=== PATIENT | female | born 1935 | race Caucasian/White ===

== ENCOUNTER → 2017-11-21 13:30 | Outpatient (CLI) | payer MEDICARE, SELFPAY ==
[2017-11-11 03:07] VITALS: BMI 25.7
== END ==
PROVIDERS: PCP Internal Medicine; Visit Provider Internal Medicine
DX: S81.801A Unspecified open wound, right lower leg, initial encounter (principal); L03.115 Cellulitis of right lower limb
CPT/HCPCS: 11042; 11045

== ENCOUNTER → 2017-11-28 13:50 | Outpatient (CLI) | payer MEDICARE, SELFPAY ==
[2017-11-11 03:07] VITALS: BMI 25.7
== END ==
PROVIDERS: PCP Internal Medicine; Visit Provider Internal Medicine
DX: S81.801A Unspecified open wound, right lower leg, initial encounter (principal)
CPT/HCPCS: 11042; 11045; 97607

== ENCOUNTER 2017-12-01 22:24 | Inpatient (IN) | payer MEDICARE, SELFPAY ==
[2017-11-11 03:07] VITALS: BMI 25.7
[2017-12-01 22:38] VITALS: BP 170/88; PULSE 73; RESP 18; TEMP 36.3; O2SAT 96
--- NOTE | 2017-12-01 22:41 | DI.RAD.S_ITS ---
PROCEDURE: XR HIP W PEL IF DONE RT 2V INDICATIONS: hip dislocation TECHNIQUE: AP pelvis with lateral view(s) of the right hip(s). COMPARISON: [facility], , XR HIP W PEL IF DONE RT 2V, 11/10/2017, 15:21. FINDINGS: Bones: No fractures. Dislocation of the right hip arthroplasty. Pelvic ring appears intact. No suspicious bony lesions. Lower lumbar discogenic changes. Intact left hip arthroplasty in expected alignment. Soft tissues: The visualized bowel gas pattern is normal. No suspicious soft tissue calcifications. IMPRESSION: Dislocated right hip arthroplasty. Dictated by: Jn Urbina M.D. on 12/02/2017 at 7:16 Approved by: Jn Urbina M.D. on 12/02/2017 at 7:18
[2017-12-01] MEDS: HYDROMORPHONE 0.5 MG INJ IV ×2 (22:52→23:50)
[2017-12-01 23:23] LABS: Add Manual Diff / Slide Review NO; Basophils Percent Auto 1.5 % (0-2); Eosinophils Percent Auto 1.3 % (2-4); Hematocrit 29.6 % (36-46); Lymphocytes Percent Auto 19.2 % (25-40); Mean Corpuscular HGB Conc 33.8 % (30-36); Mean Corpuscular Hemoglobin 33.3 PG (26-34); Mean Corpuscular Volume 98.3 fL (80-100); Monocytes Percent Auto 16.4 % (3-14); Neutrophils Absolute Auto 2400 /uL (3000-5900); Neutrophils Percent Auto 61.6 % (50-75); Platelet Count 248 X10^3/uL (150-400); Red Blood Cell Count 3.01 X10^6/uL (4.0-5.2); Red Cell Distribution Width 17.3 % (11.6-14.8); White Blood Cell Count 3.9 X10^3/uL (4.5-11.0)
[2017-12-01 23:30] VITALS: BP 143/69; PULSE 64; RESP 18
[2017-12-01 23:53] LABS: Blood Urea Nitrogen 12 mg/dL (7-17); Carbon Dioxide 25 mmol/L (22-32); Chloride 100 mmol/L (98-107); Estimated Glomerular Filt Rate > 60.0 mL/min (>60); Glucose 96 mg/dL (80-110); HEMOLYSIS < 15 (0-50); Potassium 4.1 mmol/L (3.4-5.1); Sodium 136 mmol/L (137-145)
[2017-12-02] VITALS (18 sets, daily range): BP systolic 124–161; BP diastolic 59–89; PULSE 58–84; RESP 10–18; TEMP 35.9–36.8; O2SAT 94–100; BMI 25.8
--- NOTE | 2017-12-02 | DI.RAD.S_ITS ---
PROCEDURE: XR HIP RT 1V INDICATIONS: 82 year-old female with right hip dislocation. TECHNIQUE: Single frontal intraprocedural view of the hip acquired. COMPARISON: [facility], [facility], XR HIP W PEL IF DONE RT 2V, 11/10/2017, 15:21. [facility], [facility], XR HIP W PEL IF DONE RT 2V, 11/10/2017, 13:10. [facility], [facility], HIP 1V RIGHT, 11/01/2017, 19:43. [facility], , [id number] W PEL IF PERFORMED, 11/01/2017, 16:09. [facility], [facility], XR HIP W PEL IF DONE RT 2V, 12/01/2017, 22:27. FINDINGS: Bones: Right hip is now in anatomic alignment after closed reduction. Visualized portions of right hip arthroplasty hardware appear intact and in expected positions. Soft tissues: No suspicious soft tissue calcifications or masses. IMPRESSION: Fluoroscopic guidance for closed reduction of recurrent right hip joint dislocation. Dictated by: Leonel Corley M.D. on 12/02/2017 at 14:02 Approved by: Leonel Corley M.D. on 12/02/2017 at 14:03
[2017-12-02] MEDS: HYDROMORPHONE 0.5 MG INJ 1 MG IV ×5 (01:43→12:43)
[2017-12-02] MEDS: SODIUM CHLORIDE 0.9% 1,000 ML 100 ML IV ×2 (01:43→11:01)
[2017-12-02] MEDS: ONDANSETRON 4 MG/2 ML INJ IV (03:21)
--- NOTE | 2017-12-02 06:48 | ED_ITS ---
HPI - Extremity Injury (Lower) General Chief Complaint: Extremity Injury, Lower Stated Complaint: Rt Hip Dislocation Time Seen by Provider: 12/01/17 22:50 Source: patient and EMS Mode of arrival: EMS Limitations: no limitations History of Present Illness HPI Narrative: Patient presents via EMS for evaluation of suspected right hip dislocation. This will be her 3rd occurrence in the past week. She was standing up, leaning forward from a toilet and felt the familiar pop. She is unable to ambulate has excessive pain. EMS arrived and brought her to the department. She has a complicated medical history includes open heart surgery for thoracic aneurysm repair. Patient presented to the emergency department a few days ago and anesthesia provided sedation well the ED provider performed the reduction. They were unsuccessful with the use of propofol alone in end up needing succinylcholine. A superficial right lower extremity skin tear resulted and patient has a wound VAC in place which has been managed by wound care. MD complaint: hip injury Onset (ago): minute(s) Place: home Severity: moderate Relieving factors: nothing Exacerbating factors: nothing Context: other (Standing up) Associated symptoms: snap/pop sensation and unable to bear weight Related Data Home Medications Medication Instructions Recorded Confirmed warfarin [Coumadin] 2.5 mg PO QWEEK #0 11/29/11 12/02/17 gabapentin 100 mg PO TID #0 03/04/17 12/02/17 warfarin [Coumadin] 5 mg PO DAILY #0 03/04/17 12/02/17 gabapentin 100 - 300 mg PO QHS 11/10/17 12/02/17 metoprolol tartrate 50 mg PO BID 11/10/17 12/02/17 oxycodone 5 - 10 mg PO Q4-6H PRN 11/10/17 12/02/17 primidone [Mysoline] 1.5 tab PO HS 11/10/17 12/02/17 spironolactone 25 mg PO QDAY 11/10/17 12/02/17 Previous Rx's Medication Instructions Recorded carbidopa-levodopa 1 tab PO TID #275 tab 07/29/17 Allergies Allergy/AdvReac Type Severity Reaction Status Date / Time No Known Drug Allergies Allergy Verified 11/10/17 13:03 Review of Systems Review of Systems All systems reviewed & are unremarkable except as noted in HPI and below Constitutional Denies chills, Denies fever(s), Denies lethargy and Denies weakness Eyes Denies change in vision, Denies eye discharge, Denies irritation and Denies loss of vision ENT Ears, Nose, Mouth, and Throat: Denies change in voice, Denies neck pain and Denies sore throat Cardiovascular Denies chest pain, Denies irregular heart rhythm, Denies lightheadedness, Denies palpitations, Denies dyspnea, Denies dyspnea on exertion and Denies orthopnea Respiratory Denies cough, Denies dyspnea, Denies dyspnea on exertion and Denies wheezing Gastrointestinal Gastrointestinal: Denies abdominal pain, Denies change in bowel habits, Denies diarrhea, Denies nausea and Denies vomiting Genitourinary Denies hematuria, Denies flank pain, Denies urinary incontinence and Denies urinary urgency Musculoskeletal Reports abnormal gait, Reports limited range of motion and Denies neck pain Integumentary/Breasts Denies pruritus, Denies erythema, Denies rash and Denies wounds Neurologic Reports abnormal gait, Denies confusion, Denies loss of vision and Denies weakness Psychiatric Denies anxiety, Denies confusion, Denies depression, Denies homicidal ideation and Denies suicidal ideation Endocrine Denies palpitations Hematologic/Lymphatic Denies easy bruising Allergic/Immunologic Denies wheezing PFSH Family History Mother Dementia Coronary artery disease Father Diabetes mellitus Social History number of children: 2 household members: none occupational status: previously employed Smoking Status: Never smoker alcohol intake: current Exam Narrative Exam Narrative: Pleasant 82-year-old female obviously in pain Initial Vital Signs Initial Vital Signs: Vital Signs Temperature 97.4 F L 12/01/17 22:38 Pulse Rate 73 12/01/17 22:38 Respiratory Rate 18 12/01/17 22:38 Blood Pressure 170/88 H 12/01/17 22:38 Pulse Oximetry 96 12/01/17 22:38 Const General: cooperative and well developed Nutritional Appearance: well nourished Orientation: alert, awake, oriented x3 and not confused HENNV Head: normocephalic and atraumatic Ears: external ears normal and TM's normal bilaterally Nose: external nose normal and No nasal discharge Face and sinus: sinuses nontender, face symmetric, no sinus tenderness and No dry mucous membranes Mouth: oral mucosae normal and moist mucous membranes Teeth and gingiva: dentition normal Throat: tonsils normal and uvula midline Resp Effort & Inspection: normal respiratory effort, able to speak in complete sentences, no respiratory distress and no use of accessory muscles Auscultation: clear to auscultation bilaterally, no rales, no rhonchi and no wheezes GI Inspection: non-distended Palpation: soft, no hepatosplenomegaly, No guarding, No pulsatile mass and No tender Auscultation: normal bowel sounds Back/Spine/Pelvis Back: No CVA tenderness Cervical Spine: cervical ROM normal and No pain with cervical ROM Thoracic/Lumbar Spine: thoracic and lumbar spine normal to inspection Skin General: no rashes or lesions noted, No jaundice and No petechiae Neuro General: alert, awake and oriented x3 Cognition: normal cognition Speech: speech normal Motor: muscle tone normal throughout Sensory Exam: no sensory deficits noted Extrem Right lower extremity: hip/thigh (closed, isolated, NV in tact. Normal cap refill. Dorsalis Pedis 2+) Details: abnormal to inspection, tenderness, abnormal ROM and deformity Location: at the hip Course Orders Ordered: ED Orders 12/01/17 22:41 XR hip w pel if done RT 2V Stat 12/01/17 23:14 Basic Metabolic Panel Stat Complete Blood Count AUTO DIFF Stat 12/02/17 01:08 Consult to Orthopedic Surgery Routine Hydromorphone HCl (Dilaudid) 1 mg IV Q4H PRN PRN Reason: Pain, Severe Last Admin: 12/02/17 06:16 Dose: 1 mg Admin: 12/02/17 01:43 Dose: 1 mg Sodium Chloride (Normal Saline 0.9%) 1,000 mls @ 100 mls/hr IV CONT PITER Last Admin: 12/02/17 01:43 Dose: 100 mls/hr Ondansetron HCl (Zofran) 4 mg IV Q6HR PRN PRN Reason: Nausea And Vomiting Last Admin: 12/02/17 03:21 Dose: 4 mg Discontinued Medications Hydromorphone HCl (Dilaudid) 0.5 mg IV NOW ONE Stop: 12/01/17 22:52 Last Admin: 12/01/17 22:52 Dose: 0.5 mg Hydromorphone HCl (Dilaudid) 0.5 mg IV NOW ONE Stop: 12/01/17 23:45 Last Admin: 12/01/17 23:50 Dose: 0.5 mg Ondansetron HCl 4 mg/ Sodium (Chloride) 102 mls @ 204 mls/hr IV Q6HR PRN PRN Reason: Nausea And Vomiting Consultations Consultation #1: Case discussed with on-call orthopedics, Dr. Santillan, he recommends admission to hospitalist and will follow tomorrow Consultation #2: Dr. Aguiar happy to accept patient on his service Vital Signs - 8 hr 12/01/17 23:30 12/02/17 00:01 12/02/17 01:41 Temperature 97.0 F L Pulse Rate 64 58 L 77 Respiratory Rate 18 18 16 Blood Pressure 151/80 H Blood Pressure [Left Arm] 143/69 H 135/60 H Pulse Oximetry 96 94 12/02/17 04:39 Temperature 97.0 F L Pulse Rate 78 Respiratory Rate 16 Blood Pressure 141/80 H Blood Pressure [Left Arm] Pulse Oximetry 97 MDM - Extremity Injury (Lower) Lab Data Result diagrams: 12/01/17 23:14 12/01/17 23:14 Lab Results 12/01/17 12/01/17 Range/Units 23:14 23:14 WBC 3.9 L (4.5-11.0) X10^3/uL RBC 3.01 L (4.0-5.2) X10^6/uL Hgb 10.0 L (12.0-16.0) g/dL Hct 29.6 L (36-46) % MCV 98.3 (80-100) fL MCH 33.3 (26-34) PG MCHC 33.8 (30-36) % RDW 17.3 H (11.6-14.8) % Plt Count 248 (150-400) X10^3/uL Neut % (Auto) 61.6 (50-75) % Lymph % (Auto) 19.2 L (25-40) % [place] % (Auto) 16.4 H (3-14) % Eos % (Auto) 1.3 L (2-4) % Baso % (Auto) 1.5 (0-2) % Neut # (Auto) 2400 L (5832-5650) /uL Sodium 136 L (137-145) mmol/L Potassium 4.1 (3.4-5.1) mmol/L Chloride 100 (98-107) mmol/L Carbon Dioxide 25 (22-32) mmol/L BUN 12 (7-17) mg/dL Creatinine 0.50 L (0.52-1.04) mg/dL Estimated GFR > 60.0 (>60) mL/min BUN/Creatinine Ratio 24.0 H (6-22) Glucose 96 (80-110) mg/dL Calcium 9.0 (8.4-10.2) mg/dL Discharge Plan Departure Patient Disposition: Admitted As Inpatient Discharge Date/Time: 12/02/17 00:50 Interventions: ED Discharge Assessment Last Done: 12/02/17 00:51 Admit Date/Time: 12/02/17 00:17 Admit Provider: Ronal Aguiar
--- NOTE | 2017-12-02 07:25 | PM.PN.1 ---
Subjective Date Patient Seen: 12/02/17 Time Patient Seen: 07:25 Exam Vital Signs (past 8 hours): Vital Signs - 8 hr 12/01/17 23:30 12/02/17 00:01 12/02/17 01:41 Temperature 97.0 F L Pulse Rate 64 58 L 77 Respiratory Rate 18 18 16 Blood Pressure 151/80 H Blood Pressure [Left Arm] 143/69 H 135/60 H Pulse Oximetry 96 94 12/02/17 04:39 Temperature 97.0 F L Pulse Rate 78 Respiratory Rate 16 Blood Pressure 141/80 H Blood Pressure [Left Arm] Pulse Oximetry 97 Pulse Oximetry 97 Oxygen Delivery Method Room Air Narrative Exam Narrative: Patient is well developed well nourished in no acute distress. Patient alert oriented x3. Patient is comfortably resting in bed. Patient has been seeing Wound Clinic for a large vascular wound on her right clemons. Came into with a hip dislocation. She is NVI in the lower extremities. Wound vacuum is CDI. Patient cannot comfortably roll over or move at this time. She has tenderness over the right hip and appears shortened. Objective Labs Result Diagrams: 12/01/17 23:14 12/01/17 23:14 Labs: Laboratory Results - last 24 hr 12/01/17 12/01/17 23:14 23:14 WBC 3.9 L RBC 3.01 L Hgb 10.0 L Hct 29.6 L MCV 98.3 MCH 33.3 MCHC 33.8 RDW 17.3 H Plt Count 248 Neut % (Auto) 61.6 Lymph % (Auto) 19.2 L [place] % (Auto) 16.4 H Eos % (Auto) 1.3 L Baso % (Auto) 1.5 Neut # (Auto) 2400 L Sodium 136 L Potassium 4.1 Chloride 100 Carbon Dioxide 25 BUN 12 Creatinine 0.50 L Estimated GFR > 60.0 BUN/Creatinine Ratio 24.0 H Glucose 96 Calcium 9.0 Assessment & Plan Plan: Plan: Patient has a right hip replacement that has dislocated multiple times in the past few weeks. She needs to be reduced possibly revised but this will be up to the surgeon that sees her. Continue with pain control DVT prophylaxis. Awaiting surgical consult. Time Spent With Patient Time with patient: less than 15 minutes Quality VTE Deep Vein Thrombosis/Pulmonary Embolism Present on Admission: No
--- NOTE | 2017-12-02 07:28 | P.PN_ITS ---
Subjective Date Patient Seen: 12/02/17 Time Patient Seen: 07:25 Exam Vital Signs (past 8 hours): Vital Signs - 8 hr 3 12/01/17 23:30 12/02/17 00:01 12/02/17 01:41 Temperature 97.0 F L Pulse Rate 64 58 L 77 Respiratory Rate 18 18 16 Blood Pressure 151/80 H Blood Pressure [Left Arm] 143/69 H 135/60 H Pulse Oximetry 96 94 3 12/02/17 04:39 Temperature 97.0 F L Pulse Rate 78 Respiratory Rate 16 Blood Pressure 141/80 H Blood Pressure [Left Arm] Pulse Oximetry 97 Pulse Oximetry 97 Oxygen Delivery Method Room Air Narrative Exam Narrative: Patient is well developed well nourished in no acute distress. Patient alert oriented x3. Patient is comfortably resting in bed. Patient has been seeing Wound Clinic for a large vascular wound on her right clemons. Came into with a hip dislocation. She is NVI in the lower extremities. Wound vacuum is CDI. Patient cannot comfortably roll over or move at this time. She has tenderness over the right hip and appears shortened. Objective Labs Result Diagrams: 12/01/17 23:14 12/01/17 23:14 Labs: Laboratory Results - last 24 hr 12/01/17 12/01/17 23:14 23:14 WBC 3.9 L RBC 3.01 L Hgb 10.0 L Hct 29.6 L MCV 98.3 MCH 33.3 MCHC 33.8 RDW 17.3 H Plt Count 248 Neut % (Auto) 61.6 Lymph % (Auto) 19.2 L [place] % (Auto) 16.4 H Eos % (Auto) 1.3 L Baso % (Auto) 1.5 Neut # (Auto) 2400 L Sodium 136 L Potassium 4.1 Chloride 100 Carbon Dioxide 25 BUN 12 Creatinine 0.50 L Estimated GFR > 60.0 BUN/Creatinine Ratio 24.0 H Glucose 96 Calcium 9.0 Assessment & Plan Plan: Plan: Patient has a right hip replacement that has dislocated multiple times in the past few weeks. She needs to be reduced possibly revised but this will be up to the surgeon that sees her. Continue with pain control DVT prophylaxis. Awaiting surgical consult. Time Spent With Patient Time with patient: less than 15 minutes Quality VTE Deep Vein Thrombosis/Pulmonary Embolism Present on Admission: No
--- NOTE | 2017-12-02 07:52 | PC.NURSE ---
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 Non radiating, no increase in pain with deep breaths, O2 sat 94% on CPAP, HR regular upon auscultation at 65bpm. Chest pain is intermittent & pt states has at home & doesn't take any meds for relief. Pt had another episode around 0215 of chest pain, similar as described above. Pt stated having an abd hernia also, Tums prn given at 0220 & protonix prn given at 0220. Upon reassessment pt slept for approx 3hrs. Pt remained on continuous O2 monitoring from throughout. Pt had 3rd reported episode of 5/10 chest pain non radiating. Dr. Aguiar called, new orders rec'd for EKG, Troponin level, & one time dose of Morphine 2mg IVP. Upon reassessment, 20mins later, pt denied chest pain. Guiac stool negative X1 per TOWER DIRECTOR report. BLE edema 3+ pitting from feet to above knees. Left dorsal ppulse palpable, right dorsal pulse found with doppler, pulses marked with pen. OOB with 1PA using walker to BR. Remained on Telemetry monitoring, Called ICU at 0500, spoke with RN who reported no issue overnight re pt's tele monitor. Pt reported that she doesn't know what are good food choices at home, her does the shopping & cooking also. Would like further education on proper diet. Passed to day RN for nutritional consult.
--- NOTE | 2017-12-02 08:06 | PC.NURSE ---
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 Settled into bed with slider board, High fall risk precautions in place. Pt A&OX3, able to make needs known. reports 8-9/10 pain to right hip area. Prn pain meds discussed, Dilaudid IVP prn given at 0130 per order, pt stated pain decreased to 6-7/10. Zofran IVP prn given at 0320 for mild nausea. NPO throughout shift, IVF NS @ 100mls/hr started through right FA PIV. Right hip old purple, yellow bruise noted. RLE edema 2+ non pitting, PPP. Pt has right clemons ROLO dressing intact with old dry serous drainage present. ROLO machine has green intermittent light flashing. Pt states dressing was last changed last tuesday 11/28. And was [told by Dr. Edmond when the drainage is touching the edges of the gauze to call the wound clinic to have the dressing changed]. Pt's original plan was to call the clinic today.
[2017-12-02 09:18] LABS: Prothrombin Time 32.3 SECONDS (10.1-12.7)
[2017-12-02 09:29] LABS: Add Manual Diff / Slide Review NO; Basophils Percent Auto 0.8 % (0-2); Eosinophils Percent Auto 0.4 % (2-4); Hematocrit 30.7 % (36-46); Hemoglobin 10.3 g/dL (12.0-16.0); Lymphocytes Percent Auto 14.2 % (25-40); Mean Corpuscular HGB Conc 33.5 % (30-36); Mean Corpuscular Hemoglobin 33.2 PG (26-34); Mean Corpuscular Volume 99.1 fL (80-100); Monocytes Percent Auto 15.8 % (3-14); Neutrophils Absolute Auto 4000 /uL (3000-5900); Neutrophils Percent Auto 68.8 % (50-75); Platelet Count 251 X10^3/uL (150-400); Red Cell Distribution Width 17.5 % (11.6-14.8); White Blood Cell Count 5.8 X10^3/uL (4.5-11.0)
--- NOTE | 2017-12-02 09:35 | P.HP_ITS ---
History of Present Illness Chief complaint: Rt Hip Dislocation Narrative: Renae Iverson is a 82 year old female under care of Dr. 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 This is her 3rd or 4th dislocation in the past month. This time she was getting up from the toilet using hand bars on either side and felt a pop in the right hip and fell to the ground. She was able to activate her lifeline and get immediate help. X-rays in the ER showed right hip dislocation of her arthroplasty. she is on warfarin anticoagulation for atrial fibrillation. She also has history of tremor undetermined whether essential or Parkinson's. She denies any recent fever, chills, cough, chest pain, shortness of breath, abdominal pain or urinary symptoms. She has been going to outpatient wound care for a right lower clemons wound and currently has a wound VAC. Patient History Medical History Ascending aortic aneurysm (Acute) B12 deficiency (Acute) Breast implant status (Acute) Cerebrovascular disease (Acute) Hepatic steatosis (Acute) Hyperlipidemia (Acute) Hypertension (Acute) Osteoarthritis (Acute) Paralysis of left vocal fold (Acute) Paroxysmal atrial fibrillation (Acute) Partial epilepsy (Acute) Seizure as late effect of cerebrovascular accident (CVA) (Acute) Transient ischemic attack (Acute) Tremor (Acute) Surgical History H/O hysterectomy with oophorectomy (Acute) History of total left hip arthroplasty (Acute) History of total right hip arthroplasty (Acute) History of total right knee replacement (Acute) S/P Mohs surgery for basal cell carcinoma (Acute) S/P ascending aortic aneurysm repair (Acute) Family & Social History Family History: Reviewed 12/02/17 by Ronal Aguiar MD Social History: household members none Prior Living Arrangements Apartment/Condo Safety & Behavioral: Feels Safe in Current Yes Environment Been Physically Hurt or No Threatened By a Person Suicidal Ideation Description None Suicide Plan Description No Plan Tobacco & Substance use: Smoking Status Never smoker alcohol intake current alcohol intake frequency a few times a week Substance Use Type does not use Meds Home Medications Medication Instructions Recorded Confirmed Type warfarin [Coumadin] 2.5 mg PO QWEEK #0 11/29/11 12/02/17 History gabapentin 100 mg PO TID #0 03/04/17 12/02/17 History warfarin [Coumadin] 5 mg PO DAILY #0 03/04/17 12/02/17 History carbidopa-levodopa 1 tab PO TID #275 tab 07/29/17 12/02/17 Rx gabapentin 100 - 300 mg PO QHS 11/10/17 12/02/17 History metoprolol tartrate 50 mg PO BID 11/10/17 12/02/17 History oxycodone 5 - 10 mg PO Q4-6H PRN 11/10/17 12/02/17 History primidone [Mysoline] 1.5 tab PO HS 11/10/17 12/02/17 History spironolactone 25 mg PO QDAY 11/10/17 12/02/17 History Allergies Allergy/AdvReac Type Severity Reaction Status Date / Time No Known Drug Allergies Allergy Verified 11/10/17 13:03 Review of Systems Review of Systems All systems reviewed & are unremarkable except as noted in HPI and below Exam Vital Signs (past 8 hours): Vital Signs - 8 hr 3 12/02/17 01:41 12/02/17 04:39 12/02/17 07:32 Temperature 97.0 F L 97.0 F L 96.7 F L Pulse Rate 77 78 70 Respiratory Rate 16 16 18 Blood Pressure 151/80 H 141/80 H 128/66 H Pulse Oximetry 94 97 98 Pulse Oximetry 98 Oxygen Delivery Method Room Air Narrative Exam Narrative: GENERAL: Alert very pleasant elderly female currently appearing comfortable HEAD: Atraumatic. Normocephalic. EYES: Pupils equal, round and reactive. Extraocular motions intact. No scleral icterus. No injection or drainage. OROPHARYNX: moist mucosa NECK: Trachea midline. No JVD or lymphadenopathy. CARDIOVASCULAR: Irregularly irregular rhythm without murmur RESPIRATORY: Clear to auscultation bilaterally. GASTROINTESTINAL: Abdomen nondistended, soft, non-tender. No hepato- splenomegaly, or palpable masses. EXTREMITIES: No pretibial edema. Right hip dislocated. Intact distal sensation. Dorsalis pedis pulse palpable distally in right leg. There is a saturated wound VAC dressing on the right lower clemons. NEUROLOGICAL: Alert, well oriented, speech is intact, nonfocal Objective Labs Result Diagrams: 12/02/17 09:00 12/01/17 23:14 Labs: Laboratory Results - last 24 hr 12/01/17 12/01/17 12/02/17 23:14 23:14 09:00 WBC 3.9 L 5.8 RBC 3.01 L 3.10 L Hgb 10.0 L 10.3 L Hct 29.6 L 30.7 L MCV 98.3 99.1 MCH 33.3 33.2 MCHC 33.8 33.5 RDW 17.3 H 17.5 H Plt Count 248 251 Neut % (Auto) 61.6 68.8 Lymph % (Auto) 19.2 L 14.2 L [place] % (Auto) 16.4 H 15.8 H Eos % (Auto) 1.3 L 0.4 L Baso % (Auto) 1.5 0.8 Neut # (Auto) 2400 L 4000 PT INR Sodium 136 L Potassium 4.1 Chloride 100 Carbon Dioxide 25 BUN 12 Creatinine 0.50 L Estimated GFR > 60.0 BUN/Creatinine Ratio 24.0 H Glucose 96 Calcium 9.0 12/02/17 09:00 WBC RBC Hgb Hct MCV MCH MCHC RDW Plt Count Neut % (Auto) Lymph % (Auto) [place] % (Auto) Eos % (Auto) Baso % (Auto) Neut # (Auto) PT 32.3 H INR 3.0 H Sodium Potassium Chloride Carbon Dioxide BUN Creatinine Estimated GFR BUN/Creatinine Ratio Glucose Calcium Assessment & Plan Plan: Plan: 1. Recurrent dislocation of right hip prosthesis: Patient is NPO awaiting definitive treatment in OR by Orthopedic surgery. Use IV Dilaudid as needed for pain control. 2. Paroxysmal atrial fibrillation, on chronic anticoagulation: She is in atrial fibrillation on exam, asymptomatic. INR 3.0. Will allow INR to drift down on its own unless Orthopedics surgery wishes to give her FFP prior to surgery. She does have history of stroke and should not be without anticoagulation for any prolonged period. Continue metoprolol tartrate 50 mg twice daily preop and postop. 3. 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 She is also on gabapentin. 4. Disposition: Inpatient admit. Quality VTE Deep Vein Thrombosis/Pulmonary Embolism Present on Admission: No
[2017-12-02] MEDS: METOPROLOL 50 MG TABLET PO ×2 (09:56→21:56)
--- NOTE | 2017-12-02 10:02 | PC.NURSE ---
Day shift: A&Ox3. VS WNL. Tele Afib. Pt has Hx Afib. Gave 50mg PO Metoprolol per MAR and Dr ureña said she needs it. Waiting on info fromsurgery. Pt is NPO. It is her right hip that poped out. 1mg IV Dilaudid Q1 hr is controlling pain. NS at 100 rt FA. Jennifer patent. [place] BLE's 1+. Bruise left hip from fall on the 8th of this month. Dr Aguiar aware of ROLO dressing and will be getting a wound consult. Call light in reach. Uses it proper and agrees to not get OOB w/o help from staff.
--- NOTE | 2017-12-02 12:41 | CM.DPNOTE ---
Addendum entered by Patti Carrillo 12/02/17 14:53: Patient ended up having surgery. CM to follow up after PT eval to determine discharge needs or plan. Original Note: Patient is pending surg consult. CM to follow up following surg consult.
--- NOTE | 2017-12-02 13:02 | PC.NURSE ---
Day shift: Pt left unit with surgical oncologist and aide at approx 1240. Off tele and ADDICTION THERAPIST knows. SL from IV fluids. Gave Pt 1mg IV Dilaudid just prior to her going downstairs.
--- NOTE | 2017-12-02 13:05 | SUR.HOLD ---
PT TRANSFERED FROM ACUTE CARE FLOOR TO PRE OP AREA. PT ALERT AND TALKING TO RN. IV SITE CLEAR AND INFUSING WITHOUT DIFFICULTLY. CATHETER SECURE AND DRAINING CLEAR YELLOW URINE. PT PLACED ON HEART MONITOR IN PRE OP AREA. PT RHYTHM SHOWING AFIB WHICH IS BASELINE FOR PT. BED IN LOWEST POSITION AND CALL LIGHT GIVEN TO PT. PT APPEARS COMFORTABLE AT THIS TIME AND DENIES ANY PAIN/DISCOMFORT.
[2017-12-02] MEDS: LACTATED RINGERS 1,000 ML 42 ML IV (13:09)
--- NOTE | 2017-12-02 13:21 | PM.PREOP ---
Pre-operative Note Interval Note Pre-op Check: History & Physical Reviewed by Physician and Changes
--- NOTE | 2017-12-02 13:48 | PM.OP.1 ---
Operative Date/Time/Diagnoses - Date of procedure: 12/02/17 Time of procedure: 13:48 Pre-op diagnosis: Dislocated right prosthetic hip Post-op diagnosis: same Procedure & Clinicians Procedure: Closed reduction of right total hip replacement dislocation with anesthesia Same procedure as scheduled: Yes Indications: The patient is an 82-year-old woman who 3 weeks ago had a dislocation of her prosthetic hip. She had a repeat dislocation last night and was taken to the hospital for treatment. She has been admitted to the medical service for multiple medical issues chiefly her cardiac status. Dr. Kendrick Santillan was consulted for Orthopedics and he has requested that I perform a closed reduction due to available operating room time. Patient has agreed to this after discussion the risks benefits and alternatives. She is aware that open reduction would not be performed today due to her anticoagulated status. Surgeon: Moises Abernathy Click Yes if Unassisted: Yes Anesthesia Type: General Operative Notes Findings: Difficult reduction with significant traction required. Closure Type: not applicable Specimen(s): none sent Implants & Drains: None Estimated Blood Loss (mL): 0 Blood products transfused: none Tourniquet time (min): 0 Procedure in detail: The patient was seen in the preoperative area where she identified the right hip as the operative site and this was marked with my initials. Informed consent was obtained. No antibiotics were administered due to the closed nature of the procedure. The patient was taken to the operating room on her hospital bed where she underwent a general anesthetic. She was then transferred to the operating room table. The hip was reduced with flexion, internal rotation, adduction and traction. This was a difficult reduction requiring significant traction. The patient has had a wound being treated on her lower right leg and this was carefully protected throughout the procedure. Concentric reduction was verified on fluoroscopy and the patient was placed in an abduction splint. Complications: none Condition: stable Disposition: PACU Plan for aftercare: The patient will be maintained in her current foam abduction splint until an abduction brace is available. Once she is fitted with the abduction brace she can be mobilized with physical therapy.
--- NOTE | 2017-12-02 14:17 | SUR.PHASEI ---
report called to jarret, stable pacu stay to room via bed and on room air.
[2017-12-02] MEDS: OXYCODONE IR 5 MG TABLET PO ×2 (15:52→21:55)
[2017-12-02] MEDS: SPIRONOLACTONE 25 MG TABLET PO (15:54)
[2017-12-02] MEDS: CARBIDOPA-LEVODOPA ER 50/200 TABLET 1 EACH PO ×2 (15:54→21:56)
--- NOTE | 2017-12-02 17:04 | PT.IPTN ---
Current Diagnoses Dislocation of internal right hip prosthesis, initial encounter (12/02/17) Surgery Performed Operation Date: 12/02/17 10:45 Actual Procedures p Closed Reduction Dislocated Hip Relocation Hip(Right) - Moises Abernathy MD Physical Therapy Treatment Note M3 PT-IP Subjective Start: 12/02/17 16:56 Freq: NEEDED Status: Active Protocol: Document 12/02/17 16:56 AB (Rec: 12/02/17 17:04 AB [id number]) Subjective Physical Therapy Visit Type Type Administrative Note Notes received doctor's order but per dr Abernathy' operative notes: Plan for aftercare: The patient will be maintained in her current foam abduction splint until an abduction brace is available. Once she is fitted with the abduction brace she can be mobilized with physical therapy. At this time, no doctor's order received for abduction brace or given parameters for the brace. informed nurse. contacted Tomasa from [facility] and informed regarding possible need for abduction brace. talked to pt for fitting and agreed. will f/u on orders and informed tomasa when order received.
[2017-12-02] MEDS: GABAPENTIN 100 MG CAPSULE PO (17:38)
[2017-12-02] MEDS: GENTAMICIN 0.1% CREAM 30 GM 1 APPLIC TOP (17:38)
[2017-12-02] MEDS: PRIMIDONE 50 MG TABLET 75 MG PO (21:56)
[2017-12-02] MEDS: GABAPENTIN 100 MG CAPSULE 300 MG PO (21:56)
[2017-12-03] VITALS (11 sets, daily range): BP systolic 105–144; BP diastolic 58–71; PULSE 58–90; RESP 16–21; TEMP 36.6–37; O2SAT 91–98
[2017-12-03 05:50] LABS: Add Manual Diff / Slide Review NO; Basophils Percent Auto 0.6 % (0-2); Hematocrit 31.1 % (36-46); Hemoglobin 10.4 g/dL (12.0-16.0); Lymphocytes Percent Auto 14.1 % (25-40); Mean Corpuscular HGB Conc 33.6 % (30-36); Mean Corpuscular Hemoglobin 33.3 PG (26-34); Mean Corpuscular Volume 99.2 fL (80-100); Monocytes Percent Auto 18.3 % (3-14); Neutrophils Absolute Auto 3600 /uL (3000-5900); Platelet Count 231 X10^3/uL (150-400); Red Blood Cell Count 3.13 X10^6/uL (4.0-5.2); Red Cell Distribution Width 16.9 % (11.6-14.8); White Blood Cell Count 5.4 X10^3/uL (4.5-11.0)
[2017-12-03 05:51] LABS: INR 2.6 (0.9-1.3)
[2017-12-03 06:08] LABS: Blood Urea Nitrogen 12 mg/dL (7-17); Calcium 8.7 mg/dL (8.4-10.2); Carbon Dioxide 26 mmol/L (22-32); Chloride 98 mmol/L (98-107); Estimated Glomerular Filt Rate > 60.0 mL/min (>60); Glucose 85 mg/dL (80-110); HEMOLYSIS < 15 (0-50); Potassium 4.3 mmol/L (3.4-5.1); Sodium 134 mmol/L (137-145)
[2017-12-03] MEDS: GABAPENTIN 100 MG CAPSULE PO ×3 (08:45→16:59)
[2017-12-03] MEDS: METOPROLOL 50 MG TABLET PO ×2 (08:46→21:21)
[2017-12-03] MEDS: SPIRONOLACTONE 25 MG TABLET PO (08:46)
[2017-12-03] MEDS: CARBIDOPA-LEVODOPA ER 50/200 TABLET 1 EACH PO ×3 (08:46→21:21)
[2017-12-03] MEDS: OXYCODONE IR 5 MG TABLET PO ×3 (08:51→21:22)
--- NOTE | 2017-12-03 08:55 | P.CONS_ITS ---
History of Present Illness Date Patient Seen: 12/02/17 Time Patient Seen: 14:30 Chief complaint: Rt Hip Dislocation Reason for consult: right lower leg non-pressure ulcer Requesting provider: Ronal Aguiar Narrative: The patient's well known to the wound care clinic where we've been managing a right lower leg non-pressure ulcer that resulted from trauma to the area during her surgery to reduce a recurrent right hip dislocation. She's was on warfarin for afib and developed a hematoma of the anterior right lower leg that eventually deteriorated, was infected, and has been improving recently with antibiotics and routine wound care measures. We'd placed a ROLO wound vac last week also. She apparently was attempting to stand from sitting when the hip again dislocated and she's now admitted and awaiting surgery for this issue. She does not report pain or other acute issues regarding the right lower leg ulcer and has tolerated the wound vac without reporting any problems. 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) Transient ischemic attack (Acute) Tremor (Acute) Surgical History H/O hysterectomy with oophorectomy (Acute) History of total left hip arthroplasty (Acute) History of total right hip arthroplasty (Acute) History of total right knee replacement (Acute) S/P Mohs surgery for basal cell carcinoma (Acute) S/P ascending aortic aneurysm repair (Acute) Family History: Reviewed 12/02/17 by Ronal Aguiar MD Social History number of children: 2 household members: none occupational status: previously employed Smoking Status: Never smoker alcohol intake: current Meds Home Medications Medication Instructions Recorded Confirmed Type warfarin [Coumadin] 2.5 mg PO QWEEK #0 11/29/11 12/02/17 History gabapentin 100 mg PO TID #0 03/04/17 12/02/17 History warfarin [Coumadin] 5 mg PO DAILY #0 03/04/17 12/02/17 History carbidopa-levodopa 1 tab PO TID #275 tab 07/29/17 12/02/17 Rx gabapentin 100 - 300 mg PO QHS 11/10/17 12/02/17 History metoprolol tartrate 50 mg PO BID 11/10/17 12/02/17 History oxycodone 5 - 10 mg PO Q4-6H PRN 11/10/17 12/02/17 History primidone [Mysoline] 75 mg PO HS 11/10/17 12/02/17 History spironolactone 25 mg PO QDAY 11/10/17 12/02/17 History Allergies Allergy/AdvReac Type Severity Reaction Status Date / Time No Known Drug Allergies Allergy Verified 11/10/17 13:03 Review of Systems Cardiovascular Comments: right lower leg swelling Musculoskeletal Comments: right hip pain Exam Vital Signs (past 8 hours): Vital Signs - 8 hr 3 12/03/17 04:45 12/03/17 05:03 Temperature 97.9 F Pulse Rate 60 Respiratory Rate 21 Blood Pressure 117/71 Pulse Oximetry 97 96 Pulse Oximetry 96 Oxygen Delivery Method Room Air Oxygen Flow Rate 2 Const Other: alert and conversant; no distress Extrem Other: right lower leg ulcer dressed with wound vac foam which is partially saturated with drainage; no surrounding erythema; leg swelling is less than on last review in clinic Objective Labs Result Diagrams: 12/03/17 05:06 12/03/17 05:06 Labs: Laboratory Results - last 24 hr 12/02/17 12/02/17 12/03/17 09:00 09:00 05:06 WBC 5.8 5.4 RBC 3.10 L 3.13 L Hgb 10.3 L 10.4 L Hct 30.7 L 31.1 L MCV 99.1 99.2 MCH 33.2 33.3 MCHC 33.5 33.6 RDW 17.5 H 16.9 H Plt Count 251 231 Neut % (Auto) 68.8 66.0 Lymph % (Auto) 14.2 L 14.1 L [place] % (Auto) 15.8 H 18.3 H Eos % (Auto) 0.4 L 1.0 L Baso % (Auto) 0.8 0.6 Neut # (Auto) 4000 3600 PT 32.3 H INR 3.0 H Sodium Potassium Chloride Carbon Dioxide BUN Creatinine Estimated GFR BUN/Creatinine Ratio Glucose Calcium 12/03/17 12/03/17 05:06 05:06 WBC RBC Hgb Hct MCV MCH MCHC RDW Plt Count Neut % (Auto) Lymph % (Auto) [place] % (Auto) Eos % (Auto) Baso % (Auto) Neut # (Auto) PT 28.0 H INR 2.6 H Sodium 134 L Potassium 4.3 Chloride 98 Carbon Dioxide 26 BUN 12 Creatinine 0.60 Estimated GFR > 60.0 BUN/Creatinine Ratio 20.0 Glucose 85 Calcium 8.7 Assessment & Plan Plan: Plan: 1) right lower leg non-pressure ulcer I've written an order to remove the wound vac and simply cover the ulcer with foam dressings changing daily. Otherwise I'd like to see the patient in the wound care clinic within 2-3 days of hospital discharge at which time we'll re- evaluate the need for continued NPWT.
--- NOTE | 2017-12-03 09:29 | PM.PNPO.1 ---
Subjective Date Patient Seen: 12/03/17 Time Patient Seen: 09:29 Interval history: POD #1 status post closed reduction of right total hip arthroplasty dislocation with Dr. Abernathy. Patient's pain is well controlled. Patient takes warfarin. Patient is still in foam abduction splint, and awaiting abduction brace. She should not be mobilizing until she has her brace. She still has Rodriguez catheter in place. Exam Vital Signs (past 8 hours): Vital Signs - 8 hr 12/03/17 04:45 12/03/17 05:03 12/03/17 07:30 Temperature 97.9 F 98.3 F Pulse Rate 60 90 Respiratory Rate 21 16 Blood Pressure 117/71 144/63 H Pulse Oximetry 97 96 94 Pulse Oximetry 94 Oxygen Delivery Method Room Air Oxygen Flow Rate 2 Narrative Exam Narrative: Patient lying in bed in no acute distress. She is alert and oriented x3. Right lower extremity pressure wound is covered. SCDs in place. Calves are soft, compressible, nontender bilaterally. Pulses are symmetrical. Sensation intact to light touch throughout bilateral lower extremities. Objective Labs Result Diagrams: 12/03/17 05:06 12/03/17 05:06 Labs: Laboratory Results - last 24 hr 12/02/17 12/03/17 12/03/17 09:00 05:06 05:06 WBC 5.8 5.4 RBC 3.10 L 3.13 L Hgb 10.3 L 10.4 L Hct 30.7 L 31.1 L MCV 99.1 99.2 MCH 33.2 33.3 MCHC 33.5 33.6 RDW 17.5 H 16.9 H Plt Count 251 231 Neut % (Auto) 68.8 66.0 Lymph % (Auto) 14.2 L 14.1 L [place] % (Auto) 15.8 H 18.3 H Eos % (Auto) 0.4 L 1.0 L Baso % (Auto) 0.8 0.6 Neut # (Auto) 4000 3600 PT 28.0 H INR 2.6 H Sodium Potassium Chloride Carbon Dioxide BUN Creatinine Estimated GFR BUN/Creatinine Ratio Glucose Calcium 12/03/17 05:06 WBC RBC Hgb Hct MCV MCH MCHC RDW Plt Count Neut % (Auto) Lymph % (Auto) [place] % (Auto) Eos % (Auto) Baso % (Auto) Neut # (Auto) PT INR Sodium 134 L Potassium 4.3 Chloride 98 Carbon Dioxide 26 BUN 12 Creatinine 0.60 Estimated GFR > 60.0 BUN/Creatinine Ratio 20.0 Glucose 85 Calcium 8.7 Assessment & Plan Post-op (1) S/P closed reduction of dislocated total hip prosthesis: Current Visit: Yes Status: Acute (2) Hip dislocation, right: Problem details: Consult PT and OT. Mobilize and monitor. Current Visit: No Status: Acute Postoperative Procedures Operation Date: 12/02/17 10:45 Actual Procedures Side Surgeon p Closed Reduction Dislocated Hip Relocation Hip Right Moises Abernathy MD POD #1 status post closed reduction of right total hip arthroplasty dislocation with Dr. Abernathy. Patient waiting to be fitted for abduction brace, paper prescription in chart, flexion up to 70??, wear brace for 24/7- off for hygiene. Mobilize with PT once she has brace. Continue pain control and warfarin. DC once medically stable by Medicine. Time Spent With Patient less than 15 minutes Quality VTE Deep Vein Thrombosis/Pulmonary Embolism Present on Admission: No
--- NOTE | 2017-12-03 12:25 | PC.NURSE ---
1230 Pt up with assist of 2, not able to dc to home, plan is a SNF on Fri.
--- NOTE | 2017-12-03 12:43 | PT.IIE ---
Current Diagnoses Non-pressure chronic ulcer of other part of left lower leg with fat layer exposed (12/02/17) Unspecified dislocation of right hip, initial encounter (12/02/17) Dislocation of internal right hip prosthesis, initial encounter (12/02/17) Other specified postprocedural states (12/02/17) Surgery Performed Operation Date: 12/02/17 10:45 Actual Procedures p Closed Reduction Dislocated Hip Relocation Hip(Right) - Moises Abernathy MD Surgical History (Last Reviewed 12/03/17 @ 08:51 by Boy Edmond MD) H/O hysterectomy with oophorectomy (Acute) History of total left hip arthroplasty (Acute) History of total right hip arthroplasty (Acute) History of total right knee replacement (Acute) S/P Mohs surgery for basal cell carcinoma (Acute) S/P ascending aortic aneurysm repair (Acute) Medical History (Last Reviewed 12/03/17 @ 08:51 by Boy Edmond MD) Ascending aortic aneurysm (Acute) B12 deficiency (Acute) Breast implant status (Acute) Cerebrovascular disease (Acute) Hepatic steatosis (Acute) Hyperlipidemia (Acute) Hypertension (Acute) Osteoarthritis (Acute) Paralysis of left vocal fold (Acute) Paroxysmal atrial fibrillation (Acute) Partial epilepsy (Acute) 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 Has caregivers that comes in to assist her but not 24/7assist. Social History Household Members none Living Arrangements Apartment/Condo Number of Floors (Floors) One Floor Number of Stairs To Enter/Railing? no step to enter Home Environment Walk in Shower Home Equipment Raised Toilet Seat Without Armrests Shower Seat with Backrest Grab Bars In Shower Employment Status Retired M2 PT-IP Current Condition Start: 12/02/17 16:56 Freq: NEEDED Status: Active Protocol: Document 12/03/17 12:25 AB (Rec: 12/03/17 12:43 AB [id number]) Physical Therapy Current Condition Current Condition Evaluation Date 12/03/17 Treatment Diagnosis R hip dislocation s/p closed reduction Onset Date 12/02/17 Precautions Brace hip abduction brace on at all times per PA except for hygiene care/showers Other Precautions brace set at 70 deg hip flexion and 0 deg adduction Weight Bearing Status Weight Bearing Status Weight Bear as Tolerated M3 PT-IP Subjective Start: 12/02/17 16:56 Freq: NEEDED Status: Active Protocol: Document 12/03/17 12:25 AB (Rec: 12/03/17 12:43 AB [id number]) Subjective Physical Therapy Visit Type Type Initial Evaluation Visit Start Time 10:42 Visit Stop Time 12:05 Total Visit Minutes 83 Number of BACK DIGGER OPERATOR Visits 0 Physical Therapy Visit Comments Patient Comments pt agreeable to do therapy; stated that she is weaker than before Therapy Pain Assessment Pain When Pain Assessed At Rest Pain Present Pain Present Pain Reported Location Right Hip Intensity 2 Scale Used Numeric (1 - 10) Pain Management Techniques Timing of Activity with Medications M4 PT-IP Mobility and Gait Start: 12/02/17 16:56 Freq: NEEDED Status: Active Protocol: Document 12/03/17 12:25 AB (Rec: 12/03/17 12:43 AB [id number]) PT-Bed Mobility Assessment Rolling Type of Rolling Bilateral Level of Assist Maximal Assistance Supine to Sit Supine to Sit Maximum Assistance Scooting Scooting to Edge of Bed Maximum Assistance PT-Transfer Assessment Sit to and From Stand Sit to and from Stand Maximum Assistance 2 Person Assistance Equipment Transfer Assistive Device Gait Belt Front Wheeled Walker Gait Assessment Gait Gait Assistance Required: Maximum Assistance Distance (Feet) (feet) 15 Able to Maintain Weight Bearing Status Yes During Gait Assistive Devices Assistive Device Gait Belt Front Wheeled Walker Orthotic/Prosthetic Devices or Brace: Yes Gait Deviations General Gait Pattern Antalgic Decreased Stride Length Decreased Feet Clearance Factors Limiting Gait Function Factors Limiting Gait Function Decreased Activity Tolerance Decreased Strength Difficulty Following Directions Limited Range of Motion Pain Poor Balance Poor Safety Awareness Comments Gait Comments Pt presents with unsteady gait and increase R knee genu valgus. PT-Balance Assessment Sitting Balance and Reactions Static Sitting Balance Ability Good Dynamic Sitting Balance Ability Fair Standing Balance and Reactions Static Standing Balance Ability Poor Dynamic Standing Balance Ability Poor M5 PT-IP Objective Assessments Start: 05/29/18 16:56 Freq: NEEDED Status: Active Protocol: Document 12/03/17 12:25 AB (Rec: 12/03/17 12:43 AB [id number]) Orientation Orientation/Cognition Level of Alertness Alert Orientation Name Place Situation Safety Awareness Decreased Safety Awareness Memory Description Short Term Impaired Longterm Impaired Comments pt unable to recall R hip precautions despite education provided Strength Lower Extremity Strength Assessment Bilaterally Impaired Comments Strength Comments RLE weaker than LLE RLE: 3-/5 M6 PT-IP Treatment Start: 12/02/17 16:56 Freq: NEEDED Status: Active Protocol: Document 12/03/17 12:25 AB (Rec: 12/03/17 12:43 AB [id number]) Physical Therapy Treatment Education Education Provided Precautions Weight Bearing Status Post-Op Packet Safety Brace Education [place] Patient Equipment Issued Equipment Type and Company pt fitted and provided with R hip abduction brace from [employer]. Other Treatments Other Treatment Performed pt assisted with brief/pants management. chair positioning and safety education. M7 PT-IP Assessment and Plan Start: 12/02/17 16:56 Freq: NEEDED Status: Active Protocol: Document 12/03/17 12:25 AB (Rec: 12/03/17 12:43 AB [id number]) PT Summary Assessment and Plan Potential Rehabilitation Potential Fair Status of Condition at Evaluation Evolving Summary Impairments Pain ROM Strength Balance Coordination Cognition Bed Mobility Transfers Gait Activity Tolerance Assessment Summary pt requires 2 person assist with bed mobility and transfers and max A with ambulation using FWW. pt lives alone with intermittent caregiver that comes in to assist her. Pt at this time require 24/7 assist. pt has decrease cognitive level affecting safety with recurrent R hip dislocations. Hip abductor brace provided and educated with donning and doffing but will need assistance. pt will need SNF rehab to improve mobility, increase safety awareness prior to d/c home. Goals Bed Mobility Goal Minimal Assistance Transfer Goal Minimal Assistance Gait Goal Minimal Assistance Gait Distance 100 Days to Meet Goals 3 Frequency of Treatment Frequency Of Treatment Twice a Day Treatment Plan Physical Therapy Treatment Plan Bed Mobility Training Transfer Training Gait Training Therapeutic Exercise Balance Retraining Post Op Education Discharge Planning Hot or Cold Pack Neuromuscular Re-ed Coordination Retraining Manual Therapy Other Recommendations and Next Treatment ambulation Focus Recommendations To Nursing Amount of Assist Needed 2 Person Assist Discharge Recommendations PT Discharge Recommendations SNF Rehab Provider Visit Care Team Role Provider Type Sharri Howell MD Primary Care Provider Physician Specialty: Internal Medicine Kt Simental PA-C Other Providers Advanced Practioner Clinician Specialty: Wound Care ENOCH Ledesma Other Providers Physician Specialty: Wound Care Kendrick Santillan MD Other Providers Physician Specialty: Orthopedic Surgery Boy Edmond MD Other Providers Physician Specialty: Wound Care Philip Cardenas DO Emergency Provider Physician Specialty: Emergency Medicine Ronal Aguiar MD Admit Provider Physician Attending Provider Specialty: Internal Medicine
--- NOTE | 2017-12-03 13:41 | PM.PN.1 ---
Subjective Date Patient Seen: 12/03/17 Interval history: Patient has no complaints. She is postop day 1 status post closed reduction of dislocated total hip prosthesis. She was noted to be quite unsteady even with the abductor brace and PT is recommending [facility]. Exam Vital Signs (past 8 hours): Vital Signs - 8 hr 12/03/17 07:00 12/03/17 07:30 Temperature 98.3 F Pulse Rate 90 Respiratory Rate 16 Blood Pressure 144/63 H Pulse Oximetry 98 94 Pulse Oximetry 94 Oxygen Delivery Method Room Air Oxygen Flow Rate 2 Narrative Exam Narrative: General: Alert, pleasant, sitting in chair and in no acute distress Lungs: Breathing nonlabored Heart: Regular rhythm Extremities: The right hip is in abductors brace. There is dry dressing on distal right clemons non pressure ulcer. Objective Labs Result Diagrams: 12/03/17 05:06 12/03/17 05:06 Labs: Laboratory Results - last 24 hr 12/03/17 12/03/17 12/03/17 05:06 05:06 05:06 WBC 5.4 RBC 3.13 L Hgb 10.4 L Hct 31.1 L MCV 99.2 MCH 33.3 MCHC 33.6 RDW 16.9 H Plt Count 231 Neut % (Auto) 66.0 Lymph % (Auto) 14.1 L [place] % (Auto) 18.3 H Eos % (Auto) 1.0 L Baso % (Auto) 0.6 Neut # (Auto) 3600 PT 28.0 H INR 2.6 H Sodium 134 L Potassium 4.3 Chloride 98 Carbon Dioxide 26 BUN 12 Creatinine 0.60 Estimated GFR > 60.0 BUN/Creatinine Ratio 20.0 Glucose 85 Calcium 8.7 Assessment & Plan Plan: Plan: 1. Recurrent dislocation of right hip prosthesis: Patient is stable status post closed reduction of right hip prosthesis on 12/02/[address] Abernathy. She was fitted with abduction brace. She is unsteady and PT recommends [facility]. Remove Rodriguez catheter. 2. Paroxysmal atrial fibrillation, on chronic anticoagulation: She is in intermittent AFib on telemetry. She had wide complex runs preop which is likely abberant conduction. Continue metoprolol tartrate 50 mg twice daily preop and postop. INR therapeutic range on warfarin 5 mg x6 days per week and 2.5 mg each Friday. 3. 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 She is also on gabapentin. 4. Disposition: Inpatient admit. Likely discharge on Friday to [facility]. Quality VTE Deep Vein Thrombosis/Pulmonary Embolism Present on Admission: No
--- NOTE | 2017-12-03 13:50 | P.PN_ITS ---
Subjective Date Patient Seen: 12/03/17 Interval history: Patient has no complaints. She is postop day 1 status post closed reduction of dislocated total hip prosthesis. She was noted to be quite unsteady even with the abductor brace and PT is recommending care home rehab. Exam Vital Signs (past 8 hours): Vital Signs - 8 hr 3 12/03/17 07:00 12/03/17 07:30 Temperature 98.3 F Pulse Rate 90 Respiratory Rate 16 Blood Pressure 144/63 H Pulse Oximetry 98 94 Pulse Oximetry 94 Oxygen Delivery Method Room Air Oxygen Flow Rate 2 Narrative Exam Narrative: General: Alert, pleasant, sitting in chair and in no acute distress Lungs: Breathing nonlabored Heart: Regular rhythm Extremities: The right hip is in abductors brace. There is dry dressing on distal right clemons non pressure ulcer. Objective Labs Result Diagrams: 12/03/17 05:06 12/03/17 05:06 Labs: Laboratory Results - last 24 hr 12/03/17 12/03/17 12/03/17 05:06 05:06 05:06 WBC 5.4 RBC 3.13 L Hgb 10.4 L Hct 31.1 L MCV 99.2 MCH 33.3 MCHC 33.6 RDW 16.9 H Plt Count 231 Neut % (Auto) 66.0 Lymph % (Auto) 14.1 L [place] % (Auto) 18.3 H Eos % (Auto) 1.0 L Baso % (Auto) 0.6 Neut # (Auto) 3600 PT 28.0 H INR 2.6 H Sodium 134 L Potassium 4.3 Chloride 98 Carbon Dioxide 26 BUN 12 Creatinine 0.60 Estimated GFR > 60.0 BUN/Creatinine Ratio 20.0 Glucose 85 Calcium 8.7 Assessment & Plan Plan: Plan: 1. Recurrent dislocation of right hip prosthesis: Patient is stable status post closed reduction of right hip prosthesis on 12/02/[address] Abernathy. She was fitted with abduction brace. She is unsteady and PT recommends care home rehab. Remove Rodriguez catheter. 2. Paroxysmal atrial fibrillation, on chronic anticoagulation: She is in intermittent AFib on telemetry. She had wide complex runs preop which is likely abberant conduction. Continue metoprolol tartrate 50 mg twice daily preop and postop. INR therapeutic range on warfarin 5 mg x6 days per week and 2.5 mg each Friday. 3. 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 She is also on gabapentin. 4. Disposition: Inpatient admit. Likely discharge on Friday to [facility]. Quality VTE Deep Vein Thrombosis/Pulmonary Embolism Present on Admission: No
--- NOTE | 2017-12-03 16:18 | OT.IP.EVAL ---
Current Diagnoses Non-pressure chronic ulcer of other part of left lower leg with fat layer exposed (12/02/17) Unspecified dislocation of right hip, initial encounter (12/02/17) Dislocation of internal right hip prosthesis, initial encounter (12/02/17) Other specified postprocedural states (12/02/17) Surgery Performed Operation Date: 12/02/17 10:45 Actual Procedures p Closed Reduction Dislocated Hip Relocation Hip(Right) - Moises Abernathy MD Past Medical History (Last Reviewed 12/03/17 @ 08:51 by Boy Edmond MD) Ascending aortic aneurysm (Acute) B12 deficiency (Acute) Breast implant status (Acute) Cerebrovascular disease (Acute) Hepatic steatosis (Acute) Hyperlipidemia (Acute) Hypertension (Acute) Osteoarthritis (Acute) Paralysis of left vocal fold (Acute) Paroxysmal atrial fibrillation (Acute) Partial epilepsy (Acute) Seizure as late effect of cerebrovascular accident (CVA) (Acute) Transient ischemic attack (Acute) Tremor (Acute) Surgical History (Last Reviewed 12/03/17 @ 08:51 by Boy Edmond MD) H/O hysterectomy with oophorectomy (Acute) History of total left hip arthroplasty (Acute) History of total right hip arthroplasty (Acute) History of total right knee replacement (Acute) S/P Mohs surgery for basal cell carcinoma (Acute) S/P ascending aortic aneurysm repair (Acute) Occupational Therapy Inpatient Evaluation/Re-Eval M1 PT/OT-IP Prior Functional Status Start: 12/02/17 16:56 Freq: NEEDED Status: Active Protocol: Document 12/03/17 12:25 AB (Rec: 12/03/17 12:43 AB [id number]) Medical Review Prior Functional Status Medical History Reviewed Yes Mobility and Gait Pt stated that she is modified independent with mobility using a 4WW and has homehealth PT and nurse comes in. Has caregivers that comes in to assist her but not 24/7assist. Social History Household Members none Living Arrangements Apartment/Condo Number of Floors (Floors) One Floor Number of Stairs To Enter/Railing? no step to enter Home Environment Walk in Shower Home Equipment Raised Toilet Seat Without Armrests Shower Seat with Backrest Grab Bars In Shower Employment Status Retired M1 PT/OT-IP Prior Functional Status Start: 12/03/17 15:54 Freq: NEEDED Status: Active Protocol: Document 12/03/17 11:25 [facility] (Rec: 12/03/17 16:18 [facility] [id number]) Medical Review Prior Functional Status Medical History Reviewed Yes Mobility and Gait Pt stated that she is modified independent with mobility using a 4WW and has homehealth PT and nurse comes in. Has caregivers that comes in to assist her but not 24/7assist. Social History Household Members none Living Arrangements Apartment/Condo Number of Floors (Floors) One Floor Number of Stairs To Enter/Railing? no step to enter Home Environment Walk in Shower Home Equipment Raised Toilet Seat Without Armrests Shower Seat with Backrest Grab Bars In Shower Employment Status Retired M2 OT-IP Current Condition Start: 12/03/17 15:54 Freq: Status: Active Protocol: Document 12/03/17 11:25 [facility] (Rec: 12/03/17 16:18 [facility] [id number]) Occupational Therapy Current Condition Current Condition Evaluation Date 12/03/17 Treatment Diagnosis Unspecified dislocation Right Hip Post Operative Precautions Other Precautions brace set at 70 deg hip flexion and 0 deg adduction Weight Bearing Status Weight Bearing Status Weight Bear as Tolerated M3 OT- IP Subjective and Pain Start: 12/03/17 15:54 Freq: Status: Active Protocol: Document 12/03/17 11:25 [facility] (Rec: 12/03/17 16:18 [facility] [id number]) OT- Subjective Occupational Therapy Visit Type Type Initial Evaluation Visit Start Time 11:25 Visit Stop Time 11:55 Total Visit Minutes 30 M4 OT- IP ADL's Start: 12/03/17 15:54 Freq: Status: Active Protocol: Document 12/03/17 11:25 [facility] (Rec: 12/03/17 16:18 [facility] [id number]) OT ADL-Dressing General Eval Lower Body Dressing Ability Maximum Assistance Comments OT Dressing Comments Dependent for abducter brace. M6 OT- IP Functional Cognition Start: 12/03/17 15:54 Freq: Status: Active Protocol: Document 12/03/17 11:25 [facility] (Rec: 12/03/17 16:18 [facility] [id number]) Cognitive Factors Limiting Selfcare Function Cognitive Ability Level of Alertness Alert Confusional State Patient Orientation Name Situation Attention Span Ability Capable of Focused Attention Unable to Sustain Attention Ability to Follow Commands Able to Follow One Step Commands M7 OT- IP Mobility and Balance Start: 12/03/17 15:54 Freq: Status: Active Protocol: Document 12/03/17 11:25 [facility] (Rec: 12/03/17 16:18 [facility] [id number]) OT- Bed Mobility Assessment Rolling Type of Rolling Roll to Left Level of Assistance Maximum Assistance Supine to Sit Supine to Sit Assist Maximum Assistance OT-Transfer Assessment Sit to and From Stand Sit to and from Stand Maximum Assistance 2 Person Assistance Transfers Transfer Ability Maximum Assistance Technique Transfer Destination Chair Transfer Technique Stand Step Pivot OT- Balance Assessment Sitting Balance and Reactions Static Sitting Balance Ability Normal Dynamic Sitting Balance Ability Good Standing Balance and Reactions Static Standing Balance Ability Poor Dynamic Standing Balance Ability Poor M9 OT- IP Assessment and Plan Start: 12/03/17 15:54 Freq: Status: Active Protocol: Document 12/03/17 11:25 [facility] (Rec: 12/03/17 16:18 [facility] [email or web address]) OT Summary Assessment and Plan Potential Rehabilitation Potential Good Analytic Complexity at Evaluation Moderate Summary OT Impairments Pain Range of Motion Strength Balance Coordination Functional Cognition Functional Mobility Dressing Toileting Bathing Toilet Transfers Shower Transfers Progress Towards Goals Slow Progress due to Medical Issues Slow Progress due to Activity Tolerance Slow Progress due to Cognition Goals Dressing Goal Minimal Assistance Toileting Goal Minimal Assistance Toilet Transfer Goal Minimal Assistance Shower Transfer Goal Minimal Assistance OT-Other Goals Pt to be independent to megan/ doff hip brace. Days to Meet Goals 3 Frequency of Treatment Frequency Of Treatment Once a Day Treatment Plan OT Treatment Plan ADL Training Functional Mobility Discharge Planning Discharge Recommendations OT Discharge Recommendations SNF Rehab
--- NOTE | 2017-12-03 16:26 | PT.IPTN ---
Current Diagnoses Non-pressure chronic ulcer of other part of left lower leg with fat layer exposed (12/02/17) Unspecified dislocation of right hip, initial encounter (12/02/17) Dislocation of internal right hip prosthesis, initial encounter (12/02/17) Other specified postprocedural states (12/02/17) Surgery Performed Operation Date: 12/02/17 10:45 Actual Procedures p Closed Reduction Dislocated Hip Relocation Hip(Right) - Moises Abernathy MD Physical Therapy Treatment Note M2 PT-IP Current Condition Start: 12/02/17 16:56 Freq: NEEDED Status: Active Protocol: Document 12/03/17 12:25 AB (Rec: 12/03/17 12:43 AB [id number]) Physical Therapy Current Condition Current Condition Evaluation Date 12/03/17 Treatment Diagnosis R hip dislocation s/p closed reduction Onset Date 12/02/17 Precautions Brace hip abduction brace on at all times per PA except for hygiene care/showers Other Precautions brace set at 70 deg hip flexion and 0 deg adduction Weight Bearing Status Weight Bearing Status Weight Bear as Tolerated M3 PT-IP Subjective Start: 12/02/17 16:56 Freq: NEEDED Status: Active Protocol: Document 12/03/17 16:13 AB (Rec: 12/03/17 16:26 AB [id number]) Subjective Physical Therapy Visit Type Type Treatment Note Visit Start Time 15:06 Visit Stop Time 15:35 Total Visit Minutes 29 Number of NAPPER FIXER Visits 0 Physical Therapy Visit Comments Patient Comments pt agreeable to do therapy Therapy Pain Assessment Pain When Pain Assessed At Rest Pain Present Pain Present Pain Reported Location Right Hip Scale Used pain scale not stated M4 PT-IP Mobility and Gait Start: 12/02/17 16:56 Freq: NEEDED Status: Active Protocol: Document 12/03/17 16:13 AB (Rec: 12/03/17 16:26 AB [id number]) PT-Bed Mobility Assessment Sit to Supine Sit to Supine Maximum Assistance PT-Transfer Assessment Sit to and From Stand Sit to and from Stand Maximum Assistance Use of Upper Extremities Equipment Transfer Assistive Device Gait Belt Front Wheeled Walker Orthotic/Prosthetic Devices or Brace: Yes Transfers Transfer Destination Bed Gait Assessment Gait Gait Assistance Required: Moderate Assistance Distance (Feet) (feet) 50 Able to Maintain Weight Bearing Status Yes During Gait Assistive Devices Assistive Device Gait Belt Front Wheeled Walker Orthotic/Prosthetic Devices or Brace: Yes Gait Deviations General Gait Pattern Antalgic Decreased Stride Length Decreased Feet Clearance Factors Limiting Gait Function Factors Limiting Gait Function Decreased Activity Tolerance Decreased Strength Difficulty Following Directions Limited Range of Motion Pain Poor Balance Poor Safety Awareness M5 PT-IP Objective Assessments Start: 12/02/17 16:56 Freq: NEEDED Status: Active Protocol: Document 12/03/17 12:25 AB (Rec: 12/03/17 12:43 AB [id number]) Orientation Orientation/Cognition Level of Alertness Alert Orientation Name Place Situation Safety Awareness Decreased Safety Awareness Memory Description Short Term Impaired [employer] Impaired Comments pt unable to recall R hip precautions despite education provided Strength Lower Extremity Strength Assessment Bilaterally Impaired Comments Strength Comments RLE weaker than LLE RLE: 3-/5 M6 PT-IP Treatment Start: 12/02/17 16:56 Freq: NEEDED Status: Active Protocol: Document 12/03/17 12:25 AB (Rec: 12/03/17 12:43 AB [id number]) Physical Therapy Treatment Education Education Provided Precautions Weight Bearing Status Post-Op Packet Safety Brace Education Donning [place] Patient Equipment Issued Equipment Type and Company pt fitted and provided with R hip abduction brace from [email or web address]. Other Treatments Other Treatment Performed pt assisted with brief/pants management. chair positioning and safety education. M7 PT-IP Assessment and Plan Start: 12/02/17 16:56 Freq: NEEDED Status: Active Protocol: Document 12/03/17 16:13 AB (Rec: 12/03/17 16:26 AB [id number]) PT Summary Assessment and Plan Potential Rehabilitation Potential Fair Summary Impairments Pain ROM Strength Balance Sensation Cognition Bed Mobility Transfers Gait Activity Tolerance Progress Towards Goals Slow Progress due to Pain Slow Progress due to Activity Tolerance Slow Progress - Other Assessment Summary pt continues to require max A with transfers and bed mobility but showed improvement with ambulation. pt continues to require max cues with tasks and for adhering to hip precautions. pt will need SNF rehab to improve function. Goals Bed Mobility Goal Minimal Assistance Transfer Goal Minimal Assistance Gait Goal Minimal Assistance Gait Distance 100 Days to Meet Goals 3 Frequency of Treatment Frequency Of Treatment Twice a Day Treatment Plan Physical Therapy Treatment Plan Bed Mobility Training Transfer Training Gait Training Therapeutic Exercise Balance Retraining Post Op Education Discharge Planning Hot or Cold Pack Neuromuscular Re-ed Coordination Retraining Manual Therapy Other Recommendations and Next Treatment ambulation Focus Recommendations To Nursing Amount of Assist Needed 2 Person Assist Discharge Recommendations PT Discharge Recommendations SNF Rehab
[2017-12-03] MEDS: WARFARIN 5 MG TABLET PO (16:58)
[2017-12-03] MEDS: GABAPENTIN 100 MG CAPSULE 300 MG PO (21:21)
[2017-12-03] MEDS: PRIMIDONE 50 MG TABLET 75 MG PO (21:21)
[2017-12-04 03:52] VITALS: BP 124/66; PULSE 90; RESP 18; TEMP 37.2; O2SAT 97
[2017-12-04 07:20] VITALS: BP 133/68; PULSE 79; RESP 16; TEMP 36.9; O2SAT 96
[2017-12-04] MEDS: OXYCODONE IR 5 MG TABLET PO ×3 (08:06→21:22)
[2017-12-04] MEDS: SPIRONOLACTONE 25 MG TABLET PO (08:07)
[2017-12-04] MEDS: CARBIDOPA-LEVODOPA ER 50/200 TABLET 1 EACH PO ×2 (08:07→21:21)
[2017-12-04] MEDS: GABAPENTIN 100 MG CAPSULE PO ×2 (08:08→17:00)
[2017-12-04] MEDS: METOPROLOL 50 MG TABLET PO ×2 (08:08→21:23)
[2017-12-04] MEDS: GENTAMICIN 0.1% CREAM 30 GM 1 APPLIC TOP (08:09)
--- NOTE | 2017-12-04 08:09 | CM.DPNOTE ---
DCP: continued: Spoke now with Alexandrea/LOPEZ. Clarified the wound care plan. [facility] accepts pt and will anticipate her tomorrow or >, when stable for same. Will complete PASRR today in prep for the d/c. Will update pt re bed availability.
--- NOTE | 2017-12-04 08:24 | PM.PN.1 ---
Subjective Date Patient Seen: 12/04/17 Time Patient Seen: 08:25 Interval history: Post op day #2 for closed reduction of dislocated right hip prosthesis. This 82 year old female has mild hip discomfort this morning controlled well with Oxycodone. Exam Vital Signs (past 8 hours): Vital Signs - 8 hr 12/04/17 03:52 12/04/17 07:20 Temperature 99.0 F 98.5 F Pulse Rate 90 79 Respiratory Rate 18 16 Blood Pressure 124/66 H 133/68 H Pulse Oximetry 97 96 Pulse Oximetry 96 Oxygen Delivery Method Room Air Oxygen Flow Rate 2 Narrative Exam Narrative: Alert, pleasant, sitting in bed with no acute distress. Const General: cooperative, healthy appearing, comfortable, well developed and well groomed Nutritional Appearance: overweight Orientation: alert, awake and oriented x3 HENMT Head: normal to inspection Ears: hearing grossly normal bilaterally Face and sinus: normal facial exam Mouth: oral mucosae normal Eyes General: appearance normal, both eyes and all related structures Pupils: PERRL and pupil size (2 mm) bilaterally EOM: EOM intact bilaterally Neck Neck: normal visual inspection Chest Chest: normal inspection of the chest Resp Effort & Inspection: normal respiratory effort and able to speak in complete sentences Auscultation: clear to auscultation bilaterally Cardio Rhythm: abnormal rhythm (Patient remains in atrial fib with controlled ventricular response.) Heart Sounds: S1 normal and S2 normal GI Inspection: normal to inspection Palpation: soft Auscultation: normal bowel sounds Other: Voiding without difficulty Back/Spine/Pelvis Back: normal to inspection Skin Other: Venous stasis brwon discoloration of lower legs bilaterally. There is a dry dressing on the distal right lower extremity from her previous skin tear injury. Neuro General: alert, awake and oriented x3 Cranial Nerves: CN's II-XI intact bilaterally Cognition: normal cognition Speech: speech normal Motor: muscle tone normal throughout and tremor (Noted in both hands.) Extrem General: normal to inspection (With exception as noted.) Right lower extremity: edema Details: 1+ Other: Both lower legs are tender to palpation but do not reflect any other signs of DVT. Psych Appearance: grossly normal Mental Status: mental status grossly normal Speech and Movement: speech and movement normal Mood: congruent mood Affect: normal affect Attitude: cooperative Thought Process: normal Thought Content: normal Judgment: judgment good Objective Labs Result Diagrams: 12/03/17 05:06 12/03/17 05:06 Assessment & Plan Plan: Plan: 1. Recurrent dislocation of right hip prosthesis: Patient is stable status post closed reduction of right hip prosthesis on 12/02/[address] Abernathy. She was fitted with abduction brace. She is unsteady and PT recommends correction rehab. 2. Paroxysmal atrial fibrillation, on chronic anticoagulation: She is in intermittent AFib on telemetry. She had wide complex runs preop which is likely abberant conduction. No further aberrant conduction events reported. Continue metoprolol tartrate 50 mg twice daily preop and postop. INR this morning was 2.6 and remains in therapeutic range on warfarin 5 mg x6 days per week and 2.5 mg each Friday. 3. 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 She is also on gabapentin. 4. Disposition: Inpatient admit. Likely discharge on Friday to [facility]. Time Spent With Patient Time with patient: 25 - 35 minutes Quality VTE Deep Vein Thrombosis/Pulmonary Embolism Present on Admission: No
--- NOTE | 2017-12-04 08:54 | PM.PNPO.1 ---
Subjective Date Patient Seen: 12/04/17 Time Patient Seen: 08:55 Interval history: Pt is s/p Closed reduction of dislocated right total hip prosthesis. Postop day 2. Patient states the pain is tolerable. She states that this is the fourth dislocation of her rt hip prosthesis. Rt hip was replaced 8 or 9 years ago. She has her abduction brace. She will be discharged to [facility] tomorrow for further therapy and rehab. Wound care is managing her rt LL wound. Exam Vital Signs (past 8 hours): Vital Signs - 8 hr 12/04/17 03:52 12/04/17 07:20 Temperature 99.0 F 98.5 F Pulse Rate 90 79 Respiratory Rate 18 16 Blood Pressure 124/66 H 133/68 H Pulse Oximetry 97 96 Pulse Oximetry 96 Oxygen Delivery Method Room Air Oxygen Flow Rate 2 Narrative Exam Narrative: Patient in bed. Alert and orient x3. Bilateral calves soft and nontender. Neurovascular status intact in the right leg. Good right ankle strength. Bandage around clemons mid calf area is CDI. Objective Labs Result Diagrams: 12/03/17 05:06 12/03/17 05:06 Assessment & Plan Post-op (1) S/P closed reduction of dislocated total hip prosthesis: Problem details: Patient is status post closed reduction of dislocated right hip prosthesis. Postop day 2. Pt to wear abduction brace - flexion up to 70?, wear brace for 24/7- off for hygiene. Mobilize with PT. Plan to DC [facility] tomorrow. Current Visit: Yes Status: Acute Postoperative Procedures Operation Date: 12/02/17 10:45 Actual Procedures Side Surgeon p Closed Reduction Dislocated Hip Relocation Hip Right Moises Abernathy MD Time Spent With Patient less than 15 minutes Quality VTE Deep Vein Thrombosis/Pulmonary Embolism Present on Admission: No
--- NOTE | 2017-12-04 09:03 | P.PN_ITS ---
Subjective Date Patient Seen: 12/04/17 Time Patient Seen: 08:55 Interval history: Pt is s/p Closed reduction of dislocated right total hip prosthesis. Postop day 2. Patient states the pain is tolerable. She states that this is the fourth dislocation of her rt hip prosthesis. Rt hip was replaced 8 or 9 years ago. She has her abduction brace. She will be discharged to [facility] tomorrow for further therapy and rehab. Wound care is managing her rt LL wound. Exam Vital Signs (past 8 hours): Vital Signs - 8 hr 3 12/04/17 03:52 12/04/17 07:20 Temperature 99.0 F 98.5 F Pulse Rate 90 79 Respiratory Rate 18 16 Blood Pressure 124/66 H 133/68 H Pulse Oximetry 97 96 Pulse Oximetry 96 Oxygen Delivery Method Room Air Oxygen Flow Rate 2 Narrative Exam Narrative: Patient in bed. Alert and orient x3. Bilateral calves soft and nontender. Neurovascular status intact in the right leg. Good right ankle strength. Bandage around clemons mid calf area is CDI. Objective Labs Result Diagrams: 12/03/17 05:06 12/03/17 05:06 Assessment & Plan Post-op (1) S/P closed reduction of dislocated total hip prosthesis: Problem details: Patient is status post closed reduction of dislocated right hip prosthesis. Postop day 2. Pt to wear abduction brace - flexion up to 70??, wear brace for 24 /7- off for hygiene. Mobilize with PT. Plan to DC [facility] tomorrow. Current Visit: Yes Status: Acute Postoperative Procedures Operation Date: 12/02/17 10:45 Actual Procedures Side Surgeon p Closed Reduction Dislocated Hip Relocation Hip Right Moises Abernathy MD Time Spent With Patient less than 15 minutes Quality VTE Deep Vein Thrombosis/Pulmonary Embolism Present on Admission: No
--- NOTE | 2017-12-04 11:40 | PT.IPTN ---
Current Diagnoses Non-pressure chronic ulcer of other part of left lower leg with fat layer exposed (12/02/17) Unspecified dislocation of right hip, initial encounter (12/02/17) Dislocation of internal right hip prosthesis, initial encounter (12/02/17) Other specified postprocedural states (12/02/17) Surgery Performed Operation Date: 12/02/17 10:45 Actual Procedures p Closed Reduction Dislocated Hip Relocation Hip(Right) - Moises Abernathy MD Physical Therapy Treatment Note M2 PT-IP Current Condition Start: 12/02/17 16:56 Freq: NEEDED Status: Active Protocol: Document 12/03/17 12:25 AB (Rec: 12/03/17 12:43 AB [id number]) Physical Therapy Current Condition Current Condition Evaluation Date 12/03/17 Treatment Diagnosis R hip dislocation s/p closed reduction Onset Date 12/02/17 Precautions Brace hip abduction brace on at all times per PA except for hygiene care/showers Other Precautions brace set at 70 deg hip flexion and 0 deg adduction Weight Bearing Status Weight Bearing Status Weight Bear as Tolerated M3 PT-IP Subjective Start: 12/02/17 16:56 Freq: NEEDED Status: Active Protocol: Document 12/04/17 11:30 GGD (Rec: 12/04/17 11:40 GGD [id number]) Subjective Physical Therapy Visit Type Type Treatment Note Visit Start Time 10:55 Visit Stop Time 11:30 Total Visit Minutes 35 Number of STUD MASTER/MISTRESS Visits 1 Physical Therapy Visit Comments Patient Comments Pt states she wants to get up. Therapy Pain Assessment Pain When Pain Assessed At Rest Pain Present Pain Present Pain Reported Location Right Hip Intensity 2 M4 PT-IP Mobility and Gait Start: 12/02/17 16:56 Freq: NEEDED Status: Active Protocol: Document 12/04/17 11:30 GGD (Rec: 12/04/17 11:40 GGD [id number]) PT-Bed Mobility Assessment Rolling Level of Assist Moderate Assistance 1 Person Assistance Supine to Sit Supine to Sit Moderate Assistance 2 Person Assistance PT-Transfer Assessment Sit to and From Stand Sit to and from Stand Minimal Assistance Moderate Assistance 2 Person Assistance Use of Upper Extremities Equipment Transfer Assistive Device Gait Belt Front Wheeled Walker Orthotic/Prosthetic Devices or Brace: Yes Transfers Transfer Destination Chair Gait Assessment Gait Gait Assistance Required: Contact Guard Assist Distance (Feet) (feet) 80 Assistive Devices Assistive Device Gait Belt Front Wheeled Walker Orthotic/Prosthetic Devices or Brace: Yes Gait Deviations General Gait Pattern Antalgic Decreased Stride Length Decreased Feet Clearance Factors Limiting Gait Function Factors Limiting Gait Function Decreased Activity Tolerance Decreased Strength Limited Range of Motion Pain Poor Balance Comments Gait Comments Pt able to decrease R knee genu valgus with gait with cueing. Need to block knee during sit <> stand M5 PT-IP Objective Assessments Start: 12/02/17 16:56 Freq: NEEDED Status: Active Protocol: Document 12/03/17 12:25 AB (Rec: 12/03/17 12:43 AB [id number]) Orientation Orientation/Cognition Level of Alertness Alert Orientation Name Place Situation Safety Awareness Decreased Safety Awareness Memory Description Short Term Impaired Senior Care Impaired Comments pt unable to recall R hip precautions despite education provided Strength Lower Extremity Strength Assessment Bilaterally Impaired Comments Strength Comments RLE weaker than LLE RLE: 3-/5 M6 PT-IP Treatment Start: 12/02/17 16:56 Freq: NEEDED Status: Active Protocol: Document 12/04/17 11:30 GGD (Rec: 12/04/17 11:40 GGD [id number]) Physical Therapy Treatment Education Education Provided Precautions Brace Education Donning [place] Patient Other Treatments Other Treatment Performed Donned brace in sitting. M7 PT-IP Assessment and Plan Start: 12/02/17 16:56 Freq: NEEDED Status: Active Protocol: Document 12/04/17 11:30 GGD (Rec: 12/04/17 11:40 GGD [id number]) PT Summary Assessment and Plan Summary Assessment Summary pt need 2 assist with bed mobility. She improved with ambulation and good balance with standing at sink for self care. Treatment Plan Other Recommendations and Next Treatment Gait, transfers, bed mobility. Focus Recommendations To Nursing Amount of Assist Needed 2 Person Assist Discharge Recommendations PT Discharge Recommendations SNF Rehab
[2017-12-04 12:01] VITALS: BP 126/57; PULSE 65; RESP 16; TEMP 36.6; O2SAT 95
[2017-12-04 15:25] VITALS: BP 134/87; PULSE 72; RESP 16; TEMP 37.1; O2SAT 98
--- NOTE | 2017-12-04 16:28 | PT.IPTN ---
Current Diagnoses Non-pressure chronic ulcer of other part of left lower leg with fat layer exposed (12/02/17) Unspecified dislocation of right hip, initial encounter (12/02/17) Dislocation of internal right hip prosthesis, initial encounter (12/02/17) Other specified postprocedural states (12/02/17) Surgery Performed Operation Date: 12/02/17 10:45 Actual Procedures p Closed Reduction Dislocated Hip Relocation Hip(Right) - Moises Abernathy MD Physical Therapy Treatment Note M2 PT-IP Current Condition Start: 12/02/17 16:56 Freq: NEEDED Status: Active Protocol: Document 12/03/17 12:25 AB (Rec: 12/03/17 12:43 AB [id number]) Physical Therapy Current Condition Current Condition Evaluation Date 12/03/17 Treatment Diagnosis R hip dislocation s/p closed reduction Onset Date 12/02/17 Precautions Brace hip abduction brace on at all times per PA except for hygiene care/showers Other Precautions brace set at 70 deg hip flexion and 0 deg adduction Weight Bearing Status Weight Bearing Status Weight Bear as Tolerated M3 PT-IP Subjective Start: 12/02/17 16:56 Freq: NEEDED Status: Active Protocol: Document 12/04/17 16:27 GGD (Rec: 12/04/17 16:28 GGD [email or web address]) Subjective Physical Therapy Visit Type Type Patient Refusal Notes Pt states that she having more pain and just got pain meds. She would like to wait until AM, because is done to much today.
[2017-12-04] MEDS: WARFARIN 5 MG TABLET PO (17:19)
--- NOTE | 2017-12-04 18:57 | PC.NURSE ---
PATIENT REQUESTS ABDUCTOR TO BE REMOVED IN BED,ATTEMPTING TO USE BEDPAN,REQUESTS TO KEEP ONLY FOAM WEDGE IN PLACE FOR THE NIGHT.
[2017-12-04 21:01] VITALS: BP 131/59; PULSE 87; RESP 19; TEMP 36.6; O2SAT 97
[2017-12-04] MEDS: PRIMIDONE 50 MG TABLET 75 MG PO (21:20)
[2017-12-04] MEDS: GABAPENTIN 300 MG CAPSULE PO (21:21)
[2017-12-04 23:45] VITALS: BP 138/72; PULSE 79; RESP 16; TEMP 36.6; O2SAT 97
[2017-12-05 04:00] VITALS: BP 130/66; PULSE 69; RESP 16; TEMP 36.6; O2SAT 97
[2017-12-05 06:09] LABS: INR 1.6 (0.9-1.3); Prothrombin Time 17.1 SECONDS (10.1-12.7)
[2017-12-05 06:10] LABS: Hematocrit 30.6 % (36-46); Hemoglobin 10.4 g/dL (12.0-16.0); Mean Corpuscular HGB Conc 33.9 % (30-36); Mean Corpuscular Hemoglobin 33.6 PG (26-34); Platelet Count 208 X10^3/uL (150-400); Red Blood Cell Count 3.09 X10^6/uL (4.0-5.2); Red Cell Distribution Width 16.6 % (11.6-14.8); White Blood Cell Count 6.4 X10^3/uL (4.5-11.0)
[2017-12-05 06:17] LABS: BUN Creatinine Ratio 23.3 (6-22); Blood Urea Nitrogen 14 mg/dL (7-17); Calcium 8.7 mg/dL (8.4-10.2); Carbon Dioxide 27 mmol/L (22-32); Chloride 98 mmol/L (98-107); Estimated Glomerular Filt Rate > 60.0 mL/min (>60); Glucose 91 mg/dL (80-110); HEMOLYSIS < 15 (0-50); Potassium 3.7 mmol/L (3.4-5.1); Sodium 137 mmol/L (137-145)
[2017-12-05 06:23] LABS: Add Manual Diff / Slide Review YES
[2017-12-05 06:40] LABS: Neutrophils Absolute Manual 4672 /uL (3000-5900); Total Cells Counted 100
[2017-12-05 06:42] LABS: Anisocytosis 2+
[2017-12-05 08:25] VITALS: BP 146/74; PULSE 80; RESP 16; TEMP 36.8; O2SAT 98
[2017-12-05] MEDS: METOPROLOL 50 MG TABLET PO (09:07)
[2017-12-05] MEDS: SPIRONOLACTONE 25 MG TABLET PO (09:07)
[2017-12-05] MEDS: GABAPENTIN 100 MG CAPSULE PO (09:08)
[2017-12-05] MEDS: CARBIDOPA-LEVODOPA ER 50/200 TABLET 1 EACH PO (09:09)
[2017-12-05] MEDS: OXYCODONE IR 5 MG TABLET PO (09:13)
--- NOTE | 2017-12-05 09:44 | PM.DS.1 ---
History of Present Illness Date Patient Seen: 12/05/17 Time Patient Seen: 07:45 Chief complaint: Rt Hip Dislocation Narrative: Renae Iverson is a 82 year old female under care of Dr. 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 This is her 4th dislocation in the past month. This time she was getting up from the toilet using hand bars on either side and felt a pop in the right hip and fell to the ground. She was able to activate her lifeline and get immediate help. X-rays in the ER showed right hip dislocation of her arthroplasty. she is on warfarin anticoagulation for atrial fibrillation. She also has history of tremor undetermined whether essential or Parkinson's. She denies any recent fever, chills, cough, chest pain, shortness of breath, abdominal pain or urinary symptoms. She has been going to outpatient wound care for a right lower [place] wound. Discharge Providers Date of admission: 12/02/17 00:17 Primary care physician: Sharri Howell MD Consults: 12/02/17 01:08 Consult to Orthopedic Surgery Routine Comment: Consulting Provider: Kendrick Santillan Reason for consultation: Hip dislocation Has provider been notified: Yes 12/02/17 11:06 Consult to Wound Care Routine Comment: Consulting Provider: [facility] 12/02/17 14:28 Consult to Physical Therapy Evaluate & Treat Comment: Needs abduction hip brace (from [facility] PRN Physician Instructions: Evaluate and Treat 12/03/17 09:11 Consult to Occupational Therapy Evaluate & Treat Comment: Physician Instructions: Evaluate and treat Discharge provider: ENOCH Freeman Summary Discharge Diagnosis: 1. Right hip prosthesis dislocation, status post reduction under anesthesia 2. Chronic atrial fibrillation 3. History of tremor, essential versus Parkinson's 4. Skin tear right distal extremity, present on admission Hospital Course: An eventful hospital course following postop closed reduction of right dislocated hip prosthesis. Following surgery patient was placed in an abduction brace while ambulating. She will continue to have this brace for at least 6 weeks. Patient's INR has been trending down during this hospitalization. Coumadin management adjusted. She is feeling significantly better. Physical therapy worked with the patient, and the plan formulated for the patient to have care and assistance at the [facility]. No other issues arose. Status at Discharge Cognitive/behavioral status at discharge: Alert oriented to all realms pleasant and cooperative. Functional status at discharge: uses cane/walker Overall status at discharge: patient is progressing back to baseline Time Spent with Patient Greater than 30 minutes Exam Vital Signs (past 8 hours): Vital Signs - 8 hr 12/05/17 04:00 12/05/17 08:25 Temperature 97.9 F 98.2 F Pulse Rate 69 80 Respiratory Rate 16 16 Blood Pressure 130/66 H 146/74 H Pulse Oximetry 97 98 Pulse Oximetry 98 Oxygen Delivery Method Room Air Oxygen Flow Rate 2 Narrative Exam Narrative: Exam Narrative: Alert, pleasant, sitting in bed with no acute distress. Const General: cooperative, healthy appearing, comfortable, well developed and well groomed Nutritional Appearance: overweight Orientation: alert, awake and oriented x3 HENMT Head: normal to inspection Ears: hearing grossly normal bilaterally Face and sinus: normal facial exam Mouth: oral mucosae normal Eyes General: appearance normal, both eyes and all related structures Pupils: PERRL and pupil size (2 mm) bilaterally EOM: EOM intact bilaterally Neck Neck: normal visual inspection Chest Chest: normal inspection of the chest Resp Effort & Inspection: normal respiratory effort and able to speak in complete sentences Auscultation: clear to auscultation bilaterally Cardio Rhythm: abnormal rhythm (Patient remains in atrial fib with controlled ventricular response.) Heart Sounds: S1 normal and S2 normal GI Inspection: normal to inspection Palpation: soft Auscultation: normal bowel sounds Other: Voiding without difficulty Back/Spine/Pelvis Back: normal to inspection Skin Other: Venous stasis brown discoloration of lower legs bilaterally. There is a dry dressing on the distal right lower extremity from her previous skin tear injury. Neuro General: alert, awake and oriented x3 Cranial Nerves: CN's II-XI intact bilaterally Cognition: normal cognition Speech: speech normal Motor: muscle tone normal throughout and tremor (Noted in both hands.) Extrem General: normal to inspection (With exception as noted.) Right lower extremity: edema Details: 1+ Other: Both lower legs are tender to palpation but do not reflect any other signs of DVT. Psych Appearance: grossly normal Mental Status: mental status grossly normal Speech and Movement: speech and movement normal Mood: congruent mood Affect: normal affect Attitude: cooperative Thought Process: normal Thought Content: normal Judgment: judgment good Objective Labs Result Diagrams: 12/05/17 05:45 12/05/17 05:45 Labs: Laboratory Results - last 24 hr 12/05/17 12/05/17 12/05/17 05:45 05:45 05:45 WBC 6.4 RBC 3.09 L Hgb 10.4 L Hct 30.6 L MCV 99.0 MCH 33.6 MCHC 33.9 RDW 16.6 H Plt Count 208 Neut % (Auto) Not Reportable Lymph % (Auto) Not Reportable [place] % (Auto) Not Reportable Eos % (Auto) Not Reportable Baso % (Auto) Not Reportable Total Counted 100 Seg Neutrophils % 73.0 H Lymphocytes % (Manual) 9.0 L Monocytes % (Manual) 18.0 H Neutrophils # (Manual) 4672 RBC Morphology Not Reportable Anisocytosis 2+ H PT 17.1 H D INR 1.6 H Sodium 137 Potassium 3.7 Chloride 98 Carbon Dioxide 27 BUN 14 Creatinine 0.60 Estimated GFR > 60.0 BUN/Creatinine Ratio 23.3 H Glucose 91 Calcium 8.7 Discharge Plan Discharge Plan Patient Disposition: SNF Transfer to: [facility] Transportation: Wheelchair Labs: INR to be drawn 11 December 2017 I certify the postop hospital [facility] care is medically necessary on a continuing basis for any conditions for which he/ she received care during this hospitalization.: Yes The receiving facility has agreed to accept transfer and provide medical treatment.: Yes Discharge Data Primary Care Provider: Sharri Howell Attending Provider: Ronal Aguiar Admit Date/Time: 12/02/17 00:17 Quality VTE Deep Vein Thrombosis/Pulmonary Embolism Present on Admission: No
[2017-12-05] MEDS: MAGNESIUM HYDROXIDE 30 ML UDC PO (10:33)
[2017-12-05 11:05] VITALS: O2SAT 93
--- NOTE | 2017-12-05 11:17 | CM.DPC ---
DCP: continued: Pt now with orders for d/c to [facility]. Spoke with PT Justina who notes the complexity of pt's brace and precautions. She has spoken to [facility] therapist re this and the specifics of the w/c that will be needed to transport her to [facility]. [facility] is updated. Can accept pt at 1300. Pt is aware of details and remains agreeable to plan [facility] is updated. Snf paperwork will be gathered and faxed. P: as above. will follow prn until pt leaves
--- NOTE | 2017-12-05 11:26 | PC.NURSE ---
Pt oriented only to self. Wet cough at times, needs close monitoring when eating for aspiration precautitons. Instructed on use of IS - short term memory loss makes this difficult. Spouse assisting him in this respect. Plan to transfer to [facility] at 1400. Ileostomy bag changed - liquid stool present. Pt eating and drinking well. IV and telemetry removed.
--- NOTE | 2017-12-05 12:25 | PT.IPTN ---
Current Diagnoses Non-pressure chronic ulcer of other part of left lower leg with fat layer exposed (12/02/17) Unspecified dislocation of right hip, initial encounter (12/02/17) Dislocation of internal right hip prosthesis, initial encounter (12/02/17) Other specified postprocedural states (12/02/17) Surgery Performed Operation Date: 12/02/17 10:45 Actual Procedures p Closed Reduction Dislocated Hip Relocation Hip(Right) - Moises Abernathy MD Physical Therapy Treatment Note M2 PT-IP Current Condition Start: 12/02/17 16:56 Freq: NEEDED Status: Active Protocol: Document 12/03/17 12:25 AB (Rec: 12/03/17 12:43 AB [id number]) Physical Therapy Current Condition Current Condition Evaluation Date 12/03/17 Treatment Diagnosis R hip dislocation s/p closed reduction Onset Date 12/02/17 Precautions Brace hip abduction brace on at all times per PA except for hygiene care/showers Other Precautions brace set at 70 deg hip flexion and 0 deg adduction Weight Bearing Status Weight Bearing Status Weight Bear as Tolerated M3 PT-IP Subjective Start: 12/02/17 16:56 Freq: NEEDED Status: Active Protocol: Document 12/05/17 12:10 AB (Rec: 12/05/17 12:22 AB [email or web address]) Subjective Physical Therapy Visit Type Type Treatment Note Visit Start Time 11:10 Visit Stop Time 11:50 Total Visit Minutes 40 Number of SERGEANT AT ARMS Visits 0 Physical Therapy Visit Comments Patient Comments pt agreeable to do therapy Therapy Pain Assessment Pain When Pain Assessed At Rest Pain Present Pain Present Pain Reported Location Right Leg Intensity 2 Scale Used Numeric (1 - 10) M4 PT-IP Mobility and Gait Start: 12/02/17 16:56 Freq: NEEDED Status: Active Protocol: Document 12/05/17 12:10 AB (Rec: 12/05/17 12:22 AB [email or web address]) PT-Bed Mobility Assessment Supine to Sit Supine to Sit Minimal Assistance PT-Transfer Assessment Sit to and From Stand Sit to and from Stand Moderate Assistance Equipment Transfer Assistive Device Gait Belt Front Wheeled Walker Orthotic/Prosthetic Devices or Brace: Yes Transfers Transfer Destination Chair Transfer Technique pt ambulated towards the chair Comments Mobility Comments Assisted pt with dressing and donning of R hip abductor. pt completed sit to stand mod A and max cues. pt with increase R LE internal rotation and adduction with sit to stand and required assist to stabilize. pt completed 2 sit <>stand mod A and cues and was able to maintain standing using FWW for support min to mod A and cues while assisted with brief/pants management and adjustment of hip abductor brace. nurse informed PT that pt did not have hip abductor brace on at night and informed nurse that the doctor wants the brace on at all time except during hygiene care. pt stated that she was having pain on the waist area from the plastic part of the brace and asked the nurse to take brace off and just put pillows in between the LE. educated pt regarding importance of LE brace and that the doctor ordered her to have the abductor pillow if pt is off brace when in bed initially prior to doctor ordering hip abductor brace. advised pt to have abductor pillow on instead of regular pillows if she is not able to tolerate hip abductor brace at night. pt agreed. also informed pt that it will be more tolerate if she has light clothing on first and the brace will be on top so that brace is not directly on her skin. donned brace on today with clothing on and pt stated that the brace feels comfortable and may be able to tolerate it at night. Gait Assessment Gait Gait Assistance Required: Minimum Assistance Moderate Assistance Distance (Feet) (feet) 15 Able to Maintain Weight Bearing Status Yes During Gait Assistive Devices Assistive Device Gait Belt Front Wheeled Walker Orthotic/Prosthetic Devices or Brace: Yes Gait Deviations General Gait Pattern Antalgic Decreased Stride Length Decreased Feet Clearance Factors Limiting Gait Function Factors Limiting Gait Function Decreased Activity Tolerance Decreased Strength Difficulty Following Directions Limited Range of Motion Pain Poor Balance Poor Safety Awareness Comments Gait Comments cued pt to decrease R foot pronation/internal rotation M5 PT-IP Objective Assessments Start: 12/02/17 16:56 Freq: NEEDED Status: Active Protocol: Document 12/03/17 12:25 AB (Rec: 12/03/17 12:43 AB [id number]) Orientation Orientation/Cognition Level of Alertness Alert Orientation Name Place Situation Safety Awareness Decreased Safety Awareness Memory Description Short Term Impaired Assisted Impaired Comments pt unable to recall R hip precautions despite education provided Strength Lower Extremity Strength Assessment Bilaterally Impaired Comments Strength Comments RLE weaker than LLE RLE: 3-/5 M6 PT-IP Treatment Start: 12/02/17 16:56 Freq: NEEDED Status: Active Protocol: Document 12/04/17 11:30 GGD (Rec: 12/04/17 11:40 GGD [id number]) Physical Therapy Treatment Education Education Provided Precautions Brace Education Donning [place] Patient Other Treatments Other Treatment Performed Donned brace in sitting. M7 PT-IP Assessment and Plan Start: 12/02/17 16:56 Freq: NEEDED Status: Active Protocol: Document 12/05/17 12:10 AB (Rec: 12/05/17 12:22 AB [email or web address]) PT Summary Assessment and Plan Potential Rehabilitation Potential Fair Summary Impairments Pain ROM Strength Balance Coordination Sensation Tone Cognition Bed Mobility Transfers Gait Activity Tolerance Progress Towards Goals Slow Progress - Other Assessment Summary pt requires one person assist with mobility and will require SNF rehab to improve mobility and safety awareness. contacted [facility] where pt plans to d/c today. talked to Kelley and informed regarding pt's condition and R hip abductor brace. Frequency of Treatment Frequency Of Treatment Twice a Day Treatment Plan Physical Therapy Treatment Plan Bed Mobility Training Transfer Training Gait Training Therapeutic Exercise Balance Retraining Post Op Education Discharge Planning Hot or Cold Pack Neuromuscular Re-ed Coordination Retraining Manual Therapy Other Recommendations and Next Treatment ambulation Focus Recommendations To Nursing Amount of Assist Needed 1 Person Assist Discharge Recommendations PT Discharge Recommendations SNF Rehab
== END 2017-12-05 13:00 | DRG 561 ==
LOC: ED 22:36 → AC 12-02 00:18
PROVIDERS: Nurse Practitioner Acute Care; Orthopaedic Surgery; Admitting Provider Internal Medicine; Emergency Provider Emergency Medicine; PCP Internal Medicine; Visit Provider Internal Medicine
PROC: 0SS9XZZ Reposition Right Hip Joint, External Approach (ICD-10-PCS; principal; 2017-12-02 10:45)
DX: T84.020A Dislocation of internal right hip prosthesis, initial encounter (principal); I48.0 Paroxysmal atrial fibrillation; Z79.01 Long term (current) use of anticoagulants; R25.1 Tremor, unspecified; S81.811D Laceration without foreign body, right lower leg, subsequent encounter
CPT/HCPCS: 36415; 73501; 73502; 76000; 80048; 85025; 85610; 94760; 96374; 96375; 96376; 97116; 97162; 97166; 97530; 97535; 99282; 99284; J0330; J1170; J2405; J2704

== ENCOUNTER → 2017-12-10 07:57 | Outpatient (REF) | payer SELFPAY ==
[2017-12-02 01:33] VITALS: BMI 25.8
[2017-12-10 08:54] LABS: INR 2.6 (0.9-1.3); Prothrombin Time 28.1 SECONDS (10.1-12.7)
== END ==
LOC: LAB 07:57
PROVIDERS: PCP Internal Medicine; Visit Provider Internal Medicine
DX: I48.91 Unspecified atrial fibrillation (principal)
CPT/HCPCS: 36415; 85610

== ENCOUNTER → 2018-01-01 14:00 | Outpatient (CLI) | payer MEDICARE, SELFPAY ==
[2017-12-02 01:33] VITALS: BMI 25.8
--- NOTE | 2018-01-01 | OV.WND_ITS ---
Progress Note Details Patient Name: Renae Iverson Patient Number: [id number] PatientPatientDate: 01/01/2018 Clinician: Cris Saez Physician / Tube Roller: Boy Edmond SUBJECTIVE Chief Complaint This information was obtained from the patient Trauma wound on right leg. General Notes: Patient returns after several week. She dislocated her hip again and was placed in a SNF. She has [facility] with a nurse visiting every three days. She also has private hired a caregiver to help her with house hold chores and transportation. Allergies NKDA HPI This information was obtained from the patient 01/01/18. Seen by Dr. Edmond. The patient returns after a stay in [facility] for a recurrent right hip dislocation. Regarding her chronic right lower leg trauma wound, she does not report pain or significant drainage from the site and has been receiving routine wound care while in [facility]. The original wound occurred intraoperatively while manipulating the leg which caused a large hematoma due to her being on warfarin which she continues to take. 11/28/17. Seen by Dr. Edmond. The patient does not report significant pain or drainage associated with the right lower leg trauma wound over the past week. 11/21/17. Seen by Dr. Edmond. The patient does not report significant pain or drainage associated with the right lower leg trauma wound over the past week. She also continues on Keflex for cellulitis associated with the wound and does not report fevers or feeling unwell in general. 11/14/2017. Seen by Dr. Edmond. The patient continues reports some pain and drainage associated with the right lower leg trauma wound over the past week. She was prescribed Keflex cellulitis associated with the wound last week but only picked up and started taking yesterday. She does not report fevers or feeling unwell otherwise. 11/10/2017. Seen by Dr. Edmond. The patient reports increased pain, swelling, and drainage associated the right lower leg trauma wound since her last visit. She has not report fevers but does note she developed some blood in her urine and burning as well the past 2 days. She is also on warfarin which has complicated significantly the trauma wound. 11/07/2017. Seen by Dr. Edmodn. The patient's new to our clinic and presents with a right lower leg trauma wound that occured about a week ago during her recent hip replacement surgery. She is on warfarin and apparently during the surgery her leg was being manipulated and a large skin tear occurred. She reports some drainage and significant pain associated with the leg wound but no swelling and no fevers or feeling well otherwise. She states her INR most recently was somewhere just above 3. Family History This information was obtained from the patient Cancer - Child, Diabetes - Father, Heart Disease - Mother, Maternal Grandparents , Hypertension - Mother, Kidney Disease - Child, Mental Illness - Mother, Maternal Grandparents Social History This information was obtained from the patient Alcohol Use - nightly, Caffeine Use - One cup in am, Children - two daughters, Lives in - own home, Retired Past Medical History This information was obtained from the patient Patient has a medical history of: Atrial fibrillation - 07/07/1955 TIA's Stroke - 07/07/2012 Parkinson's disease - 09/04/2013 Surgical History This information was obtained from the patient Patient has a surgical history of: Open Heart Surgery - 09/04/2013 Left Knee replacement - 06/06/2007 Hip Replacement Right Hip - 07/07/2007 Complaints and Symptoms This information was obtained from the patient Patient complains of: General Notes: I have reviewed and concur with the Review of Systems and Past Family Social History documents completed by the clinician, I have reviewed and concur with the Wound Assessment document completed by the clinician Cardiovascular (Central): Irregular heart beat Cardiovascular (Central/Peripheral): Lower extremity (leg) swelling Hematologic/Lymphatic: Bleeding Tendency Integumentary (Hair/Skin/Nails): Hemosiderin Staining, Open Sore Musculoskeletal: Assistive Devices Prior Wound History: Bleeding, Drainage, Erythema, Pain Patient denies complaints or symptoms related to: Cardiovascular (Central/Peripheral): Intermittent Claudication, Lower extremity (leg) resting pain Constitutional Symptoms (General Health): Chills, Fever Ear/Nose/Mouth/Throat: Hearing Loss / Aid Gastrointestinal (GI): Stomach/abdominal pain Hematologic/Lymphatic: Bleeding / Clotting Disorders Neurological: Loss of Protective Sensation Respiratory: Oxygen Use, Shortness of Breath OBJECTIVE Constitutional Vital signs reviewed and noted. Well developed. Alert. Clean appearing.. Height/ Length: 71 in (180.34 cm), Weight: 180 lbs (81.82 kgs), BMI: 25.1, Temperature: 98.7 ?F ( 37.06 ?C), Pulse: 80 bpm, Respiratory Rate: 18 breaths/min, Pulse Oximetry: 98 %. Ears, Nose, Mouth, and Throat: No clinically significant hearing loss on informal examination. Respiratory: No respiratory distress. Even respirations and without use of accessory muscles.. Cardiovascular: 1+ right lower extremity edema. Integumentary (Hair, Skin) Mild echymosis in the periwound area along the demarcation of the dressing. Refer to appropriate clinician wound documentation for this visit; right lower leg wound extends to subcut with base partially covered with red, friable granulation, remainder fibrin and slough. Wound #1 Right Pre-tibial is an acute Partial Thickness Trauma Wound and has received a status of Not Healed. Subsequent wound encounter measurements are 5cm length x 3cm width x 0.1cm depth, with an area of 15 sq cm and a volume of 1.5 cubic cm. No tunneling has been noted. There is a large amount of sero-sanguineous drainage noted which has no odor. The patient reports a wound pain of level 0/10. The wound margin is attached. Wound bed has Yes epithelialization, No eschar, Yes slough, Yes bright red, firm granulation. The periwound skin moisture is normal. The periwound skin exhibited: Edema, Hemosiderosis, Pallor. The periwound skin did not exhibit: Atrophie [place], Cyanosis, Ecchymosis, Erythema, Rubor. The temperature of the periwound skin is WNL. Periwound skin does not exhibit signs or symptoms of infection. Local Pulse is Normal. Neurological: Cranial nerves grossly intact with symmetric function normal by informal observation.. ASSESSMENT Active Problems ICD-10 (Encounter Diagnosis) S81.801D - Unspecified open wound, right lower leg, subsequent encounter (Encounter Diagnosis) L92.9 - Granulomatous disorder of the skin and subcutaneous tissue, unspecified PROCEDURES Wound #1 Wound #1 (Trauma Wound) is located on the right pre-tibial. A Chemical Cauterization procedure was performed by Boy Edmond MD. General Notes: Hyper Granulation tissue. PLAN Wound Orders: Wound #1 Right Pre-tibial Cleanser Cleanse Wound: - Normal saline or distilled water Dressings Primary dressing: - Silicone border foam or equivalent. Change Dressing: - Every other day. Follow-Up Appointments Return Appointment: - - One week Scribing Attestation I attest, as the nurse, that I scribed these orders for the physician. In addition the presence of hypergranulation tissue in the wound was not an expected finding and was cauterized with silver nitrate. The patient's dressing regimen will be modified appropriately to attempt to reduce the formation of further hypergranulation tissue. Electronic Signature(s) Signed By: Date: Boy Edmond MD 01/02/2018 08:43:48 Entered By: Boy Edmond on 01/02/2018 08:38:49
== END ==
PROVIDERS: PCP Internal Medicine; Visit Provider Internal Medicine
DX: S81.801A Unspecified open wound, right lower leg, initial encounter (principal); L92.9 Granulomatous disorder of the skin and subcutaneous tissue, unspecified
CPT/HCPCS: 17250

== ENCOUNTER → 2018-01-08 13:59 | Outpatient (CLI) | payer MEDICARE, SELFPAY ==
[2017-12-02 01:33] VITALS: BMI 25.8
--- NOTE | 2018-01-08 | OV.WND_ITS ---
Progress Note Details Patient Name: Renae Iverson Patient Number: [id number] PatientPatientDate: 01/08/2018 Clinician: Cris Saez Physician / Line Assigner: Boy Edmond SUBJECTIVE Chief Complaint This information was obtained from the patient Trauma wound on right leg. Allergies NKDA HPI This information was obtained from the patient 01/08/18. Seen by Dr. Edmond. The patient reports some increased bruising the area surrounding the right lower leg non-pressure ulcer and notes her recent INR was 3.6. She does not report pain or increased drainage associated with the ulcer however the nurse feels the base is friable and soft. There's also no report of fevers or the patient feeling unwell. 01/01/18. Seen by Dr. Edmond. 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 Regarding her chronic right lower leg trauma wound, she does not report pain or significant drainage from the site and has been receiving routine wound care while in correction. The original wound occurred intraoperatively while manipulating the leg which caused a large hematoma due to her being on warfarin which she continues to take. 11/28/17. Seen by Dr. Edmond. The patient does not report significant pain or drainage associated with the right lower leg trauma wound over the past week. 11/21/17. Seen by Dr. Edmond. The patient does not report significant pain or drainage associated with the right lower leg trauma wound over the past week. She also continues on Keflex for cellulitis associated with the wound and does not report fevers or feeling unwell in general. 11/14/2017. Seen by Dr. Edmond. The patient continues reports some pain and drainage associated with the right lower leg trauma wound over the past week. She was prescribed Keflex cellulitis associated with the wound last week but only picked up and started taking yesterday. She does not report fevers or feeling unwell otherwise. 11/10/2017. Seen by Dr. Edmond. The patient reports increased pain, swelling, and drainage associated the right lower leg trauma wound since her last visit. She has not report fevers but does note she developed some blood in her urine and burning as well the past 2 days. She is also on warfarin which has complicated significantly the trauma wound. 11/07/2017. Seen by Dr. Edmond. The patient's new to our clinic and presents with a right lower leg trauma wound that occured about a week ago during her recent hip replacement surgery. She is on warfarin and apparently during the surgery her leg was being manipulated and a large skin tear occurred. She reports some drainage and significant pain associated with the leg wound but no swelling and no fevers or feeling well otherwise. She states her INR most recently was somewhere just above 3. Past Medical History This information was obtained from the patient Patient has a medical history of: Atrial fibrillation - 07/07/1955 TIA's Stroke - 07/07/2012 Parkinson's disease - 09/04/2013 Complaints and Symptoms This information was obtained from the patient Patient complains of: General Notes: I have reviewed and concur with the Review of Systems and Past Family Social History documents completed by the clinician, I have reviewed and concur with the Wound Assessment document completed by the clinician Cardiovascular (Central): Irregular heart beat Cardiovascular (Central/Peripheral): Lower extremity (leg) swelling Hematologic/Lymphatic: Bleeding Tendency Integumentary (Hair/Skin/Nails): Hemosiderin Staining, Open Sore Musculoskeletal: Assistive Devices Prior Wound History: Bleeding, Drainage, Erythema, Pain Patient denies complaints or symptoms related to: Cardiovascular (Central/Peripheral): Intermittent Claudication, Lower extremity (leg) resting pain Constitutional Symptoms (General Health): Chills, Fever Ear/Nose/Mouth/Throat: Hearing Loss / Aid Gastrointestinal (GI): Stomach/abdominal pain Hematologic/Lymphatic: Bleeding / Clotting Disorders Neurological: Loss of Protective Sensation Respiratory: Oxygen Use, Shortness of Breath OBJECTIVE Constitutional BP low; Afebrile; Alert and in no distress. Well developed. Alert. Clean appearing.. Height/Length: 71 in (180.34 cm), Weight: 170.4 lbs (77.45 kgs), BMI: 23.8, Temperature: 98.7 ?F (37.06 ?C), Pulse: 68 bpm, Respiratory Rate: 18 breaths/min, Blood Pressure: 105/57 mmHg, Pulse Oximetry: 99 %. Ears, Nose, Mouth, and Throat: No clinically significant hearing loss on informal examination. Respiratory: No respiratory distress. Even respirations and without use of accessory muscles.. Cardiovascular: 1+ right lower extremity edema. Gastrointestinal (GI): Non-obese. Nondistended.. Integumentary (Hair, Skin) Mild periwound erythema with warmth; moderate amount of echymosis along medial margin. Refer to appropriate clinician wound documentation for this visit; right lower leg ulcer extends to subcut with base partially covered with red, friable hypergranulation, remainder fibrin and slough. Wound #1 Right Pre-tibial is an acute Partial Thickness Trauma Wound and has received a status of Not Healed. Subsequent wound encounter measurements are 4.5cm length x 2cm width x 0.1cm depth, with an area of 9 sq cm and a volume of 0.9 cubic cm. No tunneling has been noted. No sinus tract has been noted. No undermining has been noted. There is a large amount of sero-sanguineous drainage noted which has no odor. The patient reports a wound pain of level 0/10. The wound margin is attached. Wound bed has Yes epithelialization, No eschar, Yes slough, Yes bright red, spongy granulation. The periwound skin moisture is normal. The periwound skin exhibited: Edema, Hemosiderosis, Pallor. The periwound skin did not exhibit: Atrophie [place], Cyanosis, Ecchymosis, Erythema, Rubor. The temperature of the periwound skin is WNL. Periwound skin does not exhibit signs or symptoms of infection. Local Pulse is Normal. Neurological: Cranial nerves grossly intact with symmetric function normal by informal observation.. ASSESSMENT Active Problems ICD-10 (Encounter Diagnosis) S81.801D - Unspecified open wound, right lower leg, subsequent encounter (Encounter Diagnosis) L92.9 - Granulomatous disorder of the skin and subcutaneous tissue, unspecified (Encounter Diagnosis) T45.515A - Adverse effect of anticoagulants, initial encounter (Encounter Diagnosis) L08.9 - Local infection of the skin and subcutaneous tissue, unspecified PROCEDURES Wound #1 Wound #1 (Trauma Wound) is located on the right pre-tibial. A Chemical Cauterization procedure was performed by Boy Edmond MD. General Notes: Hyper Granulation. PLAN Wound Orders: Wound #1 Right Pre-tibial Cleanser Cleanse Wound: - Normal saline. Topical Treatments Antibiotic/Antimicrobial Ointment/Cream. - Gentamicin Dressings Pack wound: - Boarder Foam. Change Dressing: - Every other day. Follow-Up Appointments Return Appointment: - - One week. Scribing Attestation I attest, as the nurse, that I scribed these orders for the physician. Laboratory: Bacteria identified in Wound by Culture - Right Leg In addition the presence of hypergranulation tissue in the wound was not an expected finding and was cauterized with silver nitrate. The patient's dressing regimen will be modified appropriately to attempt to reduce the formation of further hypergranulation tissue. Also, I've cultured the right lower leg ulcer and started treating what appears to be a superficial wound infection with topical gentamicin ointment. The increased drainage has also contributed to hypergranulation of the ulcer base. Electronic Signature(s) Signed By: Date: Boy Edmond MD 01/08/2018 15:34:08 Entered By: Boy Edmond on 01/08/2018 15:29:29
== END ==
PROVIDERS: PCP Internal Medicine; Visit Provider Internal Medicine
DX: S81.802D Unspecified open wound, left lower leg, subsequent encounter (principal); L92.9 Granulomatous disorder of the skin and subcutaneous tissue, unspecified; L08.9 Local infection of the skin and subcutaneous tissue, unspecified
CPT/HCPCS: 17250; 87070; 87075; 87077; 87147; 87186; 87205

== ENCOUNTER → 2018-01-16 10:18 | Outpatient (CLI) | payer MEDICARE, SELFPAY ==
[2017-12-02 01:33] VITALS: BMI 25.8
--- NOTE | 2018-01-16 | OV.WND_ITS ---
Progress Note Details Patient Name: Renae Iverson Patient Number: [id number] PatientPatientDate: 01/16/2018 Clinician: Lynn Barcenas Clinician Cosigner: Lois Matthew Physician / [employer] Supervisor: Boy Edmond SUBJECTIVE Chief Complaint This information was obtained from the patient Trauma wound on right leg. Allergies NKDA HPI This information was obtained from the patient 01/16/18. Seen by Dr. Edmond. The patient does not report significant pain or drainage associated with the right lower leg trauma wound over the past week and her wound culture grew MSSA. She's applying topical OTC antibiotic to the wound but is not currently on oral antibiotics. 01/08/18. Seen by Dr. Edmond. The patient reports some increased bruising the area surrounding the right lower leg non-pressure ulcer and notes her recent INR was 3.6. She does not report pain or increased drainage associated with the ulcer however the nurse feels the base is friable and soft. There's also no report of fevers or the patient feeling unwell. 01/01/18. Seen by Dr. Edmond. The patient returns after a stay in half-way for a recurrent right hip dislocation. Regarding her chronic right lower leg trauma wound, she does not report pain or significant drainage from the site and has been receiving routine wound care while in half-way. The original wound occurred intraoperatively while manipulating the leg which caused a large hematoma due to her being on warfarin which she continues to take. 11/28/17. Seen by Dr. Edmond. The patient does not report significant pain or drainage associated with the right lower leg trauma wound over the past week. 11/21/17. Seen by Dr. Edmond. The patient does not report significant pain or drainage associated with the right lower leg trauma wound over the past week. She also continues on Keflex for cellulitis associated with the wound and does not report fevers or feeling unwell in general. 11/14/2017. Seen by Dr. Edmond. The patient continues reports some pain and drainage associated with the right lower leg trauma wound over the past week. She was prescribed Keflex cellulitis associated with the wound last week but only picked up and started taking yesterday. She does not report fevers or feeling unwell otherwise. 11/10/2017. Seen by Dr. Edmond. The patient reports increased pain, swelling, and drainage associated the right lower leg trauma wound since her last visit. She has not report fevers but does note she developed some blood in her urine and burning as well the past 2 days. She is also on warfarin which has complicated significantly the trauma wound. 11/07/2017. Seen by Dr. Edmond. The patient's new to our clinic and presents with a right lower leg trauma wound that occured about a week ago during her recent hip replacement surgery. She is on warfarin and apparently during the surgery her leg was being manipulated and a large skin tear occurred. She reports some drainage and significant pain associated with the leg wound but no swelling and no fevers or feeling well otherwise. She states her INR most recently was somewhere just above 3. Past Medical History This information was obtained from the patient Patient has a medical history of: Atrial fibrillation - 07[birth year]07/1955 TIA's Stroke - 07/07/2012 Parkinson's disease - 09/04/2013 Complaints and Symptoms This information was obtained from the patient Patient complains of: General Notes: I have reviewed and concur with the Review of Systems and Past Family Social History documents completed by the clinician, I have reviewed and concur with the Wound Assessment document completed by the clinician Cardiovascular (Central): Irregular heart beat Cardiovascular (Central/Peripheral): Lower extremity (leg) swelling Hematologic/Lymphatic: Bleeding Tendency Integumentary (Hair/Skin/Nails): Hemosiderin Staining, Open Sore Musculoskeletal: Assistive Devices Prior Wound History: Bleeding, Drainage, Erythema, Pain Patient denies complaints or symptoms related to: Cardiovascular (Central/Peripheral): Intermittent Claudication, Lower extremity (leg) resting pain Constitutional Symptoms (General Health): Chills, Fever Ear/Nose/Mouth/Throat: Hearing Loss / Aid Gastrointestinal (GI): Stomach/abdominal pain Hematologic/Lymphatic: Bleeding / Clotting Disorders Neurological: Loss of Protective Sensation Respiratory: Oxygen Use, Shortness of Breath OBJECTIVE Constitutional Vital signs reviewed and noted. Well developed. Alert. Clean appearing.. Height/ Length: 71 in (180.34 cm), Weight: 172.3 lbs (78.32 kgs), BMI: 24, Temperature: 97.5 ?F ( 36.39 ?C), Pulse: 62 bpm, Respiratory Rate: 18 breaths/min, Blood Pressure: 105/59 mmHg, Pulse Oximetry: 96 %. Cardiovascular: 1+ right lower extremity edema. Integumentary (Hair, Skin) No periwound erythema, warmth, or significant drainage. No periwound rashes appreciated or noted otherwise.. Refer to appropriate clinician wound documentation for this visit; right lower leg wound extends to subcut with base partially covered with friable red hypergranulation, remainder fibrin and slough. Wound #1 Right Pre-tibial is an acute Partial Thickness Trauma Wound and has received a status of Not Healed. Subsequent wound encounter measurements are 2.5cm length x 2.5cm width x 0.1cm depth, with an area of 6.25 sq cm and a volume of 0.625 cubic cm. Hypergranulation was noted. No tunneling has been noted. No sinus tract has been noted. No undermining has been noted. There is a moderate amount of seropurulent drainage noted which has no odor. The patient reports a wound pain of level 0/10. The wound margin is attached. Wound bed has Yes epithelialization, No eschar, Yes slough, Yes bright red, pink, spongy granulation. The periwound skin moisture is normal. The periwound skin exhibited: Edema, Hemosiderosis, Pallor. The periwound skin did not exhibit: Atrophie [place], Cyanosis, Ecchymosis, Erythema, Rubor. The temperature of the periwound skin is WNL. Periwound skin does not exhibit signs or symptoms of infection. Local Pulse is Normal. Neurological: Cranial nerves grossly intact with symmetric function normal by informal observation.. ASSESSMENT Active Problems ICD-10 (Encounter Diagnosis) S81.801D - Unspecified open wound, right lower leg, subsequent encounter (Encounter Diagnosis) L92.9 - Granulomatous disorder of the skin and subcutaneous tissue, unspecified (Encounter Diagnosis) B95.61 - Methicillin susceptible Staphylococcus aureus infection as the cause of diseases classified elsewhere PROCEDURES Wound #1 Wound #1 (Trauma Wound) is located on the right pre-tibial. A Chemical Cauterization procedure was performed by Boy Edmond MD. General Notes: Hyper Granulation. PLAN Wound Orders: Wound #1 Right Pre-tibial Anesthetic Topical Xylocaine to wound bed. - In clinic only. Cleanser Cleanse Wound: - Normal saline. May Shower. - You may use cast protector. Dressings Primary dressing: - Border foam Change Dressing: - Every other day. Follow-Up Appointments Return Appointment: - - One week. Other information: If you develop fever, chills, increased pain, drainage, redness or swelling please call our office. If after hours, respond to the ER. Should you experience any significant changes in your wound(s) or have any questions regarding your home care instructions please contact the wound center @ [phone]. If after hours, contact your primary care physician or go to the hospital emergency room. Scribing Attestation I attest, as the nurse, that I scribed these orders for the physician. General Notes: Home health nurse please use a bigger dressing per patient request. I've reviewed the clinician's documentation and agree with the evaluation and plan as written. In addition the presence of hypergranulation tissue in the wound was not an expected finding and was cauterized with silver nitrate. The patient's dressing regimen will be modified appropriately to attempt to reduce the formation of further hypergranulation tissue. Electronic Signature(s) Signed By: Date: Boy Edmond MD 01/16/2018 13:30:07 Entered By: Boy Edmond on 01/16/2018 13:25:28
== END ==
PROVIDERS: PCP Internal Medicine; Visit Provider Internal Medicine
DX: S81.801A Unspecified open wound, right lower leg, initial encounter (principal); L92.9 Granulomatous disorder of the skin and subcutaneous tissue, unspecified; A49.01 Methicillin susceptible Staphylococcus aureus infection, unspecified site
CPT/HCPCS: 17250

== ENCOUNTER → 2018-01-21 13:00 | Outpatient (REF) | payer MEDICARE, SELFPAY ==
[2017-12-02 01:33] VITALS: BMI 25.8
[2018-01-21 13:38] LABS: Appearance Urine UA CLOUDY; Bilirubin Urine UA NEGATIVE (NEGATIVE); Color Urine UA YELLOW; Glucose Urine UA NEGATIVE (Normal); Ketones Urine UA TRACE (NEGATIVE); Leukocyte Esterase Urine UA 2+ (NEGATIVE); Nitrite Urine UA POSITIVE (Negative); Occult Blood Urine UA TRACE-LYSED (Negative); Protein Urine UA NEGATIVE (Negative); Urobilinogen Urine UA 0.2 E.U./dL (0.2)
[2018-01-21 14:07] LABS: RBC Urine 0-1/HPF (0-5/HPF); WBC Urine 30-100/HPF (0-5/HPF)
[2018-01-21 14:08] LABS: Amorphous Sediment Urine 1+; Bacteria Urine Many (>30); Mucus Urine 1+ (Negative); Renal Epithelial Cells Urine 1-5/HPF; Squamous Epithelial Cell Urine 1-5 /HPF
== END ==
LOC: LAB 13:00
PROVIDERS: PCP Internal Medicine; Visit Provider Internal Medicine
DX: R30.0 Dysuria (principal)
CPT/HCPCS: 81001; 87077; 87086; 87186

== ENCOUNTER → 2018-01-23 10:06 | Outpatient (CLI) | payer MEDICARE, SELFPAY ==
[2017-12-02 01:33] VITALS: BMI 25.8
--- NOTE | 2018-01-23 | OV.WND_ITS ---
Progress Note Details Patient Name: Renae Iverson Patient Number: [id number] PatientPatientDate: 01/23/2018 Clinician: Gaviota Baxter Physician / Linen Controller: Boy Edmond SUBJECTIVE Chief Complaint This information was obtained from the patient Trauma wound on right leg. Allergies NKDA HPI This information was obtained from the patient 01/23/18. Seen by Dr. Edmond. The patient does not report significant pain or drainage associated with the right lower leg trauma wound over the past week. 01/16/18. Seen by Dr. Edmond. The patient does not report significant pain or drainage associated with the right lower leg trauma wound over the past week and her wound culture grew MSSA. She's applying topical OTC antibiotic to the wound but is not currently on oral antibiotics. 01/08/18. Seen by Dr. Edmond. The patient reports some increased bruising the area surrounding the right lower leg non-pressure ulcer and notes her recent INR was 3.6. She does not report pain or increased drainage associated with the ulcer however the nurse feels the base is friable and soft. There's also no report of fevers or the patient feeling unwell. 01/01/18. Seen by Dr. Edmond. The patient returns after a stay in [facility] for a recurrent right hip dislocation. 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 The original wound occurred intraoperatively while manipulating the leg which caused a large hematoma due to her being on warfarin which she continues to take. 11/28/17. Seen by Dr. Edmond. The patient does not report significant pain or drainage associated with the right lower leg trauma wound over the past week. 11/21/17. Seen by Dr. Edmond. The patient does not report significant pain or drainage associated with the right lower leg trauma wound over the past week. She also continues on Keflex for cellulitis associated with the wound and does not report fevers or feeling unwell in general. 11/14/2017. Seen by Dr. Edmond. The patient continues reports some pain and drainage associated with the right lower leg trauma wound over the past week. She was prescribed Keflex cellulitis associated with the wound last week but only picked up and started taking yesterday. She does not report fevers or feeling unwell otherwise. 11/10/2017. Seen by Dr. Edmond. The patient reports increased pain, swelling, and drainage associated the right lower leg trauma wound since her last visit. She has not report fevers but does note she developed some blood in her urine and burning as well the past 2 days. She is also on warfarin which has complicated significantly the trauma wound. 11/07/2017. Seen by Dr. Edmond. The patient's new to our clinic and presents with a right lower leg trauma wound that occured about a week ago during her recent hip replacement surgery. She is on warfarin and apparently during the surgery her leg was being manipulated and a large skin tear occurred. She reports some drainage and significant pain associated with the leg wound but no swelling and no fevers or feeling well otherwise. She states her INR most recently was somewhere just above 3. Past Medical History This information was obtained from the patient Patient has a medical history of: Atrial fibrillation - 07/07/1955 TIA's Stroke - 07/07/2012 Parkinson's disease - 09/04/2013 Complaints and Symptoms This information was obtained from the patient Patient complains of: General Notes: I have reviewed and concur with the Review of Systems and Past Family Social History documents completed by the clinician, I have reviewed and concur with the Wound Assessment document completed by the clinician Cardiovascular (Central): Irregular heart beat Cardiovascular (Central/Peripheral): Lower extremity (leg) swelling Hematologic/Lymphatic: Bleeding Tendency Integumentary (Hair/Skin/Nails): Hemosiderin Staining, Open Sore Musculoskeletal: Assistive Devices Prior Wound History: Bleeding, Drainage, Erythema, Pain Patient denies complaints or symptoms related to: Cardiovascular (Central/Peripheral): Intermittent Claudication, Lower extremity (leg) resting pain Constitutional Symptoms (General Health): Chills, Fever Ear/Nose/Mouth/Throat: Hearing Loss / Aid Gastrointestinal (GI): Stomach/abdominal pain Hematologic/Lymphatic: Bleeding / Clotting Disorders Neurological: Loss of Protective Sensation Respiratory: Oxygen Use, Shortness of Breath OBJECTIVE Constitutional Vital signs reviewed and noted. Well developed. Alert. Clean appearing.. Height/ Length: 71 in (180.34 cm), Weight: 170.8 lbs (77.64 kgs), BMI: 23.8, Temperature: 97.8 ?F ( 36.56 ?C), Pulse: 62 bpm, Respiratory Rate: 18 breaths/min, Blood Pressure: 101/60 mmHg, Pulse Oximetry: 96 %. Ears, Nose, Mouth, and Throat: No clinically significant hearing loss on informal examination. Respiratory: No respiratory distress. Even respirations and without use of accessory muscles.. Cardiovascular: 1+ right lower extremity edema. Integumentary (Hair, Skin) No periwound erythema, warmth, or significant drainage. No periwound rashes appreciated or noted otherwise.. Refer to appropriate clinician wound documentation for this visit; right lower leg wound extends to subcut with base partially covered with red, hypergranulation, remainder fibrin and slough. Wound #1 Right Pre-tibial is an acute Partial Thickness Trauma Wound and has received a status of Not Healed. Subsequent wound encounter measurements are 1cm length x 1.5cm width x 0.1cm depth, with an area of 1.5 sq cm and a volume of 0.15 cubic cm. Hypergranulation was noted. No tunneling has been noted. No sinus tract has been noted. No undermining has been noted. There is a moderate amount of seropurulent drainage noted which has no odor. The patient reports a wound pain of level 0/10. The wound margin is attached. Wound bed has Yes epithelialization, No eschar, Yes slough, Yes bright red, pink, firm granulation. The periwound skin moisture is normal. The periwound skin exhibited: Edema, Hemosiderosis, Pallor. The periwound skin did not exhibit: Atrophie [place], Cyanosis, Ecchymosis, Erythema, Rubor. The temperature of the periwound skin is WNL. Periwound skin does not exhibit signs or symptoms of infection. Local Pulse is Normal. Neurological: Cranial nerves grossly intact with symmetric function normal by informal observation.. ASSESSMENT Active Problems ICD-10 (Encounter Diagnosis) S81.801D - Unspecified open wound, right lower leg, subsequent encounter (Encounter Diagnosis) L92.9 - Granulomatous disorder of the skin and subcutaneous tissue, unspecified PROCEDURES Wound #1 Wound #1 (Trauma Wound) is located on the right pre-tibial. A Chemical Cauterization procedure was performed by Boy Edmond MD. General Notes: Hypergranulation treated with silver nitrate stick PLAN Wound Orders: Wound #1 Right Pre-tibial Anesthetic Topical Xylocaine to wound bed. - In clinic only. Cleanser Cleanse Wound: - Normal saline. May Shower. - You may use cast protector. Dressings Primary dressing: - Border foam Change Dressing: - Every other day. Follow-Up Appointments Return Appointment: - - One week. Other information: If you develop fever, chills, increased pain, drainage, redness or swelling please call our office. If after hours, respond to the ER. Should you experience any significant changes in your wound(s) or have any questions regarding your home care instructions please contact the wound center @ [phone]. If after hours, contact your primary care physician or go to the hospital emergency room. Scribing Attestation I attest, as the nurse, that I scribed these orders for the physician. Additional Orders: Compression/Edema Control Elevation of leg(s) above the level of the heart when sitting. Single Layer Compression Wrap: - Tetra F. Wear during the day, off at bedtime. Remove stocking if leg becomes painful, toes are discolored, or you have numbness or tingling. In addition the presence of hypergranulation tissue in the wound was not an expected finding and was cauterized with silver nitrate. The patient's dressing regimen will be modified appropriately to attempt to reduce the formation of further hypergranulation tissue. Electronic Signature(s) Signed By: Date: Boy Edmond MD 01/23/2018 13:04:12 Entered By: Boy Edmond on 01/23/2018 13:00:14
== END ==
PROVIDERS: PCP Internal Medicine; Visit Provider Internal Medicine
DX: S81.801D Unspecified open wound, right lower leg, subsequent encounter (principal); L92.9 Granulomatous disorder of the skin and subcutaneous tissue, unspecified
CPT/HCPCS: 17250

== ENCOUNTER → 2018-01-30 09:40 | Outpatient (CLI) | payer MEDICARE, SELFPAY ==
[2017-12-02 01:33] VITALS: BMI 25.8
== END ==
PROVIDERS: PCP Internal Medicine; Visit Provider Internal Medicine
DX: S81.801D Unspecified open wound, right lower leg, subsequent encounter (principal)
CPT/HCPCS: 99212

== ENCOUNTER → 2018-02-11 13:13 | Outpatient (CLI) | payer MEDICARE, SELFPAY ==
[2017-12-02 01:33] VITALS: BMI 25.8
--- NOTE | 2018-02-11 | OV.WND_ITS ---
Progress Note Details Patient Name: Renae Iverson Patient Number: [id number] PatientPatientDate: 02/11/2018 Clinician: Cris Saez Clinician Cosigner: Lois Matthew Physician / Rhit: Boy Edmond SUBJECTIVE Chief Complaint This information was obtained from the patient Trauma wound on right leg. Allergies NKDA HPI This information was obtained from the patient 02/11/18. Seen by Dr. Edmond. The patient does not report significant pain or drainage associated with the right lower leg trauma wound over the past week. 01/30/18. Seen by Dr. Edmond. The patient does not report significant pain or drainage associated with the right lower leg trauma wound over the past week. 01/23/18. Seen by Dr. Edmond. The patient does not report significant pain or drainage associated with the right lower leg trauma wound over the past week. 01/16/18. Seen by Dr. Edmond. The patient does not report significant pain or drainage associated with the right lower leg trauma wound over the past week and her wound culture grew MSSA. She's applying topical OTC antibiotic to the wound but is not currently on oral antibiotics. 01/08/18. Seen by Dr. Edmond. The patient reports some increased bruising the area surrounding the right lower leg non-pressure ulcer and notes her recent INR was 3.6. She does not report pain or increased drainage associated with the ulcer however the nurse feels the base is friable and soft. There's also no report of fevers or the patient feeling unwell. 01/01/18. Seen by Dr. Edmond. [facility]. Regarding her chronic right lower leg trauma wound, she does not report pain or significant drainage from the site and has been receiving routine wound care [facility]. The original wound occurred intraoperatively while manipulating the leg which caused a large hematoma due to her being on warfarin which she continues to take. 11/28/17. Seen by Dr. Edmond. The patient does not report significant pain or drainage associated with the right lower leg trauma wound over the past week. 11/21/17. Seen by Dr. Edmond. The patient does not report significant pain or drainage associated with the right lower leg trauma wound over the past week. She also continues on Keflex for cellulitis associated with the wound and does not report fevers or feeling unwell in general. 11/14/2017. Seen by Dr. Edmond. The patient continues reports some pain and drainage associated with the right lower leg trauma wound over the past week. She was prescribed Keflex cellulitis associated with the wound last week but only picked up and started taking yesterday. She does not report fevers or feeling unwell otherwise. 11/10/2017. Seen by Dr. Edmond. The patient reports increased pain, swelling, and drainage associated the right lower leg trauma wound since her last visit. She has not report fevers but does note she developed some blood in her urine and burning as well the past 2 days. She is also on warfarin which has complicated significantly the trauma wound. 11/07/2017. Seen by Dr. Edmond. The patient's new to our clinic and presents with a right lower leg trauma wound that occured about a week ago during her recent hip replacement surgery. She is on warfarin and apparently during the surgery her leg was being manipulated and a large skin tear occurred. She reports some drainage and significant pain associated with the leg wound but no swelling and no fevers or feeling well otherwise. She states her INR most recently was somewhere just above 3. Past Medical History This information was obtained from the patient Patient has a medical history of: Atrial fibrillation - 07[birth year]07/1955 TIA's Stroke - 07/07/2012 Parkinson's disease - 09/04/2013 Complaints and Symptoms This information was obtained from the patient Patient complains of: General Notes: I have reviewed and concur with the Review of Systems and Past Family Social History documents completed by the clinician, I have reviewed and concur with the Wound Assessment document completed by the clinician Cardiovascular (Central): Irregular heart beat Cardiovascular (Central/Peripheral): Lower extremity (leg) swelling Hematologic/Lymphatic: Bleeding Tendency Integumentary (Hair/Skin/Nails): Hemosiderin Staining, Open Sore Musculoskeletal: Assistive Devices Prior Wound History: Bleeding, Drainage, Erythema, Pain Patient denies complaints or symptoms related to: Cardiovascular (Central/Peripheral): Intermittent Claudication, Lower extremity (leg) resting pain Constitutional Symptoms (General Health): Chills, Fever Ear/Nose/Mouth/Throat: Hearing Loss / Aid Gastrointestinal (GI): Stomach/abdominal pain Hematologic/Lymphatic: Bleeding / Clotting Disorders Neurological: Loss of Protective Sensation Respiratory: Oxygen Use, Shortness of Breath OBJECTIVE Constitutional Vital signs reviewed and noted. Well developed. Alert. Clean appearing.. Height/ Length: 71 in (180.34 cm), Weight: 173.5 lbs (78.86 kgs), BMI: 24.2, Temperature: 98.7 ?F ( 37.06 ?C), Pulse: 53 bpm, Respiratory Rate: 18 breaths/min, Blood Pressure: 135/71 mmHg, Pulse Oximetry: 97 %. Cardiovascular: 1+ right lower extremity edema. Integumentary (Hair, Skin) Refer to appropriate clinician wound documentation for this visit.. Wound #1 Right Pre-tibial is an acute Partial Thickness Trauma Wound and has received a status of Not Healed. Subsequent wound encounter measurements are 0.4cm length x 0.2cm width x 0.1cm depth, with an area of 0.08 sq cm and a volume of 0.008 cubic cm. Hypergranulation was noted. No tunneling has been noted. No sinus tract has been noted. No undermining has been noted. There is a moderate amount of sero-sanguineous drainage noted which has no odor. The patient reports a wound pain of level 0/10. The wound margin is attached. Wound bed has Yes epithelialization, No eschar, Yes slough, Yes pink, firm granulation. The periwound skin moisture is normal. The periwound skin exhibited: Edema, Hemosiderosis, Pallor. The periwound skin did not exhibit: Atrophie [place], Cyanosis, Ecchymosis, Erythema, Rubor. The temperature of the periwound skin is WNL. Periwound skin presents with s/s of infection. Confirmation Description and Treatment Plan is: Signs and Symptoms Present. Local Pulse is Normal. Neurological: Cranial nerves grossly intact with symmetric function normal by informal observation.. ASSESSMENT Active Problems ICD-10 (Encounter Diagnosis) S81.801D - Unspecified open wound, right lower leg, subsequent encounter PLAN Wound Orders: Wound #1 Right Pre-tibial Cleanser Cleanse Wound: - Distilled water. May Shower. - With Shower Boot. Dressings Primary dressing: - NEXCARE bandage. Scribing Attestation I attest, as the nurse, that I scribed these orders for the physician. General Notes: You can purchase NEXCARE at the drug store. D/[facility] I've reviewed the clinician's documentation and agree with the evaluation and plan as written. In addition the patient's last remiaining complex wound is now healed. The patient is invited to return to our clinic for treatment of any future complex wounds. Post wound care and strategies to avoid recurrences were discussed. Electronic Signature(s) Signed By: Date: Boy Edmond MD 02/12/2018 09:16:50 Entered By: Boy Edmond on 02/12/2018 09:01:37
== END ==
PROVIDERS: PCP Internal Medicine; Visit Provider Internal Medicine
DX: S81.801D Unspecified open wound, right lower leg, subsequent encounter (principal)
CPT/HCPCS: 99211

== ENCOUNTER → 2018-02-27 10:47 | Outpatient (CLI) | payer MEDICARE, SELFPAY ==
[2017-12-02 01:33] VITALS: BMI 25.8
== END ==
PROVIDERS: PCP Internal Medicine; Visit Provider Internal Medicine
DX: L97.812 Non-pressure chronic ulcer of other part of right lower leg with fat layer exposed (principal); R60.0 Localized edema
CPT/HCPCS: 11042; 87070; 87075; 87077; 87147; 87186; 87205

== ENCOUNTER → 2018-03-05 14:20 | Outpatient (CLI) | payer MEDICARE, SELFPAY ==
[2017-12-02 01:33] VITALS: BMI 25.8
--- NOTE | 2018-03-05 | OV.WND_ITS ---
Progress Note Details Patient Name: Renae Iverson Patient Number: [id number] PatientPatientDate: 03/05/2018 Clinician: Consuelo Costa Clinician Cosigner: Lois Matthew Physician / Customer Retention Representative: Boy Edmond SUBJECTIVE Chief Complaint This information was obtained from the patient Trauma wound on right leg. Allergies NKDA HPI This information was obtained from the patient 03/05/18. Seen by Dr. Edmond. The patient is now on doxycycline for the MRSA positive wound culture taken from the right lower leg non-pressure ulcer at her last visit. She does not report pain or significant drainage from the site but notes her significant bilateral lower leg swelling persists. She's unable to wear compression stockings of have a compression wrap placed to address the right lower leg edema due to a significant reduction in her right hip flexibility associated with recurrent hip dislocations. She's been keeping her leg elevated as much as possible and is on low dose spironolactone as a diuretic but states she can't be seen by cardiology to discuss adjusting her diuretic therapy until an ultrasound study of the leg is performed. 02/27/18. Seen by Dr. Edmond. The patient returns to clinic due to a recurrence of a right lower leg non-pressure ulcer that she feels is related to a significant increase in bilateral lower leg swelling. She was seen by her senior data mining analyst for this issue and is awaiting ' ultrasound' studies next week. She states she's not on a diuretic however and is unable to place compression stockings due to a recurrent right hip dislocation issue related to a recent hip replacement. 02/11/18. Seen by Dr. Edmond. The patient does not report significant pain or drainage associated with the right lower leg trauma wound over the past week. 01/30/18. Seen by Dr. Edmond. The patient does not report significant pain or drainage associated with the right lower leg trauma wound over the past week. 01/23/18. Seen by Dr. Edmond. The patient does not report significant pain or drainage associated with the right lower leg trauma wound over the past week. 01/16/18. Seen by Dr. Edmond. The patient does not report significant pain or drainage associated with the right lower leg trauma wound over the past week and her wound culture grew MSSA. She's applying topical OTC antibiotic to the wound but is not currently on oral antibiotics. 01/08/18. Seen by Dr. Edmond. The patient reports some increased bruising the area surrounding the right lower leg non-pressure ulcer and notes her recent INR was 3.6. She does not report pain or increased drainage associated with the ulcer however the nurse feels the base is friable and soft. There's also no report of fevers or the patient feeling unwell. 01/01/18. Seen by Dr. Edmond. The patient returns after a stay in senior care for a recurrent right hip dislocation. Regarding her chronic right lower leg trauma wound, she does not report pain or significant drainage from the site and has been receiving routine wound care while in senior care. The original wound occurred intraoperatively while manipulating the leg which caused a large hematoma due to her being on warfarin which she continues to take. 11/28/17. Seen by Dr. Edmond. The patient does not report significant pain or drainage associated with the right lower leg trauma wound over the past week. 11/21/17. Seen by Dr. Edmond. The patient does not report significant pain or drainage associated with the right lower leg trauma wound over the past week. She also continues on Keflex for cellulitis associated with the wound and does not report fevers or feeling unwell in general. 11/14/2017. Seen by Dr. Edmond. The patient continues reports some pain and drainage associated with the right lower leg trauma wound over the past week. She was prescribed Keflex cellulitis associated with the wound last week but only picked up and started taking yesterday. She does not report fevers or feeling unwell otherwise. 11/10/2017. Seen by Dr. Edmond. The patient reports increased pain, swelling, and drainage associated the right lower leg trauma wound since her last visit. She has not report fevers but does note she developed some blood in her urine and burning as well the past 2 days. She is also on warfarin which has complicated significantly the trauma wound. 11/07/2017. Seen by Dr. Edmond. The patient's new to our clinic and presents with a right lower leg trauma wound that occured about a week ago during her recent hip replacement surgery. She is on warfarin and apparently during the surgery her leg was being manipulated and a large skin tear occurred. She reports some drainage and significant pain associated with the leg wound but no swelling and no fevers or feeling well otherwise. She states her INR most recently was somewhere just above 3. Past Medical History This information was obtained from the patient Patient has a medical history of: Atrial fibrillation - 07/07/1955 TIA's Stroke - 07/07/2012 Parkinson's disease - 09/04/2013 Complaints and Symptoms This information was obtained from the patient Patient complains of: General Notes: I have reviewed and concur with the Review of Systems and Past Family Social History documents completed by the clinician, I have reviewed and concur with the Wound Assessment document completed by the clinician Cardiovascular (Central): Irregular heart beat Cardiovascular (Central/Peripheral): Lower extremity (leg) swelling Hematologic/Lymphatic: Bleeding Tendency Integumentary (Hair/Skin/Nails): Hemosiderin Staining, Open Sore Musculoskeletal: Assistive Devices Prior Wound History: Bleeding, Drainage, Erythema, Pain Patient denies complaints or symptoms related to: Cardiovascular (Central/Peripheral): Intermittent Claudication, Lower extremity (leg) resting pain Constitutional Symptoms (General Health): Chills, Fever Ear/Nose/Mouth/Throat: Hearing Loss / Aid Gastrointestinal (GI): Stomach/abdominal pain Hematologic/Lymphatic: Bleeding / Clotting Disorders Neurological: Loss of Protective Sensation Respiratory: Oxygen Use, Shortness of Breath OBJECTIVE Constitutional BP elevated; Afebrile; Alert and in no distress. Well developed. Alert. Clean appearing.. Height/Length: 71 in (180.34 cm), Weight: 179.1 lbs (81.41 kgs), BMI: 25, Temperature: 98.1 ?F (36.72 ?C), Pulse: 74 bpm, Respiratory Rate: 18 breaths/min, Blood Pressure: 159/87 mmHg, Pulse Oximetry: 98 %. Ears, Nose, Mouth, and Throat: No clinically significant hearing loss on informal examination. Respiratory: No respiratory distress. Even respirations and without use of accessory muscles.. Cardiovascular: 2+ bilateral lower leg edema. Gastrointestinal (GI): Non-obese. Nondistended.. Integumentary (Hair, Skin) No periwound erythema, warmth, or significant drainage. No periwound rashes appreciated or noted otherwise.. Refer to appropriate clinician wound documentation for this visit; right lower leg ulcer extends to subcut with base partially covered with red, friable granulation, remainder fibrin and slough. Wound #1 Right Pre-tibial is an acute Partial Thickness Trauma Wound and has received a status of Not Healed. Subsequent wound encounter measurements are 4.5cm length x 0.4cm width x 0.1cm depth, with an area of 1.8 sq cm and a volume of 0.18 cubic cm. Hypergranulation was noted. No tunneling has been noted. No sinus tract has been noted. No undermining has been noted. There is a moderate amount of serous drainage noted which has no odor. The patient reports a wound pain of level 2/10. The wound margin is attached. Wound bed has Yes epithelialization, No eschar, Yes slough, Yes pink, firm granulation. The periwound skin moisture is normal. The periwound skin exhibited: Edema, Hemosiderosis, Pallor. The periwound skin did not exhibit: Brawny Induration, Excoriation, Induration, Callus, Crepitus, Fluctuance, Friable, Rash, Atrophie [place], Cyanosis, Ecchymosis, Erythema, Rubor. The temperature of the periwound skin is WNL. Periwound skin does not exhibit signs or symptoms of infection. Local Pulse is Normal. General Notes: Measured wound length 1-7 and width at 9-3. Neurological: Cranial nerves grossly intact with symmetric function normal by informal observation.. ASSESSMENT Active Problems ICD-10 (Encounter Diagnosis) S81.801D - Unspecified open wound, right lower leg, subsequent encounter (Encounter Diagnosis) R60.0 - Localized edema (Encounter Diagnosis) B95.62 - Methicillin resistant Staphylococcus aureus infection as the cause of diseases classified elsewhere PROCEDURES Wound #1 Wound #1 (Trauma Wound) is located on the right pre-tibial. A skin/subcutaneous tissue level surgical debridement with a total area debrided of 2.25 sq cm was performed by Boy Edmond MD. Subcutaneous was removed along with devitalized tissue: exudate and slough. The following instrument(s) were used: curette. Pain control was achieved using 4% Lido. A time out was conducted prior to the start of the procedure. A minimal amount of bleeding was controlled with pressure. The procedure was tolerated well with a pain level of 0 throughout and a pain level of 0 following the procedure. Post Debridement Measurements: 4.5cm length x 0.5cm width x 0.2cm depth; with an area of 2.25 sq cm and a volume of 0.45 cubic cm; General Notes: No post photo. Additional Information Muscle fascia or bone removed and sent to pathology?: No PLAN Wound Orders: Wound #1 Right Pre-tibial Anesthetic Topical Xylocaine to wound bed. - In clinic only. Cleanser Cleanse Wound: - Normal saline or distilled water at home. May Shower. - With Shower Boot. Dressings Primary dressing: - Border foam Change Dressing: - Every other day. Additional Orders: Compression/Edema Control Elevation of leg(s) above the level of the heart when sitting. - Elevate above hip level daily. Avoid prolonged standing in one place. Follow-Up Appointments Return Appointment: - - One week. Other information: If you develop fever, chills, increased pain, drainage, redness or swelling please call our office. If after hours, respond to the ER. Should you experience any significant changes in your wound(s) or have any questions regarding your home care instructions please contact the wound center @ [phone]. If after hours, contact your primary care physician or go to the hospital emergency room. Scribing Attestation I attest, as the nurse, that I scribed these orders for the physician. I've reviewed the clinician's documentation and agree with the evaluation and plan as written. In addition, the patient's ulcer demonstrates evidence of non-viable devitalized tissue which will continue to benefit from sharp debridement to help promote granulation and expedite healing. Also, I'll copy Dr. Mcbride, the patient's senior data mining analyst, on my note today regarding possibly adjusting the patient's diuretic regimen to help reduce her significant lower leg edema which is complicating and delaying her wound healing. Typically this would be optimized using compression however the patient's not able to manage stockings or wraps due to her right hip dysfunction and risk for recurrent dislocation. Electronic Signature(s) Signed By: Date: Boy Edmond MD 03/06/2018 08:53:09 Entered By: Boy Edmond on 03/06/2018 07:07:01
== END ==
PROVIDERS: PCP Internal Medicine; Visit Provider Internal Medicine
DX: L97.812 Non-pressure chronic ulcer of other part of right lower leg with fat layer exposed (principal); R60.0 Localized edema; B95.62 Methicillin resistant Staphylococcus aureus infection as the cause of diseases classified elsewhere
CPT/HCPCS: 11042

== ENCOUNTER → 2018-03-11 09:34 | Outpatient (CLI) | payer MEDICARE, SELFPAY ==
[2017-12-02 01:33] VITALS: BMI 25.8
--- NOTE | 2018-03-11 | DI.US.S_ITS ---
PROCEDURE: US PERIPH VENOUS LOW EXTREM BI INDICATIONS: PERSISTENT ATRIAL FIBRILLATION LOCALIZED EDEMA TECHNIQUE: Real-time imaging, as well as color and pulse Doppler interrogation, were performed of the deep veins of both legs from the inguinal ligament to the popliteal fossa. COMPARISON: None. FINDINGS: The deep veins are normally compressible, and free of intraluminal thrombus. Color and pulse Doppler demonstrate normal phasic intravascular flow. There is normal augmentation response to distal compression maneuver. IMPRESSION: No DVT found. Dictated by: Sesar Guzman M.D. on 03/11/2018 at 10:25 Approved by: Sesar Guzman M.D. on 03/11/2018 at 10:30
== END ==
PROVIDERS: PCP Internal Medicine; Visit Provider Internal Medicine Cardiovascular Disease
DX: I48.1 Persistent atrial fibrillation (principal); R60.0 Localized edema
CPT/HCPCS: 93970

== ENCOUNTER → 2018-03-12 12:58 | Outpatient (CLI) | payer MEDICARE, SELFPAY ==
[2017-12-02 01:33] VITALS: BMI 25.8
--- NOTE | 2018-03-12 | OV.WND_ITS ---
Progress Note Details Patient Name: Renae Iverson Patient Number: [id number] PatientPatientDate: 03/12/2018 Clinician: Gaviota Baxter Clinician Cosigner: Lois Matthew Physician / Plaster Mechanic: Boy Edmond SUBJECTIVE Chief Complaint This information was obtained from the patient Trauma wound on right leg. Allergies NKDA HPI This information was obtained from the patient 03/12/18. Seen by Dr. Edmond. The patient does not report significant pain or drainage associated with the right lower leg trauma wound over the past week and she's completed her course of doxycycline that was treating the recent MRSA positive wound culture. She feels her leg edema is much improved also but states she's not had a change in her diuretic recently and she's not wearing compression stockings due to difficulty putting them on and taking them off. 03/05/18. Seen by Dr. Edmond. The patient is now on doxycycline for the MRSA positive wound culture taken from the right lower leg non-pressure ulcer at her last visit. She does not report pain or significant drainage from the site but notes her significant bilateral lower leg swelling persists. She's unable to wear compression stockings of have a compression wrap placed to address the right lower leg edema due to a significant reduction in her right hip flexibility associated with recurrent hip dislocations. She's been keeping her leg elevated as much as possible and is on low dose spironolactone as a diuretic but states she can't be seen by cardiology to discuss adjusting her diuretic therapy until an ultrasound study of the leg is performed. 02/27/18. Seen by Dr. Edmond. The patient returns to clinic due to a recurrence of a right lower leg non-pressure ulcer that she feels is related to a significant increase in bilateral lower leg swelling. She was seen by her fish net maker for this issue and is awaiting ' ultrasound' studies next week. She states she's not on a diuretic however and is unable to place compression stockings due to a recurrent right hip dislocation issue related to a recent hip replacement. 02/11/18. Seen by Dr. Edmond. The patient does not report significant pain or drainage associated with the right lower leg trauma wound over the past week. 01/30/18. Seen by Dr. Edmond. The patient does not report significant pain or drainage associated with the right lower leg trauma wound over the past week. 01/23/18. Seen by Dr. Edmond. The patient does not report significant pain or drainage associated with the right lower leg trauma wound over the past week. 01/16/18. Seen by Dr. Edmond. The patient does not report significant pain or drainage associated with the right lower leg trauma wound over the past week and her wound culture grew MSSA. She's applying topical OTC antibiotic to the wound but is not currently on oral antibiotics. 01/08/18. Seen by Dr. Edmond. The patient reports some increased bruising the area surrounding the right lower leg non-pressure ulcer and notes her recent INR was 3.6. She does not report pain or increased drainage associated with the ulcer however the nurse feels the base is friable and soft. There's also no report of fevers or the patient feeling unwell. 01/01/18. Seen by Dr. Edmond. The patient returns after a stay in custodial for a recurrent right hip dislocation. Regarding her chronic right lower leg trauma wound, she does not report pain or significant drainage from the site and has been receiving routine wound care while in custodial. The original wound occurred intraoperatively while manipulating the leg which caused a large hematoma due to her being on warfarin which she continues to take. 11/28/17. Seen by Dr. Edmond. The patient does not report significant pain or drainage associated with the right lower leg trauma wound over the past week. 11/21/17. Seen by Dr. Edmond. The patient does not report significant pain or drainage associated with the right lower leg trauma wound over the past week. She also continues on Keflex for cellulitis associated with the wound and does not report fevers or feeling unwell in general. 11/14/2017. Seen by Dr. Edmond. The patient continues reports some pain and drainage associated with the right lower leg trauma wound over the past week. She was prescribed Keflex cellulitis associated with the wound last week but only picked up and started taking yesterday. She does not report fevers or feeling unwell otherwise. 11/10/2017. Seen by Dr. Edmond. The patient reports increased pain, swelling, and drainage associated the right lower leg trauma wound since her last visit. She has not report fevers but does note she developed some blood in her urine and burning as well the past 2 days. She is also on warfarin which has complicated significantly the trauma wound. 11/07/2017. Seen by Dr. Edmond. The patient's new to our clinic and presents with a right lower leg trauma wound that occured about a week ago during her recent hip replacement surgery. She is on warfarin and apparently during the surgery her leg was being manipulated and a large skin tear occurred. She reports some drainage and significant pain associated with the leg wound but no swelling and no fevers or feeling well otherwise. She states her INR most recently was somewhere just above 3. Past Medical History This information was obtained from the patient Patient has a medical history of: Atrial fibrillation - [birth year]07/1955 TIA's Stroke - 07/07/2012 Parkinson's disease - 09/04/2013 Complaints and Symptoms This information was obtained from the patient Patient complains of: General Notes: I have reviewed and concur with the Review of Systems and Past Family Social History documents completed by the clinician, I have reviewed and concur with the Wound Assessment document completed by the clinician Cardiovascular (Central): Irregular heart beat Cardiovascular (Central/Peripheral): Lower extremity (leg) swelling Hematologic/Lymphatic: Bleeding Tendency Integumentary (Hair/Skin/Nails): Hemosiderin Staining, Open Sore Musculoskeletal: Assistive Devices Prior Wound History: Bleeding, Drainage, Erythema, Pain Patient denies complaints or symptoms related to: Cardiovascular (Central/Peripheral): Intermittent Claudication, Lower extremity (leg) resting pain Constitutional Symptoms (General Health): Chills, Fever Ear/Nose/Mouth/Throat: Hearing Loss / Aid Gastrointestinal (GI): Stomach/abdominal pain Hematologic/Lymphatic: Bleeding / Clotting Disorders Neurological: Loss of Protective Sensation Respiratory: Oxygen Use, Shortness of Breath OBJECTIVE Constitutional BP elevated; Afebrile; Alert and in no distress. Well developed. Alert. Clean appearing.. Height/Length: 71 in (180.34 cm), Weight: 175 lbs (79.55 kgs), BMI: 24.4, Temperature: 97.9 ?F (36.61 ?C), Pulse: 80 bpm, Respiratory Rate: 18 breaths/min, Blood Pressure: 150/84 mmHg, Pulse Oximetry: 95 %. Respiratory: No respiratory distress. Even respirations and without use of accessory muscles.. Cardiovascular: 1+ right lower extremity edema. Integumentary (Hair, Skin) Hemosiderin staining noted over right lower leg. Refer to appropriate clinician wound documentation for this visit; right lower leg ulcer extends to subcut with base partially covered with pink granulation, remainder fibrin and slough; minimal overlying green drainage. Wound #1 Right Pre-tibial is an acute Partial Thickness Trauma Wound and has received a status of Not Healed. Subsequent wound encounter measurements are 1.4cm length x 1.8cm width x 0.1cm depth, with an area of 2.52 sq cm and a volume of 0.252 cubic cm. Hypergranulation was noted. No tunneling has been noted. No sinus tract has been noted. No undermining has been noted. There is a moderate amount of serous drainage noted which has no odor. The patient reports a wound pain of level 2/10. The wound margin is attached. Wound bed has Yes epithelialization, No eschar, Yes slough, Yes pink, firm granulation. The periwound skin moisture is normal. The periwound skin exhibited: Edema, Hemosiderosis, Pallor. The periwound skin did not exhibit: Brawny Induration, Excoriation, Induration, Callus, Crepitus, Fluctuance, Friable, Rash, Atrophie [place], Cyanosis, Ecchymosis, Erythema, Rubor. The temperature of the periwound skin is WNL. Periwound skin does not exhibit signs or symptoms of infection. Local Pulse is Normal. Neurological: Cranial nerves grossly intact with symmetric function normal by informal observation.. ASSESSMENT Active Problems ICD-10 (Encounter Diagnosis) S81.801D - Unspecified open wound, right lower leg, subsequent encounter (Encounter Diagnosis) R60.0 - Localized edema (Encounter Diagnosis) B95.62 - Methicillin resistant Staphylococcus aureus infection as the cause of diseases classified elsewhere PROCEDURES Wound #1 Wound #1 (Trauma Wound) is located on the right pre-tibial. A skin/subcutaneous tissue level surgical debridement with a total area debrided of 2.52 sq cm was performed by Boy Edmond MD. Subcutaneous was removed along with devitalized tissue: exudate and slough. The following instrument(s) were used: curette. Pain control was achieved using 4% Lido. A time out was conducted prior to the start of the procedure. A minimal amount of bleeding was controlled with n/a. The procedure was tolerated well with a pain level of 0 throughout and a pain level of 0 following the procedure. Post Debridement Measurements: 1.4cm length x 1.8cm width x 0.2cm depth; with an area of 2.52 sq cm and a volume of 0.504 cubic cm; Additional Information Muscle fascia or bone removed and sent to pathology?: No PLAN Wound Orders: Wound #1 Right Pre-tibial Anesthetic Topical Xylocaine to wound bed. - In clinic only. Cleanser Cleanse Wound: - Normal saline or distilled water at home. May Shower. - With Shower Boot. Dressings Primary dressing: - Border foam Change Dressing: - Every other day. Additional Orders: Compression/Edema Control Elevation of leg(s) above the level of the heart when sitting. - Elevate above hip level daily. Avoid prolonged standing in one place. Follow-Up Appointments Return Appointment: - - One week. Other information: If you develop fever, chills, increased pain, drainage, redness or swelling please call our office. If after hours, respond to the ER. Should you experience any significant changes in your wound(s) or have any questions regarding your home care instructions please contact the wound center @ [phone]. If after hours, contact your primary care physician or go to the hospital emergency room. Scribing Attestation I attest, as the nurse, that I scribed these orders for the physician. Laboratory: Culture Wound I've reviewed the clinician's documentation and agree with the evaluation and plan as written. In addition, the patient's ulcer demonstrates evidence of non-viable devitalized tissue which will continue to benefit from sharp debridement to help promote granulation and expedite healing. Also, we'll defer additional antibiotics and I've requested records from Dr. Mcbride's office regarding her vascular workup and diuretic therapy. Electronic Signature(s) Signed By: Date: Boy Edmond MD 03/13/2018 09:41:06 Entered By: Boy Edmond on 03/13/2018 09:04:56
== END ==
PROVIDERS: PCP Internal Medicine; Visit Provider Internal Medicine
DX: S81.801A Unspecified open wound, right lower leg, initial encounter (principal); R60.0 Localized edema; B95.62 Methicillin resistant Staphylococcus aureus infection as the cause of diseases classified elsewhere
CPT/HCPCS: 11042; 87070; 87075; 87077; 87147; 87186; 87205

== ENCOUNTER → 2018-03-16 10:56 | Outpatient (CLI) | payer MEDICARE, SELFPAY ==
[2017-12-02 01:33] VITALS: BMI 25.8
--- NOTE | 2018-03-16 | DI.US.S_ITS ---
PROCEDURE: US ARTERIAL DUPLEX LE BI INDICATIONS: PERSISTENT ATRIAL FIBRILLATION LOCALIZED EDEMA TECHNIQUE: Color and pulse Doppler interrogation was performed of both lower extremity arterial systems, with image documentation. COMPARISON: [facility], , [facility], 03/11/2018, 9:52. FINDINGS: Right lower extremity: Common femoral artery: 75 cm/sec, with triphasic flow. Deep femoral artery: 84 cm/sec, with biphasic flow. Proximal superficial femoral artery: 87 cm/sec, with biphasic flow. Mid superficial femoral artery: 74 cm/sec, with biphasic flow. Distal superficial femoral artery: 60 cm/sec, with biphasic flow. Popliteal artery: 58 cm/sec, with biphasic flow. Posterior tibial artery: 67 cm/sec, with biphasic flow. Anterior tibial artery/dorsalis pedis: 75 cm/sec, with biphasic flow. [place]ia-scale imaging description: Atherosclerotic changes are seen. Left lower extremity: Common femoral artery: 101 cm/sec, with triphasic flow. Deep femoral artery: 63 cm/sec, with biphasic flow. Proximal superficial femoral artery: 67 cm/sec, with biphasic flow. Mid superficial femoral artery: 74 cm/sec, with biphasic flow. Distal superficial femoral artery: 76 cm/sec, with biphasic flow. Popliteal artery: 46 cm/sec, with biphasic flow. Posterior tibial artery: 62 cm/sec, with biphasic flow. Anterior tibial artery/dorsalis pedis: 96 cm/sec, with biphasic flow. [place]ia-scale imaging description: Atherosclerotic changes are noted. IMPRESSION: No hemodynamically significant stenosis can be seen. Dictated by: Nino Alcala M.D. on 03/16/2018 at 14:28 Approved by: Nnio Alcala M.D. on 03/16/2018 at 14:30
== END ==
PROVIDERS: PCP Internal Medicine; Visit Provider Internal Medicine Cardiovascular Disease
DX: I48.1 Persistent atrial fibrillation (principal); R60.0 Localized edema
CPT/HCPCS: 93925

== ENCOUNTER → 2018-03-23 10:42 | Outpatient (CLI) | payer MEDICARE, SELFPAY ==
[2017-12-02 01:33] VITALS: BMI 25.8
--- NOTE | 2018-03-23 | OV.WND_ITS ---
Progress Note Details Patient Name: Renae Iverson Patient Number: [id number] PatientPatientDate: 03/23/2018 Clinician: Cris Saez Clinician Cosigner: Lois Matthew Physician / Dough Cutting Machine Operator: Boy Edmond SUBJECTIVE Chief Complaint This information was obtained from the patient Trauma wound on right leg. Allergies NKDA HPI This information was obtained from the patient 03/23/18. Seen by Dr. Edmond. The patient does not report significant pain or drainage associated with the right lower leg trauma wound over the past week and she continues on doxycycline for the recurrent MRSA positive wound culture. 03/12/18. Seen by Dr. Edmond. The patient does not report significant pain or drainage associated with the right lower leg trauma wound over the past week and she's completed her course of doxycycline that was treating the recent MRSA positive wound culture. She feels her leg edema is much improved also but states she's not had a change in her diuretic recently and she's not wearing compression stockings due to difficulty putting them on and taking them off. 03/05/18. Seen by Dr. Edmond. The patient is now on doxycycline for the MRSA positive wound culture taken from the right lower leg non-pressure ulcer at her last visit. She does not report pain or significant drainage from the site but notes her significant bilateral lower leg swelling persists. She's unable to wear compression stockings of have a compression wrap placed to address the right lower leg edema due to a significant reduction in her right hip flexibility associated with recurrent hip dislocations. She's been keeping her leg elevated as much as possible and is on low dose spironolactone as a diuretic but states she can't be seen by cardiology to discuss adjusting her diuretic therapy until an ultrasound study of the leg is performed. 02/27/18. Seen by Dr. Edmond. The patient returns to clinic due to a recurrence of a right lower leg non-pressure ulcer that she feels is related to a significant increase in bilateral lower leg swelling. She was seen by her engine installer for this issue and is awaiting ' ultrasound' studies next week. She states she's not on a diuretic however and is unable to place compression stockings due to a recurrent right hip dislocation issue related to a recent hip replacement. 02/11/18. Seen by Dr. Edmond. The patient does not report significant pain or drainage associated with the right lower leg trauma wound over the past week. 01/30/18. Seen by Dr. Edmond. The patient does not report significant pain or drainage associated with the right lower leg trauma wound over the past week. 01/23/18. Seen by Dr. Edmond. The patient does not report significant pain or drainage associated with the right lower leg trauma wound over the past week. 01/16/18. Seen by Dr. Edmond. The patient does not report significant pain or drainage associated with the right lower leg trauma wound over the past week and her wound culture grew MSSA. She's applying topical OTC antibiotic to the wound but is not currently on oral antibiotics. 01/08/18. Seen by Dr. Edmond. The patient reports some increased bruising the area surrounding the right lower leg non-pressure ulcer and notes her recent INR was 3.6. She does not report pain or increased drainage associated with the ulcer however the nurse feels the base is friable and soft. There's also no report of fevers or the patient feeling unwell. 01/01/18. Seen by Dr. Edmond. The patient returns after a stay in [place] for a recurrent right hip dislocation. Regarding her chronic right lower leg trauma wound, she does not report pain or significant drainage from the site and has been receiving routine wound care while in detention. The original wound occurred intraoperatively while manipulating the leg which caused a large hematoma due to her being on warfarin which she continues to take. 11/28/17. Seen by Dr. Edmond. The patient does not report significant pain or drainage associated with the right lower leg trauma wound over the past week. 11/21/17. Seen by Dr. Edmond. The patient does not report significant pain or drainage associated with the right lower leg trauma wound over the past week. She also continues on Keflex for cellulitis associated with the wound and does not report fevers or feeling unwell in general. 11/14/2017. Seen by Dr. Edmond. The patient continues reports some pain and drainage associated with the right lower leg trauma wound over the past week. She was prescribed Keflex cellulitis associated with the wound last week but only picked up and started taking yesterday. She does not report fevers or feeling unwell otherwise. 11/10/2017. Seen by Dr. Edmond. The patient reports increased pain, swelling, and drainage associated the right lower leg trauma wound since her last visit. She has not report fevers but does note she developed some blood in her urine and burning as well the past 2 days. She is also on warfarin which has complicated significantly the trauma wound. 11/07/2017. Seen by Dr. Edmond. The patient's new to our clinic and presents with a right lower leg trauma wound that occured about a week ago during her recent hip replacement surgery. She is on warfarin and apparently during the surgery her leg was being manipulated and a large skin tear occurred. She reports some drainage and significant pain associated with the leg wound but no swelling and no fevers or feeling well otherwise. She states her INR most recently was somewhere just above 3. Past Medical History This information was obtained from the patient Patient has a medical history of: Atrial fibrillation - [birth year]/07/1955 TIA's Stroke - 07/07/2012 Parkinson's disease - 09/04/2013 Complaints and Symptoms This information was obtained from the patient Patient complains of: General Notes: I have reviewed and concur with the Review of Systems and Past Family Social History documents completed by the clinician, I have reviewed and concur with the Wound Assessment document completed by the clinician Cardiovascular (Central): Irregular heart beat Cardiovascular (Central/Peripheral): Lower extremity (leg) swelling Hematologic/Lymphatic: Bleeding Tendency Integumentary (Hair/Skin/Nails): Hemosiderin Staining, Open Sore Musculoskeletal: Assistive Devices Prior Wound History: Bleeding, Drainage, Erythema, Pain Patient denies complaints or symptoms related to: Cardiovascular (Central/Peripheral): Intermittent Claudication, Lower extremity (leg) resting pain Constitutional Symptoms (General Health): Chills, Fever Ear/Nose/Mouth/Throat: Hearing Loss / Aid Gastrointestinal (GI): Stomach/abdominal pain Hematologic/Lymphatic: Bleeding / Clotting Disorders Neurological: Loss of Protective Sensation Respiratory: Oxygen Use, Shortness of Breath OBJECTIVE Constitutional BP elevated; Afebrile; Alert and in no distress. Well developed. Alert. Clean appearing.. Height/Length: 71 in (180.34 cm), Weight: 171.5 lbs (77.95 kgs), BMI: 23.9, Temperature: 98.4 ?F (36.89 ?C), Pulse: 71 bpm, Respiratory Rate: 18 breaths/min, Blood Pressure: 141/85 mmHg, Pulse Oximetry: 95 %. Respiratory: No respiratory distress. Even respirations and without use of accessory muscles.. Cardiovascular: 1+ right lower extremity edema. Integumentary (Hair, Skin) Hemosiderin staining noted over right lower leg. Refer to appropriate clinician wound documentation for this visit; right lower leg ulcer extends to subcut with base partially covered with pink granulation, remainder fibrin and slough. Wound #1 Right Pre-tibial is an acute Partial Thickness Trauma Wound and has received a status of Not Healed. Subsequent wound encounter measurements are 1.1cm length x 0.2cm width x 0.1cm depth, with an area of 0.22 sq cm and a volume of 0.022 cubic cm. Hypergranulation was noted. No tunneling has been noted. No sinus tract has been noted. No undermining has been noted. There is a scant amount of serous drainage noted which has no odor. The patient reports a wound pain of level 2/10. The wound margin is attached. Wound bed has Yes epithelialization, Yes eschar, No slough, No granulation. The periwound skin moisture is normal. The periwound skin exhibited: Edema, Hemosiderosis, Pallor. The periwound skin did not exhibit: Brawny Induration, Excoriation, Induration, Callus, Crepitus, Fluctuance, Friable, Rash, Atrophie Qeuta, Cyanosis, Ecchymosis, Erythema, Rubor. The temperature of the periwound skin is WNL. Periwound skin does not exhibit signs or symptoms of infection. Local Pulse is Normal. Neurological: Cranial nerves grossly intact with symmetric function normal by informal observation.. ASSESSMENT Active Problems ICD-10 (Encounter Diagnosis) S81.801D - Unspecified open wound, right lower leg, subsequent encounter (Encounter Diagnosis) R60.0 - Localized edema (Encounter Diagnosis) B95.62 - Methicillin resistant Staphylococcus aureus infection as the cause of diseases classified elsewhere PROCEDURES Wound #1 Wound #1 (Trauma Wound) is located on the right pre-tibial. A selective debridement with a total area debrided of 0.1 sq cm was performed by Boy Edmond MD. exudate was removed along with devitalized tissue: exudate. The following instrument(s) were used: curette. Pain control was achieved using 4% Lido. A time out was conducted prior to the start of the procedure. No bleeding occurred. The procedure was tolerated well with a pain level of 0 throughout and a pain level of 0 following the procedure. Post Debridement Measurements: 0.5cm length x 0.2cm width x 0.1cm depth; with an area of 0.1 sq cm and a volume of 0.01 cubic cm; PLAN Wound Orders: Wound #1 Right Pre-tibial Cleanser Cleanse Wound: - Distilled water. May Shower. - But keep dressing dry. Dressings Primary dressing: - Border foam dressing Change Dressing: - Change in Three days. Follow-Up Appointments Return Appointment: - - one week Other information: If you develop fever, chills, increased pain, drainage, redness or swelling please call our office. If after hours, respond to the ER. Should you experience any significant changes in your wound(s) or have any questions regarding your home care instructions please contact the wound center @ [phone]. If after hours, contact your primary care physician or go to the hospital emergency room. Scribing Attestation I attest, as the nurse, that I scribed these orders for the physician. I've reviewed the clinician's documentation and agree with the evaluation and plan as written. In addition, the patient's ulcer demonstrates evidence of non-viable devitalized tissue which will continue to benefit from sharp debridement to help promote granulation and expedite healing. Also, the patient will complete her course of doxycycline as prescribed. Electronic Signature(s) Signed By: Date: Boy Edmond MD 03/23/2018 17:46:20 Entered By: Boy Edmond on 03/23/2018 17:41:13
== END ==
PROVIDERS: PCP Internal Medicine; Visit Provider Internal Medicine
DX: B95.62 Methicillin resistant Staphylococcus aureus infection as the cause of diseases classified elsewhere (principal); S81.801A Unspecified open wound, right lower leg, initial encounter
CPT/HCPCS: 97597

== ENCOUNTER → 2018-04-01 13:08 | Outpatient (CLI) | payer MEDICARE, SELFPAY ==
[2017-12-02 01:33] VITALS: BMI 25.8
--- NOTE | 2018-04-01 | OV.WND_ITS ---
Progress Note Details Patient Name: Renae Iverson Patient Number: [id number] PatientPatientDate: 04/01/2018 Clinician: Cris Saez Clinician Cosigner: Gaviota Baxter Physician / Wood Last Maker: Boy Edmond SUBJECTIVE Chief Complaint This information was obtained from the patient Trauma wound on right leg. Allergies NKDA HPI This information was obtained from the patient 04/01/18. Seen by Dr. dEmond. The patient does not report significant pain or drainage associated with the right lower leg trauma wound over the past week. 03/23/18. Seen by Dr. Edmond. The patient does not report significant pain or drainage associated with the right lower leg trauma wound over the past week and she continues on doxycycline for the recurrent MRSA positive wound culture. 03/12/18. Seen by Dr. Edmond. The patient does not report significant pain or drainage associated with the right lower leg trauma wound over the past week and she's completed her course of doxycycline that was treating the recent MRSA positive wound culture. She feels her leg edema is much improved also but states she's not had a change in her diuretic recently and she's not wearing compression stockings due to difficulty putting them on and taking them off. 03/05/18. Seen by Dr. Edmond. The patient is now on doxycycline for the MRSA positive wound culture taken from the right lower leg non-pressure ulcer at her last visit. She does not report pain or significant drainage from the site but notes her significant bilateral lower leg swelling persists. She's unable to wear compression stockings of have a compression wrap placed to address the right lower leg edema due to a significant reduction in her right hip flexibility associated with recurrent hip dislocations. She's been keeping her leg elevated as much as possible and is on low dose spironolactone as a diuretic but states she can't be seen by cardiology to discuss adjusting her diuretic therapy until an ultrasound study of the leg is performed. 02/27/18. Seen by Dr. Edmond. The patient returns to clinic due to a recurrence of a right lower leg non-pressure ulcer that she feels is related to a significant increase in bilateral lower leg swelling. She was seen by her nailhead setter for this issue and is awaiting ' ultrasound' studies next week. She states she's not on a diuretic however and is unable to place compression stockings due to a recurrent right hip dislocation issue related to a recent hip replacement. 02/11/18. Seen by Dr. Edmond. The patient does not report significant pain or drainage associated with the right lower leg trauma wound over the past week. 01/30/18. Seen by Dr. Edmond. The patient does not report significant pain or drainage associated with the right lower leg trauma wound over the past week. 01/23/18. Seen by Dr. Edmond. The patient does not report significant pain or drainage associated with the right lower leg trauma wound over the past week. 01/16/18. Seen by Dr. Edmond. The patient does not report significant pain or drainage associated with the right lower leg trauma wound over the past week and her wound culture grew MSSA. She's applying topical OTC antibiotic to the wound but is not currently on oral antibiotics. 01/08/18. Seen by Dr. Edmond. The patient reports some increased bruising the area surrounding the right lower leg non-pressure ulcer and notes her recent INR was 3.6. She does not report pain or increased drainage associated with the ulcer however the nurse feels the base is friable and soft. There's also no report of fevers or the patient feeling unwell. 01/01/18. Seen by Dr. Edmond. The patient returns after a stay in retirement for a recurrent right hip dislocation. Regarding her chronic right lower leg trauma wound, she does not report pain or significant drainage from the site and has been receiving routine wound care while in retirement. The original wound occurred intraoperatively while manipulating the leg which caused a large hematoma due to her being on warfarin which she continues to take. 11/28/17. Seen by Dr. Edmond. The patient does not report significant pain or drainage associated with the right lower leg trauma wound over the past week. 11/21/17. Seen by Dr. Edmond. The patient does not report significant pain or drainage associated with the right lower leg trauma wound over the past week. She also continues on Keflex for cellulitis associated with the wound and does not report fevers or feeling unwell in general. 11/14/2017. Seen by Dr. Edmond. The patient continues reports some pain and drainage associated with the right lower leg trauma wound over the past week. She was prescribed Keflex cellulitis associated with the wound last week but only picked up and started taking yesterday. She does not report fevers or feeling unwell otherwise. 11/10/2017. Seen by Dr. Edmond. The patient reports increased pain, swelling, and drainage associated the right lower leg trauma wound since her last visit. She has not report fevers but does note she developed some blood in her urine and burning as well the past 2 days. She is also on warfarin which has complicated significantly the trauma wound. 11/07/2017. Seen by Dr. Edmond. The patient's new to our clinic and presents with a right lower leg trauma wound that occured about a week ago during her recent hip replacement surgery. She is on warfarin and apparently during the surgery her leg was being manipulated and a large skin tear occurred. She reports some drainage and significant pain associated with the leg wound but no swelling and no fevers or feeling well otherwise. She states her INR most recently was somewhere just above 3. Past Medical History This information was obtained from the patient Patient has a medical history of: Atrial fibrillation - 07[birth year]07/1955 TIA's Stroke - 07/07/2012 Parkinson's disease - 09/04/2013 Complaints and Symptoms This information was obtained from the patient Patient complains of: General Notes: I have reviewed and concur with the Review of Systems and Past Family Social History documents completed by the clinician, I have reviewed and concur with the Wound Assessment document completed by the clinician Cardiovascular (Central): Irregular heart beat Cardiovascular (Central/Peripheral): Lower extremity (leg) swelling Hematologic/Lymphatic: Bleeding Tendency Integumentary (Hair/Skin/Nails): Hemosiderin Staining, Open Sore Musculoskeletal: Assistive Devices Prior Wound History: Bleeding, Drainage, Erythema, Pain Patient denies complaints or symptoms related to: Cardiovascular (Central/Peripheral): Intermittent Claudication, Lower extremity (leg) resting pain Constitutional Symptoms (General Health): Chills, Fever Ear/Nose/Mouth/Throat: Hearing Loss / Aid Gastrointestinal (GI): Stomach/abdominal pain Hematologic/Lymphatic: Bleeding / Clotting Disorders Neurological: Loss of Protective Sensation Respiratory: Oxygen Use, Shortness of Breath OBJECTIVE Constitutional BP elevated; Afebrile; Alert and in no distress. Well developed. Alert. Clean appearing.. Height/Length: 71 in (180.34 cm), Weight: 171.5 lbs (77.95 kgs), BMI: 23.9, Temperature: 97.8 ?F (36.56 ?C), Pulse: 70 bpm, Respiratory Rate: 18 breaths/min, Blood Pressure: 142/60 mmHg, Pulse Oximetry: 100 %. Respiratory: No respiratory distress. Even respirations and without use of accessory muscles.. Cardiovascular: 1+ right lower extremity edema. Integumentary (Hair, Skin) Refer to appropriate clinician wound documentation for this visit.. Wound #1 Right Pre-tibial is an acute Venous Ulcer and has received an outcome of Healed - new wound(s) - prevent. Subsequent wound encounter measurements are 0cm length x 0cm width with no measurable depth, with an area of 0 sq cm . Hypergranulation was noted. No tunneling has been noted. No sinus tract has been noted. No undermining has been noted. There was no drainage noted. The patient reports a wound pain of level 0/10. The wound margin is attached. Wound bed has Yes epithelialization, Yes eschar, No slough, No granulation. The periwound skin moisture is normal. The periwound skin exhibited: Edema, Hemosiderosis, Pallor. The periwound skin did not exhibit: Brawny Induration, Excoriation, Induration, Callus, Crepitus, Fluctuance, Friable, Rash, Atrophie Queta, Cyanosis, Ecchymosis, Erythema, Rubor. The temperature of the periwound skin is WNL. Periwound skin does not exhibit signs or symptoms of infection. Local Pulse is Normal. Neurological: Cranial nerves grossly intact with symmetric function normal by informal observation.. ASSESSMENT Active Problems ICD-10 (Encounter Diagnosis) S81.801D - Unspecified open wound, right lower leg, subsequent encounter PROCEDURES Wound #1 Wound #1 (Venous Ulcer) is located on the right pre-tibial. A selective debridement with a total area debrided of 0 sq cm was performed by Boy Edmond MD. scab was removed along with devitalized tissue: necrotic/eschar. The following instrument(s) were used: curette. Pain control was achieved using 4% Lido. A time out was conducted prior to the start of the procedure. No bleeding occurred. The procedure was tolerated well with a pain level of 0 throughout and a pain level of 0 following the procedure. Post Debridement Measurements: 0cm length x 0cm width x 0cm depth; with an area of 0 sq cm PLAN Wound Orders: Wound #1 Right Pre-tibial Cleanser May Shower. - Take dressing off when you shower. Dressings Primary dressing: - Border foam dressing Change Dressing: - Change in Three days and then leave dressing off as you will not need a dressing. Follow-Up Appointments Other information: If you develop fever, chills, increased pain, drainage, redness or swelling please call our office. If after hours, respond to the ER. Should you experience any significant changes in your wound(s) or have any questions regarding your home care instructions please contact the wound center @ [phone]. If after hours, contact your primary care physician or go to the hospital emergency room. Discharge from Outpatient Services. Scribing Attestation I attest, as the nurse, that I scribed these orders for the physician. I've reviewed the clinician's documentation and agree with the evaluation and plan as written. In addition the patient's last remiaining complex wound is now healed. The patient is invited to return to our clinic for treatment of any future complex wounds. Post wound care and strategies to avoid recurrences were discussed. Electronic Signature(s) Signed By: Date: Boy Edmond MD 04/02/2018 09:13:39 04/01/2018 2:12:21 PM Version Signed Date: By: Cris Saez 04/01/2018 3:56:42 PM Entered By: Boy Edmond on 04/02/2018 06:53:06
== END ==
PROVIDERS: PCP Internal Medicine; Visit Provider Internal Medicine
DX: Z48.817 Encounter for surgical aftercare following surgery on the skin and subcutaneous tissue (principal)
CPT/HCPCS: 99212

== ENCOUNTER → 2018-04-20 09:05 | Outpatient (CLI) | payer MEDICARE, SELFPAY ==
[2017-12-02 01:33] VITALS: BMI 25.8
[2018-04-20 11:14] LABS: Alanine Aminotransferase 14 IU/L (9-52); Albumin 4.9 g/dL (3.5-5.0); Albumin Globulin Ratio 1.6 (1.0-2.8); Alkaline Phosphatase 85 U/L (38-126); Aspartate Aminotransferase 16 IU/L (14-36); BUN Creatinine Ratio 36.7 (6-22); Bilirubin Total 0.9 mg/dL (0.2-1.3); Blood Urea Nitrogen 22 mg/dL (7-17); Calcium 9.7 mg/dL (8.4-10.2); Carbon Dioxide 24 mmol/L (22-32); Chloride 102 mmol/L (98-107); Estimated Glomerular Filt Rate > 60.0 mL/min (>60); Glucose 91 mg/dL (80-110); HEMOLYSIS < 15 (0-50); Potassium 4.5 mmol/L (3.4-5.1); Sodium 143 mmol/L (137-145); Total Protein 7.9 g/dL (6.3-8.2)
[2018-04-20 11:34] LABS: Free T4, Direct Thyroxine 0.91 ng/dL (0.78-2.19)
[2018-04-20 13:52] LABS: Thyroid Stimulating Hormone 1.97 uIU/mL (0.47-4.68)
== END ==
PROVIDERS: PCP Internal Medicine; Visit Provider Internal Medicine Cardiovascular Disease
DX: R60.0 Localized edema (principal)
CPT/HCPCS: 36415; 80053; 83036; 84439; 84443

== ENCOUNTER 2018-05-02 07:59 | Emergency (ER) | payer MEDICARE, SELFPAY ==
[2017-12-02 01:33] VITALS: BMI 25.8
[2018-05-02] VITALS (27 sets, daily range): BP systolic 122–160; BP diastolic 56–135; PULSE 53–84; RESP 9–20; TEMP 36.4–37.2; O2SAT 95–100; BMI 24.3
--- NOTE | 2018-05-02 08:13 | DI.RAD.S_ITS ---
PROCEDURE: XR HIP W PEL IF DONE RT 2V INDICATIONS: concern for hip dislocation, had prior, pain after bending TECHNIQUE: AP pelvis with lateral view(s) of the right hip(s). COMPARISON: [facility], CR, XR HIP W PEL IF DONE RT 2V, 12/01/2017, 22:27. [facility], CR, XR HIP W PEL IF DONE RT 2V, 11/10/2017, 15:21. FINDINGS: Bones: No fractures or dislocations. Pelvic ring appears intact. No suspicious bony lesions. Soft tissues: The visualized bowel gas pattern is normal. No suspicious soft tissue calcifications. IMPRESSION: Prior bilateral total hip arthroplasties, current superior dislocation of the right arthroplasty femoral head from the acetabular component. Dictated by: Sesar Guzman M.D. on 05/02/2018 at 9:20 Approved by: Sesar Guzman M.D. on 05/02/2018 at 9:21
--- NOTE | 2018-05-02 08:15 | ED.LOWEXIN ---
HPI - Extremity Injury (Lower) General Chief Complaint: Extremity Injury, Lower Stated Complaint: R Hip Dislocation Time Seen by Provider: 05/02/18 08:12 Source: patient and EMS Mode of arrival: EMS Limitations: no limitations History of Present Illness HPI Narrative: This is an 82-year-old female who comes to the emergency department with complaint of hip dislocation. Patient has had a right hip replacement. She states she has had 3 episodes of hip dislocation over several weeks Um and then she had this 4th episode which the last was about 3 months ago. Patient states she was bending over to put food down on the floor for CT when she felt her hip go out. She was able to continue standing and balance herself on countertop. She waited until EMS was present and then they transferred her to the emergency department. She has quite a bit of pain in the right hip although somewhat improved with pain medication. She received morphine EN route with EMS an additional dose of Dilaudid here. Patient is not having numbness or tingling in her extremity. She did have to go to the OR on full last 2 of 3 occasions and the other when she has required to be paralyzed with succinylcholine. Patient does take warfarin for blood thinner. She has a history of thoracic aneurysm repair, Parkinson's disease. Related Data Home Medications Medication Instructions Recorded Confirmed gabapentin 100 mg PO TID #0 03/04/17 12/02/17 metoprolol tartrate 50 mg PO BID 11/10/17 12/02/17 primidone [Mysoline] 75 mg PO HS 11/10/17 12/02/17 spironolactone 25 mg PO QDAY 11/10/17 12/02/17 Previous Rx's Medication Instructions Recorded gabapentin 100 mg PO QHS #0 cap 12/05/17 oxycodone 5 mg PO Q4H PRN #60 tab 12/05/17 warfarin 7.5 mg PO 2XW #20 tab 12/05/17 warfarin [Coumadin] 5 mg PO 5XW #30 tab 12/05/17 carbidopa ER 50 mg-levodopa 200 mg 1 tab PO TID #275 tab 12/30/17 tablet,extended release hydrocodone-acetaminophen [[place]] 1 tab PO Q6H PRN #10 tab 05/02/18 Allergies Allergy/AdvReac Type Severity Reaction Status Date / Time No Known Drug Allergies Allergy Verified 11/10/17 13:03 Review of Systems Cardiovascular Denies dyspnea and Denies dyspnea on exertion Respiratory Denies cough, Denies dyspnea, Denies dyspnea on exertion and Denies wheezing Gastrointestinal Gastrointestinal: Denies abdominal pain, Denies change in bowel habits, Denies diarrhea, Denies nausea and Denies vomiting Musculoskeletal Reports system reviewed and no additional complaints, except as docu, Reports limited range of motion and Reports other (Right hip pain, rotation.) Neurologic Denies sensory deficit and Denies paresthesias Allergic/Immunologic Denies wheezing [facility] Medical History Ascending aortic aneurysm (Acute) B12 deficiency (Acute) Breast implant status (Acute) Cerebrovascular disease (Acute) Hepatic steatosis (Acute) Hyperlipidemia (Acute) Hypertension (Acute) Osteoarthritis (Acute) Paralysis of left vocal fold (Acute) Paroxysmal atrial fibrillation (Acute) Partial epilepsy (Acute) Seizure as late effect of cerebrovascular accident (CVA) (Acute) Transient ischemic attack (Acute) Tremor (Acute) Surgical History S/P closed reduction of dislocated total hip prosthesis (Acute) H/O hysterectomy with oophorectomy (Acute) History of total left hip arthroplasty (Acute) History of total right hip arthroplasty (Acute) History of total right knee replacement (Acute) S/P Mohs surgery for basal cell carcinoma (Acute) S/P ascending aortic aneurysm repair (Acute) Family History Mother Dementia Coronary artery disease Father Diabetes mellitus Social History number of children: 2 household members: none occupational status: previously employed Smoking Status: Never smoker alcohol intake: current Exam Narrative Exam Narrative: GENERAL: Alert and oriented x three, thin, well-appearing female in mild distress. HEENT: Head normocephalic, atraumatic, EOMI, pupils reactive, face symmetric, moist mucous membranes NECK: Supple, full range of motion CARDIOVASCULAR: Regular rate and rhythm without murmurs, rubs or gallops. RESPIRATORY: Breath sounds equal bilaterally, no wheezes rales or rhonchi. ABDOMEN: Soft, nontender. Normoactive bowel sounds all 4 quadrants. No guarding or rebound, rigidity, no mass EXTREMITIES: Patient has deformity of the right hip she has internal rotation of the right lower extremity. She has less than 2 sec cap refill of the foot with sensation throughout the leg. No edema is appreciated. Patient is able to move her toes without issue. She does have some hyperpigmented changes consistent with venous stasis on both lower extremities. She has a 1+ dorsalis pedis. NEUROLOGICAL: Cranial nerves II through XII grossly intact. Moving all extremities SKIN: Warm, dry, no petechiae, no rashes or lesions. Initial Vital Signs Initial Vital Signs: Vital Signs Temperature 98.0 F 05/02/18 08:01 Pulse Rate 84 05/02/18 08:01 Respiratory Rate 20 05/02/18 08:01 Blood Pressure 130/87 05/02/18 08:01 Pulse Oximetry 95 05/02/18 08:01 Course Orders Ordered: ED Orders 05/02/18 10:50 Basic Metabolic Panel Stat Complete Blood Count AUTO DIFF Stat Prothrombin Time INR Stat Discontinued Medications Hydromorphone HCl (Dilaudid) 0.5 mg IV NOW ONE Stop: 05/02/18 08:16 Last Admin: 05/02/18 08:25 Dose: 0.5 mg Sodium Chloride (Normal Saline 0.9%) 1,000 mls @ 1,000 mls/hr IV BOLUS ONE Stop: 05/02/18 10:37 Last Admin: 05/02/18 09:38 Dose: 1,000 mls/hr Ketamine HCl (Ketalar) 80 mg IV NOW ONE Stop: 05/02/18 10:16 Last Admin: 05/02/18 09:48 Dose: 80 mg Lidocaine HCl (Xylocaine 1%) 4 ml INJ INTRA-OP ONE Stop: 05/02/18 10:23 Last Admin: 05/02/18 09:41 Dose: 4 ml Ondansetron HCl (Zofran) 4 mg IV NOW ONE Stop: 05/02/18 08:23 Last Admin: 05/02/18 08:25 Dose: 4 mg Propofol (Diprivan) 150 mg IV NOW ONE Stop: 05/02/18 10:20 Last Admin: 05/02/18 09:41 Dose: 150 mg Propofol (Diprivan) 50 mg IV NOW ONE Stop: 05/02/18 10:22 Last Admin: 05/02/18 09:48 Dose: 50 mg Succinylcholine Chloride (Quelicin) 80 mg IV PREOP PITER Last Admin: 05/02/18 09:41 Dose: 80 mg Vital Signs - 8 hr 05/02/18 11:39 05/02/18 11:59 05/02/18 13:29 Temperature 97.6 F 99.0 F Pulse Rate 71 66 70 Respiratory Rate 11 L 16 16 Blood Pressure [Right Arm] 137/69 129/70 137/72 Pulse Oximetry 97 97 97 MDM - Extremity Injury (Lower) Lab Data Attestation: I reviewed the patient's lab results. Result diagrams: 05/02/18 10:50 05/02/18 10:50 Lab Results 05/02/18 05/02/18 05/02/18 Range/Units 10:50 10:50 10:50 WBC 5.0 (4.5-11.0) X10^3/uL RBC 3.62 L (4.0-5.2) X10^6/uL Hgb 11.9 L (12.0-16.0) g/dL Hct 35.8 L (36-46) % MCV 99.0 (80-100) fL MCH 32.8 (26-34) PG MCHC 33.1 (30-36) % RDW 15.3 H (11.6-14.8) % Plt Count 173 (150-400) X10^3/uL Neut % (Auto) 70.3 (50-75) % Lymph % (Auto) 14.3 L (25-40) % [place] % (Auto) 14.2 H (3-14) % Eos % (Auto) 0.4 L (2-4) % Baso % (Auto) 0.8 (0-2) % Neut # (Auto) 3500 (4127-9458) /uL PT 27.8 H (10.1-12.7) SECONDS INR 2.5 H (0.9-1.3) Sodium 139 (137-145) mmol/L Potassium 5.0 (3.4-5.1) mmol/L Chloride 102 (98-107) mmol/L Carbon Dioxide 26 (22-32) mmol/L BUN 19 H (7-17) mg/dL Creatinine 0.60 (0.52-1.04) mg/dL Estimated GFR > 60.0 (>60) mL/min BUN/Creatinine Ratio 31.7 H (6-22) Glucose 97 (80-110) mg/dL Calcium 8.7 (8.4-10.2) mg/dL Point of Care Testing Test Results Not applicable Imaging Data right hip xray: Attestation: I personally reviewed and interpreted this imaging study as follows: My impression: Right hip dislocation. No fracture. Cup in bowel appear normal location otherwise. Radiologist's impression: [address] [address] XRay Report Signed Patient: Renae Iverson [facility]#: [id number] : 7Acct:[id number] Age/Sex: 82 / FDate of Service: 05/02/18 Loc: ED Accession Number: [id number] Procedure: XR hip w pel if done RT 2V Ordering Provider: Marylin Trevino D.O. PROCEDURE: XR HIP W PEL IF DONE RT 2V INDICATIONS: concern for hip dislocation, had prior, pain after bending TECHNIQUE: AP pelvis with lateral view(s) of the right hip(s). COMPARISON: [facility], CR, XR HIP W PEL IF DONE RT 2V, 12/01/2017, 22:27. [facility], CR, XR HIP W PEL IF DONE RT 2V, 11/10/2017, 15:21. FINDINGS: Bones: No fractures or dislocations. Pelvic ring appears intact. No suspicious bony lesions. Soft tissues: The visualized bowel gas pattern is normal. No suspicious soft tissue calcifications. IMPRESSION: Prior bilateral total hip arthroplasties, current superior dislocation of the right arthroplasty femoral head from the acetabular component. Dictated by: Sesar Guzman M.D. on 05/02/2018 at 9:20 Approved by: Sesar Guzman M.D. on 05/02/2018 at 9:2 right hip xray post redc: Attestation: I personally reviewed and interpreted this imaging study as follows: My impression: Hip appears in place. No fx noted. Also reviewed by Dr. Villegas. [facility] Narrative Medical decision making narrative: After review of patient's prior visits. She has had 3 attempted reductions. Um 2 of them required OR with paralytics and the 2nd was in the emergency department but was using propofol and succinylcholine. I spoke with Dr. Villegas as patient will likely require two providers to successfully reduce her hip. She will come down to the emergency department will see if we can get her in place here. I also did touch base with Anesthesia and they will stop by and she has required paralytics in the past and this would be beyond my scope of care if the patient requires paralytic. Dr. Olson with Anesthesia came to the department and after discussion plan to to use succinyl choline with patient as she has required it with all her other reductions. Dr. Villegas in department and plan for attempt in ED. Consent was obtained by Dr. Villegas and myself. Patient tolerated the procedure well, she was intubated for airway protection and tolerated extubation with mildly scratch throat. She had a knee immobilizer placed. Monitored in the department for several hours without issue. Plan is for her to follow up with Dr. Abernathy for either revision in a tertiary care center Um or Dr. Ambriz potentially. All questions answered. Discharge Plan Departure Patient Disposition: Home Clinical Impression: Hip dislocation, right Discharge Date/Time: 05/02/18 13:31 Interventions: ED Discharge Assessment Last Done: 05/02/18 13:31 Instructions: DI for Hip Dislocation -- Adult Activity Restrictions/Additional Instructions: Follow-up with Orthopedic surgery/Dr. Abernathy. Call Friday for an appointment. You wish discussed if you would prefer referral to a tertiary care center versus local physician for your recurrent hip dislocations. Take pain medication as prescribed, this medication can make you sleepy do not drive, perform hazards activities or make any major decisions while taking it. Continue to use a walker and avoid any bending at the hip or twisting at the hip until cleared by Orthopedic surgery. Prescriptions: New hydrocodone-acetaminophen [[place]] 5-325 mg tablet 1 tab PO Q6H PRN (Reason: pain) Qty: 10 RF: 0 No Action gabapentin 100 MG capsule 100 mg PO TID Qty: 0 RF: 0 carbidopa-levodopa 50-200 mg tablet extended release 1 tab PO TID Qty: 275 RF: 1 primidone [Mysoline] 50 MG tablet 75 mg PO HS RF: 0 metoprolol tartrate 50 mg tablet 50 mg PO BID RF: 0 spironolactone 25 mg tablet 25 mg PO QDAY RF: 0 oxycodone 5 mg Tablet 5 mg PO Q4H PRN (Reason: Pain, Severe) Qty: 60 RF: 0 gabapentin 100 mg Capsule 100 mg PO QHS Qty: 0 RF: 0 warfarin 7.5 mg tablet 7.5 mg PO 2XW Qty: 20 RF: 3 warfarin [Coumadin] 5 MG tablet 5 mg PO 5XW Qty: 30 RF: 3 Referrals: Moises Abernathy MD [Physician] - Sharri Howell MD [Primary Care Provider] -
[2018-05-02] MEDS: ONDANSETRON 4 MG/2 ML INJ IV (08:25)
[2018-05-02] MEDS: HYDROMORPHONE 1 MG INJ 0.5 MG IV (08:25)
[2018-05-02] MEDS: SODIUM CHLORIDE 0.9% 1,000 ML 1000 ML IV (09:38)
[2018-05-02] MEDS: PROPOFOL 200 MG/20 ML VIAL 150 MG IV (09:41)
[2018-05-02] MEDS: LIDOCAINE 1% 30 ML INJ 4 ML INJ (09:41)
[2018-05-02] MEDS: SUCCINYLCHOLINE 100 MG/5 ML INJ 80 MG IV (09:41)
[2018-05-02] MEDS: KETAMINE 500 MG/5 ML INJ 80 MG IV (09:48)
[2018-05-02] MEDS: PROPOFOL 200 MG/20 ML VIAL 50 MG IV (09:48)
--- NOTE | 2018-05-02 09:50 | DI.RAD.S_ITS ---
PROCEDURE: XR HIP RT 1V INDICATIONS: post reduction right hip TECHNIQUE: A single formal view of the hip were acquired. COMPARISON: [facility], CR, XR PELVIS WITH LATERAL HIP RIGHT, 01/27/2018, 15:32. [facility], CR, XR HIP W PEL IF DONE RT 2V, 05/02/2018, 8:01. [facility], CR, XR HIP RT 1V, 12/02/2017, 12:45. FINDINGS: Bones: No fractures or dislocations. No suspicious bony lesions. The visualized pelvic ring appears intact. Successful reduction of previously documented right total hip arthroplasty dislocation seen earlier today. There is a triangular band of heterotopic ossification above the acetabular component laterally previously present in January of this year also. This does not represent a fracture fragment. Soft tissues: No suspicious soft tissue calcifications or masses. IMPRESSION: Successful reduction without fracture visualized Dictated by: Sesar Guzman M.D. on 05/02/2018 at 10:31 Approved by: Sesar Guzman M.D. on 05/02/2018 at 10:33
--- NOTE | 2018-05-02 09:56 | PM.PROC.1 ---
Procedures Date/Time Date of procedure: 05/02/18 Time of procedure: 09:56 Orthopedic Joint Reduction Time out performed: Yes Side: right Joint reduction location: hip Analgesia: procedural sedation and other (General anesthesia with propofol and succinylcholine administered by the anesthesiologist) Post-reduction neuro exam: intact Post-reduction vascular exam: intact Post-reduction x-ray obtained: Yes Post-reduction x-ray results: reduced Splint applied: No (Knee immobilizer applied to the knee to maintain leg straight position) Patient tolerated procedure: well Additional comments: Diagnosis: Dislocation right total hip prosthesis Procedure: Closed reduction total hip prosthesis right side CPT code 53897 Surgeon: Rahel Villegas MD The patient was seen in the emergency room and found to have a right closed dislocation of her total hip prosthesis. Patient was neurovascularly intact. The patient was indicated for closed reduction with sedation. Due to the patient's multiple dislocations before and requirement of general anesthesia. Anesthesia personnel were available and provided general anesthesia in the emergency room. The risks/ benefits of the procedure were discussed with the patient in detail including but not limited to recurrent dislocation, fracture, skin tear, inability to reduce the dislocation, the 1st further procedures including revision. And complications with general anesthesia. Informed consent was signed. The patient elected to proceed. Findings: Right posterior hip dislocation of total joint prosthesis Details of the procedure: Patient was seen in the emergency room the site of procedure was marked and informed consent obtained. Patient was then administered general anesthesia by the anesthesia personnel and intubated. Time-out procedure was performed confirming the patient's site of surgery consent. No antibiotics were utilized as this was a closed procedure. Once the patient was appropriately under anesthesia the reduction procedure was performed. This included hip flexion. traction and counter traction and internal and external rotation. This was a relatively difficult reduction and required significant amount of traction and effort, but was reduced with a flexion traction and external rotation maneuver. After the therapeutic clunk of the reduction was felt and heard the knee was extended and held for the post reduction x-ray. The postreduction x-ray revealed a reduction of the hip prosthesis into the joint. Knee immobilizer was then placed on the patient to keep the knee straight and prevent at risk positions. Patient was then woken from anesthesia. Neurovascular exam was stable on waking and active dorsiflexion plantar flexion was noted. Skin was intact. Postprocedure plan: Patient will be discharged from the emergency department. She will keep the knee immobilizer in place. In accordance with previous recommendations by her operating surgeon Dr. Abernathy she was recommended upon further dislocations to be either seen by Dr. Kathrin Ambriz or tertiary care center in [place]. The patient will call our office for follow-up either with Dr. Michela Ambriz or referral for tertiary [facility] center in [place] for possible right total hip revision due to recurrent instability. The patient also has an abduction splint at home that she should bring to her next appointment for potential transition to the abduction splint out of the knee immobilizer. We discussed the knee immobilizer is fine for the next couple weeks but we would not want to use this long-term due to knee stiffness. The patient understands and agrees with the plan. Again we went over the void ends of flexion and adduction position which put her at risk for dislocation.
--- NOTE | 2018-05-02 09:59 | P.PCN_ITS ---
Procedures Date/Time Date of procedure: 05/02/18 Time of procedure: 09:56 Orthopedic Joint Reduction Time out performed: Yes Side: right Joint reduction location: hip Analgesia: procedural sedation and other (General anesthesia with propofol and succinylcholine administered by the anesthesiologist) Post-reduction neuro exam: intact Post-reduction vascular exam: intact Post-reduction x-ray obtained: Yes Post-reduction x-ray results: reduced Splint applied: No (Knee immobilizer applied to the knee to maintain leg straight position) Patient tolerated procedure: well Additional comments: Diagnosis: Dislocation right total hip prosthesis Procedure: Closed reduction total hip prosthesis right side CPT code 73178 Surgeon: Rahel Villegas MD The patient was seen in the emergency room and found to have a right closed dislocation of her total hip prosthesis. Patient was neurovascularly intact. The patient was indicated for closed reduction with sedation. Due to the patient's multiple dislocations before and requirement of general anesthesia. Anesthesia personnel were available and provided general anesthesia in the emergency room. The risks/ benefits of the procedure were discussed with the patient in detail including but not limited to recurrent dislocation, fracture, skin tear, inability to reduce the dislocation, the 1st further procedures including revision. And complications with general anesthesia. Informed consent was signed. The patient elected to proceed. Findings: Right posterior hip dislocation of total joint prosthesis Details of the procedure: Patient was seen in the emergency room the site of procedure was marked and informed consent obtained. Patient was then administered general anesthesia by the anesthesia personnel and intubated. Time-out procedure was performed confirming the patient's site of surgery consent. No antibiotics were utilized as this was a closed procedure. Once the patient was appropriately under anesthesia the reduction procedure was performed. This included hip flexion. traction and counter traction and internal and external rotation. This was a relatively difficult reduction and required significant amount of traction and effort, but was reduced with a flexion traction and external rotation maneuver. After the therapeutic clunk of the reduction was felt and heard the knee was extended and held for the post reduction x-ray. The postreduction x-ray revealed a reduction of the hip prosthesis into the joint. Knee immobilizer was then placed on the patient to keep the knee straight and prevent at risk positions. Patient was then woken from anesthesia. Neurovascular exam was stable on waking and active dorsiflexion plantar flexion was noted. Skin was intact. Postprocedure plan: Patient will be discharged from the emergency department. She will keep the knee immobilizer in place. In accordance with previous recommendations by her operating surgeon Dr. Abernathy she was recommended upon further dislocations to be either seen by Dr. Kathrin Ambriz or tertiary care center in [place]. The patient will call our office for follow-up either with Dr. Michela Ambriz or referral for tertiary [facility] center in [place] for possible right total hip revision due to recurrent instability. The patient also has an abduction splint at home that she should bring to her next appointment for potential transition to the abduction splint out of the knee immobilizer. We discussed the knee immobilizer is fine for the next couple weeks but we would not want to use this long-term due to knee stiffness. The patient understands and agrees with the plan. Again we went over the void ends of flexion and adduction position which put her at risk for dislocation.
--- NOTE | 2018-05-02 10:08 | PM.CN ---
History of Present Illness Date Patient Seen: 05/02/18 Time Patient Seen: 09:08 Chief complaint: R Hip Dislocation Reason for consult: Recurrent right total hip arthroplasty dislocation Requesting provider: Marylin Trevino Narrative: The patient is an 82-year-old female with a history of a right total hip arthroplasty by Dr. Abernathy in 2011. The patient has had recurrent instability and multiple posterior hip dislocations this is likely her 5th or 6th episode requiring closed reduction. Several of the previous reductions required closed reduction in the operating room and general anesthesia. One had a complication of a skin tear that required a lengthy treatment in the wound [facility], which is just recently healed. After her last dislocation in Dec 04 2017 she was placed in an abduction splint. The patient was cleared to discontinue the abduction splint approximately 2 months ago. This morning she states she bent over too far felt a pop and pain in her hip and had a notable deformity of abduction and internally rotate it rotated lower extremity. Presented to the ER for evaluation. She denies fevers chills nausea vomiting or other injury. She denies numbness and tingling. Upon previous follow-up for her last dislocation with Dr. Abernathy she was recommended that if she had recurrent instability any further she would be seen by Dr. Ambriz at our practice for potential revision or a tertiary center in [place]. FOR[facility]LY [facility], LATER [facility] Medical History Ascending aortic aneurysm (Acute) B12 deficiency (Acute) Breast implant status (Acute) Cerebrovascular disease (Acute) Hepatic steatosis (Acute) Hyperlipidemia (Acute) Hypertension (Acute) Osteoarthritis (Acute) Paralysis of left vocal fold (Acute) Paroxysmal atrial fibrillation (Acute) Partial epilepsy (Acute) Seizure as late effect of cerebrovascular accident (CVA) (Acute) Transient ischemic attack (Acute) Tremor (Acute) Surgical History S/P closed reduction of dislocated total hip prosthesis (Acute) H/O hysterectomy with oophorectomy (Acute) History of total left hip arthroplasty (Acute) History of total right hip arthroplasty (Acute) History of total right knee replacement (Acute) S/P Mohs surgery for basal cell carcinoma (Acute) S/P ascending aortic aneurysm repair (Acute) Family History Mother Dementia Coronary artery disease Father Diabetes mellitus Social History number of children: 2 household members: none occupational status: previously employed Smoking Status: Never smoker alcohol intake: current Meds Home Medications Medication Instructions Recorded Confirmed Type gabapentin 100 mg PO TID #0 03/04/17 12/02/17 History metoprolol tartrate 50 mg PO BID 11/10/17 12/02/17 History primidone [Mysoline] 75 mg PO HS 11/10/17 12/02/17 History spironolactone 25 mg PO QDAY 11/10/17 12/02/17 History gabapentin 100 mg PO QHS #0 cap 12/05/17 12/02/17 Rx oxycodone 5 mg PO Q4H PRN #60 tab 12/05/17 Rx warfarin 7.5 mg PO 2XW #20 tab 12/05/17 Rx warfarin [Coumadin] 5 mg PO 5XW #30 tab 12/05/17 12/02/17 Rx carbidopa ER 50 mg-levodopa 200 mg 1 tab PO TID #275 tab 12/30/17 Rx tablet,extended release Allergies Allergy/AdvReac Type Severity Reaction Status Date / Time No Known Drug Allergies Allergy Verified 11/10/17 13:03 Review of Systems Review of Systems All systems reviewed & are unremarkable except as noted in HPI and below Exam Vital Signs (past 8 hours): - 05/02/18 08:01 05/02/18 08:05 05/02/18 08:26 Temperature 98.0 F Pulse Rate 84 71 Pulse Rate [Right Dorsalis Pedis] 80 Respiratory Rate 20 20 Blood Pressure 130/87 Blood Pressure [Right Arm] 122/68 Pulse Oximetry 95 96 05/02/18 09:16 05/02/18 09:25 Temperature Pulse Rate 73 71 Pulse Rate [Right Dorsalis Pedis] Respiratory Rate 20 Blood Pressure Blood Pressure [Right Arm] 137/93 H 149/64 H Pulse Oximetry Oxygen Delivery Method Room Air Narrative Exam Narrative: The patient is alert and oriented female in no acute distress. Breathing is nonlabored on room air. Vital signs are stable. Lungs clear to auscultation bilaterally. Rate and rhythm. Abdomen is soft and nontender Musculoskeletal exam: There is an obvious deformity of the right lower extremity with its internally rotated abducted and shortened compared to the contralateral side. The patient sources sensation intact to light touch in the superficial peroneal deep peroneal sural and saphenous nerve distributions. There is a scar on the anterior clemons where her up previous skin tear wound was this is completely healed today. There is a palpable dorsalis pedis pulse. The patient demonstrates dorsiflexion plantar flexion of her ankle and wiggles her toes. Calf is soft Objective Imaging Hip x-ray: My impression: AP pelvis x-ray and lateral right hip: demonstrates posterior dislocation of the right total hip prosthesis with posterior and proximal migration of the femoral head no evidence of fracture Radiologist's impression: IMPRESSION: Prior bilateral total hip arthroplasties, current superior dislocation of the right arthroplasty femoral head from the acetabular component. Dictated by: Sesar Guzman M.D. on 05/02/2018 at 9:20 Approved by: Sesar Guzman M.D. on 05/02/2018 at 9:21 AP hip x-ray: My impression: Post reduction AP view right hip demonstrates a reduction of the femoral component into the acetabulum. No evidence of acute fracture. Assessment & Plan Plan: Assessment/Plan Narrative: The patient has a recurrent right posterior hip dislocation of her total hip prosthesis. She has had recurrent instability and multiple closed reductions over the last few years most recently being in late spring of this year after which she was maintained in abduction brace. She does not have the brace available with her today but does have at home. Plan today would be to be repeat closed reduction with general sedation. Do have this available in the ER today as the anesthesia provider is still here. If the hip is reducible she will be placed in a knee immobilizer she will keep her knee straight and avoid flexion and abduction positions. We discussed due to her recurrent instability she may be a candidate for revision procedure. She has previously discussed this with her operating surgeon Dr. Abernathy. He had recommended evaluation with Dr. Kathrin Ambriz or our [facility] in [place]. The risks benefits and alternatives to a closed reduction were discussed with the patient today. We discussed specific risks including fracture skin tear inability to reduce the hip and need for further procedures including revision. Patient understands and agrees with the plan and informed consent was signed the patient elected to proceed. We also discussed the complications from anesthesia. These were further discussed by the anesthesia provider. Plan today will be for closed reduction in the emergency room with general sedation and intubation. After successful reduction the patient will be placed in a knee immobilizer. She will be discharged from the emergency department. Call our office for follow up either with Dr. Abernathy or Dr. Ambriz or referral for a tertiary care center in [place]. She will be maintained in the knee immobilizer until follow-up with 1 of these providers at which time she should bring her abduction brace with her for potential transition to this. We discussed we would not want to keep her in the knee immobilizer longer than a few weeks but initially this will help her stay out of the at risk positions. The patient understands and agrees with the plan. Questions were answered to her satisfaction. Post reduction addendum: Successful closed reduction was obtained the patient was placed in knee immobilizer. Following induction gross deformity was improved with equal leg lengths and rotation. Patient was neurovascularly intact following reduction. Time Spent With Patient Time with patient: less than 15 minutes
--- NOTE | 2018-05-02 10:44 | PC.NURSE ---
0941 pt given meds, pre intubation with anesthesia. pt is intubated with a 7.0 glidescope . anesthesia is maintaining airway. rt did not place an inline etco2 per doc during the procedure.
--- NOTE | 2018-05-02 10:50 | PC.NURSE ---
pt being extubated by anesthesia. slowly waking up.
[2018-05-02 10:59] LABS: Add Manual Diff / Slide Review NO; Basophils Percent Auto 0.8 % (0-2); Eosinophils Percent Auto 0.4 % (2-4); Hematocrit 35.8 % (36-46); Hemoglobin 11.9 g/dL (12.0-16.0); Lymphocytes Percent Auto 14.3 % (25-40); Mean Corpuscular HGB Conc 33.1 % (30-36); Mean Corpuscular Hemoglobin 32.8 PG (26-34); Monocytes Percent Auto 14.2 % (3-14); Neutrophils Absolute Auto 3500 /uL (3000-5900); Neutrophils Percent Auto 70.3 % (50-75); Platelet Count 173 X10^3/uL (150-400); Red Blood Cell Count 3.62 X10^6/uL (4.0-5.2); Red Cell Distribution Width 15.3 % (11.6-14.8)
[2018-05-02 11:05] LABS: INR 2.5 (0.9-1.3); Prothrombin Time 27.8 SECONDS (10.1-12.7)
[2018-05-02 11:09] LABS: BUN Creatinine Ratio 31.7 (6-22); Blood Urea Nitrogen 19 mg/dL (7-17); Calcium 8.7 mg/dL (8.4-10.2); Carbon Dioxide 26 mmol/L (22-32); Chloride 102 mmol/L (98-107); Estimated Glomerular Filt Rate > 60.0 mL/min (>60); Glucose 97 mg/dL (80-110); HEMOLYSIS < 15 (0-50); Sodium 139 mmol/L (137-145)
== END 2018-05-02 13:31 | disposition home or self-care (01) ==
PROVIDERS: Emergency Provider Emergency Medicine; PCP Internal Medicine
DX: S73.004A Unspecified dislocation of right hip, initial encounter (principal)
CPT/HCPCS: 36415; 73501; 73502; 80048; 85025; 85610; 94770; 96374; 96375; 99284; 99285; 99291; 99292; J0330; J1170; J2405; J2704

== ENCOUNTER → 2018-06-10 13:47 | Outpatient (CLI) | payer MEDICARE, SELFPAY ==
[2017-12-02 01:33] VITALS: BMI 25.8
--- NOTE | 2018-06-10 | DI.CT.S_ITS ---
PROCEDURE: CT PEL WO CON INDICATIONS: HISTORY OF TOTAL HIP REPLACEMENT TECHNIQUE: Noncontrast 3 mm axial sections acquired through the bony pelvis, with coronal and sagittal reformatting. COMPARISON: [facility], CR, XR PELVIS WITH LATERAL HIP RIGHT, 01/27/2018, 15:32. [facility], CR, XR HIP W PEL IF DONE RT 2V, 05/02/2018, 8:01. [facility], CR, XR HIP RT 1V, 05/02/2018, 9:45. FINDINGS: Image quality: Excellent. Bones: Bilateral hip arthroplasties. Hardware appears intact. The right femoral head component appears well seated within the acetabular cup. There is expected postoperative alignment. No acute fracture. There is diffuse osteopenia. No definite evidence of hardware loosening. Colonic diverticulosis is seen without evidence of acute complication. Lower lumbar degenerative disc disease. Sacroiliac joints grossly unremarkable. Soft tissues: Intrapelvic contents grossly unremarkable. There is diffuse muscle atrophy. Scattered vascular calcifications are noted. IMPRESSION: Expected postoperative alignment of right hip arthroplasty. No evidence of hardware failure or loosening. Dictated by: Jn Urbina M.D. on 06/10/2018 at 16:18 Approved by: Jn Urbina M.D. on 06/10/2018 at 16:23
== END ==
PROVIDERS: PCP Internal Medicine
DX: M85.80 Other specified disorders of bone density and structure, unspecified site (principal); Z96.643 Presence of artificial hip joint, bilateral; K57.90 Diverticulosis of intestine, part unspecified, without perforation or abscess without bleeding; M51.36 Other intervertebral disc degeneration, lumbar region
CPT/HCPCS: 72192

== ENCOUNTER 2018-07-19 05:42 | Emergency (ER) | payer MEDICARE, SELFPAY ==
[2017-12-02 01:33] VITALS: BMI 25.8
[2018-07-19 05:45] VITALS: BP 104/45; PULSE 53; RESP 18; TEMP 36.8; O2SAT 96; BMI 24.0
--- NOTE | 2018-07-19 06:01 | ED_ITS ---
HPI - Wound/Laceration General Chief Complaint: Wound/Laceration Stated Complaint: Skin Tear Time Seen by Provider: 07/19/18 05:44 Source: patient and EMS Mode of arrival: EMS Limitations: no limitations History of Present Illness HPI narrative: 82-year-old female, nonsmoker presents by EMS for evaluation of a skin tear on her left lower extremity. She was moving a step stool and bumped into a with her legs suffering a 3 in laceration the. She denies other injury is not dizzy nor weak or lightheaded. Her tetanus is up-to-date. Onset (ago): minute(s) Extremity Location: Left: lower leg [address]: home Patient tetanus UTD: Yes Context: accidental Associated symptoms: none Related Data Home Medications Medication Instructions Recorded Confirmed gabapentin 100 mg PO TID #0 03/04/17 12/02/17 metoprolol tartrate 50 mg PO BID 11/10/17 12/02/17 primidone [Mysoline] 75 mg PO HS 11/10/17 12/02/17 spironolactone 25 mg PO QDAY 11/10/17 12/02/17 Previous Rx's Medication Instructions Recorded gabapentin 100 mg PO QHS #0 cap 12/05/17 oxycodone 5 mg PO Q4H PRN #60 tab 12/05/17 warfarin 7.5 mg PO 2XW #20 tab 12/05/17 warfarin [Coumadin] 5 mg PO 5XW #30 tab 12/05/17 carbidopa ER 50 mg-levodopa 200 mg 1 tab PO TID #275 tab 12/30/17 tablet,extended release hydrocodone-acetaminophen [[place]] 1 tab PO Q6H PRN #10 tab 05/02/18 Allergies Allergy/AdvReac Type Severity Reaction Status Date / Time No Known Drug Allergies Allergy Verified 11/10/17 13:03 Review of Systems Constitutional Denies chills, Denies fever(s), Denies lethargy and Denies weakness Eyes Denies change in vision, Denies eye discharge, Denies irritation and Denies loss of vision ENT Ears, Nose, Mouth, and Throat: Denies change in voice, Denies neck pain and Denies sore throat Cardiovascular Denies chest pain, Denies irregular heart rhythm, Denies lightheadedness, Denies palpitations, Denies dyspnea, Denies dyspnea on exertion and Denies orthopnea Respiratory Denies cough, Denies dyspnea, Denies dyspnea on exertion and Denies wheezing Gastrointestinal Gastrointestinal: Denies abdominal pain, Denies change in bowel habits, Denies diarrhea, Denies nausea and Denies vomiting Genitourinary Denies hematuria, Denies flank pain, Denies urinary incontinence and Denies urinary urgency Musculoskeletal Denies neck pain Integumentary/Breasts Denies pruritus, Denies erythema, Denies rash and Reports wounds Neurologic Denies confusion, Denies loss of vision and Denies weakness Psychiatric Denies anxiety, Denies confusion, Denies depression, Denies homicidal ideation and Denies suicidal ideation Endocrine Denies palpitations Hematologic/Lymphatic Denies easy bruising Allergic/Immunologic Denies wheezing [facility] Medical History Ascending aortic aneurysm (Acute) B12 deficiency (Acute) Breast implant status (Acute) Cerebrovascular disease (Acute) Hepatic steatosis (Acute) Hyperlipidemia (Acute) Hypertension (Acute) Osteoarthritis (Acute) Paralysis of left vocal fold (Acute) Paroxysmal atrial fibrillation (Acute) Partial epilepsy (Acute) Seizure as late effect of cerebrovascular accident (CVA) (Acute) Transient ischemic attack (Acute) Tremor (Acute) Surgical History S/P closed reduction of dislocated total hip prosthesis (Acute) H/O hysterectomy with oophorectomy (Acute) History of total left hip arthroplasty (Acute) History of total right hip arthroplasty (Acute) History of total right knee replacement (Acute) S/P Mohs surgery for basal cell carcinoma (Acute) S/P ascending aortic aneurysm repair (Acute) Family History Mother Dementia Coronary artery disease Father Diabetes mellitus Social History number of children: 2 household members: none occupational status: previously employed Smoking Status: Never smoker alcohol intake: current Exam Narrative Exam Narrative: GEN: AOx3 and in mild distress EYES: Pupils are equal, round, and reactive to light and accommodation. Extraoccular muscles are intact bilaterally. There is no subconjunctival hemorrhage or exudate. CHEST: Lungs are clear to auscultation bilaterally and free of wheezes, rales, or rhonchi. Heart rate is regular rhythm, there are no murmurs, clicks, rubs, or gallops. There is no chest wall tenderness. ABD: Abdomen is soft and nontender. There is no guarding or rebound. Bowel sounds are normal in all 4 quadrants. There is no mass or organomegaly. EXT: Full painless ROM of all extremities with no loss of sensation or strength. SKIN: 3 in crescent-shaped skin tear to the anterior clemons. No active bleeding. Skin much too thin to consider sutures. Steri-Strips to be placed by nursing with other appropriate wound care Discharge Plan Departure Patient Disposition: Home Clinical Impression: Skin tear of left lower leg without complication Instructions: Skin Wound Activity Restrictions/Additional Instructions: *You have been diagnosed with [ Left Leg skin tear ] *What to do: *Continue take medications as directed *Follow up with your primary care provider in 2-3 days, call for an appointment. Let them know you were seen in the Emergency Department and that we ask that you be seen in follow up *Return to ER if you should have any new, worsening or concerning symptoms Prescriptions: No Action gabapentin 100 MG capsule 100 mg PO TID Qty: 0 RF: 0 carbidopa-levodopa 50-200 mg tablet extended release 1 tab PO TID Qty: 275 RF: 1 hydrocodone-acetaminophen [[place]] 5-325 mg tablet 1 tab PO Q6H PRN (Reason: pain) Qty: 10 RF: 0 primidone [Mysoline] 50 MG tablet 75 mg PO HS RF: 0 metoprolol tartrate 50 mg tablet 50 mg PO BID RF: 0 spironolactone 25 mg tablet 25 mg PO QDAY RF: 0 oxycodone 5 mg Tablet 5 mg PO Q4H PRN (Reason: Pain, Severe) Qty: 60 RF: 0 gabapentin 100 mg Capsule 100 mg PO QHS Qty: 0 RF: 0 warfarin 7.5 mg tablet 7.5 mg PO 2XW Qty: 20 RF: 3 warfarin [Coumadin] 5 MG tablet 5 mg PO 5XW Qty: 30 RF: 3
--- NOTE | 2018-07-22 16:14 | PC.NURSE ---
Placed f/u call to patient. No answer at this time.
== END 2018-07-19 06:30 | disposition home or self-care (01) ==
PROVIDERS: Emergency Provider Emergency Medicine; PCP Internal Medicine
DX: S81.812A Laceration without foreign body, left lower leg, initial encounter (principal)
CPT/HCPCS: 99282; 99283

== ENCOUNTER 2018-08-02 15:43 | Emergency (ER) | payer MEDICARE, SELFPAY ==
[2017-12-02 01:33] VITALS: BMI 25.8
[2018-08-02 15:50] VITALS: BP 132/58; PULSE 95; RESP 20; TEMP 37; O2SAT 100; BMI 23.0
--- NOTE | 2018-08-02 16:35 | PC.NURSE ---
attempting to soak off steri strips that have attached themselves to her thin skin. cleaned wound prior to culturing it. her foot is erythematous distal to her wound on the anterior left clemons, it appears all surface from what I can see so far. I want to put a different dressing on it when I get the steri strips off.
[2018-08-02] MEDS: DOXYCYCLINE HYCLATE 100 MG TABLET PO (16:55)
[2018-08-02 17:19] VITALS: BP 131/91; PULSE 109; RESP 18; O2SAT 96
--- NOTE | 2018-08-02 17:21 | PC.NURSE ---
Placed xeroform on wound after i removed steri strips, then placed 4x4 guaze then burn net over that.
--- NOTE | 2018-08-02 17:23 | ED.SKABFB ---
HPI - Skin/Abscess/Foreign Bdy <MIAH Pineda - Last Filed: 08/02/18 18:37> General Chief complaint: Skin/Abscess/Foreign Body Stated complaint: left leg previous skin tear, thinks infected now Time Seen by Provider: 08/02/18 16:08 Source: patient Mode of arrival: ambulatory Limitations: no limitations History of Present Illness HPI narrative: Patient is an 82-year-old female nonsmoker who presents to the emergency department with her friend for evaluation of a skin tear on her left lower leg. She states she was in the emergency department about 2 weeks ago and received Steri-Strips. She has been receiving home health 3 times a week since. She states that her home health nurse was concerned about a possible infection in the area due to redness and weeping. She denies any fever, nausea vomiting or diarrhea. 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 Related Data Home Medications Medication Instructions Recorded Confirmed gabapentin 100 mg PO TID #0 03/04/17 12/02/17 metoprolol tartrate 50 mg PO BID 11/10/17 12/02/17 primidone [Mysoline] 75 mg PO HS 11/10/17 12/02/17 spironolactone 25 mg PO QDAY 11/10/17 12/02/17 Previous Rx's Medication Instructions Recorded gabapentin 100 mg PO QHS #0 cap 12/05/17 oxycodone 5 mg PO Q4H PRN #60 tab 12/05/17 warfarin 7.5 mg PO 2XW #20 tab 12/05/17 warfarin [Coumadin] 5 mg PO 5XW #30 tab 12/05/17 carbidopa ER 50 mg-levodopa 200 mg 1 tab PO TID #275 tab 12/30/17 tablet,extended release hydrocodone-acetaminophen [[place]] 1 tab PO Q6H PRN #10 tab 05/02/18 doxycycline hyclate 100 mg PO BID #20 cap 08/02/18 Allergies Allergy/AdvReac Type Severity Reaction Status Date / Time No Known Drug Allergies Allergy Verified 11/10/17 13:03 Review of Systems <MIAH Pineda - Last Filed: 08/02/18 18:37> Review of Systems GENERAL: Denies chills, fatigue, malaise, fever, sweats. HEENT: Denies sinus pain, ear pain, sore throat, difficulty swallowing, dizziness. RESPIRATORY: Denies dyspnea, cough, wheezing, hemoptysis, sputum. CARDIOVASCULAR: Denies chest pain, palpitations, orthopnea, edema, GASTROINTESTINAL: Denies nausea, vomiting, abdominal pain, diarrhea, constipation, melena. : Denies dysuria, frequency, incontinence, hematuria, urinary retention. MUSCULOSKELETAL: denies weakness, joint pain, or bony pain SKIN: See HPI NEUROLOGIC: Denies weakness, headache, numbness, change in speech, confusion, seizures, incoordination. PSYCHIATRIC: No concerning psychosocial issues. 12 point review of systems is negative except for those stated above Exam <PAOLA Pineda-BC - Last Filed: 08/02/18 18:37> Narrative Exam Narrative: GENERAL: This is a well-nourished, well-developed patient, No acute distress HEAD: Atraumatic. Normocephalic. No temporal or scalp tenderness. EYES: Pupils equal round and reactive. Extraocular motions intact. No scleral icterus. No injection or drainage. ENT: Nose without bleeding, purulent drainage or septal hematoma. Throat without erythema, tonsillar hypertrophy or exudate. Uvula midline. Airway patent. NECK: Trachea midline. No JVD or lymphadenopathy. Supple, nontender, no meningeal signs. CARDIOVASCULAR: Regular rate RESPIRATORY: No cough. No accessory muscle use. EXTREMITIES: Positive pedal pulses bilaterally BACK: Nontender without deformity or crepitance. No flank tenderness. NEURO: AOx3. Using all extremities. SKIN: 8 Steri-Strips noted anterior aspect of left lower leg. Erythema approximately 5 cm distal to Steri-Strips. Purulent drainage noted. Initial Vital Signs Initial Vital Signs: Vital Signs Temperature 98.6 F 08/02/18 15:50 Pulse Rate 95 H 08/02/18 15:50 Respiratory Rate 08/02/18 15:50 Blood Pressure 132/58 L 08/02/18 15:50 Pulse Oximetry 100 08/02/18 15:50 <Aguilar Garces DO - Last Filed: 08/08/18 07:05> Initial Vital Signs Initial Vital Signs: Vital Signs Temperature 98.6 F 08/02/18 15:50 Pulse Rate 95 H 08/02/18 15:50 Respiratory Rate 08/02/18 15:50 Blood Pressure 132/58 L 08/02/18 15:50 Pulse Oximetry 100 08/02/18 15:50 Course <MIAH Pineda - Last Filed: 08/02/18 18:37> Orders Ordered: Discontinued Medications Doxycycline Hyclate (Vibramycin) 100 mg PO NOW ONE Stop: 08/02/18 16:46 Last Admin: 08/02/18 16:55 Dose: 100 mg Vital Signs - 8 hr 08/02/18 15:50 08/02/18 17:19 Temperature 98.6 F Pulse Rate 95 H 109 H Respiratory Rate 20 18 Blood Pressure 132/58 L Blood Pressure [Right Arm] 131/91 H Pulse Oximetry 100 96 <Aguilar Garces DO - Last Filed: 08/08/18 07:05> Orders Ordered: Discontinued Medications Doxycycline Hyclate (Vibramycin) 100 mg PO NOW ONE Stop: 08/02/18 16:46 Last Admin: 08/02/18 16:55 Dose: 100 mg Vital Signs - 8 hr 08/02/18 15:50 08/02/18 17:19 Temperature 98.6 F Pulse Rate 95 H 109 H Respiratory Rate 20 18 Blood Pressure 132/58 L Blood Pressure [Right Arm] 131/91 H Pulse Oximetry 100 96 MDM - Skin/Abscess/Foreign Bdy <MIAH Pineda - Last Filed: 08/02/18 18:37> MDM Narrative Medical decision making narrative: The patient presents with chief complaint of possible wound infection. Given the erythema and drainage, I agree that she is having a wound infection. Wound culture was obtained. Wound care was done in the emergency department as she has had the same Steri-Strips on for 2 weeks. Given her history of MRSA, I will place her on doxycycline at this point time. She has tolerated this well in the past. I discussed re-evaluation by her primary care provider, especially given her history of nonhealing wounds. I discussed monitoring for fevers, nausea vomiting diarrhea for signs of infection. Patient has no questions or concerns upon discharge. Discharge Plan Departure Patient Disposition: Home Clinical Impression: Wound infection Discharge Date/Time: 08/02/18 17:40 Interventions: ED Discharge Assessment Last Done: 08/02/18 17:39 Instructions: DI for Wound Infection Activity Restrictions/Additional Instructions: Given the redness and discharge from the wound, I am starting you on an antibiotic. You have tolerated this antibiotic while in the past. Be aware it can increase your INR so this needs to be monitored. Please monitor for fever, vomiting or diarrhea and signs of systemic infection. Please come back to the emergency department if you have any acute concerns. Please follow-up with your primary care provider to evaluate your wound, especially given your history. Prescriptions: New doxycycline hyclate 100 mg capsule 100 mg PO BID Qty: 20 RF: 0 No Action gabapentin 100 MG capsule 100 mg PO TID Qty: 0 RF: 0 carbidopa-levodopa 50-200 mg tablet extended release 1 tab PO TID Qty: 275 RF: 1 hydrocodone-acetaminophen [[place]] 5-325 mg tablet 1 tab PO Q6H PRN (Reason: pain) Qty: 10 RF: 0 primidone [Mysoline] 50 MG tablet 75 mg PO HS RF: 0 metoprolol tartrate 50 mg tablet 50 mg PO BID RF: 0 spironolactone 25 mg tablet 25 mg PO QDAY RF: 0 oxycodone 5 mg Tablet 5 mg PO Q4H PRN (Reason: Pain, Severe) Qty: 60 RF: 0 gabapentin 100 mg Capsule 100 mg PO QHS Qty: 0 RF: 0 warfarin 7.5 mg tablet 7.5 mg PO 2XW Qty: 20 RF: 3 warfarin [Coumadin] 5 MG tablet 5 mg PO 5XW Qty: 30 RF: 3 Referrals: Sharri Howell MD [Primary Care Provider] - <Aguilar Garces DO - Last Filed: 08/08/18 07:05> Cosign ED Attending Tony Attestation: I was available for consultation during this patient's emergency department encounter
== END 2018-08-02 17:40 | disposition home or self-care (01) ==
PROVIDERS: Emergency Provider Nurse Practitioner Family; PCP Internal Medicine
DX: L08.9 Local infection of the skin and subcutaneous tissue, unspecified (principal)
CPT/HCPCS: 87070; 87075; 87077; 87147; 87205; 99283

== ENCOUNTER → 2018-08-11 12:25 | Outpatient (CLI) | payer MEDICARE, SELFPAY ==
[2018-08-24 15:31] VITALS: BMI 25.8
== END ==
PROVIDERS: PCP Internal Medicine; Visit Provider Family Medicine
DX: I87.2 Venous insufficiency (chronic) (peripheral) (principal); L97.822 Non-pressure chronic ulcer of other part of left lower leg with fat layer exposed; L08.9 Local infection of the skin and subcutaneous tissue, unspecified
CPT/HCPCS: 11042; 93922; 99213

== ENCOUNTER → 2018-08-13 11:19 | Outpatient (CLI) | payer MEDICARE, SELFPAY ==
[2017-12-02 01:33] VITALS: BMI 25.8
== END ==
PROVIDERS: PCP Internal Medicine; Visit Provider Family Medicine
DX: S81.802A Unspecified open wound, left lower leg, initial encounter (principal)
CPT/HCPCS: 29581

== ENCOUNTER → 2018-08-20 13:27 | Outpatient (CLI) | payer MEDICARE, SELFPAY ==
[2017-12-02 01:33] VITALS: BMI 25.8
== END ==
PROVIDERS: PCP Internal Medicine; Visit Provider Family Medicine
DX: I87.2 Venous insufficiency (chronic) (peripheral) (principal); L97.822 Non-pressure chronic ulcer of other part of left lower leg with fat layer exposed
CPT/HCPCS: 11042

== ENCOUNTER → 2018-08-27 13:25 | Outpatient (CLI) | payer MEDICARE, SELFPAY ==
[2018-08-24 15:31] VITALS: BMI 25.8
== END ==
PROVIDERS: PCP Internal Medicine; Visit Provider Family Medicine
DX: I87.312 Chronic venous hypertension (idiopathic) with ulcer of left lower extremity (principal); L97.822 Non-pressure chronic ulcer of other part of left lower leg with fat layer exposed
CPT/HCPCS: 29581; 99213

== ENCOUNTER → 2018-09-03 14:19 | Outpatient (CLI) | payer MEDICARE, SELFPAY ==
[2018-08-24 15:31] VITALS: BMI 25.8
== END ==
PROVIDERS: PCP Internal Medicine; Visit Provider Family Medicine
DX: Z48.817 Encounter for surgical aftercare following surgery on the skin and subcutaneous tissue (principal); I87.2 Venous insufficiency (chronic) (peripheral)
CPT/HCPCS: 99212; 99213

== ENCOUNTER → 2018-11-20 10:24 | Outpatient (CLI) | payer MEDICARE, SELFPAY ==
[2018-08-24 15:31] VITALS: BMI 25.8
[2018-11-20 11:11] LABS: Blood Urea Nitrogen 18 mg/dL (7-17); Estimated Glomerular Filt Rate > 60.0 mL/min (>60)
--- NOTE | 2018-11-20 11:43 | DI.CT.S_ITS ---
PROCEDURE: CT ABDOMEN PELVIS W CON INDICATIONS: inguinal hernia TECHNIQUE: After the administration of intravenous contrast, 5 mm thick sections acquired from the diaphragm to the symphysis. 5 mm coronal and sagittal reformats were acquired. For radiation dose reduction, the following was used: automated exposure control, adjustment of mA and/or kV according to patient size. COMPARISON: [facility], CT, IVP (ABD & PEL WWO CONTRAST), 11/09/2014, 11:04. FINDINGS: Image quality: Excellent. ABDOMEN: Lung bases: Lung bases are clear. Heart size is enlarged. There is calcification of the coronary vasculature. Solid organs: Liver is normal in size and enhancement. Gallbladder is partially contracted. Biliary system is non dilated. Pancreas enhances normally. Spleen is normal in size and enhancement. No adrenal nodules. Kidneys demonstrate normal size and enhancement, without hydronephrosis. Peritoneum and bowel: Bowel loops demonstrate normal wall thickness and caliber. No free fluid or air. Normal appendix. Nodes and vessels: No retroperitoneal or mesenteric adenopathy by size criteria. Aorta and inferior vena cava are normal in size. Moderate diffuse atherosclerotic calcification of the arterial tree. 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 Miscellaneous: No ventral hernias. PELVIS: Genitourinary: Bladder wall thickness is normal. Miscellaneous: No inguinal hernias or adenopathy. Bones: No suspicious bony lesions. Bilateral hip arthroplasty has been performed. No vertebral body compression fractures. IMPRESSION: 1. No evidence of inguinal hernia. 2. No acute process. 3. Normal appendix. 4. Cardiomegaly. Coronary artery disease. Dictated by: Terry Lau M.D. on 11/20/2018 at 12:02 Approved by: Terry Lau M.D. on 11/20/2018 at 12:06
== END ==
PROVIDERS: Family Provider Internal Medicine; PCP Internal Medicine; Visit Provider Surgery
DX: K40.90 Unilateral inguinal hernia, without obstruction or gangrene, not specified as recurrent (principal); I25.10 Atherosclerotic heart disease of native coronary artery without angina pectoris; I51.7 Cardiomegaly
CPT/HCPCS: 74177; 82565; 84520; Q9967

== ENCOUNTER → 2019-01-29 14:34 | Outpatient (CLI) | payer MEDICARE, SELFPAY ==
[2018-12-09 15:35] VITALS: BMI 25.8
--- NOTE | 2019-01-29 14:36 | DI.US.S_ITS ---
PROCEDURE: US PELVIC LIMITED INDICATIONS: SOFT TISSUE DEFECT ABD/PELVIC REGION TECHNIQUE: Real-time transabdominal scanning was performed of the pelvic organs, with image documentation. COMPARISON: [facility], CT, CT ABDOMEN PELVIS W CON, 11/20/2018, 11:49. FINDINGS: With the patient standing, bilateral inguinal hernias are visualized which contain a combination of fat and peristalsing bowel. IMPRESSION: 1. Bilateral fat and bowel containing inguinal hernias visualized with the patient in the standing position. Of note, these were not visualized on the comparison CT of the abdomen and pelvis dated 11/20/18 suggesting reducible hernias. Dictated by: Nieves Martin M.D. on 01/29/2019 at 14:28 Approved by: Nieves Martin M.D. on 01/29/2019 at 14:31
== END ==
PROVIDERS: Family Provider Internal Medicine; PCP Internal Medicine; Visit Provider Surgery
DX: K40.90 Unilateral inguinal hernia, without obstruction or gangrene, not specified as recurrent (principal); R19.09 Other intra-abdominal and pelvic swelling, mass and lump
CPT/HCPCS: 76857

== ENCOUNTER → 2020-03-27 15:02 | Outpatient (CLI) | payer MEDICARE, SELFPAY ==
[2020-03-27 15:02] VITALS: BMI 25.8
== END ==
PROVIDERS: Family Provider Internal Medicine; PCP Internal Medicine; Referring Provider Internal Medicine; Visit Provider Family Medicine
DX: I87.2 Venous insufficiency (chronic) (peripheral) (principal); L97.821 Non-pressure chronic ulcer of other part of left lower leg limited to breakdown of skin
CPT/HCPCS: 97597; 99213; 99214

== ENCOUNTER → 2020-03-29 11:49 | Outpatient (CLI) | payer MEDICARE, SELFPAY ==
[2020-03-27 15:02] VITALS: BMI 25.8
== END ==
PROVIDERS: Family Provider Internal Medicine; PCP Internal Medicine; Referring Provider Internal Medicine; Visit Provider Family Medicine
DX: I87.2 Venous insufficiency (chronic) (peripheral) (principal); L97.821 Non-pressure chronic ulcer of other part of left lower leg limited to breakdown of skin
CPT/HCPCS: 29581

== ENCOUNTER → 2020-04-04 13:25 | Outpatient (CLI) | payer MEDICARE, SELFPAY ==
[2020-03-27 15:02] VITALS: BMI 25.8
== END ==
PROVIDERS: Family Provider Internal Medicine; PCP Internal Medicine; Referring Provider Internal Medicine; Visit Provider Family Medicine
DX: I87.2 Venous insufficiency (chronic) (peripheral) (principal); L97.821 Non-pressure chronic ulcer of other part of left lower leg limited to breakdown of skin
CPT/HCPCS: 29581

== ENCOUNTER → 2020-04-11 14:00 | Outpatient (CLI) | payer MEDICARE, SELFPAY ==
[2020-03-27 15:02] VITALS: BMI 25.8
== END ==
PROVIDERS: Family Provider Internal Medicine; PCP Internal Medicine; Referring Provider Internal Medicine; Visit Provider Family Medicine
DX: I87.2 Venous insufficiency (chronic) (peripheral) (principal); L97.821 Non-pressure chronic ulcer of other part of left lower leg limited to breakdown of skin
CPT/HCPCS: 29581; 99213

== ENCOUNTER → 2020-04-18 11:17 | Outpatient (CLI) | payer MEDICARE, SELFPAY ==
[2020-03-27 15:02] VITALS: BMI 25.8
== END ==
PROVIDERS: Family Provider Internal Medicine; PCP Internal Medicine; Referring Provider Internal Medicine; Visit Provider Family Medicine
DX: I87.2 Venous insufficiency (chronic) (peripheral) (principal); L97.821 Non-pressure chronic ulcer of other part of left lower leg limited to breakdown of skin
CPT/HCPCS: 29581; 99213

== ENCOUNTER → 2020-04-25 11:36 | Outpatient (CLI) | payer MEDICARE, SELFPAY ==
[2020-03-27 15:02] VITALS: BMI 25.8
== END ==
PROVIDERS: Family Provider Internal Medicine; PCP Internal Medicine; Referring Provider Internal Medicine; Visit Provider Family Medicine
DX: I87.2 Venous insufficiency (chronic) (peripheral) (principal); L97.821 Non-pressure chronic ulcer of other part of left lower leg limited to breakdown of skin
CPT/HCPCS: 29581

== ENCOUNTER → 2020-05-02 12:00 | Outpatient (CLI) | payer MEDICARE, SELFPAY ==
[2020-03-27 15:02] VITALS: BMI 25.8
== END ==
PROVIDERS: Family Provider Internal Medicine; PCP Internal Medicine; Referring Provider Internal Medicine; Visit Provider Family Medicine
DX: I87.2 Venous insufficiency (chronic) (peripheral) (principal); R60.0 Localized edema
CPT/HCPCS: 99212; 99213

== ENCOUNTER → 2020-05-23 14:43 | Outpatient (ROUT) | payer MEDICARE, SELFPAY ==
[2020-03-27 15:02] VITALS: BMI 25.8
== END ==
PROVIDERS: Family Provider Internal Medicine; PCP Internal Medicine; Visit Provider Internal Medicine
DX: R30.0 Dysuria (principal); N39.0 Urinary tract infection, site not specified
CPT/HCPCS: 87077; 87086; 87186

== ENCOUNTER → 2020-09-14 12:35 | Outpatient (CLI) | payer MEDICARE, SELFPAY ==
[2020-03-27 15:02] VITALS: BMI 25.8
[2020-09-14] MEDS: COVID-19 VACC, Ad26(JANSSEN)/PF 0.5 ML IM (12:50)
== END ==
PROVIDERS: Family Provider Internal Medicine; PCP Internal Medicine; Visit Provider Internal Medicine
DX: Z23 Encounter for immunization (principal)
CPT/HCPCS: 0031A; 91303

== ENCOUNTER 2020-10-04 13:32 | Inpatient (IN) | payer MEDICARE, OTHER, SELFPAY ==
[2020-03-27 15:02] VITALS: BMI 25.8
[2020-10-04] VITALS (10 sets, daily range): BP systolic 134–159; BP diastolic 63–117; PULSE 55–94; RESP 15–20; TEMP 36.3–36.5; O2SAT 97–100; BMI 20.7
--- NOTE | 2020-10-04 13:35 | DI.RAD.S_ITS ---
PROCEDURE: XR HIP W PEL IF DONE LT 2V INDICATIONS: glf TECHNIQUE: AP pelvis and lateral view of the left hip acquired. COMPARISON: [facility], MICHELA, XR HIP W PEL IF DONE RT 2V, 05/02/2018, 8:01. FINDINGS: Bones: Patient is status post bilateral hip arthroplasty, with hardware components in expected positions. The hip joint appears congruent. The visualized bony structures appear intact. Soft tissues: Overlying postoperative changes are noted. No suspicious soft tissue densities. IMPRESSION: No acute fracture. No osseous lesion. If symptoms and/or clinical suspicion for pathology persist, further assessment with repeat, or advanced imaging (e.g., CT or bone scan) may be helpful for further assessment. Dictated by: Terry Lau M.D. on 10/04/2020 at 14:17 Approved by: Terry Lau M.D. on 10/04/2020 at 14:17
--- NOTE | 2020-10-04 13:35 | DI.RAD.S_ITS ---
PROCEDURE: XR KNEE LT 3V INDICATIONS: glf TECHNIQUE: 3 views of the knee were acquired. COMPARISON: [facility], , KNEE 1-2 VIEWS LEFT, 06/12/2017, 13:01. FINDINGS: Bones: No fractures or dislocations. No suspicious bony lesions. Knee arthroplasty hardware is present. Soft tissues: No joint effusion. No suspicious soft tissue calcifications. IMPRESSION: Knee arthroplasty. No acute fracture. No osseous lesion. If symptoms and/or clinical suspicion for pathology persist, further assessment with repeat, or advanced imaging (e.g., CT or bone scan) may be helpful for further assessment. Dictated by: Terry Lau M.D. on 10/04/2020 at 14:18 Approved by: Terry Lau M.D. on 10/04/2020 at 14:18
--- NOTE | 2020-10-04 13:36 | DI.RAD.S_ITS ---
PROCEDURE: XR ELBOW LT MIN 3V INDICATIONS: glf TECHNIQUE: 3 views of the elbow were acquired. COMPARISON: None. FINDINGS: Bones: No fractures or dislocations. No suspicious bony lesions. Soft tissues: No elbow joint effusion. No suspicious soft tissue calcifications. IMPRESSION: No acute fracture. No osseous lesion. If symptoms and/or clinical suspicion for pathology persist, further assessment with repeat, or advanced imaging (e.g., CT, MRI, or bone scan) may be helpful for further assessment. Dictated by: Terry Lau M.D. on 10/04/2020 at 14:18 Approved by: Terry Lau M.D. on 10/04/2020 at 14:19
--- NOTE | 2020-10-04 13:46 | DI.CT.S_ITS ---
PROCEDURE: CT HEAD/BRAIN WO CON INDICATIONS: fall on eliquis TECHNIQUE: Noncontrast 4.5 mm thick angled axial sections acquired from the foramen magnum to the vertex, with coronal and sagittal reformats. For radiation dose reduction, the following was used: automated exposure control, adjustment of mA and/or kV according to patient size. COMPARISON: [facility], CT, HEAD WITHOUT CONTRAST, 06/05/2015, 18:15. [facility], CT, HEAD WITHOUT CONTRAST, 08/18/2009, 17:25. [facility], CT, CT HEAD/BRAIN WO CON, 11/10/2017, 13:24. FINDINGS: Image quality: Excellent. CSF spaces: Basal cisterns are patent. No extra-axial fluid collections. The ventricles are symmetric in size and shape. Brain: No intracranial bleeds or masses. There is cerebral volume loss for age, with resultant ventricular and sulcal prominence. There are periventricular and deep white matter chronic small vessel ischemic changes. There is intracranial internal carotid artery atherosclerosis. Skull and face: Calvarium and visualized facial bones appear intact, without suspicious lesions. Sinuses: Visualized sinuses and mastoids are clear. IMPRESSION: Unremarkable intracranial study for age, without findings of acute intracranial hemorrhage. Dictated by: Nino Alcala M.D. on 10/04/2020 at 13:10 Approved by: Nino Alcala M.D. on 10/04/2020 at 13:12
--- NOTE | 2020-10-04 13:57 | PC.NURSE ---
extensive skin tears to left upper arm, left elbow, left hand, left knee w/ enlarging hematoma under skin of left lower leg. + skin tear to top of left foot.
[2020-10-04] MEDS: ACETAMINOPHEN 325 MG TABLET 975 MG PO (14:37)
[2020-10-04] MEDS: LIDOCAINE 1% W/EPI 4 ML INJ (14:37)
--- NOTE | 2020-10-04 14:49 | PC.NURSE ---
Wounds to left arm cleaned w/ water, pat dry. Left upper arm open to air. No active bleeding. No hematoma noted. Left elbow elevyn dressing applied. Left hand non stick vaseline gauze applied and wrapped w/ 4x4 and roll dressing. Left knee is in need of sutures. Left foot skin tear washed w/ water, pat dry. Elevyn dressing applied. Elastic bandage applied to left lower leg expanding hematoma. + pedal pulse, movement, feeling to left foot beyond area of hematoma. Not circumferential. Skin is very fragile but intact over area of hematoma.
--- NOTE | 2020-10-04 16:05 | ED_ITS ---
HPI - Fall General Chief Complaint: Fall Stated Complaint: GLF Time Seen by Provider: 10/04/20 13:46 Source: patient and EMS Mode of arrival: EMS Limitations: no limitations History of Present Illness HPI Narrative: Patient is a 85-year-old female who is on Eliquis history of Parkinson's presenting after ground level fall. She says that she was sweeping her porch when she tripped over the rug landing on her left side. She denies hitting her head or any loss of consciousness no neck pain. She has multiple skin tears on her left upper arm off leg including a laceration over the left knee. She has a large contusion on her left leg as well. She has no numbness or tingling. She is in quite a bit pain as well. Someone witnessed her fall and called for help. MD complaint: fall Onset (ago): minute(s) Fall from: standing Fall witnessed: yes, by bystander Place fall occurred: home Loss of consciousness: none Related Data Home Medications Medication Instructions Recorded Confirmed metoprolol tartrate 50 mg PO BID 11/10/17 10/04/20 primidone [Mysoline] 75 mg PO BEDTIME 11/10/17 10/04/20 spironolactone 25 mg PO QDAY 11/10/17 10/04/20 apixaban [Eliquis] 2.5 mg PO BID 10/04/20 10/04/20 gabapentin 100 mg PO BID 10/04/20 10/04/20 ropinirole 0.5 mg PO BEDTIME 10/04/20 10/04/20 Previous Rx's Medication Instructions Recorded oxycodone 5 mg PO Q4H PRN #60 tab 12/05/17 carbidopa ER 50 mg-levodopa 200 mg 1 tab PO TID #275 tab 12/30/17 tablet,extended release hydrocodone-acetaminophen [Callands] 1 tab PO Q6H PRN #10 tab 05/02/18 hydrocodone-acetaminophen 1 tab PO Q6H PRN #10 tab 10/04/20 Allergies Allergy/AdvReac Type Severity Reaction Status Date / Time No Known Drug Allergies Allergy Verified 03/03/19 11:25 Review of Systems Review of Systems Narrative: GENERAL: Denies chills, fatigue, malaise, fever, sweats, travel HEENT: Denies sinus pain, ear pain, sore throat, difficulty swallowing, neck pain RESPIRATORY: Denies dyspnea, cough, wheezing, hemoptysis, sputum. CARDIOVASCULAR: Denies chest pain, palpitations, orthopnea, edema GASTROINTESTINAL: Denies nausea, vomiting, abdominal pain, diarrhea, constipation, melena. : Denies dysuria, frequency, incontinence, hematuria, urinary retention, flank pain. MUSCULOSKELETAL: See HPI SKIN: No rash, no erythema, no pruritus NEUROLOGIC: Denies weakness, dizziness, headache, numbness, change in speech, confusion PSYCHIATRIC: No concerning psychosocial issues. 12 point review of systems is negative except for those stated above and HPI Patient History Medical History (Updated 10/04/20 @ 20:03 by Gini Carpio DO) Ascending aortic aneurysm B12 deficiency Breast implant status Cerebrovascular disease Hepatic steatosis Hyperlipidemia Hypertension Osteoarthritis Paralysis of left vocal fold Paroxysmal atrial fibrillation 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) Transient ischemic attack Tremor Surgical History H/O hysterectomy with oophorectomy History of total left hip arthroplasty History of total right hip arthroplasty History of total right knee replacement S/P ascending aortic aneurysm repair S/P closed reduction of dislocated total hip prosthesis S/P Mohs surgery for basal cell carcinoma Family History Mother Dementia Coronary artery disease Father Diabetes mellitus Social History number of children: 2 household members: none occupational status: previously employed 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 HEENT: Head atraumatic,EOMI, pupils reactive, face symmetric, moist mucous membranes NECK: No vertebral tenderness or step-offs full flexion extension and rotation CARDIOVASCULAR: Regular rate and rhythm without murmurs, rubs or gallops. RESPIRATORY: Breath sounds equal bilaterally, no wheezes rales or rhonchi. ABDOMEN: Soft, nontender. Normoactive bowel sounds all 4 quadrants. No guarding or rebound. EXTREMITIES: Normal range of motion, no clubbing or edema. Neurovascularly intact. Pelvis is stable. Able to flex and extend knee. Left calf is soft but contusion noted NEUROLOGICAL: Alert and oriented x4. Hoop Cutter strength equal bilaterally able to move toes SKIN: Multiple skin tears left arm laceration 9 cm over left knee contusion noted left calf she also has some abrasions along her left ribs and her left hand Procedures Laceration Repair Laceration 1: Site: lower extremity (knee) Side (If applicable): left Size (cm): 9 Description: linear Depth: simple, single layer Local Anesthetic: lidocaine 1% and with epi Amount of anesthesia used (mL): 8 Pre-repair: wound explored, irrigated extensively and deep structures intact Skin layer closed with: nylon Size (cm): 4-0 Number of sutures: 8 Technique: simple, interrupted Course Orders Ordered: ED Orders 10/04/20 13:35 XR hip w pel if done LT 2V Stat XR knee LT 3V Stat 10/04/20 13:36 XR elbow LT min 3V Stat 10/04/20 13:46 CT head/brain wo con Stat 10/04/20 17:08 CT pelvis wo con Stat 10/04/20 18:50 COVID19 - ADMIT ([employer] swab/PCR) Stat Discontinued Medications Acetaminophen (Acetaminophen 325 Mg Tablet) 975 mg PO NOW ONE Stop: 10/04/20 14:26 Last Admin: 10/04/20 14:37 Dose: 975 mg Documented by: BULMARO Hydrocodone Bitart/Acetaminophen (Hydrocodone/Acet 5/325 Tablet) 1 tab PO NOW ONE Stop: 10/04/20 18:40 Last Admin: 10/04/20 18:44 Dose: 1 tab Documented by: BULMARO Lidocaine/Epinephrine (Lidocaine 1% W/Epi) 4 ml INJ INTRA-OP ONE Stop: 10/04/20 14:26 Last Admin: 10/04/20 14:37 Dose: 4 ml Documented by: BULMARO Vital Signs Vital signs: Vital Signs - 8 hr 10/04/20 13:36 10/04/20 14:06 10/04/20 14:08 Temperature 97.4 F L Pulse Rate 94 H 55 L 66 Respiratory Rate 18 Blood Pressure 149/87 H 158/108 H Pulse Oximetry 97 97 100 10/04/20 14:30 10/04/20 15:00 10/04/20 15:30 Temperature Pulse Rate 62 74 58 L Respiratory Rate 15 Blood Pressure 159/117 H Pulse Oximetry 98 98 100 10/04/20 15:31 10/04/20 16:00 Temperature Pulse Rate 59 L 57 L Respiratory Rate 20 Blood Pressure 136/63 134/89 Pulse Oximetry 99 99 MDM - Fall Imaging Data CT scan - head: Radiologist's Impression: PROCEDURE: CT HEAD/BRAIN WO CON INDICATIONS: fall on eliquis TECHNIQUE: Noncontrast 4.5 mm thick angled axial sections acquired from the foramen magnum to the vertex, with coronal and sagittal reformats. For radiation dose reduction, the following was used: automated exposure control, adjustment of mA and/or kV according to patient size. COMPARISON: [facility], CT, HEAD WITHOUT CONTRAST, 06/05/2015, 18:15. [facility], CT, HEAD WITHOUT CONTRAST, 08/18/2009, 17:25. [facility], CT, CT HEAD/BRAIN WO CON, 11/10/2017, 13:24. FINDINGS: Image quality: Excellent. CSF spaces: Basal cisterns are patent. No extra-axial fluid collections. The ventricles are symmetric in size and shape. Brain: No intracranial bleeds or masses. There is cerebral volume loss for age, with resultant ventricular and sulcal prominence. There are periventricular and deep white matter chronic small vessel ischemic changes. There is intracranial internal carotid artery atherosclerosis. Skull and face: Calvarium and visualized facial bones appear intact, without suspicious lesions. Sinuses: Visualized sinuses and mastoids are clear. IMPRESSION: Unremarkable intracranial study for age, without findings of acute intracranial hemorrhage. Dictated by: Nino Alcala M.D. on 10/04/2020 at 13:10 Extremity x-ray #1: Radiologist's Impression: PROCEDURE: XR ELBOW LT MIN 3V INDICATIONS: glf TECHNIQUE: 3 views of the elbow were acquired. COMPARISON: None. FINDINGS: Bones: No fractures or dislocations. No suspicious bony lesions. Soft tissues: No elbow joint effusion. No suspicious soft tissue calcifications. IMPRESSION: No acute fracture. No osseous lesion. If symptoms and/or clinical suspicion for pathology persist, further assessment with repeat, or advanced imaging (e.g., CT, MRI, or bone scan) may be helpful for further assessment. Dictated by: Terry Lau M.D. on 10/04/2020 at 14:18 Extremity x-ray #2: Radiologist's Impression: PROCEDURE: XR KNEE LT 3V INDICATIONS: glf TECHNIQUE: 3 views of the knee were acquired. COMPARISON: [facility], CR, KNEE 1-2 VIEWS LEFT, 06/12/2017, 13:01. FINDINGS: Bones: No fractures or dislocations. No suspicious bony lesions. Knee arthroplasty hardware is present. Soft tissues: No joint effusion. No suspicious soft tissue calcifications. IMPRESSION: Knee arthroplasty. No acute fracture. No osseous lesion. If symptoms and/or clinical suspicion for pathology persist, further assessment with repeat, or advanced imaging (e.g., CT or bone scan) may be helpful for further assessment. Dictated by: Terry Lau M.D. on 10/04/2020 at 14:18 Extremity x-ray #3: Radiologist's Impression: PROCEDURE: XR HIP W PEL IF DONE LT 2V INDICATIONS: glf TECHNIQUE: AP pelvis and lateral view of the left hip acquired. COMPARISON: [facility], CR, XR HIP W PEL IF DONE RT 2V, 05/02/2018, 8:01. FINDINGS: Bones: Patient is status post bilateral hip arthroplasty, with hardware components in expected positions. The hip joint appears congruent. The visualized bony structures appear intact. Soft tissues: Overlying postoperative changes are noted. No suspicious soft tissue densities. IMPRESSION: No acute fracture. No osseous lesion. If symptoms and/or clinical suspicion for pathology persist, further assessment with repeat, or advanced imaging (e.g., CT or bone scan) may be helpful for further assessment. Dictated by: Terry Lau M.D. on 10/04/2020 at 14:17 CT scan - abdomen/pelvis: Radiologist's Impression: PROCEDURE: CT PEL WO CON INDICATIONS: pain left hip fall TECHNIQUE: Noncontrast 3 mm axial sections acquired through the bony pelvis, with coronal and sagittal reformatting. COMPARISON: [facility], CT, CT PEL WO CON, 06/10/2018, 13:48. FINDINGS: Image quality: Metal artifact from bilateral total hip arthroplasties. Bones: Probable nondisplaced left greater trochanteric fracture. Associated hemorrhage in the left greater trochanteric bursa. Total hip prostheses are intact with no evidence of hardware failure or loosening. Soft tissues: Hemorrhagic effusion in the left greater trochanteric bursa. Diffuse atherosclerotic calcifications of the distal aorta and bilateral iliac arteries. IMPRESSION: 1. Bilateral total hip arthroplasties with no evidence of hardware failure or loosening. 2. Nondisplaced left greater trochanteric fracture with associated hemorrhage into the left trochanteric bursa. Dictated by: Darrius Hoff M.D. on 10/04/2020 at 17:56 MDM Narrative Medical decision making narrative: Patient is a mechanical ground level fall with multiple skin tears and abrasions. X-rays are negative laceration is repaired. Ambulation trial with walker patient is able to walk but only to the end of the bed and she feels as though her left leg is going to give out on her and it is quite painful in her hip to weightbear. CT does confirm how greater trochanteric fracture. 6:00 p.m. doctor in orthopedics consulted at this time it does not need surgery but she does need strict precautions or including no abduction and side to side. He suspects that patient will need admission for pain control and possible SNIF [id number] Dr. Torres updated on the patient's symptoms test results orthopedic recommendations he in she agrees to admission Patient initially given Tylenol for pain but after ambulation trial pain got worse. She is given Callands. Discharge Plan Departure Patient Disposition: Admitted as Observation Clinical Impression: Closed fracture of greater trochanter of femur Qualifiers: Encounter type: initial encounter Laterality: left Contusion of left leg Qualifiers: Encounter type: initial encounter Qualified Code(s): S80.12XA - Contusion of left lower leg, initial encounter Contusion of knee, left Qualifiers: Encounter type: initial encounter Qualified Code(s): S80.02XA - Contusion of left knee, initial encounter Laceration of knee, left Qualifiers: Encounter type: initial encounter Qualified Code(s): S81.012A - Laceration without foreign body, left knee, initial encounter Admit Date/Time: 10/04/20 18:46 Admit Provider: Ana Torres
--- NOTE | 2020-10-04 17:08 | DI.CT.S_ITS ---
PROCEDURE: CT PEL WO CON INDICATIONS: pain left hip fall TECHNIQUE: Noncontrast 3 mm axial sections acquired through the bony pelvis, with coronal and sagittal reformatting. COMPARISON: [facility], CT, CT PEL WO CON, 06/10/2018, 13:48. FINDINGS: Image quality: Metal artifact from bilateral total hip arthroplasties. Bones: Probable nondisplaced left greater trochanteric fracture. Associated hemorrhage in the left greater trochanteric bursa. Total hip prostheses are intact with no evidence of hardware failure or loosening. Soft tissues: Hemorrhagic effusion in the left greater trochanteric bursa. Diffuse atherosclerotic calcifications of the distal aorta and bilateral iliac arteries. IMPRESSION: 1. Bilateral total hip arthroplasties with no evidence of hardware failure or loosening. 2. Nondisplaced left greater trochanteric fracture with associated hemorrhage into the left trochanteric bursa. Dictated by: Darrius Hoff M.D. on 10/04/2020 at 17:56 Approved by: Darrius Hoff M.D. on 10/04/2020 at 18:00
--- NOTE | 2020-10-04 17:18 | PC.NURSE ---
Post stitching, cleaned blood off of patient's wound area with gauze and saline. Applied telfa before bandaging. Right after, assisted patient with ambulation. She was able to walk 6 feet, turn around, and place herself back in bed with minimal assistance other than the walker.
[2020-10-04] MEDS: HYDROCODONE/ACET 5/325 TABLET 1 TAB PO ×2 (18:44→21:47)
[2020-10-04 19:45] LABS: COVID19 - ADMIT (NP swab/PCR) Negative (Negative)
[2020-10-04] MEDS: LACTATED RINGERS 1,000 ML 60 ML IV (21:00)
[2020-10-04 21:06] LABS: Add Manual Diff / Slide Review NO; Basophils Absolute Auto 0 /uL (0-100); Basophils Percent Auto 0.5 % (0-2); Eosinophils Absolute Auto 0 /uL (0-450); Eosinophils Percent Auto 0.2 % (2-4); Hematocrit 31.3 % (36-46); Hemoglobin 10.2 g/dL (12.0-16.0); Lymphocytes Absolute Auto 700 /uL (1100-4500); Lymphocytes Percent Auto 9.2 % (25-40); Mean Corpuscular HGB Conc 32.6 % (30-36); Mean Corpuscular Hemoglobin 32.9 PG (26-34); Mean Corpuscular Volume 100.7 fL (80-100); Monocytes Absolute Auto 900 /uL (0-900); Monocytes Percent Auto 12.6 % (3-14); Neutrophils Absolute Auto 5700 /uL (1500-7000); Neutrophils Percent Auto 77.5 % (50-75); Platelet Count 186 X10^3/uL (150-400); Red Cell Distribution Width 14.5 % (11.6-14.8); White Blood Cell Count 7.4 X10^3/uL (4.5-11.0)
[2020-10-04 21:13] LABS: INR 1.3 (0.9-1.3); Prothrombin Time 14.9 SECONDS (10.1-12.7)
[2020-10-04 21:18] LABS: BUN Creatinine Ratio 42.3 (6-22); Blood Urea Nitrogen 22 mg/dL (7-17); Carbon Dioxide 27 mmol/L (22-32); Chloride 104 mmol/L (98-107); Estimated Glomerular Filt Rate > 60.0 mL/min (>60); Glucose 140 mg/dL (80-110); HEMOLYSIS < 15 (0-50); Magnesium 1.9 mg/dL (1.6-2.3); Potassium 3.7 mmol/L (3.4-5.1); Sodium 138 mmol/L (137-145)
[2020-10-04] MEDS: APIXABAN 5 MG TABLET 2.5 MG PO (21:38)
[2020-10-04] MEDS: SENNOSIDES 8.6 MG TABLET 17.2 MG PO (21:47)
[2020-10-04] MEDS: CARBIDOPA-LEVODOPA ER 50/200 TABLET 1 EACH PO (21:47)
[2020-10-04] MEDS: ACETAMINOPHEN 325 MG TABLET 650 MG PO (21:47)
[2020-10-04] MEDS: METOPROLOL IR 50 MG TABLET PO (21:47)
[2020-10-04] MEDS: ROPINIROLE 0.25 MG TABLET 0.5 MG PO (21:48)
[2020-10-04] MEDS: DOCUSATE 100 MG CAPSULE PO (21:48)
[2020-10-04] MEDS: PRIMIDONE 50 MG TABLET 75 MG PO (22:25)
[2020-10-04] MEDS: GABAPENTIN 100 MG CAPSULE PO (22:26)
--- NOTE | 2020-10-04 22:43 | PC.NURSE ---
Pt arrived from ED. Alert/oriented. Pt tele showing a-fib. Pt had multiple bruising over torso, back arms and legs. IVF started as per orders. 2PA to [facility] Pt oriented to room and call system. Call light w/in reach, bed alarm on for pt safety. COntinue w/plan of care.
[2020-10-05] VITALS (9 sets, daily range): BP systolic 100–136; BP diastolic 44–79; PULSE 52–93; RESP 14–66; TEMP 35.9–37.1; O2SAT 94–97
[2020-10-05] MEDS: HYDROCODONE/ACET 5/325 TABLET 1 TAB PO ×3 (01:50→15:29)
--- NOTE | 2020-10-05 05:53 | PM.HP.1 ---
History of Present Illness History of Present Illness Date Patient Seen: 10/04/20 Time Patient Seen: 08:46 Chief complaint: GLF Narrative: Patient is a 85-year-old female who is on Eliquis history of Parkinson's presenting after ground level fall. She says that she was sweeping her porch when she tripped over the rug landing on her left side. She denies hitting her head or any loss of consciousness no neck pain. She has multiple skin tears on her left upper arm off leg including a laceration over the left knee. She has a large contusion on her left leg as well. She has no numbness or tingling. She is in quite a bit pain as well. Someone witnessed her fall and called for help. Upon admit patient stated stated that she was cleaning her entryway when she tripped on a rug and fell onto her hardwood floor impacting her left shoulder, left hip, and left knee, denies hitting her head or losing consciousness or hitting her face, she has a Life Alert button which she pushed, and her Lea's were also on the grounds and saw her fall and called EMS. Patient has bruising to bilateral eyelids but denies any facial trauma or injury. Patient states that her pain is 5/10 generalized to her entire left side. Patient denies chest pain, shortness of breath, headache, changes in vision, numbness or tingling, denies acute onset of weakness causing fall, denies fever body aches or chills. Patient is alert and orientated with excellent recall. Patient's vitals upon admit temp 97.7?, BP 147/93, HR 81, RR 19, O2 saturation 99% on room air, all patient's labs are within normal limits. Pelvic CT:Bilateral total hip arthroplasties with no evidence of hardware failure or loosening. 2. Nondisplaced left greater trochanteric fracture with associated hemorrhage into the left trochanteric bursa. Head CT: Unremarkable intracranial study for age, without findings of acute intracranial hemorrhage. Patient's left elbow, knee, x-rays reviewed and were all negative for fracture. Dr. Vo orthopedics did not believe patient was a candidate for surgery, but recommended patient to be admitted to hospital. Patient History Medical History (Updated 10/05/20 @ 06:04 by MIAH Arce) Ascending aortic aneurysm B12 deficiency Breast implant status Cerebrovascular disease Hepatic steatosis Hyperlipidemia Hypertension Osteoarthritis Paralysis of left vocal fold Parkinson disease Paroxysmal atrial fibrillation 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) Transient ischemic attack Tremor Surgical History H/O hysterectomy with oophorectomy History of total left hip arthroplasty History of total right hip arthroplasty History of total right knee replacement S/P ascending aortic aneurysm repair S/P closed reduction of dislocated total hip prosthesis S/P Mohs surgery for basal cell carcinoma Family & Social History Family History Mother Dementia Coronary artery disease Father Diabetes mellitus Social History: household members lives alone in ground level condo Prior Living Arrangements Apartment/Condo Safety & Behavioral: Feels Safe in Current Yes Environment Been Physically Hurt or No Threatened By a Person Suicidal Ideation Description None Suicide Plan Description No Plan Tobacco & Substance use: Smoking Status Never smoker alcohol intake current alcohol intake frequency a few times a week Substance Use Type does not use Meds Home Medications and Allergies Home Medications Medication Instructions Recorded Confirmed Type metoprolol tartrate 50 mg PO BID 11/10/17 10/04/20 History primidone [Mysoline] 75 mg PO BEDTIME 11/10/17 10/04/20 History spironolactone 25 mg PO QDAY 11/10/17 10/04/20 History oxycodone 5 mg PO Q4H PRN #60 tab 12/05/17 10/04/20 Rx carbidopa ER 50 mg-levodopa 200 mg 1 tab PO TID #275 tab 12/30/17 10/04/20 Rx tablet,extended release hydrocodone-acetaminophen [Amonate] 1 tab PO Q6H PRN #10 tab 05/02/18 10/04/20 Rx apixaban [Eliquis] 2.5 mg PO BID 10/04/20 10/04/20 History gabapentin 100 mg PO BID 10/04/20 10/04/20 History hydrocodone-acetaminophen 1 tab PO Q6H PRN #10 tab 10/04/20 10/04/20 Rx ropinirole 0.5 mg PO BEDTIME 10/04/20 10/04/20 History Allergies Allergy/AdvReac Type Severity Reaction Status Date / Time No Known Drug Allergies Allergy Verified 03/03/19 11:25 Review of Systems Review of Systems ROS: Yes All systems reviewed with the patient and are negative except as otherwise documented Musculoskeletal Musculoskeletal: Reports arthralgias, Reports joint swelling, Reports limited range of motion and Reports stiffness Comments: Left shoulder elbow arm hip leg and knee pain. Exam Vital Signs (past 8 hours): - 10/05/20 00:43 10/05/20 01:00 10/05/20 04:43 Temperature 97.8 F Pulse Rate 75 Respiratory Rate 18 Blood Pressure 108/69 Pulse Oximetry 95 95 94 10/05/20 05:00 Temperature 97.9 F Pulse Rate 56 L Respiratory Rate 18 Blood Pressure 113/55 L Pulse Oximetry 95 Oxygen Delivery Method Room Air Oxygen Flow Rate 0 Narrative Exam Narrative: General: Patient is a well-developed, well-nourished in no distress at this time. HEENT: Normocephalic, bruising present to bilateral eyelids extraocular muscles intact, oral pharynx is clear and mucous membranes are moist. Neck is supple and symmetric, trachea is midline, no adenopathy, no thyroid enlargement, nontender, no masses palpated. Negative for JVD Chest: Normal AP diameter and contour without kyphoscoliosis, no nasal flaring, retractions, or tachypneic labored Lungs: Auscultation of all lung moody are clear without adventitious sounds, wheezes, rhonchi, or rales. Cardio: S1 & S2 with regular rate and rhythm without murmur, rubs, or gallops, no carotid bruit, no cardiac pulsations present. Abdomen: Soft nontender, negative for organomegaly, or masses. Bowel sounds are present in all 4 quadrants without guarding or rebound, no CVA tenderness. Musculoskeletal: Muscle strength and tone were not assessed due to patient's injury and lack of range of motion, bilateral lower extremity inflammation greater on the left/right. radial and pedal pulses are normal. Skin: Patient has road rash type abrasions to left shoulder stretching around to her back, left elbow has a large abrasion bloody drainage, patient has a 9 cm laceration to the left knee, with 8 sutures placed in the ED bandage present, her skin shows no signs of erythema inflammation or warmth suggestive of infection. Neuro: Alert and orientated x3, strength is +5/5 in all extremities on the right, sensation to touch intact, no gross deficits noted of cranial nerves. Psych: Patient has a well-kept appearance, appropriate affect, mental status attitude thought context and judgment are appropriate for age. Objective Labs Result Diagrams: 10/04/20 21:00 10/04/20 21:00 Labs: Laboratory Results - last 24 hr 10/04/20 10/04/20 10/04/20 18:50 21:00 21:00 WBC 7.4 RBC 3.10 L Hgb 10.2 L Hct 31.3 L MCV 100.7 H MCH 32.9 MCHC 32.6 RDW 14.5 Plt Count 186 Neut % (Auto) 77.5 H Lymph % (Auto) 9.2 L [place] % (Auto) 12.6 Eos % (Auto) 0.2 L Baso % (Auto) 0.5 Neut # (Auto) 5700 Lymph # (Auto) 700 L [place] # (Auto) 900 Eos # (Auto) 0 Baso # (Auto) 0 PT 14.9 H INR 1.3 Sodium Potassium Chloride Carbon Dioxide BUN Creatinine Estimated GFR BUN/Creatinine Ratio Glucose Calcium Magnesium SARS-CoV-2 (PCR) Negative 10/04/20 21:00 WBC RBC Hgb Hct MCV MCH MCHC RDW Plt Count Neut % (Auto) Lymph % (Auto) [place] % (Auto) Eos % (Auto) Baso % (Auto) Neut # (Auto) Lymph # (Auto) [place] # (Auto) Eos # (Auto) Baso # (Auto) PT INR Sodium 138 Potassium 3.7 Chloride 104 Carbon Dioxide 27 BUN 22 H Creatinine 0.52 Estimated GFR > 60.0 BUN/Creatinine Ratio 42.3 H Glucose 140 H Calcium 9.0 Magnesium 1.9 SARS-CoV-2 (PCR) Assessment & Plan Assessment & Plan narrative: This patient requires acute care inpatient hospital management of Nondisplaced left greater trochanteric fracture with associated hemorrhage into the left trochanteric bursa due to ground level fall. The patient is at much higher risk for medical and surgical complications because of proximal atrial fibrillation Parkinson's disease, seizures from previous CVA, history of TIA, aortic aneurysm, hepatic stenosis, hypertension, and coronary vascular disease. These factors increase the difficulty and complexity of medical and surgical interventions and increases the chances of poor outcomes such as morbidity and mortality. Consult in ED with Dr. Vo sales and in home delivery specialist at orthopedics consulted at this time it does not need surgery but she does need strict precautions or including no abduction and side to side. Patient admitted for pain control and possible discharge to [facility] 1. Nondisplaced left greater trochanteric fracture with associated hemorrhage into the left trochanteric bursa secondary to ground level fall, with left knee laceration acute, present on admission Likely secondary to patient's Parkinson's and osteoarthritis with a confounding risk factor of proximal atrial fibrillation -ortho was consulted in ED-Dr. Vo - Pelvis CT:Nondisplaced left greater trochanteric fracture with associated hemorrhage into the left trochanteric bursa -diet heart healthy, strict 2 person assist for patient to pivot on to bedside commode, patient to avoid abduction and side to side movement, fall precautions in place -patient to be monitored on tele medic, vital signs q.4 hours, intake and output monitored Q shift, weight measure daily, pain manage -IV fluid LR at 60 cc/hour -patient on Eliquis -manage patient's pain hydration and comfort -labs ordered: None all patient's admitting labs were within normal limits. -wells score -0, GCS-15 -consults ordered physical therapy, occupational therapy.. -prevention vaccine: Recommend seasonal flu, shingles, pneumonia, COVID-19 when available 2. Proximal atrial fibrillation, chronic, not present on admission, rate controlled -continue patient's Eliquis 2.5 mg p.o. b.i.d. and metoprolol 3. Parkinson's, acute on chronic, present on admission -continue patient's carbidopa/levodopa and Ropinirole 4. Seizures as a secondary sequelae from previous CVA -continue patient's Mysoline 5. Cardiovascular disease, chronic, not present on admission, stability unknown -continue patient's spirolactone Code status: Comfort measures only/DNR Surrogate decision maker: Calista Oscar daughter, patient has an Advance directive COVID PCR negative DVT and VTE prophylaxis: Contraindicated patient on Eliquis and SCDs applied Scores GCS [place] coma scale eye opening: Spontaneous [place] coma scale verbal response: Orientated [place] coma scale motor response: Obey commands [place] coma scale total score: 15 Wells' Criteria for PE Clinical signs and symptoms of DVT: No PE is #1 Dx or equally likely: No Heart rate > 100: No Immobilization at least 3 days or surg in previous 4 weeks: No History of PE or DVT: No Hemoptysis: No Malignancy w/Treatment within 6 months or palliative: No Wells' PE Score total: 0
[2020-10-05] MEDS: DOCUSATE 100 MG CAPSULE PO ×2 (08:14→20:51)
[2020-10-05] MEDS: CARBIDOPA-LEVODOPA ER 50/200 TABLET 1 EACH PO ×3 (08:15→20:51)
[2020-10-05] MEDS: METOPROLOL IR 50 MG TABLET PO ×2 (08:15→20:51)
[2020-10-05] MEDS: APIXABAN 5 MG TABLET 2.5 MG PO ×2 (08:15→20:51)
[2020-10-05] MEDS: SPIRONOLACTONE 25 MG TABLET PO (08:15)
[2020-10-05] MEDS: GABAPENTIN 100 MG CAPSULE PO ×2 (08:15→20:51)
--- NOTE | 2020-10-05 09:05 | DI.RAD.S_ITS ---
PROCEDURE: XR KNEE LT 3V INDICATIONS: knee pain after trauma TECHNIQUE: 3 views of the knee were acquired. COMPARISON: [facility], , XR KNEE LT 3V, 10/04/2020, 13:42. FINDINGS: Bones: Expected appearance of total left knee arthroplasty. No evidence of hardware failure or loosening. No fractures or dislocations. No suspicious bony lesions. Soft tissues: No joint effusion. No suspicious soft tissue calcifications. IMPRESSION: No evidence acute bony abnormality of the left knee. Expected appearance of total left knee arthroplasty. Dictated by: Darrius Hoff M.D. on 10/05/2020 at 9:47 Approved by: Darrius Hoff M.D. on 10/05/2020 at 9:50
--- NOTE | 2020-10-05 09:06 | DI.RAD.S_ITS ---
PROCEDURE: XR ANKLE LT MIN 3V INDICATIONS: pain after fall TECHNIQUE: 3 views of the ankle were acquired. COMPARISON: None. FINDINGS: Bones: No fractures or dislocations. Ankle mortise is normally aligned. No suspicious bony lesions. Midfoot and hindfoot degenerative change incidentally noted. Soft tissues: No tibiotalar joint effusion. Achilles tendon appears normal. Small vessel calcifications typically indicate diabetes. IMPRESSION: 1. Advanced peripheral vascular disease. 2. Midfoot and hindfoot degenerative change. 3. No evidence acute bony abnormality of the left ankle. If clinical suspicion and/or symptoms persist, further assessment with repeat plain films, or advanced imaging (e.g., CT, MRI, or bone scan) may be helpful for further assessment. Dictated by: Darrius Hoff M.D. on 10/05/2020 at 9:46 Approved by: Darrius Hoff M.D. on 10/05/2020 at 9:47
--- NOTE | 2020-10-05 09:09 | PM.CN ---
History of Present Illness Consult details Date Patient Seen: 10/05/20 Time Patient Seen: 09:09 Chief complaint: GLF Reason for consult: left GT fracture Narrative: Patient is a 85-year-old female who is on Eliquis history of Parkinson's presenting after ground level fall. She says that she was sweeping her porch when she tripped over the rug landing on her left side. She denies hitting her head or any loss of consciousness no neck pain. She has multiple skin tears on her left upper arm off leg including a laceration over the left knee. She has a large contusion on her left leg as well. Imaging obtained in the ER demonstrated that she had a greater trochanter fracture. The greater trochanter fracture is minimally displaced. Of note patient is status post revision of left total hip arthroplasty for chronic dislocations. This hip was revised about [address] kevin vides and keanu. She has had no problems with the hip since that time. In addition she complains of left elbow and knee pain. I reviewed these imaging studies however the knee films are limited there is only one view she also complains of significant ankle pain and there are no imaging studies. Meds Home Medications and Allergies Home Medications Medication Instructions Recorded Confirmed Type metoprolol tartrate 50 mg PO BID 11/10/17 10/04/20 History primidone [Mysoline] 75 mg PO BEDTIME 11/10/17 10/04/20 History spironolactone 25 mg PO QDAY 11/10/17 10/04/20 History oxycodone 5 mg PO Q4H PRN #60 tab 12/05/17 10/04/20 Rx carbidopa ER 50 mg-levodopa 200 mg 1 tab PO TID #275 tab 12/30/17 10/04/20 Rx tablet,extended release hydrocodone-acetaminophen [[place]] 1 tab PO Q6H PRN #10 tab 05/02/18 10/04/20 Rx apixaban [Eliquis] 2.5 mg PO BID 10/04/20 10/04/20 History gabapentin 100 mg PO BID 10/04/20 10/04/20 History hydrocodone-acetaminophen 1 tab PO Q6H PRN #10 tab 10/04/20 10/04/20 Rx ropinirole 0.5 mg PO BEDTIME 10/04/20 10/04/20 History Allergies Allergy/AdvReac Type Severity Reaction Status Date / Time No Known Drug Allergies Allergy Verified 03/03/19 11:25 Exam Vital Signs (past 8 hours): - 10/05/20 04:43 10/05/20 05:00 Temperature 97.9 F Pulse Rate 56 L Respiratory Rate 18 Blood Pressure 113/55 L Pulse Oximetry 94 95 Oxygen Delivery Method Room Air Oxygen Flow Rate 0 Narrative Exam Narrative: Tenderness to palpation about the left hip. Patient is sitting comfortably in bed. She also has a laceration to her left elbow a laceration to the anterior aspect of her knee with [address] as well as a skin abrasion to the dorsum of her foot and significant ankle swelling and pain. Objective Labs Result Diagrams: 10/04/20 21:00 10/04/20 21:00 Labs: Laboratory Results - last 24 hr 10/04/20 10/04/20 10/04/20 18:50 21:00 21:00 WBC 7.4 RBC 3.10 L Hgb 10.2 L Hct 31.3 L MCV 100.7 H MCH 32.9 MCHC 32.6 RDW 14.5 Plt Count 186 Neut % (Auto) 77.5 H Lymph % (Auto) 9.2 L [place] % (Auto) 12.6 Eos % (Auto) 0.2 L Baso % (Auto) 0.5 Neut # (Auto) 5700 Lymph # (Auto) 700 L [place] # (Auto) 900 Eos # (Auto) 0 Baso # (Auto) 0 PT 14.9 H INR 1.3 Sodium Potassium Chloride Carbon Dioxide BUN Creatinine Estimated GFR BUN/Creatinine Ratio Glucose Calcium Magnesium SARS-CoV-2 (PCR) Negative 10/04/20 21:00 WBC RBC Hgb Hct MCV MCH MCHC RDW Plt Count Neut % (Auto) Lymph % (Auto) [place] % (Auto) Eos % (Auto) Baso % (Auto) Neut # (Auto) Lymph # (Auto) [place] # (Auto) Eos # (Auto) Baso # (Auto) PT INR Sodium 138 Potassium 3.7 Chloride 104 Carbon Dioxide 27 BUN 22 H Creatinine 0.52 Estimated GFR > 60.0 BUN/Creatinine Ratio 42.3 H Glucose 140 H Calcium 9.0 Magnesium 1.9 SARS-CoV-2 (PCR) Assessment & Plan Assessment & Plan narrative: Patient is an 85-year-old female with history of Parkinson disease on EliPresidio. She had a ground level fall yesterday mechanical in nature. She on landed on her left side. She sustained a minimally displaced greater trochanter fracture of the left hip. Of note she is status post revision total hip arthroplasty on the side. Regarding her greater trochanter fracture I think is to be treated non operatively with partial weight-bearing and strict hip abductor precautions. However imaging studies are incomplete knee films are only one view she has significant knee pain as well as pain in the ankle. There are no ankle films. -nonweightbearing left lower extremity -trochanteric precautions left hip -ankle x-rays ordered -knee x-rays ordered Time Spent With Patient Time with patient: 15-24 minutes
--- NOTE | 2020-10-05 09:20 | DI.RAD.S_ITS ---
PROCEDURE: XR FOOT LT 2V INDICATIONS: L foot swelling, pain TECHNIQUE: 2 views of the foot were acquired. COMPARISON: None. FINDINGS: Bones: No fractures or dislocations. Diffuse osteopenia. A sclerotic appearance of the shaft of the proximal phalanx of the great toe can either represent healing or remote fracture versus chronic osteomyelitis. There is also a focal lucency in the distal tuft of the distal phalanx of the great toe. There is an ill-defined subchondral lucency at the base of the 5th metatarsal. Soft tissues: No tibiotalar joint effusion. Achilles tendon appears normal. Small vessel calcifications typically represent sequelae of diabetes. IMPRESSION: There are abnormalities involving the proximal phalanx and distal phalanx of the great toe. Osteomyelitis is on the differential diagnosis. If there is a clinical suspicion of osteomyelitis, consider left foot MRI with without contrast. Dictated by: Darrius Hoff M.D. on 10/05/2020 at 9:50 Approved by: Darrius Hoff M.D. on 10/05/2020 at 9:53
--- NOTE | 2020-10-05 10:17 | CM.DANOTE ---
Addendum entered by Lorenza Bravo R.N. 10/05/20 13:16: Destiney at [facility] called back after reviewing, and stated that she can accept under Medicare waiver. Just need to state on discharge that that due to COVID, there are limited beds available. Will continue to follow to see if patient will need skilled versus [facility]. Addendum entered by Lorenza Bravo R.N. 10/05/20 12:26: Spoke to occupational therapist who mentioned that patient may consider going to [facility]. Let her know that this case manage will speak to patient, because she will most likely remain OBS, and [facility] does not accept Medicare waivers. Explained this to patient. Stated, her first choice is home health, has used [facility] before, but is willing to go to [facility] if needed. Called Destiney at [facility], confirmed that they do have rooms available, and will review. Renae, patient care assistant, is faxing referral over to [facility]. Original Note: DCP: Case received, EMR reviewed and met with patient. Introduced self and role. Was able to obtain information from patient regarding her baseline activity status prior to hospitalization, as well as her current living situation. DCP assessment completed with information currently available. Patient is an 85 year old female who admitted yesterday afternoon to the care of the hospitalist team. PCP: Dr. Sharri Howell. Payer: confirmed: Medicare. Patient came to the hospital via ambulance secondary to having a ground level fall. According to notes, patient had been sweeping her porch, and tripped over the rug. She was found by the tomlinson who called medics. She inherited a left greater trochanteric fracture. According to notes, she is not a surgery candidate. Patient does also have history of Parkinsons. Met with patient in her room. She was sitting up in bed, alert and oriented, pleasant. Confirmed with her that she lives alone, she no longer drives, but has someone, a friend, that does her shopping, housekeeping as well. Patient can prepare her own meals, has a walker if needed. Her daughter, Calista Dave resides in [place], and patient indicated that she is flying here today. Mentioned possibility of custodial if needed, for a couple of facilities will do Medicare waiver if she remains OBS. Patient indicated, she really wants to go home, her daughter will be here, and has several friends that are RNs. She has not yet worked with [facility] Patient is open to home health if needed. She indicated that she had it several years ago, but could not remember the name of the agency. P: DCP to continue to follow, and will see how she does with [facility] If home health is recommended, will obtain face to face, and check with her upon agencies of choice. Lorenza Bravo RN/Video Coordinator
--- NOTE | 2020-10-05 11:13 | PT.IIE ---
Surgical History (Last Reviewed 10/05/20 @ 09:12 by David Vo MD) H/O hysterectomy with oophorectomy History of total left hip arthroplasty History of total right hip arthroplasty History of total right knee replacement S/P ascending aortic aneurysm repair S/P closed reduction of dislocated total hip prosthesis S/P Mohs surgery for basal cell carcinoma Medical History (Last Updated 10/05/20 @ 06:04 by So Castellano [facility]) Ascending aortic aneurysm B12 deficiency Breast implant status Cerebrovascular disease Hepatic steatosis Hyperlipidemia Hypertension Osteoarthritis Paralysis of left vocal fold Parkinson disease Paroxysmal atrial fibrillation 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) Transient ischemic attack Tremor Physical Therapy Inpatient Evaluation/Re-Eval M1 PT/OT-IP Prior Functional Status Start: 10/05/20 08:29 Freq: NEEDED Status: Active Protocol: Document 10/05/20 11:13 AW (Rec: 10/05/20 11:51 AW [id number]) Medical Review Prior Functional Status Medical History Reviewed Yes Communication Pt is an effective verbal communicator. Mobility and Gait Pt states she uses a tripod cane or no AD at home. She uses a FWW outside the home. Activities of Daily Living and IADL's Pt is independent with ADL's. Her neighbors' daughter acts as a private caregiver assisting with transportation, errands, and certain fashion coordinator. She has a budget officer who comes every two weeks. Pt cooks for herself. Prior Functional Level (Other details) Pt has history of Parkinson's disease. She has a fib and is anticoagulated with Eliquis. She has B CASSIDY and multiple dislocations of same on the left side but has been stable for ~2 years. Social History Household Members none Living Arrangements Apartment/Condo Number of Floors (Floors) Two Floors Number of Stairs To Enter/Railing? 1 BALTA front of house with no rail but can touch the side of the house. 1 BALTA at side entrance with left rail ascending. 1 BALTA through the garage which pt can manage with cane of FWW and usually has assist when entering. Pt's condo has a basement but everything she needs is on the entry level paralegal. She has no need to access the basement. Home Environment Walk in Shower Home Equipment Front Wheel Walker,Four Wheel Walker,Straight Cane,Raised Toilet Seat Without Armrests, Shower Seat with Backrest,Hand Held Shower,Long Handled Sponge,Long Handled Shoe Horn, Marine Animal Trainer,Sock Aid,Lift Recliner ,Grab Bars Near Toilet,Grab Bars In Shower Additional Social History Comment Pt lives with her cat in [place]. Her daughter, Lois , lives in [place] but is arriving today and plans to stay two weeks to provide assist. M2 PT-IP Current Condition Start: 10/05/20 08:29 Freq: NEEDED Status: Active Protocol: Document 10/05/20 11:13 AW (Rec: 10/05/20 11:51 AW [id number]) Physical Therapy Current Condition Current Condition Evaluation Date 10/05/20 Treatment Diagnosis minimally displaced greater troch fracture; difficulty in walking Onset Date 10/04/20 Precautions Other Precautions -nonweightbearing left lower extremity -trochanteric precautions left hip - no abduction Weight Bearing Status Weight Bearing Status Non-Weight Bearing Allowed Weight Bearing Amount (enter % NWB LLE - may be upgraded or #) (%) depending on x-rays of foot, ankle, and knee M3 PT-IP Subjective Start: 10/05/20 08:29 Freq: NEEDED Status: Active Protocol: Document 10/05/20 11:13 AW (Rec: 10/05/20 11:51 AW [id number]) Subjective Physical Therapy Visit Type Visit Start Time 10:33 Visit Stop Time 11:13 Total Visit Minutes 40 Notes Co-eval with OT Number of FINANCIAL UNDERWRITER Visits 0 Physical Therapy Visit Comments Patient Comments Pt is willing to participate with therapies. Patient Goals Pt hopes to avoid SNF and return home with her daughter assisting Therapy Pain Assessment Pain When Pain Assessed During Mobility Pain Present Pain Present Pain Reported Location Left leg Intensity 4 Scale Used Numeric (0 - 10) Pain Management Techniques Timing of Activity with Medications M4 PT-IP Mobility and Gait Start: 10/05/20 08:29 Freq: NEEDED Status: Active Protocol: Document 10/05/20 11:13 AW (Rec: 10/05/20 12:09 AW [id number]) PT-Bed Mobility Assessment Supine to Sit Supine to Sit Moderate Assistance,2 Person Assistance,Head of Bed Elevated,Bedrails Scooting Scooting to Edge of Bed Minimal Assistance PT-Transfer Assessment Sit to and From Stand Sit to and from Stand Maximum Assistance,2 Person Assistance,Use of Upper Extremities Equipment Transfer Assistive Device Gait Belt,Front Wheeled Walker Orthotic/Prosthetic Devices or Brace: No Transfers Transfer Destination Chair Transfer Technique Stand Pivot Transfer Ability Level of Assist Maximum Assistance,2 Person Assistance,Use of Upper Extremities Comments Mobility Comments Pt was sitting up in the bed as PT and OT arrived. PT educated pt on weightbearing status and abductor precautions. Pt was able to move toward right side EOB CGA but then needed mod A x 2 to completed turn to sit EOB. She scooted to EOB min A x 1 and then stood max A x 2. In initial standing, pt was able to maintain NWB LLE but quickly fatigued and was noted to be TDWB or more on the LLE during transfer to chair set up on her right side. Pt was able to position herself on the chair. Pt then stood from the low chair max A x 2 but could not maintain NWB LLE. She required max A x 2 for safe descent to the chair. Pt was left with OT for continued assessment. Gait Assessment Gait Able to Maintain Weight Bearing Status No During Gait Comments Gait Comments Pt able to pivot on her right foot during transfer but unable to maintain NWB LLE. Stair Climbing Assessment Comments Stair Climbing Comments Not assessed. PT-Balance Assessment Sitting Balance and Reactions Static Sitting Balance Ability Good Dynamic Sitting Balance Ability Good Standing Balance and Reactions Static Standing Balance Ability Poor Dynamic Standing Balance Ability Poor Device Used FWW M5 PT-IP Objective Assessments Start: 10/05/20 08:29 Freq: NEEDED Status: Active Protocol: Document 10/05/20 11:13 AW (Rec: 10/05/20 12:09 AW [id number]) Orientation Orientation/Cognition Level of Alertness Alert Orientation Name,Day of Week,Place, Situation Language Function Ability No Deficits Noted Safety Awareness Understands Safety Issues Memory Description No Deficits Noted Gross Range of Motion Upper Extremity ROM Assessment Within Functional Limits Lower Extremity ROM Assessment Left Impaired Strength Upper Extremity Strength Assessment Within Functional Limits Lower Extremity Strength Assessment Right Impaired Hip 3-/5 Knee 3/5 Comments Strength Comments RLE grossly 4/5 Sensation Assessment Sensation Gross Sensation WNL Muscle Tone Muscle Tone WNL Yes M6 PT-IP Treatment Start: 10/05/20 08:29 Freq: NEEDED Status: Active Protocol: Document 10/05/20 11:13 AW (Rec: 10/05/20 12:09 AW [id number]) Physical Therapy Treatment Exercises Exercises Ankle Pumps,Quad Sets Education Education Provided Precautions,Weight Bearing Status,Safety Other Treatments Other Treatment Performed Educated pt on role of PT, plan of care, weightbearing status, abductor precautions, current level of assist required for mobility, and equipment needs if she discharges home. M7 PT-IP Assessment and Plan Start: 10/05/20 08:29 Freq: NEEDED Status: Active Protocol: Document 10/05/20 11:13 AW (Rec: 10/05/20 12:09 AW [id number]) PT Summary Assessment and Plan Potential Rehabilitation Potential Good Status of Condition at Evaluation Stable Summary Impairments Pain,ROM,Strength,Balance,Bed Mobility,Transfers,Gait, Activity Tolerance Assessment Summary Renae is an 85 yo woman seen for PT evaluation after ground level fall resulting in minimally displaced left greater trochanter fracture. Pt is modified independent with use of a tripod cane and FWW at baseline. She has some assist for IADL's and her daughter is planning to visit and assist for two weeks. On evaluation, pt required 2 person max assist for transfers and was unable to maintain NWB LLE. Depending on changes to pt's weightbearing status and her progress, pt may require SNF rehab to improve strength and mobility independence prior to safe return home. If pt does improve and returns home, wheelchair, bedside commode, and hospital bed are recommended. If going home, will need to conduct caregiver training with pt's daughter. Goals Bed Mobility Goal Standby Assistance Transfer Goal Minimal Assistance,Front Wheeled Walker Gait Goal Minimal Assistance,Front Wheel Walker Gait Distance 25 Other Goals - improve transfers and gait to [facility] with FWW Days to Meet Goals 10 Frequency of Treatment Frequency Of Treatment Twice a Day Treatment Plan Physical Therapy Treatment Plan Bed Mobility Training,Transfer Training,Gait Training, Therapeutic Exercise,Balance Retraining,Discharge Planning, Hot or Cold Pack,Neuromuscular Re-ed Other Recommendations and Next Treatment check for updated WB status; Focus transfers; sit to stand from various surfaces Precautions Other Precautions -nonweightbearing left lower extremity -trochanteric precautions left hip - no abduction Recommendations To Nursing Amount of Assist Needed PT/OT Assist Only Discharge Recommendations PT Discharge Recommendations Home with 24/7 Assist Available,Home Health,SNF Rehab Other Discharge Recommendations SNF vs home with 24/7 and Equipment Needed for Home Before wheelchair, BSC, hospital bed Discharge Transportation Needs at Discharge Private Vehicle,Wheelchair/ Cabulance
--- NOTE | 2020-10-05 11:23 | OT.IP.EVAL ---
Past Medical History (Last Updated 10/05/20 @ 06:04 by So Castellano, [facility]) Ascending aortic aneurysm B12 deficiency Breast implant status Cerebrovascular disease Hepatic steatosis Hyperlipidemia Hypertension Osteoarthritis Paralysis of left vocal fold Parkinson disease Paroxysmal atrial fibrillation 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) Transient ischemic attack Tremor Surgical History (Last Reviewed 10/05/20 @ 09:12 by David Vo MD) H/O hysterectomy with oophorectomy History of total left hip arthroplasty History of total right hip arthroplasty History of total right knee replacement S/P ascending aortic aneurysm repair S/P closed reduction of dislocated total hip prosthesis S/P Mohs surgery for basal cell carcinoma Occupational Therapy Inpatient Evaluation/Re-Eval M1 PT/OT-IP Prior Functional Status Start: 10/05/20 12:26 Freq: NEEDED Status: Active Protocol: Document 10/05/20 10:33 [facility] (Rec: 10/05/20 12:54 [facility] [id number]) Medical Review Prior Functional Status Medical History Reviewed Yes Communication Pt is an effective verbal communicator. Mobility and Gait Pt states she uses a tripod cane or no AD at home. She uses a FWW outside the home. Activities of Daily Living and IADL's Pt is independent with ADL's. Her neighbors' daughter acts as a private caregiver assisting with transportation, errands, and certain risk mgr. She has a senior inspector who comes every two weeks. Pt cooks for herself, and does her own medication and bills on her own. Prior Functional Level (Other details) Pt has history of Parkinson's disease. She has a fib and is anticoagulated with Eliquis. She has B CASSIDY and multiple dislocations of same on the left side but has been stable for ~2 years. Social History Household Members none Living Arrangements Apartment/Condo Number of Floors (Floors) Two Floors Number of Stairs To Enter/Railing? 1 BALTA front of house with no rail but can touch the side of the house. 1 BALTA at side entrance with left rail ascending. 1 BALTA through the garage which pt can manage with cane of FWW and usually has assist when entering. Pt's condo has a basement but everything she needs is on the laborer carpentry dock. She has no need to access the basement. Home Environment Walk in Shower Home Equipment Front Wheel Walker,Four Wheel Walker,Straight Cane,Raised Toilet Seat Without Armrests, Shower Seat with Backrest,Hand Held Shower,Long Handled Sponge,Long Handled Shoe Horn, Mediation Commissioner,Sock Aid,Lift Recliner ,Grab Bars Near Toilet,Grab Bars In Shower Additional Social History Comment Pt lives with her cat in [place]. Her daughter, Lois , lives in [place] but is arriving today and plans to stay two weeks to provide assist. Pt has a Life Alert M2 OT-IP Current Condition Start: 10/05/20 12:26 Freq: Status: Active Protocol: Document 10/05/20 10:33 [facility] (Rec: 10/05/20 12:54 [facility] [id number]) Occupational Therapy Current Condition Current Condition Evaluation Date 10/05/20 Treatment Diagnosis Non-displaced left greater trochanteric fx Diagnosis Onset Date 10/04/20 Weight Bearing Status Weight Bearing Status Non-Weight Bearing Allowed Weight Bearing Amount (enter % Pt to be NWB LLE for now or #) (%) pending results of further x- rays. NO abduction and no side to side movements for LLE. M3 OT- IP Subjective and Pain Start: 10/05/20 12:26 Freq: Status: Active Protocol: Document 10/05/20 10:33 [facility] (Rec: 10/05/20 12:54 [facility] [id number]) OT- Subjective Occupational Therapy Visit Type Type Re-Evaluation Visit Start Time 10:33 Visit Stop Time 11:23 Total Visit Minutes 50 Occupational Therapy Visit Comments Patient Comments PT/OT in for evals due to pt needing extensive skilled assist for mobility needs. Patient/Caregiver Goals TO go home. OT Pain Assessment Pain When Pain Assessed During Mobility Pain Present Pain Present Pain Reported Location Left leg Intensity 5 Scale Used Numeric (0 - 10) M4 OT- IP ADL's Start: 10/05/20 12:26 Freq: Status: Active Protocol: Document 10/05/20 10:33 [facility] (Rec: 10/05/20 12:54 [facility] [id number]) OT [id number] Comments OT Self-Feeding Comments NOt at meal time. OT ADL-Grooming General Evaluation Grooming Ability Standby Assistance Areas Needing Assistance Retrieving/Set-up of Grooming Items Comments OT Grooming Comments while seated OT ADL-Oral Care General Eval Oral Care Ability Standby Assistance Areas of Assistance Retrieving/Set-Up of Items Comments Oral Care Comments while seated OT ADL-Dressing General Eval Lower Body Dressing Ability Total Assistance Areas Needing Assistance Underpants/Brief,Socks OT ADL-Toileting Comments OT Toileting Comments Pt not having to use the bathroom at this time. OT ADL-Bathing Comments OT Bathing Comments Sponge bath more appropriate at this time. M5 OT- IP IADL's Start: 10/05/20 12:26 Freq: Status: Active Protocol: Document 10/05/20 10:33 [facility] (Rec: 10/05/20 12:54 [facility] [id number]) OT-Instrumental Activities of Daily Living Deficits IADL Deficits Identified Deficits Home Safety Awareness Home Safety Comments Due to pt's mobility, will require 1-2 person assist for all ADL's and and 2 person for functional mobility needs at this time. Medication Management Medication Management No Deficits Identified Money Management Money Management No Deficits Identified Meal Preparation Meal Preparation Comments Pt's daughter planning to come and stay with her to assist for two weeks. Sliver Lap Tender Sliver Lap Tender Comments Pt's daughter planning to come and stay with her to assist for two weeks. M6 OT- IP Functional Cognition Start: 10/05/20 12:26 Freq: Status: Active Protocol: Document 10/05/20 10:33 [facility] (Rec: 10/05/20 12:54 [facility] [id number]) Cognitive Factors Limiting Selfcare Function Cognitive Ability Level of Alertness Alert Patient Orientation Name,Place,Situation Attention Span Ability Capable of Focused Attention, Capable of Sustained Attention Ability to Follow Commands Able to Follow One Step Commands Memory Description Short Term Impaired Problem Solving Ability Needs Assist to Identify Solutions Cognitive Comments Cognitive Assessment Comments Pt able to follow commands for mobility needs and starting to realize that she may have to go to skilled rehab as currently pt requiring 2 person assist for needs. Pt needing reminders for her precautions. OT- Vision and Hearing OT- Vision Assessment Visual Acuity Glasses All The Time M7 OT- IP Mobility and Balance Start: 10/05/20 12:26 Freq: Status: Active Protocol: Document 10/05/20 10:33 [facility] (Rec: 10/05/20 12:54 [facility] [id number]) OT- Bed Mobility Assessment Supine to Sit Supine to Sit Assist Moderate Assistance,2 Person Assistance OT-Transfer Assessment Sit to and From Stand Sit to and from Stand Maximum Assistance,2 Person Assistance Transfers Transfer Ability Maximum Assistance,2 Person Assistance Technique Transfer Destination Bed,Chair Transfer Technique Stand Step Pivot Devices Transfer Assistive Devices Gait Belt,Front Wheeled Walker Comments Mobility Comments Pt needing assist to help move her left LE to the edge of the bed and then needing assist MODA X2 to get her trunk upright. Sit to stand MAX A X 2 and also having difficulty to keep her weight off her LLE. Pt also needing assist to help raise and lower herself to the recliner and assist to help reach back with her arms to the armrests of the recliner. Pt states has a lift chair at home that she may be able to sleep in. OT- Gait Assessment Comments Gait Ability Comments Transfer only at this time. OT- Balance Assessment Sitting Balance and Reactions Static Sitting Balance Ability Good Dynamic Sitting Balance Ability Fair Standing Balance and Reactions Static Standing Balance Ability Poor M8 OT- IP Objective Assessments Start: 10/05/20 12:26 Freq: Status: Active Protocol: Document 10/05/20 10:33 [facility] (Rec: 10/05/20 12:54 [facility] [id number]) OT Gross Range of Motion Upper Extremity Range of Motion Assessment Bilaterally Impaired OT Strength Comments Strength Comments BUE from elbow to distal 4/5 to 4-/5. OT- Coordination Assessment Comments Coordination Comments Arthritic changes in hands and needing assist to open items for grooming needs. OT-Muscle Tone Assessment Muscle Tone WNL Yes M9 OT- IP Assessment and Plan Start: 10/05/20 12:26 Freq: Status: Active Protocol: Document 10/05/20 10:33 [facility] (Rec: 10/05/20 12:54 [facility] [id number]) OT Summary Assessment and Plan Potential Rehabilitation Potential Good Analytic Complexity at Evaluation Low Summary OT Impairments Pain,Strength,Balance, Coordination,Functional Cognition,Functional Mobility, Grooming,Dressing,Toileting, Bathing,Toilet Transfers, Shower Transfers,Activity Tolerance Progress Towards Goals Slow Progress due to Pain,Slow Progress due to Medical Issues,Slow Progress due to Activity Tolerance,Slow Progress due to Cognition Assessment Summary Pt low complexity and main barriers are step, now needing extensive 2 person assist for all transfer needs, and not able to follow the initial NWB for LLE due to pt gets too tired and fatigued. At this time recommend SNF. Goals Grooming Goal Independent Dressing Goal Independent Toileting Goal Independent Bathing Goal Independent Toilet Transfer Goal Independent Shower Transfer Goal Independent Patient/Caregiver Education Goal Demonstrate Post-Op Precautions Days to Meet Goals 20 Frequency of Treatment Frequency Of Treatment Once a Day Treatment Plan OT Treatment Plan ADL Training,Functional Cognition Training,Functional Mobility,Patient/Family Education,Discharge Planning Other Treatment Recommendations and Next Transfer to [facility] with MODA X 2 Treatment Focus and FWW. Discharge Recommendations OT Discharge Recommendations SNF Rehab Transportation Needs at Discharge Wheelchair/Cabulance
--- NOTE | 2020-10-05 12:39 | CM.DPNOTE ---
Faxed referral packet to [facility]- per Casandra and noted that patient needs Medicare Auth because she is an Obs patient. Fax confirmation received. Renae Baumann CM Asst.
--- NOTE | 2020-10-05 13:52 | PT.IPTN ---
Physical Therapy Treatment Note M2 PT-IP Current Condition Start: 10/05/20 08:29 Freq: NEEDED Status: Active Protocol: Document 10/05/20 11:13 AW (Rec: 10/05/20 11:51 AW [id number]) Physical Therapy Current Condition Current Condition Evaluation Date 10/05/20 Treatment Diagnosis minimally displaced greater troch fracture; difficulty in walking Onset Date 10/04/20 Precautions Other Precautions -nonweightbearing left lower extremity -trochanteric precautions left hip - no abduction Weight Bearing Status Weight Bearing Status Non-Weight Bearing Allowed Weight Bearing Amount (enter % NWB LLE - may be upgraded or #) (%) depending on x-rays of foot, ankle, and knee M3 PT-IP Subjective Start: 10/05/20 08:29 Freq: NEEDED Status: Active Protocol: Document 10/05/20 13:52 AW (Rec: 10/05/20 14:44 AW [id number]) Subjective Physical Therapy Visit Type Type Treatment Note Visit Start Time 13:24 Visit Stop Time 13:52 Total Visit Minutes 28 Notes IQRA Villar provided assist with mobility Number of CLAM BED WORKER Visits 0 Physical Therapy Visit Comments Patient Comments Pt would like to use the commode and return to bed Therapy Pain Assessment Pain When Pain Assessed During Mobility Pain Present Pain Present Denied Pain Location Left leg Scale Used not quantified Pain Management Techniques Distraction,Modification of Treatment,Re-positioning M4 PT-IP Mobility and Gait Start: 10/05/20 08:29 Freq: NEEDED Status: Active Protocol: Document 10/05/20 13:52 AW (Rec: 10/05/20 14:44 AW [id number]) PT-Bed Mobility Assessment Sit to Supine Sit to Supine Minimal Assistance,2 Person Assistance Scooting Scooting to Edge of Bed Minimal Assistance PT-Transfer Assessment Sit to and From Stand Sit to and from Stand Maximum Assistance,2 Person Assistance,Use of Upper Extremities Equipment Transfer Assistive Device Gait Belt,Front Wheeled Walker Orthotic/Prosthetic Devices or Brace: No Transfers Transfer Destination Bed,Bedside Commode Transfer Technique Stand Pivot and Forward/ Backward Scoot Transfer Ability Level of Assist Maximum Assistance,2 Person Assistance,Use of Upper Extremities Comments Mobility Comments Pt was reclined in the chair as PT arrived. She wanted to use the commode. Reported to pt that ortho has not yet updated her weightbearing orders so will continue to proceed with NWB LLE. Pt needed max A x 2 to stand from the chair and was unable to keep her left foot off the floor during pivot transfer to [facility] on her right side. She needed total assist to manage her briefs in standing. She voided and then stood from the commode max A x 2 as RN provided assist with pericare for completeness. RN moved the commode away and shifted the bed closer to the pt as PT provided standing assist. Pt then sat EOB with max assist for control of descent. She was able to scoot herself back on the mattress CGA but required mod A x 2 to pivot back to supine while attending to abduction precaution. She was dependent for scooting up on the bed. Pt was left with call light and all needs in reach, RN attending. Gait Assessment Gait Able to Maintain Weight Bearing Status No During Gait Comments Gait Comments Pt able to pivot on her right foot during transfer but unable to maintain NWB LLE. PT-Balance Assessment Sitting Balance and Reactions Static Sitting Balance Ability Good Dynamic Sitting Balance Ability Good Standing Balance and Reactions Static Standing Balance Ability Poor Dynamic Standing Balance Ability Poor Device Used FWW M5 PT-IP Objective Assessments Start: 10/05/20 08:29 Freq: NEEDED Status: Active Protocol: Document 10/05/20 11:13 AW (Rec: 10/05/20 12:09 AW [id number]) Orientation Orientation/Cognition Level of Alertness Alert Orientation Name,Day of Week,Place, Situation Language Function Ability No Deficits Noted Safety Awareness Understands Safety Issues Memory Description No Deficits Noted Gross Range of Motion Upper Extremity ROM Assessment Within Functional Limits Lower Extremity ROM Assessment Left Impaired Strength Upper Extremity Strength Assessment Within Functional Limits Lower Extremity Strength Assessment Right Impaired Hip 3-/5 Knee 3/5 Comments Strength Comments RLE grossly 4/5 Sensation Assessment Sensation Gross Sensation WNL Muscle Tone Muscle Tone WNL Yes M6 PT-IP Treatment Start: 10/05/20 08:29 Freq: NEEDED Status: Active Protocol: Document 10/05/20 13:52 AW (Rec: 10/05/20 14:44 AW [id number]) Physical Therapy Treatment Education Education Provided Precautions,Weight Bearing Status,Safety M7 PT-IP Assessment and Plan Start: 10/05/20 08:29 Freq: NEEDED Status: Active Protocol: Document 10/05/20 13:52 AW (Rec: 10/05/20 14:44 AW [id number]) PT Summary Assessment and Plan Summary Impairments Pain,ROM,Strength,Balance,Bed Mobility,Transfers,Gait, Activity Tolerance Progress Towards Goals Slow Progress due to Pain,Slow Progress - Other Assessment Summary Renae continues to require 2- person max assist for transfers and is unable to maintain NWB LLE without assist. It is possible that pt may improve if weightbearing status is upgraded but this PT holds the opinion that pt would be unable to maintain TTWB. She will require SNF rehab unless she progresses significantly and caregiver training can be completed. Goals Bed Mobility Goal Standby Assistance Transfer Goal Minimal Assistance,Front Wheeled Walker Gait Goal Minimal Assistance,Front Wheel Walker Gait Distance 25 Other Goals - improve transfers and gait to CGA with FWW Days to Meet Goals 10 Frequency of Treatment Frequency Of Treatment Twice a Day Treatment Plan Physical Therapy Treatment Plan Bed Mobility Training,Transfer Training,Gait Training, Therapeutic Exercise,Balance Retraining,Discharge Planning, Hot or Cold Pack,Neuromuscular Re-ed Other Recommendations and Next Treatment check for updated WB status; Focus transfers; sit to stand from various surfaces Precautions Other Precautions -nonweightbearing left lower extremity -trochanteric precautions left hip - no abduction Recommendations To Nursing Amount of Assist Needed PT/OT Assist Only,Mechanical Lift Discharge Recommendations PT Discharge Recommendations Home with 24/7 Assist Available,Home Health,SNF Rehab Other Discharge Recommendations SNF vs home with 24/7 and HH Equipment Needed for Home Before wheelchair, BSC, hospital bed Discharge Transportation Needs at Discharge Wheelchair/Cabulance
--- NOTE | 2020-10-05 15:48 | PC.NURSE ---
Addendum entered by Calista Kim R.N. 10/05/20 22:02: Pt. declined repositioning throughout the shift. Discussed importance of repositioning relative to skin integrity. Pt. verbalized understanding. Original Note: Report received, care assumed. A&Ox3. Pleasant, appropriate. Tele, Afib, HR 60. Pain reports musculoskeletal pain throughout most of left side of body, with left shoulder and low back the most painful /10. Received Vicodin. Declined repositioning. Per Dr. Trejo, pt. okay for light weight-bearing. Will advance with PT tomorrow; bedrest tonight.
--- NOTE | 2020-10-05 16:41 | P.PN_ITS ---
Subjective Subjective Date Patient Seen: 10/05/20 Time Patient Seen: 16:55 Interval history: This is an 85-year-old female with a past medical history of Parkinson's disease, paroxysmal atrial fibrillation, unknown cardiovascular disease and history of seizure who presented after mechanical ground level fall resulting in a pathologic left nondisplaced greater trochanteric fracture. The patient was seen by Orthopedic surgery today and is partial weight-bearing on her left lower extremity, but management is non operative of her nondisplaced left greater trochanteric fracture. Repeat x-rays were obtained given swelling on exam, however there are no other fractures on her left side. The patient states that her pain is well controlled today with oxycodone. Prior to the fall she denies any chest pain, palpitations, shortness of breath, dizziness. Exam Vital Signs (past 8 hours): - 10/05/20 09:00 10/05/20 11:50 10/05/20 15:25 Temperature 96.7 F L 98 F 97.4 F L Pulse Rate 66 52 L 54 L Respiratory Rate 66 H 14 16 Blood Pressure 102/44 L 100/48 L 123/62 Pulse Oximetry 97 94 96 Oxygen Delivery Method Room Air Oxygen Flow Rate 0 Narrative Exam Narrative: General: Patient is a well-developed, well-nourished in no distress at this time. HEENT: Normocephalic, bruising present to bilateral eyelids extraocular muscles intact, oral pharynx is clear and mucous membranes are moist. Neck is supple and symmetric, trachea is midline, no adenopathy, no thyroid enlargement, n ontender, no masses palpated. Negative for JVD Chest: Normal AP diameter and contour without kyphoscoliosis, no nasal flaring, retractions, or tachypneic labored Lungs: Auscultation of all lung moody are clear without adventitious sounds, wheezes, rhonchi, or rales. Cardio: S1 & S2 with regular rate and rhythm without murmur, rubs, or gallops, no carotid bruit, no cardiac pulsations present. Abdomen: Soft nontender, negative for organomegaly, or masses. Bowel sounds are present in all 4 quadrants without guarding or rebound, no CVA tenderness. Musculoskeletal: L hip tenderness, also mild swelling of L knee and foot. Skin: Patient has road rash type abrasions to left shoulder stretching around to her back, left elbow has a large abrasion bloody drainage, patient has a 9 cm laceration to the left knee, with 8 sutures placed in the ED bandage present, her skin shows no signs of erythema inflammation or warmth suggestive of infection. Neuro: Alert and orientated x3, strength is +5/5 in all extremities on the right, sensation to touch intact, no gross deficits noted of cranial nerves. Psych: Patient has a well-kept appearance, appropriate affect, mental status attitude thought context and judgment are appropriate for age. Objective Labs Result Diagrams: 10/04/20 21:00 10/04/20 21:00 Labs: Laboratory Results - last 24 hr 10/04/20 10/04/20 10/04/20 18:50 21:00 21:00 WBC 7.4 RBC 3.10 L Hgb 10.2 L Hct 31.3 L MCV 100.7 H MCH 32.9 MCHC 32.6 RDW 14.5 Plt Count 186 Neut % (Auto) 77.5 H Lymph % (Auto) 9.2 L [place] % (Auto) 12.6 Eos % (Auto) 0.2 L Baso % (Auto) 0.5 Neut # (Auto) 5700 Lymph # (Auto) 700 L [place] # (Auto) 900 Eos # (Auto) 0 Baso # (Auto) 0 PT 14.9 H INR 1.3 Sodium Potassium Chloride Carbon Dioxide BUN Creatinine Estimated GFR BUN/Creatinine Ratio Glucose Calcium Magnesium SARS-CoV-2 (PCR) Negative 10/04/20 21:00 WBC RBC Hgb Hct MCV MCH MCHC RDW Plt Count Neut % (Auto) Lymph % (Auto) [place] % (Auto) Eos % (Auto) Baso % (Auto) Neut # (Auto) Lymph # (Auto) [place] # (Auto) Eos # (Auto) Baso # (Auto) PT INR Sodium 138 Potassium 3.7 Chloride 104 Carbon Dioxide 27 BUN 22 H Creatinine 0.52 Estimated GFR > 60.0 BUN/Creatinine Ratio 42.3 H Glucose 140 H Calcium 9.0 Magnesium 1.9 SARS-CoV-2 (PCR) [facility] Medical History (Updated 10/05/20 @ 06:04 by So Castellano INDUSTRIAL RELATIONS DIRECTOR-) Ascending aortic aneurysm B12 deficiency Breast implant status Cerebrovascular disease Hepatic steatosis Hyperlipidemia Hypertension Osteoarthritis Paralysis of left vocal fold Parkinson disease Paroxysmal atrial fibrillation 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) Transient ischemic attack Tremor Surgical History H/O hysterectomy with oophorectomy History of total left hip arthroplasty History of total right hip arthroplasty History of total right knee replacement S/P ascending aortic aneurysm repair S/P closed reduction of dislocated total hip prosthesis S/P Mohs surgery for basal cell carcinoma Family History Mother Dementia Coronary artery disease Father Diabetes mellitus Social History number of children: 2 household members: none occupational status: previously employed 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 1. Nondisplaced left greater trochanteric fracture with associated hemorrhage into the left trochanteric bursa secondary to ground level fall, with left knee laceration acute, present on admission -fall was mechanical in nature. Pathologic secondary to likely osteoporosis given nature of her fall. -ortho was consulted in ED-Dr. Vo. Appreciate his time and recommendations. Currently partial weight bearing with precautions as noted in his documentation. - Pelvis CT:Nondisplaced left greater trochanteric fracture with associated hemorrhage into the left trochanteric bursa, however pain is controlled today and seen by orthopedic surgery, safe to resume home apixaban at this time. - continue PT/OT. - XR of her knee, ankle and foot are without acute fracture. There is chronic appearing changes of her great toe, no concern for osteomyelitis clinically at this time. 2. Paroxysmal atrial fibrillation, chronic, not present on admission, rate controlled -continue patient's Eliquis 2.5 mg p.o. b.i.d. and metoprolol 3. Parkinson's, acute on chronic, present on admission -continue patient's carbidopa/levodopa and Ropinirole 4. 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 5. Cardiovascular disease, chronic, not present on admission, stability unknown -continue patient's spirolactone Code status: Comfort measures only/DNR Surrogate decision maker: Calista Oscar daughter, patient has an Advance directive COVID PCR negative DVT: on eliquis which will be continued. Dispo: patient seen by PT / OT, plan for discharge to possible SNF or home with home health depending on progress tomorrow.
[2020-10-05] MEDS: PRIMIDONE 50 MG TABLET 75 MG PO (20:48)
[2020-10-05] MEDS: ROPINIROLE 0.25 MG TABLET 0.5 MG PO (20:49)
[2020-10-05] MEDS: SENNOSIDES 8.6 MG TABLET 17.2 MG PO (20:50)
[2020-10-05] MEDS: SODIUM CHLORIDE 0.9% FLUSH 10 ML IV (22:36)
[2020-10-06] VITALS (12 sets, daily range): BP systolic 111–142; BP diastolic 40–91; PULSE 67–80; RESP 14–20; TEMP 36.4–37; O2SAT 95–98
[2020-10-06 05:31] LABS: Add Manual Diff / Slide Review NO; Basophils Absolute Auto 0 /uL (0-100); Basophils Percent Auto 0.8 % (0-2); Eosinophils Absolute Auto 100 /uL (0-450); Eosinophils Percent Auto 0.9 % (2-4); Hematocrit 29.6 % (36-46); Hemoglobin 9.7 g/dL (12.0-16.0); Lymphocytes Absolute Auto 1000 /uL (1100-4500); Lymphocytes Percent Auto 15.9 % (25-40); Mean Corpuscular HGB Conc 32.7 % (30-36); Mean Corpuscular Hemoglobin 32.9 PG (26-34); Mean Corpuscular Volume 100.6 fL (80-100); Monocytes Absolute Auto 1200 /uL (0-900); Monocytes Percent Auto 19.3 % (3-14); Neutrophils Absolute Auto 3800 /uL (1500-7000); Neutrophils Percent Auto 63.1 % (50-75); Platelet Count 166 X10^3/uL (150-400); Red Blood Cell Count 2.94 X10^6/uL (4.0-5.2); Red Cell Distribution Width 14.3 % (11.6-14.8)
[2020-10-06 05:38] LABS: BUN Creatinine Ratio 34.5 (6-22); Blood Urea Nitrogen 20 mg/dL (7-17); Calcium 8.9 mg/dL (8.4-10.2); Carbon Dioxide 27 mmol/L (22-32); Chloride 104 mmol/L (98-107); Estimated Glomerular Filt Rate > 60.0 mL/min (>60); Glucose 96 mg/dL (80-110); HEMOLYSIS < 15 (0-50); Potassium 4.4 mmol/L (3.4-5.1); Sodium 136 mmol/L (137-145)
[2020-10-06] MEDS: HYDROCODONE/ACET 5/325 TABLET 1 TAB PO ×3 (06:38→19:02)
--- NOTE | 2020-10-06 09:17 | P.PN_ITS ---
Subjective Subjective Date Patient Seen: 10/06/20 Time Patient Seen: 09:18 Interval history: Patient states she is doing well. She notes that she has not yet worked with PT today. The patient notes that her pain is controlled with her current pain management regimen. She notes mild discomfort along the lateral aspect of the left LE to palpation. She denies any chills, chest pain, or shortness of breath. Exam Vital Signs (past 8 hours): - 10/06/20 02:00 10/06/20 04:00 10/06/20 06:00 Temperature 97.6 F Pulse Rate 80 Respiratory Rate 18 Blood Pressure 136/91 H Pulse Oximetry 95 95 10/06/20 08:20 Temperature 98.6 F Pulse Rate 75 Respiratory Rate 14 Blood Pressure 111/40 L Pulse Oximetry 96 Oxygen Delivery Method Room Air Oxygen Flow Rate 0 Narrative Exam Narrative: Patient resting comfortably in bed and is in no acute distress. The patient has diffuse TTP along the lateral aspect of the left LE with mild ecchymosis. Abrasions are covered with bandages along the left leg that are clean, dry, and intact. Patient has good sensation throughout the bilateral lower extremities, NVI, capillary refill < 2 seconds. Ankle inversin, eversion, plantar flexion, and dorsiflexion performed without difficultly bilaterally. Const General: cooperative, healthy appearing and comfortable Resp Effort & Inspection: normal respiratory effort and able to speak in complete sentences Extrem General: normal exam except as noted Objective Labs Result Diagrams: 10/06/20 05:20 10/06/20 05:20 Labs: Laboratory Results - last 24 hr 10/06/20 10/06/20 05:20 05:20 WBC 6.0 RBC 2.94 L Hgb 9.7 L Hct 29.6 L MCV 100.6 H MCH 32.9 MCHC 32.7 RDW 14.3 Plt Count 166 Neut % (Auto) 63.1 Lymph % (Auto) 15.9 L [place] % (Auto) 19.3 H Eos % (Auto) 0.9 L Baso % (Auto) 0.8 Neut # (Auto) 3800 Lymph # (Auto) 1000 L [place] # (Auto) 1200 H Eos # (Auto) 100 Baso # (Auto) 0 Sodium 136 L Potassium 4.4 Chloride 104 Carbon Dioxide 27 BUN 20 H Creatinine 0.58 Estimated GFR > 60.0 BUN/Creatinine Ratio 34.5 H Glucose 96 Calcium 8.9 PFSH Medical History Ascending aortic aneurysm B12 deficiency Breast implant status Cerebrovascular disease Hepatic steatosis Hyperlipidemia Hypertension Osteoarthritis Paralysis of left vocal fold Parkinson disease Paroxysmal atrial fibrillation 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) Transient ischemic attack Tremor Surgical History H/O hysterectomy with oophorectomy History of total left hip arthroplasty History of total right hip arthroplasty History of total right knee replacement S/P ascending aortic aneurysm repair S/P closed reduction of dislocated total hip prosthesis S/P Mohs surgery for basal cell carcinoma Family History Mother Dementia Coronary artery disease Father Diabetes mellitus Social History number of children: 2 household members: none occupational status: previously employed 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 Patient is to be partial weight bearing with hip fracture precautions. The patient is to follow up in [facility] in two week for her first appointment after discharge. At this time orthopedics is signing off.
--- NOTE | 2020-10-06 09:23 | CM.DPNOTE ---
Faxed referral packet to [facility] per Courtney on 10/06/20. Fax confirmation received. Called and spoke to Elin at [facility] asking her to watch for fax. She said she would. VICKY Montemayort.
[2020-10-06] MEDS: APIXABAN 5 MG TABLET 2.5 MG PO ×2 (09:28→21:12)
[2020-10-06] MEDS: CARBIDOPA-LEVODOPA ER 50/200 TABLET 1 EACH PO ×3 (09:28→21:13)
[2020-10-06] MEDS: SPIRONOLACTONE 25 MG TABLET PO (09:28)
[2020-10-06] MEDS: DOCUSATE 100 MG CAPSULE PO ×2 (09:30→21:13)
[2020-10-06] MEDS: GABAPENTIN 100 MG CAPSULE PO ×2 (09:31→21:14)
--- NOTE | 2020-10-06 11:55 | PM.PN.1 ---
Subjective Subjective Date Patient Seen: 10/06/20 Time Patient Seen: 11:56 Interval history: This is an 85-year-old female with a past medical history of Parkinson's disease, paroxysmal atrial fibrillation, unknown cardiovascular disease and history of seizure who presented after mechanical ground level fall resulting in a pathologic left nondisplaced greater trochanteric fracture. The patient was seen by Orthopedic surgery today and is partial weight-bearing on her left lower extremity, but management is non operative of her nondisplaced left greater trochanteric fracture. The patient states that her pain is controlled today with oxycodone, but still has a lot of pain with movement. She was seen by PT and requires significant assistance due to her current partial weight bearing status on her left side as a result of her fracture and continued pain with movement. Exam Vital Signs (past 8 hours): - 10/06/20 04:00 10/06/20 06:00 10/06/20 08:20 Temperature 97.6 F 98.6 F Pulse Rate 80 75 Respiratory Rate 18 14 Blood Pressure 136/91 H 111/40 L Pulse Oximetry 95 96 Oxygen Delivery Method Room Air Oxygen Flow Rate 0 Narrative Exam Narrative: General: Patient is a well-developed, well-nourished in no distress at this time. HEENT: Normocephalic, bruising present to bilateral eyelids extraocular muscles intact, oral pharynx is clear and mucous membranes are moist. Neck is supple and symmetric, trachea is midline, no adenopathy, no thyroid enlargement, nontender, no masses palpated. Negative for JVD Chest: Normal AP diameter and contour without kyphoscoliosis, no nasal flaring, retractions, or tachypneic labored Lungs: Auscultation of all lung moody are clear without adventitious sounds, wheezes, rhonchi, or rales. Cardio: S1 & S2 with regular rate and rhythm without murmur, rubs, or gallops, no carotid bruit, no cardiac pulsations present. Abdomen: Soft nontender, negative for organomegaly, or masses. Bowel sounds are present in all 4 quadrants without guarding or rebound, no CVA tenderness. Musculoskeletal: L hip tenderness, also mild swelling of L knee and foot. Ecchymosis near her L hip, will continue to monitor. Skin: Patient has road rash type abrasions to left shoulder stretching around to her back, left elbow has a large abrasion bloody drainage, patient has a 9 cm laceration to the left knee, with 8 sutures placed in the ED bandage present, her skin shows no signs of erythema inflammation or warmth suggestive of infection. Neuro: Alert and orientated x3, strength is +5/5 in all extremities on the right, sensation to touch intact, no gross deficits noted of cranial nerves. Psych: Patient has a well-kept appearance, appropriate affect, mental status attitude thought context and judgment are appropriate for age. Objective Labs Result Diagrams: 10/06/20 05:20 10/06/20 05:20 Labs: Laboratory Results - last 24 hr 10/06/20 10/06/20 05:20 05:20 WBC 6.0 RBC 2.94 L Hgb 9.7 L Hct 29.6 L MCV 100.6 H MCH 32.9 MCHC 32.7 RDW 14.3 Plt Count 166 Neut % (Auto) 63.1 Lymph % (Auto) 15.9 L [place] % (Auto) 19.3 H Eos % (Auto) 0.9 L Baso % (Auto) 0.8 Neut # (Auto) 3800 Lymph # (Auto) 1000 L [place] # (Auto) 1200 H Eos # (Auto) 100 Baso # (Auto) 0 Sodium 136 L Potassium 4.4 Chloride 104 Carbon Dioxide 27 BUN 20 H Creatinine 0.58 Estimated GFR > 60.0 BUN/Creatinine Ratio 34.5 H Glucose 96 Calcium 8.9 PFSH Medical History Ascending aortic aneurysm B12 deficiency Breast implant status Cerebrovascular disease Hepatic steatosis Hyperlipidemia Hypertension Osteoarthritis Paralysis of left vocal fold Parkinson disease Paroxysmal atrial fibrillation 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) Transient ischemic attack Tremor Surgical History H/O hysterectomy with oophorectomy History of total left hip arthroplasty History of total right hip arthroplasty History of total right knee replacement S/P ascending aortic aneurysm repair S/P closed reduction of dislocated total hip prosthesis S/P Mohs surgery for basal cell carcinoma Family History Mother Dementia Coronary artery disease Father Diabetes mellitus Social History number of children: 2 household members: none occupational status: previously employed 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 1. Nondisplaced left greater trochanteric fracture with associated hemorrhage into the left trochanteric bursa secondary to ground level fall, with left knee laceration acute, present on admission -fall was mechanical in nature. Pathologic secondary to likely osteoporosis given nature of her fall. -ortho was consulted in ED-Dr. Vo. Appreciate his time and recommendations. Currently partial weight bearing with precautions as noted in his documentation. outpatient follow up in 2 weeks recommended. - Pelvis CT:Nondisplaced left greater trochanteric fracture with associated hemorrhage into the left trochanteric bursa, however pain is controlled today and seen by orthopedic surgery, safe to resume home apixaban at this time. - continue PT/OT. work on pain control - XR of her knee, ankle and foot are without acute fracture. There is chronic appearing changes of her great toe, no concern for osteomyelitis clinically at this time. - will contine to monitor cbc and ecchymosis on exam. Hg has dropped slightly today, consider stopping eliquis if worsening ecchymosis or bleeding. 2. Paroxysmal atrial fibrillation, chronic, not present on admission, rate controlled -continue patient's Eliquis 2.5 mg p.o. b.i.d. and metoprolol 3. Parkinson's, acute on chronic, present on admission -continue patient's carbidopa/levodopa and Ropinirole 4. 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 5. Cardiovascular disease, chronic, not present on admission, stability unknown -continue patient's spirolactone Code status: Comfort measures only/DNR Surrogate decision maker: Calista Oscar daughter, patient has an Advance directive COVID PCR negative DVT: on eliquis which will be continued. Dispo: uncertain, possible home with home health with significant assistance or SNF recommended by PT.
--- NOTE | 2020-10-06 12:28 | PT.IPTN ---
Physical Therapy Treatment Note M2 PT-IP Current Condition Start: 10/05/20 08:29 Freq: NEEDED Status: Active Protocol: Document 10/05/20 11:13 AW (Rec: 10/05/20 11:51 AW [id number]) Physical Therapy Current Condition Current Condition Evaluation Date 10/05/20 Treatment Diagnosis minimally displaced greater troch fracture; difficulty in walking Onset Date 10/04/20 Precautions Other Precautions -nonweightbearing left lower extremity -trochanteric precautions left hip - no abduction Weight Bearing Status Weight Bearing Status Non-Weight Bearing Allowed Weight Bearing Amount (enter % NWB LLE - may be upgraded or #) (%) depending on x-rays of foot, ankle, and knee M3 PT-IP Subjective Start: 10/05/20 08:29 Freq: NEEDED Status: Active Protocol: Document 10/06/20 11:29 CLB (Rec: 10/06/20 14:17 CLB [id number]) Subjective Physical Therapy Visit Type Type Treatment Note Visit Start Time 11:29 Visit Stop Time 12:28 Total Visit Minutes 59 Notes Daughter Lois present for CG training.Co-treated with OT. Number of SUPPORT REPRESENTATIVE Visits 1 Physical Therapy Visit Comments Patient Comments Pt willing to work with therapies. Patient Goals Pt hopes to avoid SNF and return home with her daughter assisting Therapy Pain Assessment Pain When Pain Assessed During Mobility Pain Present Pain Present Pain Reported M4 PT-IP Mobility and Gait Start: 10/05/20 08:29 Freq: NEEDED Status: Active Protocol: Document 10/06/20 11:29 CLB (Rec: 10/06/20 14:17 CLB [id number]) PT-Bed Mobility Assessment Supine to Sit Supine to Sit Moderate Assistance,1 Person Assistance Scooting Scooting to Edge of Bed Maximum Assistance PT-Transfer Assessment Sit to and From Stand Sit to and from Stand Minimal Assistance,Maximum Assistance,2 Person Assistance ,Use of Upper Extremities Equipment Transfer Assistive Device Gait Belt,Front Wheeled Walker Orthotic/Prosthetic Devices or Brace: No Comments Mobility Comments Pt in bed requiring Mod A x1 and max verbal cues for sequencing upper and lower body OOB, pt then required Max A x1 with use of draw sheet to get to EOB. Pt then required cues for hand placement, quad acitvation and LLE placement and Min A x2 from bed to full stand. Pt then ambulated with max cues for walker/step sequencing ~ 5ft Min A. Pt then sat in chair requiring tactile cues for reaching back for arms of chair with cues to slow descent. Once in chair pt given demonstration to improve gait with FWW to prevent increased WB on LLE. Pt then stood requiring Max A x2 from low chair and ambulated with improved sequencing and WB through arm to decrease weight through LLE. Pt then sat Mod A x2 to slow descent and daughter attempted to assist pt to standing but pt unable to stand w/o second assist from chair. Pt left in room with OT. Gait Assessment Gait Gait Assistance Required: Minimum Assistance,2 Person Assist Distance (Feet) 10 Able to Maintain Weight Bearing Status Yes During Gait Assistive Devices Assistive Device Gait Belt,Front Wheeled Walker Orthotic/Prosthetic Devices or Brace: No Gait Deviations General Gait Pattern Antalgic,Decreased Stride Length,Decreased Feet Clearance,Narrow Based Gait, Step-to Gait Factors Limiting Gait Function Factors Limiting Gait Function Decreased Activity Tolerance, Decreased Strength,Difficulty Following Directions,Limited Range of Motion,Pain,Poor Balance,Poor Safety Awareness Comments Gait Comments Pt ambulated 5ft x2 Min A x2, see mobility section for further information. Stair Climbing Assessment Comments Stair Climbing Comments unable M5 PT-IP Objective Assessments Start: 10/05/20 08:29 Freq: NEEDED Status: Active Protocol: Document 10/05/20 11:13 AW (Rec: 10/05/20 12:09 AW [id number]) Orientation Orientation/Cognition Level of Alertness Alert Orientation Name,Day of Week,Place, Situation Language Function Ability No Deficits Noted Safety Awareness Understands Safety Issues Memory Description No Deficits Noted Gross Range of Motion Upper Extremity ROM Assessment Within Functional Limits Lower Extremity ROM Assessment Left Impaired Strength Upper Extremity Strength Assessment Within Functional Limits Lower Extremity Strength Assessment Right Impaired Hip 3-/5 Knee 3/5 Comments Strength Comments RLE grossly 4/5 Sensation Assessment Sensation Gross Sensation WNL Muscle Tone Muscle Tone WNL Yes M6 PT-IP Treatment Start: 10/05/20 08:29 Freq: NEEDED Status: Active Protocol: Document 10/05/20 13:52 AW (Rec: 10/05/20 14:44 AW [id number]) Physical Therapy Treatment Education Education Provided Precautions,Weight Bearing Status,Safety M7 PT-IP Assessment and Plan Start: 10/05/20 08:29 Freq: NEEDED Status: Active Protocol: Document 10/06/20 11:29 CLB (Rec: 10/06/20 14:17 CLB [id number]) PT Summary Assessment and Plan Summary Impairments Pain,ROM,Strength,Balance,Bed Mobility,Transfers,Gait, Activity Tolerance Progress Towards Goals Slow Progress due to Pain,Slow Progress - Other Assessment Summary Pt is PWB per new dr order after x-ray. Pt requiring Min- Max A x2 for all mobility with max verbal and tactile cues for sequencing all mobility. Pt requiring Min A x2 for sit- stand from bed and Max x2 from chair. Daughter present for training but was unable to assist pt to full stand after several attempt with demonstration and cues for body mechanics. Pt may require SNF rehab to gain strength to improve activity tolerance for functional mobility. Goals Bed Mobility Goal Standby Assistance Transfer Goal Minimal Assistance,Front Wheeled Walker Gait Goal Minimal Assistance,Front Wheel Walker Gait Distance 25 Other Goals - improve transfers and gait to CGA with FWW Days to Meet Goals 10 Frequency of Treatment Frequency Of Treatment Twice a Day Treatment Plan Physical Therapy Treatment Plan Bed Mobility Training,Transfer Training,Gait Training, Therapeutic Exercise,Balance Retraining,Discharge Planning, Hot or Cold Pack,Neuromuscular Re-ed Other Recommendations and Next Treatment transfers, ambulation as able. Focus Precautions Other Precautions -PWB LLE -trochanteric precautions left hip - no abduction Recommendations To Nursing Amount of Assist Needed 2 Person Assist Discharge Recommendations PT Discharge Recommendations Home with 24/7 Assist Available,Home Health,SNF Rehab Other Discharge Recommendations SNF vs home with 24/7 and HH Equipment Needed for Home Before wheelchair, BSC, hospital bed Discharge Transportation Needs at Discharge Wheelchair/Cabulance
--- NOTE | 2020-10-06 12:43 | PC.NURSE ---
Pt rouses easily, offers no overt c/o presently. As noted Pt does have multiple bruising, skin tears, Fx Left sided bruising. Elbow covered with dressing as well as hand wrapped. RLE discoloured dark, brown 2+ edema. pulses intact. Pt has been up with PT OT and daughter for caregiver training. Pt appears comfortable while up and engaged in conversation regarding home care. Report given to Yaritza ESCALONA
--- NOTE | 2020-10-06 13:19 | CM.DPC ---
Addendum entered by Courtney Saenz LPN 10/07/20 11:48: At end of day 10/06 [facility] confirmed that admission status had now been changed to INPT: as of 10/06. Original Note: DCP: continued: case received this morning and have been following up on d/c planning issues and options throughout the day. NOTED: pt did admit on 10/04 with OBS status confirmed by UR RN team at that time and remains OBS today/10/06. [facility] is reviewing and has discussed same with Dr. Trejo. Did speak with Destiney/[facility] admissions: she confirmed that pt has been accepted pending readiness of d/c. She explained the Medicare COVID waiver process: She stated that [facility] had the knowledge and ability to provide needed documentation to the state so that pt could access her snf benefit while still not meeting the 3 day hospital inpt guidelines. She noted that the presence of COVID patients at any one time in the hospital did not determine this criteria need. She added that all that was needed was a note in the dcplanning notes that the hospital desired to move patients to next level of care as soon as appropriate in order to have open beds in event of a sudden surge of COVID patients. Will send on these notes as well as updates to [facility] today. Also spoke in the morning with pt and her daugher Calista Oscar who arrived from [place] last night and has been at the bedside all day. Pt expressed her strong desire to go home at d/c and Calista was supportive of this plan and said she was here for caregiver training. Discussed option of HH RN/PT/OT/DOCUMENT IMAGING SPECIALIST to add to the support for the home plan and both were very agreeable to same. Referral given to [facility] after Medicare agency choice discussion. (pt had [facility] in past). Dr. Trejo signed the Face/Face document. He also confimed that pt would not be discharging today. [facility] and [facility] were both updated on pt's preference...agreed to hold the referral in case of need. PT and OT have been working with pt and daughter on caregiver training since then. a check in just now with pt, Calista and OT/KYLIE and observation of part of the treatment session reveals that pt continues with her strong desire for home but is physically very weak, have poor upper extremity strength and is currently needing heavy assist of 2 to help pt from chair to bedside commode and back. At this point daughter is expressing concerns that pt may not be safe initially for the home setting. She is worried about the fragility of her mother's skin as well as potential for injury if one person is assisting her. OT agreed and stated that more would be known tomorrow as the therapy and caregiver training continue. Have updated Destiney/[facility] to keep this as a plan B. Have also provided Calista poole on Care E Me w/c [employer] at recommendation of the therapy team as this will be the safest way for pt to tranport home. P: will be following closely...at this point: [facility] under Medicare/COVID waiver status vs home with daughter and [facility] services.
--- NOTE | 2020-10-06 13:22 | OT.IP.TRT ---
Occupational Therapy Treatment Note M2 OT-IP Current Condition Start: 10/05/20 12:26 Freq: Status: Active Protocol: Document 10/05/20 10:33 [facility] (Rec: 10/05/20 12:54 [facility] [id number]) Occupational Therapy Current Condition Current Condition Evaluation Date 10/05/20 Treatment Diagnosis Non-displaced left greater trochanteric fx Diagnosis Onset Date 10/04/20 Weight Bearing Status Weight Bearing Status Non-Weight Bearing Allowed Weight Bearing Amount (enter % Pt to be NWB LLE for now or #) (%) pending results of further x- rays. NO abduction and no side to side movements. M3 OT- IP Subjective and Pain Start: 10/05/20 12:26 Freq: Status: Active Protocol: Document 10/06/20 14:12 CGR (Rec: 10/06/20 14:33 CGR [id number]) OT- Subjective Occupational Therapy Visit Type Type Progress Note Visit Start Time 11:29 Visit Stop Time 13:22 Total Visit Minutes 113 Notes Partial co-treat with P.T. OT Pain Assessment Pain When Pain Assessed During Mobility Pain Present Pain Present Pain Reported Location Left leg Scale Used did not rate Description Sharp Management Techniques Distraction,Modification of Treatment,Re-positioning M4 OT- IP ADL's Start: 10/05/20 12:26 Freq: Status: Active Protocol: Document 10/06/20 14:12 CGR (Rec: 10/06/20 14:33 CGR [id number]) OT [id number] Comments OT Self-Feeding Comments Not meal time OT ADL-Grooming Comments OT Grooming Comments Not performed OT ADL-Oral Care Comments Oral Care Comments Not performed OT ADL-Dressing General Eval Lower Body Dressing Ability Total Assistance Areas Needing Assistance Socks Comments OT Dressing Comments laying in bed OT ADL-Toileting General Evaluation Toileting Ability Minimal Assistance Devices Toileting Assistive Devices Commode Comments OT Toileting Comments for front pericare seated on BSC. Pt wearing hospital gown without brief. OT ADL-Bathing Comments OT Bathing Comments Not performed M5 OT- IP IADL's Start: 10/05/20 12:26 Freq: Status: Active Protocol: Document 10/05/20 10:33 [facility] (Rec: 10/05/20 12:54 [facility] [id number]) OT-Instrumental Activities of Daily Living Deficits IADL Deficits Identified Deficits Home Safety Awareness Home Safety Comments Due to pt's mobility, will require 1-2 person assist for all Ald and functional mobility needs at this time. Medication Management Medication Management No Deficits Identified Money Management Money Management No Deficits Identified Meal Preparation Meal Preparation Comments Pt's daughter planning to come and stay with her to assist for two weeks. Auto Body Repairman Auto Body Repairman Comments Pt's daughter planning to come and stay with her to assist for two weeks. M6 OT- IP Functional Cognition Start: 10/05/20 12:26 Freq: Status: Active Protocol: Document 10/06/20 14:12 CGR (Rec: 10/06/20 14:33 CGR [id number]) Cognitive Factors Limiting Selfcare Function Cognitive Ability Level of Alertness Alert Patient Orientation Name,Age,Birthday,Month,Date, Year,Day of Week,Place, Situation Attention Span Ability Capable of Focused Attention, Capable of Sustained Attention Ability to Follow Commands Able to Follow One Step Commands with Increased Time, Able to Follow One Step Commands with Repetition Safety Awareness Underestimates Need for Assistance Cognitive Comments Cognitive Assessment Comments Pt needs assist with problem solving home safety and needing assist once home. Pt appears more realistic after session. M7 OT- IP Mobility and Balance Start: 10/05/20 12:26 Freq: Status: Active Protocol: Document 10/06/20 14:12 CGR (Rec: 10/06/20 14:33 CGR [id number]) OT- Bed Mobility Assessment Supine to Sit Supine to Sit Assist Moderate Assistance,Maximum Assistance,1 Person Assistance Scooting Scooting to Edge of Bed Moderate Assistance,Maximum Assistance,1 Person Assistance OT-Transfer Assessment Sit to and From Stand Sit to and from Stand Minimal Assistance,Moderate Assistance,Maximum Assistance, 1 Person Assistance,2 Person Assistance Transfers Transfer Ability Minimal Assistance,1 Person Assistance,2 Person Assistance Technique Transfer Destination Bed,Bedside Commode,Chair Transfer Technique Stand Step Pivot Devices Transfer Assistive Devices Gait Belt,Front Wheeled Walker Comments Mobility Comments Pt needing min to mod to max for sit to stand depending on height of the surface. Pt is progressing with therapy but fatigues quickly. Family training provided and pt's daughter is unable to get pt into standing from sitting position at this time. OT- Gait Assessment Gait Gait Assistance Required: Contact Guard Assist Assistive Devices Assistive Device Gait Belt,Front Wheeled Walker Comments Gait Ability Comments CGA for mobility but needs max vc for sequencing. OT- Balance Assessment Sitting Balance and Reactions Static Sitting Balance Ability Fair Dynamic Sitting Balance Ability Fair M8 OT- IP Objective Assessments Start: 10/05/20 12:26 Freq: Status: Active Protocol: Document 10/05/20 10:33 [facility] (Rec: 10/05/20 12:54 CCC [id number]) OT Gross Range of Motion Upper Extremity Range of Motion Assessment Bilaterally Impaired OT Strength Comments Strength Comments BUE from elbow to distal 4/5 to 4-/5. OT- Coordination Assessment Comments Coordination Comments Arthritic changes in hands and needing assist to open items for grooming needs. OT-Muscle Tone Assessment Muscle Tone WNL Yes M9 OT- IP Assessment and Plan Start: 10/05/20 12:26 Freq: Status: Active Protocol: Document 10/06/20 14:12 CGR (Rec: 10/06/20 14:33 CGR [id number]) OT Summary Assessment and Plan Potential Rehabilitation Potential Good Analytic Complexity at Evaluation Low Summary OT Impairments Pain,Strength,Balance, Coordination,Functional Cognition,Functional Mobility, Grooming,Dressing,Toileting, Bathing,Toilet Transfers, Shower Transfers,Activity Tolerance Progress Towards Goals Slow Progress due to Pain,Slow Progress due to Medical Issues,Slow Progress due to Activity Tolerance,Slow Progress due to Cognition Assessment Summary Pt tolerated extended session well today. NWB has been changed to PWB per MD note and updated order in the chart. Pt tolerated session well but fatigues quickly. Pt is unable to get into standing with daughters assist on this date. Pt performed bed mobility, gait training, BSC transfers, and discussed at length at home needs for a home discharge. Pt will continue to benefit from OT services. At this time recommendation is for SNF as pt's daughter is unable to get into standing. Goals Grooming Goal Independent Dressing Goal Independent Toileting Goal Independent Bathing Goal Independent Toilet Transfer Goal Independent Shower Transfer Goal Independent Patient/Caregiver Education Goal Demonstrate Post-Op Precautions Days to Meet Goals 20 Frequency of Treatment Frequency Of Treatment Once a Day Treatment Plan OT Treatment Plan ADL Training,Functional Cognition Training,Functional Mobility,Patient/Family Education,Discharge Planning Other Treatment Recommendations and Next Transfer to [facility] with MODA X 2 Treatment Focus and FWW. Discharge Recommendations OT Discharge Recommendations SNF Rehab Transportation Needs at Discharge Wheelchair/Cabulance
[2020-10-06] MEDS: METOPROLOL IR 50 MG TABLET PO ×2 (14:48→21:14)
--- NOTE | 2020-10-06 15:02 | PT-IP ANOTE ---
Pt refused stating she is comfortable in the chair right now and doesn't think she has the strength to transfer back to bed. Nursing will get pt back to bed with esther when pt is ready to return to bed. Call into Dr. Vo to clarify pt's PWB status and awaiting call back.
[2020-10-06] MEDS: ACETAMINOPHEN 325 MG TABLET 650 MG PO (19:02)
--- NOTE | 2020-10-06 19:15 | PC.NURSE ---
Addendum entered by Jenn Willett R.N. 10/06/20 23:38: No scd's on pt. Worklist order DVT prophylaxis contraindicated. Pt is on eliquis. Addendum entered by Jenn Willett R.N. 10/06/20 21:20: Noted pt's allevyn dressing to left foot is moist and becoming loosened around the adhesive edges. Blood present on pt's sock covering toes. Once pt returned to bed, roni wrap was removed. ABD pad to left knee has old blood so this was gently removed to reveal sutures to left knee. Large bandaid in place to left posterior calf. Pt does c/o left calf pain, but Akira's sign is negative and pt reports this pain improves with position change. Left top of foot is swollen with purple bruising to skin. Open area near toes weeping serosang fluid. Cleansed with normal saline and dried after removing old dressing. Xeroform strips placed along left foot open areas and allevyn foam dressing placed. LLE wrapped in roni wraps x 2. Pt tolerated well. Denies need to void. States voids infrequently and will notify staff when this assistance is needed. Original Note: Pt up in recliner since beginning of shift. Pt's daughter has visited this evening. Pt admits to pain left hip and was medicated with tylenol and vicodin. Admits to venous insufficiency and pt's toes BL are cold to touch. Palpable pedal pulse right foot, but unable to palpate left foot d/t roni wrap with dressings underneath. Tele dc'd per Dr. Trejo as is aware pt is without iv access. Two staff members to assist pt into bed per request.
[2020-10-06] MEDS: PRIMIDONE 50 MG TABLET 75 MG PO (21:14)
[2020-10-06] MEDS: SENNOSIDES 8.6 MG TABLET 17.2 MG PO (21:15)
[2020-10-06] MEDS: ROPINIROLE 0.25 MG TABLET 0.5 MG PO (21:15)
[2020-10-07] VITALS (11 sets, daily range): BP systolic 110–144; BP diastolic 43–83; PULSE 56–94; RESP 14–18; TEMP 36.2–36.9; O2SAT 94–97
[2020-10-07 05:33] LABS: Add Manual Diff / Slide Review NO; Basophils Absolute Auto 0 /uL (0-100); Basophils Percent Auto 0.8 % (0-2); Eosinophils Absolute Auto 100 /uL (0-450); Hematocrit 29.7 % (36-46); Hemoglobin 9.8 g/dL (12.0-16.0); Lymphocytes Absolute Auto 1200 /uL (1100-4500); Lymphocytes Percent Auto 20.6 % (25-40); Mean Corpuscular HGB Conc 32.9 % (30-36); Mean Corpuscular Volume 100.4 fL (80-100); Monocytes Absolute Auto 1000 /uL (0-900); Monocytes Percent Auto 18.4 % (3-14); Neutrophils Absolute Auto 3300 /uL (1500-7000); Neutrophils Percent Auto 58.2 % (50-75); Platelet Count 179 X10^3/uL (150-400); Red Blood Cell Count 2.96 X10^6/uL (4.0-5.2); Red Cell Distribution Width 14.5 % (11.6-14.8); White Blood Cell Count 5.7 X10^3/uL (4.5-11.0)
[2020-10-07 05:47] LABS: HEMOLYSIS < 15 (0-50)
[2020-10-07 05:48] LABS: BUN Creatinine Ratio 28.1 (6-22); Blood Urea Nitrogen 18 mg/dL (7-17); Calcium 8.9 mg/dL (8.4-10.2); Carbon Dioxide 28 mmol/L (22-32); Chloride 103 mmol/L (98-107); Estimated Glomerular Filt Rate > 60.0 mL/min (>60); Glucose 95 mg/dL (80-110); Sodium 135 mmol/L (137-145)
[2020-10-07] MEDS: APIXABAN 5 MG TABLET 2.5 MG PO ×2 (08:32→20:11)
[2020-10-07] MEDS: GABAPENTIN 100 MG CAPSULE PO ×2 (08:33→20:11)
[2020-10-07] MEDS: CARBIDOPA-LEVODOPA ER 50/200 TABLET 1 EACH PO ×3 (08:33→20:12)
[2020-10-07] MEDS: SPIRONOLACTONE 25 MG TABLET PO (08:33)
[2020-10-07] MEDS: DOCUSATE 100 MG CAPSULE PO ×2 (08:33→20:11)
[2020-10-07] MEDS: METOPROLOL IR 50 MG TABLET PO ×2 (08:33→20:12)
[2020-10-07] MEDS: SODIUM CHLORIDE 0.9% FLUSH 10 ML IV (08:34)
--- NOTE | 2020-10-07 09:38 | PT.IPTN ---
Physical Therapy Treatment Note M2 PT-IP Current Condition Start: 10/05/20 08:29 Freq: NEEDED Status: Active Protocol: Document 10/05/20 11:13 AW (Rec: 10/05/20 11:51 AW [id number]) Physical Therapy Current Condition Current Condition Evaluation Date 10/05/20 Treatment Diagnosis minimally displaced greater troch fracture; difficulty in walking Onset Date 10/04/20 Precautions Other Precautions -nonweightbearing left lower extremity -trochanteric precautions left hip - no abduction Weight Bearing Status Weight Bearing Status Non-Weight Bearing Allowed Weight Bearing Amount (enter % NWB LLE - may be upgraded or #) (%) depending on x-rays of foot, ankle, and knee M3 PT-IP Subjective Start: 10/05/20 08:29 Freq: NEEDED Status: Active Protocol: Document 10/07/20 09:38 AB (Rec: 10/07/20 12:33 AB [email or web address]) Subjective Physical Therapy Visit Type Type Treatment Note Visit Start Time 09:38 Visit Stop Time 10:32 Total Visit Minutes 54 Notes Talked to PA this morning for clarification regarding PWB on LLE. PA stated that pt is PWB of less than 50% Number of LOG SNAKER Visits 0 Physical Therapy Visit Comments Patient Comments pt is agreeable to do PT Therapy Pain Assessment Pain When Pain Assessed At Rest Pain Present Pain Present Pain Reported Location Left leg Scale Used pain scale not stated Pain Management Techniques Elevation,Modification of Treatment,Re-positioning, Timing of Activity with Medications M4 PT-IP Mobility and Gait Start: 10/05/20 08:29 Freq: NEEDED Status: Active Protocol: Document 10/07/20 09:38 AB (Rec: 10/07/20 12:33 AB [email or web address]) PT-Bed Mobility Assessment Supine to Sit Supine to Sit Maximum Assistance Scooting Scooting to Edge of Bed Moderate Assistance PT-Transfer Assessment Sit to and From Stand Sit to and from Stand Maximum Assistance,1 Person Assistance,Use of Upper Extremities Equipment Transfer Assistive Device Front Wheeled Walker Orthotic/Prosthetic Devices or Brace: No Transfers Transfer Destination Chair Transfer Technique slide board transfer Transfer Ability Level of Assist Moderate Assistance,Maximum Assistance,1 Person Assistance ,Use of Upper Extremities Comments Mobility Comments educated pt on hip precautions and weight bearing restriction on LLE. daughter in room with pt and still wants to take pt home and stated that her other sister from [facility] will be coming in by to also assist pt. daughter stated that they have a bedside commode, w/c and slide board. pt completed supine to sit max A and max cues. pt was able to sit on EOB CGA and required mod A to scoot to EOB with max cues. completed sit to stand 2 attempts before pt was able to stand max A and max cues. required assist to maintain weight bearing restriction. per ortho PA: pt will be PWB LLE <50%. educated pt on <50% PWB but instructed pt to do NWB if not able to maintain less than 50 %PWB. pt understood and agreed . pt was able to stand for ~ 10 sec and sat backdown. completed sit to stand again but pt is pushing more with LLE to stand and was twisting and instructed to just sit down. educated pt and daughter on how to do slide board transfer . pt completed slide board transfer mod to max A and max cues. positioned pt on chair. call light and table placed within reach. informed pt and daughter regarding SNF recommendation, benefits and risks. Gait Assessment Comments Gait Comments unable M5 PT-IP Objective Assessments Start: 10/05/20 08:29 Freq: NEEDED Status: Active Protocol: Document 10/05/20 11:13 AW (Rec: 10/05/20 12:09 AW [id number]) Orientation Orientation/Cognition Level of Alertness Alert Orientation Name,Day of Week,Place, Situation Language Function Ability No Deficits Noted Safety Awareness Understands Safety Issues Memory Description No Deficits Noted Gross Range of Motion Upper Extremity ROM Assessment Within Functional Limits Lower Extremity ROM Assessment Left Impaired Strength Upper Extremity Strength Assessment Within Functional Limits Lower Extremity Strength Assessment Right Impaired Hip 3-/5 Knee 3/5 Comments Strength Comments RLE grossly 4/5 Sensation Assessment Sensation Gross Sensation WNL Muscle Tone Muscle Tone WNL Yes M6 PT-IP Treatment Start: 10/05/20 08:29 Freq: NEEDED Status: Active Protocol: Document 10/07/20 09:38 AB (Rec: 10/07/20 12:33 AB [email or web address]) Physical Therapy Treatment Education Education Provided Precautions,Weight Bearing Status,Safety M7 PT-IP Assessment and Plan Start: 10/05/20 08:29 Freq: NEEDED Status: Active Protocol: Document 10/07/20 09:38 AB (Rec: 10/07/20 12:33 AB [email or web address]) PT Summary Assessment and Plan Potential Rehabilitation Potential Fair Summary Impairments Pain,ROM,Strength,Balance, Coordination,Sensation,Tone, Cognition,Bed Mobility, Transfers,Gait,Activity Tolerance Progress Towards Goals Slow Progress due to Medical Issues,Slow Progress due to Activity Tolerance Assessment Summary pt continues to require max A with mobility. educated pt and daughter regarding slide board transfer and will conduct further training. pt is unable to maintain <50% PWB on LLE and requires max A and max cues. pt stated that she has bad shoulders and unable to use much of her UE for support. will continue to assess progress. pt will need SNF rehab to improve mobility and independence. Goals Bed Mobility Goal Minimal Assistance Transfer Goal Minimal Assistance Gait Goal Minimal Assistance,Front Wheel Walker Gait Distance 25 Days to Meet Goals 10 Frequency of Treatment Frequency Of Treatment Twice a Day Treatment Plan Physical Therapy Treatment Plan Bed Mobility Training,Transfer Training,Gait Training, Therapeutic Exercise,Balance Retraining,Discharge Planning, Hot or Cold Pack,Neuromuscular Re-ed Other Recommendations and Next Treatment transfers, caregiver training Focus Precautions Other Precautions -PWB <50% LLE (per PA 10/07/20 ) -trochanteric precautions left hip - no abduction Recommendations To Nursing Amount of Assist Needed Mechanical Lift Discharge Recommendations PT Discharge Recommendations SNF Rehab Transportation Needs at Discharge Wheelchair/Cabulance
--- NOTE | 2020-10-07 12:17 | CM.DPC ---
Addendum entered by Courtney Saenz LPN 10/07/20 12:51: Have spoken to [facility]. They are aware of the snf plan now and will followup with the facility in case of post snf d/c need. Original Note: DCP: continued: Case discussed in Team Rounds and met now with pt's daughter Calista outside of room (as pt in process of toileting). Calista says it has become very clear to her that ,even with the plan now in place for her sister to arrive here from her home in [facility], her mother could not be managed safely in the home setting. She very much agrees with the recommendation from the therapists that snf stay is best before attempting home with family and HH. She says she and her sister are aware that her mother will likely benefit from an JUNIOR setting in the future and that her mother has been considering this for about 2 years. Will give her the [employer] Resource Guide/2020 that has SENIOR CARE resources. Calista also confirms that her mother's snf preference is the [facility] and they have been holding this referral as the d/c dispo issues have unfolded. Dr. Trejo joined the conversation. He stated that pt would be ready for a d/c on Monday 10/09 and he was meeting with pt next to discuss this. Have now updated Dee navarrete the d/c plan. Pt should be able to go via w/c van. Will plan to update pt today when her daughter in not in room (at daughter's request.) P: at this time: d/c to [facility] Monday 10/09 under her Medicare snf benefit. Rapid Covid test will be needed within 24 hours of d/c. PASRR: completed by RN Casandra..will be reviewed at d/c per protocol.
--- NOTE | 2020-10-07 12:48 | P.PN_ITS ---
Subjective Subjective Date Patient Seen: 10/07/20 Time Patient Seen: 12:49 Interval history: This is an 85-year-old female with a past medical history of Parkinson's disease, paroxysmal atrial fibrillation, unknown cardiovascular disease and history of seizure who presented after mechanical ground level fall resulting in a pathologic left nondisplaced greater trochanteric fracture. The patient was seen by Orthopedic surgery today and is partial weight-bearing on her left lower extremity, but management is non operative of her nondisplaced left greater trochanteric fracture. The patient states that her pain is controlled today with oxycodone, but still has a lot of pain with movement. She was seen by PT and requires significant assistance due to her current partial weight bearing status on her left side as a result of her fracture and continued pain with movement. She was changed to inpatient status, and is currently pending SNF placement planned for friday. Exam Vital Signs (past 8 hours): - 10/07/20 08:00 10/07/20 09:43 10/07/20 12:00 Temperature 98.1 F 98.3 F Pulse Rate 94 H 56 L Respiratory Rate 14 16 Blood Pressure 140/43 L 110/60 Pulse Oximetry 94 94 95 Oxygen Delivery Method Room Air Oxygen Flow Rate 0 Narrative Exam Narrative: General: Patient is a well-developed, well-nourished in no distress at this time. HEENT: Normocephalic, bruising present to bilateral eyelids extraocular muscles intact, oral pharynx is clear and mucous membranes are moist. Neck is supple and symmetric, trachea is midline, no adenopathy, no thyroid enlargement, nonten evgeny, no masses palpated. Negative for JVD Chest: Normal AP diameter and contour without kyphoscoliosis, no nasal flaring, retractions, or tachypneic labored Lungs: Auscultation of all lung moody are clear without adventitious sounds, wheezes, rhonchi, or rales. Cardio: S1 & S2 with regular rate and rhythm without murmur, rubs, or gallops, no carotid bruit, no cardiac pulsations present. Abdomen: Soft nontender, negative for organomegaly, or masses. Bowel sounds are present in all 4 quadrants without guarding or rebound, no CVA tenderness. Musculoskeletal: L hip tenderness, also mild swelling of L knee and foot. Ecchymosis near her L hip, will continue to monitor. Skin: Patient has road rash type abrasions to left shoulder stretching around to her back, left elbow has a large abrasion bloody drainage, patient has a 9 cm laceration to the left knee, with 8 sutures placed in the ED bandage present, her skin shows no signs of erythema inflammation or warmth suggestive of infection. Neuro: Alert and orientated x3, strength is +5/5 in all extremities on the right, sensation to touch intact, no gross deficits noted of cranial nerves. Psych: Patient has a well-kept appearance, appropriate affect, mental status attitude thought context and judgment are appropriate for age. Objective Labs Result Diagrams: 10/07/20 05:16 10/07/20 05:16 Labs: Laboratory Results - last 24 hr 10/07/20 10/07/20 05:16 05:16 WBC 5.7 RBC 2.96 L Hgb 9.8 L Hct 29.7 L MCV 100.4 H MCH 33.0 MCHC 32.9 RDW 14.5 Plt Count 179 Neut % (Auto) 58.2 Lymph % (Auto) 20.6 L [place] % (Auto) 18.4 H Eos % (Auto) 2.0 Baso % (Auto) 0.8 Neut # (Auto) 3300 Lymph # (Auto) 1200 [place] # (Auto) 1000 H Eos # (Auto) 100 Baso # (Auto) 0 Sodium 135 L Potassium 4.0 Chloride 103 Carbon Dioxide 28 BUN 18 H Creatinine 0.64 Estimated GFR > 60.0 BUN/Creatinine Ratio 28.1 H Glucose 95 Calcium 8.9 PFSH Medical History Ascending aortic aneurysm B12 deficiency Breast implant status Cerebrovascular disease Hepatic steatosis Hyperlipidemia Hypertension Osteoarthritis Paralysis of left vocal fold Parkinson disease Paroxysmal atrial fibrillation 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) Transient ischemic attack Tremor Surgical History H/O hysterectomy with oophorectomy History of total left hip arthroplasty History of total right hip arthroplasty History of total right knee replacement S/P ascending aortic aneurysm repair S/P closed reduction of dislocated total hip prosthesis S/P Mohs surgery for basal cell carcinoma Family History Mother Dementia Coronary artery disease Father Diabetes mellitus Social History number of children: 2 household members: none occupational status: previously employed 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 1. Nondisplaced left greater trochanteric fracture with associated hemorrhage into the left trochanteric bursa secondary to ground level fall, with left knee laceration acute, present on admission -fall was mechanical in nature. Pathologic secondary to likely osteoporosis given nature of her fall. -ortho was consulted in ED-Dr. Vo. Appreciate his time and recommendations. Currently partial weight bearing with precautions as noted in his documentation. outpatient follow up in 2 weeks recommended. - Pelvis CT:Nondisplaced left greater trochanteric fracture with associated hemorrhage into the left trochanteric bursa, however pain is controlled today and seen by orthopedic surgery, safe to resume home apixaban at this time. - continue PT/OT. work on pain control which will try before therapies today. - XR of her knee, ankle and foot are without acute fracture. There is chronic appearing changes of her great toe, no concern for osteomyelitis clinically at this time. - will contine to monitor cbc and ecchymosis on exam. Hg has stabilized today. 2. Paroxysmal atrial fibrillation, chronic, not present on admission, rate controlled -continue patient's Eliquis 2.5 mg p.o. b.i.d. and metoprolol 3. Parkinson's, acute on chronic, present on admission -continue patient's carbidopa/levodopa and Ropinirole 4. 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 5. Cardiovascular disease, chronic, not present on admission, stability unknown -continue patient's spirolactone Code status: Comfort measures only/DNR Surrogate decision maker: Calista Oscar daughter, patient has an Advance directive COVID PCR negative DVT: on eliquis which will be continued. Dispo: plan is for SNF in 2 days.
[2020-10-07] MEDS: HYDROCODONE/ACET 5/325 TABLET 1 TAB PO (14:17)
--- NOTE | 2020-10-07 14:31 | PT.IPTN ---
Current Diagnoses Displaced fracture of greater trochanter of left femur, initial encounter for closed fracture (10/06/20) Physical Therapy Treatment Note M2 PT-IP Current Condition Start: 10/05/20 08:29 Freq: NEEDED Status: Active Protocol: Document 10/05/20 11:13 AW (Rec: 10/05/20 11:51 AW [id number]) Physical Therapy Current Condition Current Condition Evaluation Date 10/05/20 Treatment Diagnosis minimally displaced greater troch fracture; difficulty in walking Onset Date 10/04/20 Precautions Other Precautions -nonweightbearing left lower extremity -trochanteric precautions left hip - no abduction Weight Bearing Status Weight Bearing Status Non-Weight Bearing Allowed Weight Bearing Amount (enter % NWB LLE - may be upgraded or #) (%) depending on x-rays of foot, ankle, and knee M3 PT-IP Subjective Start: 10/05/20 08:29 Freq: NEEDED Status: Active Protocol: Document 10/07/20 14:31 AB (Rec: 10/07/20 16:59 AB [email or web address]) Subjective Physical Therapy Visit Type Type Treatment Note Visit Start Time 14:31 Visit Stop Time 15:08 Total Visit Minutes 37 Number of [facility] NURSE STAFF Visits 0 Physical Therapy Visit Comments Patient Comments pt is agreeable to do PT Therapy Pain Assessment Pain When Pain Assessed At Rest Location Left Hip Scale Used pain scale not stated but said that pain is not too bad Pain Management Techniques Distraction,Modification of Treatment,Re-positioning, Timing of Activity with Medications M4 PT-IP Mobility and Gait Start: 10/05/20 08:29 Freq: NEEDED Status: Active Protocol: Document 10/07/20 14:31 AB (Rec: 10/07/20 16:59 AB [id number]) PT-Bed Mobility Assessment Supine to Sit Supine to Sit Maximum Assistance Sit to Supine Sit to Supine Maximum Assistance Scooting Scooting to Edge of Bed Maximum Assistance PT-Transfer Assessment Equipment Transfer Assistive Device Gait Belt Orthotic/Prosthetic Devices or Brace: No Transfers Transfer Destination Bedside Commode Transfer Technique slide board transfer Transfer Ability Level of Assist Maximum Assistance,1 Person Assistance,Use of Upper Extremities Comments Mobility Comments pt able to move LE to the EOB but requires cues for directions and techniques but required max A to bring trunk upright. pt was able to sit on EOB SBA after repositioning . agreed to use the bedside commode. required max A for slide board set up. instructed pt for scooting transfer with slide board and to not push down on LLE. pt completed slide board transfer max A and required assist with LLE to maintain weight bearing restriction. pt requested to go back to bed after use of bedside commode. able to scoot sideways towards HOB max A to maintain weight bearing restriction but able to push with BUE from the bed and lateral scoot. pt completed sit to supine max A for LE elevation. positioned pt in bed. call light and table placed within reach. M5 PT-IP Objective Assessments Start: 10/05/20 08:29 Freq: NEEDED Status: Active Protocol: Document 10/05/20 11:13 AW (Rec: 10/05/20 12:09 AW [id number]) Orientation Orientation/Cognition Level of Alertness Alert Orientation Name,Day of Week,Place, Situation Language Function Ability No Deficits Noted Safety Awareness Understands Safety Issues Memory Description No Deficits Noted Gross Range of Motion Upper Extremity ROM Assessment Within Functional Limits Lower Extremity ROM Assessment Left Impaired Strength Upper Extremity Strength Assessment Within Functional Limits Lower Extremity Strength Assessment Right Impaired Hip 3-/5 Knee 3/5 Comments Strength Comments RLE grossly 4/5 Sensation Assessment Sensation Gross Sensation WNL Muscle Tone Muscle Tone WNL Yes M6 PT-IP Treatment Start: 10/05/20 08:29 Freq: NEEDED Status: Active Protocol: Document 10/07/20 14:31 AB (Rec: 10/07/20 16:59 AB [id number]) Physical Therapy Treatment Education Education Provided Precautions,Weight Bearing Status,Safety M7 PT-IP Assessment and Plan Start: 10/05/20 08:29 Freq: NEEDED Status: Active Protocol: Document 10/07/20 14:31 AB (Rec: 10/07/20 16:59 AB [id number]) PT Summary Assessment and Plan Potential Rehabilitation Potential Good Summary Impairments Pain,ROM,Strength,Balance, Coordination,Sensation,Tone, Cognition,Bed Mobility, Transfers,Gait,Activity Tolerance Progress Towards Goals Slow Progress due to Medical Issues,Slow Progress due to Activity Tolerance Assessment Summary pt continues to require max A with mobility but improving with scooting and steadiness with slide board transfer. pt continues to require assist to maintain weight bearing restriction and max cues. pt will require SNF rehab to improve strength and functional independence. Goals Bed Mobility Goal Minimal Assistance Transfer Goal Minimal Assistance,Front Wheeled Walker,Slide Board Gait Goal Minimal Assistance,Front Wheel Walker Gait Distance 25 Days to Meet Goals 10 Frequency of Treatment Frequency Of Treatment Twice a Day Treatment Plan Physical Therapy Treatment Plan Bed Mobility Training,Transfer Training,Gait Training, Therapeutic Exercise,Balance Retraining,Post Op Education, Discharge Planning,Hot or Cold Pack,Neuromuscular Re-ed, Coordination Retraining,Manual Therapy Precautions Other Precautions L trochanteric precaution: no abduction LLE PWB of less than 50% Recommendations To Nursing Amount of Assist Needed Mechanical Lift Discharge Recommendations PT Discharge Recommendations SNF Rehab Transportation Needs at Discharge Wheelchair/Cabulance
--- NOTE | 2020-10-07 15:04 | OT.IP.TRT ---
Occupational Therapy Treatment Note M2 OT-IP Current Condition Start: 10/05/20 12:26 Freq: Status: Active Protocol: Document 10/05/20 10:33 [facility] (Rec: 10/05/20 12:54 [facility] [id number]) Occupational Therapy Current Condition Current Condition Evaluation Date 10/05/20 Treatment Diagnosis Non-displaced left greater trochanteric fx Diagnosis Onset Date 10/04/20 Weight Bearing Status Weight Bearing Status Non-Weight Bearing Allowed Weight Bearing Amount (enter % Pt to be NWB LLE for now or #) (%) pending results of further x- rays. NO abduction and no side to side movements. M3 OT- IP Subjective and Pain Start: 10/05/20 12:26 Freq: Status: Active Protocol: Document 10/07/20 15:59 CGR (Rec: 10/07/20 16:08 CGR [id number]) OT- Subjective Occupational Therapy Visit Type Type Progress Note Visit Start Time 14:32 Visit Stop Time 15:04 Total Visit Minutes 32 Notes cotreat with pt Occupational Therapy Visit Comments Patient Comments I get very anxious thinking about doing this at home with my daughter said during bed mobility. OT Pain Assessment Pain When Pain Assessed During Mobility Pain Present Pain Present Pain Reported Location Left leg Intensity 7 Scale Used Numeric (0 - 10) Management Techniques Distraction,Modification of Treatment,Re-positioning, Timing of Activity with Medications M4 OT- IP ADL's Start: 10/05/20 12:26 Freq: Status: Active Protocol: Document 10/07/20 15:59 CGR (Rec: 10/07/20 16:08 CGR [id number]) OT [id number] Comments OT Self-Feeding Comments not meal time OT ADL-Grooming General Evaluation Grooming Ability Maximum Assistance Areas Needing Assistance Combing/Brushing Hair Comments OT Grooming Comments performed for pt OT ADL-Oral Care Comments Oral Care Comments not performed OT ADL-Dressing General Eval Lower Body Dressing Ability Total Assistance Areas Needing Assistance Socks OT ADL-Toileting General Evaluation Toileting Ability Standby Assistance Comments OT Toileting Comments pt was able to perform front pericare seated on BSC OT ADL-Bathing Comments OT Bathing Comments not performed M5 OT- IP IADL's Start: 10/05/20 12:26 Freq: Status: Active Protocol: Document 10/05/20 10:33 [facility] (Rec: 10/05/20 12:54 [facility] [id number]) OT-Instrumental Activities of Daily Living Deficits IADL Deficits Identified Deficits Home Safety Awareness Home Safety Comments Due to pt's mobility, will require 1-2 person assist for all Ald and functional mobility needs at this time. Medication Management Medication Management No Deficits Identified Money Management Money Management No Deficits Identified Meal Preparation Meal Preparation Comments Pt's daughter planning to come and stay with her to assist for two weeks. 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 M6 OT- IP Functional Cognition Start: 10/05/20 12:26 Freq: Status: Active Protocol: Document 10/06/20 14:12 CGR (Rec: 10/06/20 14:33 R [id number]) Cognitive Factors Limiting Selfcare Function Cognitive Ability Level of Alertness Alert Patient Orientation Name,Age,Birthday,Month,Date, Year,Day of Week,Place, Situation Attention Span Ability Capable of Focused Attention, Capable of Sustained Attention Ability to Follow Commands Able to Follow One Step Commands with Increased Time, Able to Follow One Step Commands with Repetition Safety Awareness Underestimates Need for Assistance Cognitive Comments Cognitive Assessment Comments Pt needs assist with problem solving home safety and needing assist once home. Pt appears more realistic after session. M7 OT- IP Mobility and Balance Start: 10/05/20 12:26 Freq: Status: Active Protocol: Document 10/07/20 15:59 CGR (Rec: 10/07/20 16:08 CGR [id number]) OT- Bed Mobility Assessment Supine to Sit Supine to Sit Assist Maximum Assistance Sit to Supine Sit to Supine Assist Maximum Assistance Scooting Scooting to Edge of Bed Contact Guard Assistance OT-Transfer Assessment Transfers Transfer Ability Maximum Assistance,1 Person Assistance,2 Person Assistance Technique Transfer Destination Bed,Bedside Commode Transfer Technique Lateral Scoot Devices Transfer Assistive Devices Gait Belt,Front Wheeled Walker ,Sliding Board Comments Mobility Comments Pt was able to scoot to and from the BSC with max a x1 person assist for holding up the LLE and CGA to min a from the second person for scooting and hand placement. OT- Gait Assessment Comments Gait Ability Comments Did not occur OT- Balance Assessment Sitting Balance and Reactions Static Sitting Balance Ability Fair Dynamic Sitting Balance Ability Fair M8 OT- IP Objective Assessments Start: 10/05/20 12:26 Freq: Status: Active Protocol: Document 10/05/20 10:33 [facility] (Rec: 10/05/20 12:54 CCC [id number]) OT Gross Range of Motion Upper Extremity Range of Motion Assessment Bilaterally Impaired OT Strength Comments Strength Comments BUE from elbow to distal 4/5 to 4-/5. OT- Coordination Assessment Comments Coordination Comments Arthritic changes in hands and needing assist to open items for grooming needs. OT-Muscle Tone Assessment Muscle Tone WNL Yes M9 OT- IP Assessment and Plan Start: 10/05/20 12:26 Freq: Status: Active Protocol: Document 10/07/20 15:59 CGR (Rec: 10/07/20 16:08 CGR [id number]) OT Summary Assessment and Plan Potential Rehabilitation Potential Good Analytic Complexity at Evaluation Low Summary OT Impairments Pain,Strength,Balance, Coordination,Functional Cognition,Functional Mobility, Grooming,Dressing,Toileting, Bathing,Toilet Transfers, Shower Transfers,Activity Tolerance Progress Towards Goals Slow Progress due to Pain,Slow Progress due to Medical Issues,Slow Progress due to Activity Tolerance,Slow Progress due to Cognition Assessment Summary Pt tolerated sliding board transfer on this day with increased ability to perform bed mobility and to scoot to [facility] [place]. Pt is progressing with therapy but will continue to benefit from OT services. Recommendation at this time remains SNF. Pt and family appear to be agreeable to SNF given pt's current abilities. Goals Grooming Goal Independent Dressing Goal Independent Toileting Goal Independent Bathing Goal Independent Toilet Transfer Goal Independent Shower Transfer Goal Independent Patient/Caregiver Education Goal Demonstrate Post-Op Precautions Days to Meet Goals 20 Frequency of Treatment Frequency Of Treatment Once a Day Treatment Plan OT Treatment Plan ADL Training,Functional Cognition Training,Functional Mobility,Patient/Family Education,Discharge Planning Other Treatment Recommendations and Next Sliding board transfer with Treatment Focus mod x 1 to bSC Discharge Recommendations OT Discharge Recommendations SNF Rehab Transportation Needs at Discharge Wheelchair/Cabulance
[2020-10-07] MEDS: SENNOSIDES 8.6 MG TABLET 17.2 MG PO (20:11)
[2020-10-07] MEDS: PRIMIDONE 50 MG TABLET 75 MG PO (20:17)
[2020-10-07] MEDS: ROPINIROLE 0.25 MG TABLET 0.5 MG PO (20:18)
[2020-10-08] VITALS (13 sets, daily range): BP systolic 105–145; BP diastolic 52–88; PULSE 63–83; RESP 12–18; TEMP 36.1–36.8; O2SAT 95–98
[2020-10-08 05:37] LABS: Add Manual Diff / Slide Review NO; Basophils Absolute Auto 100 /uL (0-100); Basophils Percent Auto 0.9 % (0-2); Eosinophils Absolute Auto 100 /uL (0-450); Eosinophils Percent Auto 2.3 % (2-4); Hematocrit 29.6 % (36-46); Hemoglobin 9.9 g/dL (12.0-16.0); Lymphocytes Absolute Auto 1200 /uL (1100-4500); Lymphocytes Percent Auto 20.7 % (25-40); Mean Corpuscular HGB Conc 33.6 % (30-36); Mean Corpuscular Hemoglobin 33.5 PG (26-34); Mean Corpuscular Volume 99.6 fL (80-100); Monocytes Absolute Auto 1100 /uL (0-900); Monocytes Percent Auto 19.3 % (3-14); Neutrophils Absolute Auto 3300 /uL (1500-7000); Neutrophils Percent Auto 56.8 % (50-75); Platelet Count 196 X10^3/uL (150-400); Red Blood Cell Count 2.97 X10^6/uL (4.0-5.2); Red Cell Distribution Width 14.2 % (11.6-14.8); White Blood Cell Count 5.8 X10^3/uL (4.5-11.0)
[2020-10-08 05:44] LABS: BUN Creatinine Ratio 26.2 (6-22); Blood Urea Nitrogen 17 mg/dL (7-17); Carbon Dioxide 26 mmol/L (22-32); Chloride 103 mmol/L (98-107); Estimated Glomerular Filt Rate > 60.0 mL/min (>60); Glucose 93 mg/dL (80-110); HEMOLYSIS < 15 (0-50); Potassium 4.3 mmol/L (3.4-5.1); Sodium 136 mmol/L (137-145)
[2020-10-08] MEDS: DOCUSATE 100 MG CAPSULE PO ×2 (08:24→21:21)
[2020-10-08] MEDS: GABAPENTIN 100 MG CAPSULE PO ×2 (08:24→21:16)
[2020-10-08] MEDS: CARBIDOPA-LEVODOPA ER 50/200 TABLET 1 EACH PO ×3 (08:24→21:16)
[2020-10-08] MEDS: METOPROLOL IR 50 MG TABLET PO ×2 (08:24→21:21)
[2020-10-08] MEDS: SPIRONOLACTONE 25 MG TABLET PO (08:24)
[2020-10-08] MEDS: APIXABAN 5 MG TABLET 2.5 MG PO ×2 (08:25→21:16)
[2020-10-08] MEDS: BISACODYL 5 MG TABLET PO (09:25)
[2020-10-08] MEDS: polyethylene glycoL 3350 17 GM POWD.PACK PO (09:25)
[2020-10-08] MEDS: HYDROCODONE/ACET 5/325 TABLET 1 TAB PO (09:25)
--- NOTE | 2020-10-08 09:53 | P.PN_ITS ---
Subjective Subjective Date Patient Seen: 10/08/20 Time Patient Seen: 09:53 Interval history: This is an 85-year-old female with a past medical history of Parkinson's disease, paroxysmal atrial fibrillation, unknown cardiovascular disease and history of seizure who presented after mechanical ground level fall resulting in a pathologic left nondisplaced greater trochanteric fracture. The patient was seen by Orthopedic surgery and is partial weight-bearing on her left lower extremity, but management is non operative of her nondisplaced left greater trochanteric fracture. The patient states that her pain is controlled today with oxycodone at rest, but still has a lot of pain with movement although it is very slightly improved with taking these prior to PT sessions. She still requires significant assistance due to her current partial weight bearing status on her left side as a result of her fracture and continued pain with movement. SNF placement planned for tomorrow. She has not had a bowel movement thus far, will start miralax today and prn bisacodyl as well. She denies chest pain, palpitations, shortness of breath, abdominal pain, nausea, or vomiting. Exam Vital Signs (past 8 hours): - 10/08/20 04:00 10/08/20 05:00 10/08/20 07:00 Temperature 97.6 F 97 F L Pulse Rate 72 80 Respiratory Rate 18 12 Blood Pressure 139/65 130/52 L Pulse Oximetry 98 98 96 10/08/20 09:00 Temperature Pulse Rate Respiratory Rate Blood Pressure Pulse Oximetry 96 Oxygen Delivery Method Room Air Oxygen Flow Rate 0 Narrative Exam Narrative: General: Patient is a well-developed, well-nourished in no distress at this time. HEENT: Normocephalic, bruising present to bilateral eyelids extraocular muscles intact, oral pharynx is clear and mucous membranes are moist. Neck is supple and symmetric, trachea is midline, no adenopathy, no thyroid enlargement, nontender, no masses palpated. Negative for JVD Chest: Normal AP diameter and contour without kyphoscoliosis, no nasal flaring, retractions, or tachypneic labored Lungs: Auscultation of all lung moody are clear without adventitious sounds, wheezes, rhonchi, or rales. Cardio: S1 & S2 with regular rate and rhythm without murmur, rubs, or gallops, no carotid bruit, no cardiac pulsations present. Abdomen: Soft nontender, negative for organomegaly, or masses. Bowel sounds are present in all 4 quadrants without guarding or rebound, no CVA tenderness. Musculoskeletal: L hip tenderness, also mild swelling of L knee and foot. Ecchymosis near her L hip which appears stable today. Skin: Patient has road rash type abrasions to left shoulder stretching around to her back which is improving, left elbow has a large abrasion dressing is intact, patient has a 9 cm laceration to the left knee, with 8 sutures placed in the ED bandage present, her skin shows no signs of erythema inflammation or warmth suggestive of infection. Neuro: Alert and orientated x3, strength is +5/5 in all extremities on the right, sensation to touch intact, no gross deficits noted of cranial nerves. Psych: Patient has a well-kept appearance, appropriate affect, mental status attitude thought context and judgment are appropriate for age. Objective Labs Result Diagrams: 10/08/20 05:22 10/08/20 05:22 Labs: Laboratory Results - last 24 hr 10/08/20 10/08/20 05:22 05:22 WBC 5.8 RBC 2.97 L Hgb 9.9 L Hct 29.6 L MCV 99.6 MCH 33.5 MCHC 33.6 RDW 14.2 Plt Count 196 Neut % (Auto) 56.8 Lymph % (Auto) 20.7 L [place] % (Auto) 19.3 H Eos % (Auto) 2.3 Baso % (Auto) 0.9 Neut # (Auto) 3300 Lymph # (Auto) 1200 [place] # (Auto) 1100 H Eos # (Auto) 100 Baso # (Auto) 100 Sodium 136 L Potassium 4.3 Chloride 103 Carbon Dioxide 26 BUN 17 Creatinine 0.65 Estimated GFR > 60.0 BUN/Creatinine Ratio 26.2 H Glucose 93 Calcium 9.0 PFSH Medical History Ascending aortic aneurysm B12 deficiency Breast implant status Cerebrovascular disease Hepatic steatosis Hyperlipidemia Hypertension Osteoarthritis Paralysis of left vocal fold Parkinson disease Paroxysmal atrial fibrillation 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) Transient ischemic attack Tremor Surgical History H/O hysterectomy with oophorectomy History of total left hip arthroplasty History of total right hip arthroplasty History of total right knee replacement S/P ascending aortic aneurysm repair S/P closed reduction of dislocated total hip prosthesis S/P Mohs surgery for basal cell carcinoma Family History Mother Dementia Coronary artery disease Father Diabetes mellitus Social History number of children: 2 household members: none occupational status: previously employed 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 Continues to be much diminished from her baseline due to difficult to control pain with movement, possibly worsened in the setting of associated hemorrhage from her fracture. 1. Nondisplaced left greater trochanteric fracture with associated hemorrhage into the left trochanteric bursa secondary to ground level fall, with left knee laceration acute, present on admission -fall was mechanical in nature. Pathologic secondary to likely osteoporosis given nature of her fall. -ortho was consulted in ED-Dr. Vo. Appreciate his time and recommendations. Currently partial weight bearing with precautions as noted in his documentation. outpatient follow up in 2 weeks recommended. - Pelvis CT:Nondisplaced left greater trochanteric fracture with associated hemorrhage into the left trochanteric bursa, however pain is controlled today and seen by orthopedic surgery, safe to continue apixaban at this time. - continue PT/OT. work on pain control with continued oxycodone prior to therapies, consider additional agents if no improvement. - XR of her knee, ankle and foot are without acute fracture. There is chronic appearing changes of her great toe, no concern for osteomyelitis clinically at this time. - will contine to monitor cbc and ecchymosis on exam. Hg has stabilized today. 2. Paroxysmal atrial fibrillation, chronic, not present on admission, rate controlled -continue patient's Eliquis 2.5 mg p.o. b.i.d. and metoprolol. Patient is okay for 5 mg apixaban daily, however given associated hemorrhage will leave at 2.5 mg dosing and defer discussion of increasing to PCP. 3. Parkinson's, acute on chronic, present on admission -continue patient's carbidopa/levodopa and Ropinirole 4. 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 5. Cardiovascular disease, chronic, not present on admission, stability unknown -continue patient's spirolactone 6. Acute blood loss anemia - patient with acute blood loss anemia secondary to associated hemorrhage from her L hip fracture as noted above. She was on home apixaban, Hg was 12 previously, 10.2 on admission which downtrended to 9.7 but has been stable and at 9.9 today. Okay to continue eliquis for afib given stability. This hemorrhage may be contributing to difficulty controlling pain. Code status: Comfort measures only/DNR Surrogate decision maker: Calista Oscar daughter, patient has an Advance directive COVID PCR negative DVT: on eliquis which will be continued. Dispo: plan is for SNF tomorrow.
--- NOTE | 2020-10-08 10:15 | PC.NURSE ---
Pt's JS bandage on left leg was noted to be soiled by urine that had dripped while using bedpan. Dressings removed, leg cleansed with foaming cleanser and wet wash cloth. Skin tear on left foot appears adhered to skin, dark purple tissue present on periwound, small serosanguineous drainage noted, covered w/ xeroform and foam. Left lower leg abrasion noted, scant serosanguineous drainage noted, covered w/ xeroform and gauze. L knee sutures x9 noted, intact, dried exudate present, covered with xeroform and ABD pad. All dressings covered with JS bandage, wrapped from base of toes to over knee. Left lateral leg appears dark purple. Pt tolerated dressing change.
--- NOTE | 2020-10-08 11:30 | PT.IPTN ---
Current Diagnoses Displaced fracture of greater trochanter of left femur, initial encounter for closed fracture (10/06/20) Physical Therapy Treatment Note M2 PT-IP Current Condition Start: 10/05/20 08:29 Freq: NEEDED Status: Active Protocol: Document 10/05/20 11:13 AW (Rec: 10/05/20 11:51 AW [id number]) Physical Therapy Current Condition Current Condition Evaluation Date 10/05/20 Treatment Diagnosis minimally displaced greater troch fracture; difficulty in walking Onset Date 10/04/20 Precautions Other Precautions -nonweightbearing left lower extremity -trochanteric precautions left hip - no abduction Weight Bearing Status Weight Bearing Status Non-Weight Bearing Allowed Weight Bearing Amount (enter % NWB LLE - may be upgraded or #) (%) depending on x-rays of foot, ankle, and knee M3 PT-IP Subjective Start: 10/05/20 08:29 Freq: NEEDED Status: Active Protocol: Document 10/08/20 11:30 AW (Rec: 10/08/20 12:57 AW [id number]) Subjective Physical Therapy Visit Type Type Treatment Note Visit Start Time 10:59 Visit Stop Time 11:30 Total Visit Minutes 31 Number of DIRECT MAIL COORDINATOR Visits 0 Physical Therapy Visit Comments Patient Comments pt is agreeable to do PT Therapy Pain Assessment Pain When Pain Assessed During Mobility Pain Present Pain Present Pain Reported Location Left Hip Intensity 8 Scale Used Numeric (0 - 10) Pain Management Techniques Distraction,Modification of Treatment,Re-positioning, Timing of Activity with Medications M4 PT-IP Mobility and Gait Start: 10/05/20 08:29 Freq: NEEDED Status: Active Protocol: Document 10/08/20 11:30 AW (Rec: 10/08/20 12:57 AW [id number]) PT-Bed Mobility Assessment Supine to Sit Supine to Sit Maximum Assistance Scooting Scooting to Edge of Bed Moderate Assistance PT-Transfer Assessment Equipment Transfer Assistive Device Gait Belt,Sliding Board Orthotic/Prosthetic Devices or Brace: No Transfers Transfer Destination Chair,Bedside Commode Transfer Technique slide board transfer Transfer Ability Level of Assist Maximum Assistance,1 Person Assistance,2 Person Assistance Comments Mobility Comments Pt able to scoot toward left EOB but then required assist to pivot her hips without abducting LLE. Pt required increased time and max assist to scoot on slide board going to her right side. PT provided support for LLE as she transferred as pt unable to maintain PWB LLE. Pt voided and completed pericare without assist. She then transferred via slide board to the chair max A x 1 and frequent cues for PWB LLE. Pt was left in the chair with call light and all needs in reach. Her daughter was visiting and remained in the room as PT departed. Gait Assessment Comments Gait Comments unable M5 PT-IP Objective Assessments Start: 10/05/20 08:29 Freq: NEEDED Status: Active Protocol: Document 10/05/20 11:13 AW (Rec: 10/05/20 12:09 AW [id number]) Orientation Orientation/Cognition Level of Alertness Alert Orientation Name,Day of Week,Place, Situation Language Function Ability No Deficits Noted Safety Awareness Understands Safety Issues Memory Description No Deficits Noted Gross Range of Motion Upper Extremity ROM Assessment Within Functional Limits Lower Extremity ROM Assessment Left Impaired Strength Upper Extremity Strength Assessment Within Functional Limits Lower Extremity Strength Assessment Right Impaired Hip 3-/5 Knee 3/5 Comments Strength Comments RLE grossly 4/5 Sensation Assessment Sensation Gross Sensation WNL Muscle Tone Muscle Tone WNL Yes M6 PT-IP Treatment Start: 10/05/20 08:29 Freq: NEEDED Status: Active Protocol: Document 10/08/20 11:30 AW (Rec: 10/08/20 12:57 AW [id number]) Physical Therapy Treatment Education Education Provided Precautions,Weight Bearing Status,Safety M7 PT-IP Assessment and Plan Start: 10/05/20 08:29 Freq: NEEDED Status: Active Protocol: Document 10/08/20 11:30 AW (Rec: 10/08/20 12:57 AW [id number]) PT Summary Assessment and Plan Potential Rehabilitation Potential Good Summary Impairments Pain,ROM,Strength,Balance, Coordination,Sensation,Tone, Cognition,Bed Mobility, Transfers,Gait,Activity Tolerance Progress Towards Goals Slow Progress due to Medical Issues,Slow Progress due to Activity Tolerance Assessment Summary Pt continues to require max assist and increased time with mobility. She struggles to maintain PWB LLE and needs assist for same. Pt will need SNF rehab to improve strength and mobility independence. Goals Bed Mobility Goal Minimal Assistance Transfer Goal Minimal Assistance,Front Wheeled Walker,Slide Board Gait Goal Minimal Assistance,Front Wheel Walker Gait Distance 25 Days to Meet Goals 10 Frequency of Treatment Frequency Of Treatment Twice a Day Treatment Plan Physical Therapy Treatment Plan Bed Mobility Training,Transfer Training,Gait Training, Therapeutic Exercise,Balance Retraining,Post Op Education, Discharge Planning,Hot or Cold Pack,Neuromuscular Re-ed, Coordination Retraining,Manual Therapy Other Recommendations and Next Treatment transfers, standing Focus Precautions Other Precautions L trochanteric precaution: no abduction LLE PWB updated per Dr. Ambriz today to 75# LLE Recommendations To Nursing Amount of Assist Needed Mechanical Lift Discharge Recommendations PT Discharge Recommendations SNF Rehab Transportation Needs at Discharge Wheelchair/Cabulance
--- NOTE | 2020-10-08 12:20 | PM.PN.1 ---
Subjective Subjective Date Patient Seen: 10/08/20 Time Patient Seen: 12:20 Interval history: Renae still having significant problems getting in and out of bed and trying to be compliant with weight-bearing restrictions. She does have some ongoing left hip pain. Her knee and ankle pain are improving. Her daughter is at bedside. Exam Vital Signs (past 8 hours): - 10/08/20 05:00 10/08/20 07:00 10/08/20 09:00 Temperature 97 F L Pulse Rate 80 Respiratory Rate 12 Blood Pressure 130/52 L Pulse Oximetry 98 96 96 10/08/20 11:00 Temperature 97.8 F Pulse Rate 77 Respiratory Rate 14 Blood Pressure 139/69 Pulse Oximetry 95 Oxygen Delivery Method Room Air Oxygen Flow Rate 0 Narrative Exam Narrative: Her dressings intact, she has tenderness over the greater trochanter, she has some bilateral lower extremity edema but her calfs are soft, she can fire toe flexors and extensors Objective Labs Result Diagrams: 10/08/20 05:22 10/08/20 05:22 Labs: Laboratory Results - last 24 hr 10/08/20 10/08/20 05:22 05:22 WBC 5.8 RBC 2.97 L Hgb 9.9 L Hct 29.6 L MCV 99.6 MCH 33.5 MCHC 33.6 RDW 14.2 Plt Count 196 Neut % (Auto) 56.8 Lymph % (Auto) 20.7 L [place] % (Auto) 19.3 H Eos % (Auto) 2.3 Baso % (Auto) 0.9 Neut # (Auto) 3300 Lymph # (Auto) 1200 [place] # (Auto) 1100 H Eos # (Auto) 100 Baso # (Auto) 100 Sodium 136 L Potassium 4.3 Chloride 103 Carbon Dioxide 26 BUN 17 Creatinine 0.65 Estimated GFR > 60.0 BUN/Creatinine Ratio 26.2 H Glucose 93 Calcium 9.0 PFSH Medical History Ascending aortic aneurysm B12 deficiency Breast implant status Cerebrovascular disease Hepatic steatosis Hyperlipidemia Hypertension Osteoarthritis Paralysis of left vocal fold Parkinson disease Paroxysmal atrial fibrillation 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) Transient ischemic attack Tremor Surgical History H/O hysterectomy with oophorectomy History of total left hip arthroplasty History of total right hip arthroplasty History of total right knee replacement S/P ascending aortic aneurysm repair S/P closed reduction of dislocated total hip prosthesis S/P Mohs surgery for basal cell carcinoma Family History Mother Dementia Coronary artery disease Father Diabetes mellitus Social History number of children: 2 household members: none occupational status: previously employed 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 I went over abduction precautions in detail with her today and did tell her she can put up to 75 lb of weight on her left leg and encouraged her to continue to work on mobilizing.
--- NOTE | 2020-10-08 14:40 | PT.IPTN ---
Current Diagnoses Displaced fracture of greater trochanter of left femur, initial encounter for closed fracture (10/06/20) Physical Therapy Treatment Note M2 PT-IP Current Condition Start: 10/05/20 08:29 Freq: NEEDED Status: Active Protocol: Document 10/05/20 11:13 AW (Rec: 10/05/20 11:51 AW [id number]) Physical Therapy Current Condition Current Condition Evaluation Date 10/05/20 Treatment Diagnosis minimally displaced greater troch fracture; difficulty in walking Onset Date 10/04/20 Precautions Other Precautions -nonweightbearing left lower extremity -trochanteric precautions left hip - no abduction Weight Bearing Status Weight Bearing Status Non-Weight Bearing Allowed Weight Bearing Amount (enter % NWB LLE - may be upgraded or #) (%) depending on x-rays of foot, ankle, and knee M3 PT-IP Subjective Start: 10/05/20 08:29 Freq: NEEDED Status: Active Protocol: Document 10/08/20 14:40 AW (Rec: 10/08/20 14:52 AW [id number]) Subjective Physical Therapy Visit Type Type Treatment Note Visit Start Time 14:15 Visit Stop Time 14:40 Total Visit Minutes 25 Number of [employer] Visits 0 Physical Therapy Visit Comments Patient Comments Pt is due for next dose of carbidopa levodopa but is willing to work with PT as RN arrives to administer medication. Therapy Pain Assessment Pain When Pain Assessed During Mobility Pain Present Pain Present Pain Reported Location Left Hip Scale Used not quantified M4 PT-IP Mobility and Gait Start: 10/05/20 08:29 Freq: NEEDED Status: Active Protocol: Document 10/08/20 14:40 AW (Rec: 10/08/20 14:52 AW [id number]) PT-Transfer Assessment Sit to and From Stand Sit to and from Stand Moderate Assistance,1 Person Assistance,Use of Upper Extremities Equipment Transfer Assistive Device Gait Belt,Front Wheeled Walker Orthotic/Prosthetic Devices or Brace: No Transfers Transfer Destination Bed,Chair Transfer Technique Stand Pivot Transfer Ability Level of Assist Maximum Assistance,2 Person Assistance,Use of Upper Extremities Comments Mobility Comments Pt is buoyed by the news that she can bear 75# on the LLE. She scooted toward edge of chair with cues for weight shifting and stood from the chair mod A x 1. She was able to lift her left foot onto a bathroom scale and graded her weightbearing to ~50 degrees. Pt agreed to attempt transfer to the bed. She was able to pivot on her right foot using FWW for UE weightbearing. Her left foot remained on the scale and pt did not exceed 50 # during the transfer. PT repositioned the chair to her right side. Pt stood again from the bed mod A x 1 and cues for quad activation. She transferred to the chair max A x 1. Pt was positioned on the chair with call light and all needs in reach. Gait Assessment Comments Gait Comments unable PT-Balance Assessment Sitting Balance and Reactions Static Sitting Balance Ability Good Dynamic Sitting Balance Ability Fair Standing Balance and Reactions Static Standing Balance Ability Fair Dynamic Standing Balance Ability Fair Device Used FWW M5 PT-IP Objective Assessments Start: 10/05/20 08:29 Freq: NEEDED Status: Active Protocol: Document 10/05/20 11:13 AW (Rec: 10/05/20 12:09 AW [id number]) Orientation Orientation/Cognition Level of Alertness Alert Orientation Name,Day of Week,Place, Situation Language Function Ability No Deficits Noted Safety Awareness Understands Safety Issues Memory Description No Deficits Noted Gross Range of Motion Upper Extremity ROM Assessment Within Functional Limits Lower Extremity ROM Assessment Left Impaired Strength Upper Extremity Strength Assessment Within Functional Limits Lower Extremity Strength Assessment Right Impaired Hip 3-/5 Knee 3/5 Comments Strength Comments RLE grossly 4/5 Sensation Assessment Sensation Gross Sensation WNL Muscle Tone Muscle Tone WNL Yes M6 PT-IP Treatment Start: 10/05/20 08:29 Freq: NEEDED Status: Active Protocol: Document 10/08/20 14:40 AW (Rec: 10/08/20 14:52 AW [id number]) Physical Therapy Treatment Exercises Exercises Ankle Pumps,Gluteal Sets,Quad Sets Education Education Provided Precautions,Weight Bearing Status,Safety Other Treatments Other Treatment Performed Educated pt on updated weightbearing status and demonstrated pivot transfer with <75# WB. M7 PT-IP Assessment and Plan Start: 10/05/20 08:29 Freq: NEEDED Status: Active Protocol: Document 10/08/20 14:40 AW (Rec: 10/08/20 14:52 AW [id number]) PT Summary Assessment and Plan Potential Rehabilitation Potential Good Summary Impairments Pain,ROM,Strength,Balance, Coordination,Sensation,Tone, Cognition,Bed Mobility, Transfers,Gait,Activity Tolerance Progress Towards Goals Slow Progress due to Medical Issues,Slow Progress due to Activity Tolerance Assessment Summary With max assist, pt was able to stand from chair and bed while maintaining <75# PWB LLE . She was able to complete pivot transfers to the right within weightbearing restrictions. Pt requires SNF rehab to increase strength and improve functional mobility. Goals Bed Mobility Goal Minimal Assistance Transfer Goal Minimal Assistance,Front Wheeled Walker,Slide Board Gait Goal Minimal Assistance,Front Wheel Walker Gait Distance 25 Days to Meet Goals 10 Frequency of Treatment Frequency Of Treatment Twice a Day Treatment Plan Physical Therapy Treatment Plan Bed Mobility Training,Transfer Training,Gait Training, Therapeutic Exercise,Balance Retraining,Post Op Education, Discharge Planning,Hot or Cold Pack,Neuromuscular Re-ed, Coordination Retraining,Manual Therapy Other Recommendations and Next Treatment transfers, standing with scale Focus for WB feedback Precautions Other Precautions L trochanteric precaution: no abduction LLE PWB updated per Dr. Ambriz today to 75# LLE Recommendations To Nursing Amount of Assist Needed 2 Person Assist,PT/OT Assist Only Discharge Recommendations PT Discharge Recommendations SNF Rehab Transportation Needs at Discharge Wheelchair/Cabulance
--- NOTE | 2020-10-08 15:17 | OT.IP.TRT ---
Current Diagnoses Displaced fracture of greater trochanter of left femur, initial encounter for closed fracture (10/06/20) Occupational Therapy Treatment Note M2 OT-IP Current Condition Start: 10/05/20 12:26 Freq: Status: Active Protocol: Document 10/05/20 10:33 [facility] (Rec: 10/05/20 12:54 [facility] [id number]) Occupational Therapy Current Condition Current Condition Evaluation Date 10/05/20 Treatment Diagnosis Non-displaced left greater trochanteric fx Diagnosis Onset Date 10/04/20 Weight Bearing Status Weight Bearing Status Non-Weight Bearing Allowed Weight Bearing Amount (enter % Pt to be NWB LLE for now or #) (%) pending results of further x- rays. NO abduction and no side to side movements. M3 OT- IP Subjective and Pain Start: 10/05/20 12:26 Freq: Status: Active Protocol: Document 10/08/20 15:26 [facility] (Rec: 10/08/20 15:32 CGR [id number]) OT- Subjective Occupational Therapy Visit Type Type Progress Note Visit Start Time 14:53 Visit Stop Time 15:17 Total Visit Minutes 24 OT Pain Assessment Pain When Pain Assessed At Rest Pain Present Pain Present Denied Pain M4 OT- IP ADL's Start: 10/05/20 12:26 Freq: Status: Active Protocol: Document 10/08/20 15:26 CGR (Rec: 10/08/20 15:32 CGR [id number]) OT [id number] Comments OT Self-Feeding Comments Not meal time OT ADL-Grooming General Evaluation Grooming Ability Standby Assistance Areas Needing Assistance Retrieving/Set-up of Grooming Items,Combing/Brushing Hair, Face Washing Comments OT Grooming Comments seated in chair at sink OT ADL-Oral Care General Eval Oral Care Ability Standby Assistance Areas of Assistance Brushing Teeth,Retrieving/Set- Up of Items Comments Oral Care Comments seated in chair at sink OT ADL-Dressing Comments OT Dressing Comments not performed OT ADL-Toileting Comments OT Toileting Comments pt declined need OT ADL-Bathing Bathing Type Bathing Type Sponge Bath General Evaluation Bathing Ability Standby Assistance Areas Needing Assistance Retrieving/Setting Up Items Comments OT Bathing Comments Pt performed upper body bathing only seated in chair at sink. M5 OT- IP IADL's Start: 10/05/20 12:26 Freq: Status: Active Protocol: Document 10/05/20 10:33 [facility] (Rec: 10/05/20 12:54 [facility] [id number]) OT-Instrumental Activities of Daily Living Deficits IADL Deficits Identified Deficits Home Safety Awareness Home Safety Comments Due to pt's mobility, will require 1-2 person assist for all Ald and functional mobility needs at this time. Medication Management Medication Management No Deficits Identified Money Management Money Management No Deficits Identified Meal Preparation Meal Preparation Comments Pt's daughter planning to come and stay with her to assist for two weeks. Book Binder Book Binder Comments Pt's daughter planning to come and stay with her to assist for two weeks. M6 OT- IP Functional Cognition Start: 10/05/20 12:26 Freq: Status: Active Protocol: Document 10/06/20 14:12 CGR (Rec: 10/06/20 14:33 CGR [id number]) Cognitive Factors Limiting Selfcare Function Cognitive Ability Level of Alertness Alert Patient Orientation Name,Age,Birthday,Month,Date, Year,Day of Week,Place, Situation Attention Span Ability Capable of Focused Attention, Capable of Sustained Attention Ability to Follow Commands Able to Follow One Step Commands with Increased Time, Able to Follow One Step Commands with Repetition Safety Awareness Underestimates Need for Assistance Cognitive Comments Cognitive Assessment Comments Pt needs assist with problem solving home safety and needing assist once home. Pt appears more realistic after session. M7 OT- IP Mobility and Balance Start: 10/05/20 12:26 Freq: Status: Active Protocol: Document 10/07/20 15:59 [facility] (Rec: 10/07/20 16:08 CGR [id number]) OT- Bed Mobility Assessment Supine to Sit Supine to Sit Assist Maximum Assistance Sit to Supine Sit to Supine Assist Maximum Assistance Scooting Scooting to Edge of Bed Contact Guard Assistance OT-Transfer Assessment Transfers Transfer Ability Maximum Assistance,1 Person Assistance,2 Person Assistance Technique Transfer Destination Bed,Bedside Commode Transfer Technique Lateral Scoot Devices Transfer Assistive Devices Gait Belt,Front Wheeled Walker ,Sliding Board Comments Mobility Comments Pt was able to scoot to and from the BSC with max a x1 person assist for holding up the LLE and CGA to min a from the second person for scooting and hand placement. OT- Gait Assessment Comments Gait Ability Comments Did not occur OT- Balance Assessment Sitting Balance and Reactions Static Sitting Balance Ability Fair Dynamic Sitting Balance Ability Fair M8 OT- IP Objective Assessments Start: 10/05/20 12:26 Freq: Status: Active Protocol: Document 10/05/20 10:33 [facility] (Rec: 10/05/20 12:54 [facility] [id number]) OT Gross Range of Motion Upper Extremity Range of Motion Assessment Bilaterally Impaired OT Strength Comments Strength Comments BUE from elbow to distal 4/5 to 4-/5. OT- Coordination Assessment Comments Coordination Comments Arthritic changes in hands and needing assist to open items for grooming needs. OT-Muscle Tone Assessment Muscle Tone WNL Yes M9 OT- IP Assessment and Plan Start: 10/05/20 12:26 Freq: Status: Active Protocol: Document 10/08/20 15:26 CGR (Rec: 10/08/20 15:32 CGR [id number]) OT Summary Assessment and Plan Potential Rehabilitation Potential Good Analytic Complexity at Evaluation Low Summary OT Impairments Pain,Strength,Balance, Coordination,Functional Cognition,Functional Mobility, Grooming,Dressing,Toileting, Bathing,Toilet Transfers, Shower Transfers,Activity Tolerance Progress Towards Goals Slow Progress due to Pain,Slow Progress due to Medical Issues,Slow Progress due to Activity Tolerance,Slow Progress due to Cognition Assessment Summary Pt fatigued at end of day after working with P.T. twice. Pt agreeable to ADLs seated in chair. Pt rolled to sink in recliner chair and performed ADLs seated and UB dressing. Goals Grooming Goal Independent Dressing Goal Independent Toileting Goal Independent Bathing Goal Independent Toilet Transfer Goal Independent Shower Transfer Goal Independent Patient/Caregiver Education Goal Demonstrate Post-Op Precautions Days to Meet Goals 20 Frequency of Treatment Frequency Of Treatment Once a Day Treatment Plan OT Treatment Plan ADL Training,Functional Cognition Training,Functional Mobility,Patient/Family Education,Discharge Planning Other Treatment Recommendations and Next Sliding board transfer with Treatment Focus mod x 1 to bSC Discharge Recommendations OT Discharge Recommendations SNF Rehab Transportation Needs at Discharge Wheelchair/Cabulance
[2020-10-08] MEDS: ACETAMINOPHEN 325 MG TABLET 650 MG PO (17:59)
[2020-10-08] MEDS: SENNOSIDES 8.6 MG TABLET 17.2 MG PO (21:16)
[2020-10-08] MEDS: PRIMIDONE 50 MG TABLET 75 MG PO (21:18)
[2020-10-08] MEDS: ROPINIROLE 0.25 MG TABLET 0.5 MG PO (21:21)
[2020-10-09] VITALS (8 sets, daily range): BP systolic 106–132; BP diastolic 59–72; PULSE 64–90; RESP 16–18; TEMP 36.2–36.9; O2SAT 95–97
--- NOTE | 2020-10-09 07:13 | P.DS_ITS ---
History of Present Illness History of Present Illness Date Patient Seen: 10/09/20 Time Patient Seen: 07:13 Chief complaint: GLF Narrative: Per So Castellano, FACILITIES PROJECT MANAGER-BC: Patient is a 85-year-old female who is on Eliquis history of Parkinson's presenting after ground level fall. She says that she was sweeping her porch when she tripped over the rug landing on her left side. She denies hitting her head or any loss of consciousness no neck pain. She has multiple skin tears on her left upper arm off leg including a laceration over the left knee. She has a large contusion on her left leg as well. She has no numbness or tingling. She is in quite a bit pain as well. Someone witnessed her fall and called for help. Upon admit patient stated stated that she was cleaning her entryway when she tripped on a rug and fell onto her hardwood floor impacting her left shoulder, left hip, and left knee, denies hitting her head or losing consciousness or hitting her face, she has a Life Alert button which she pushed, and her Lea's were also on the grounds and saw her fall and called EMS. Patient has bruising to bilateral eyelids but denies any facial trauma or injury. Patient states that her pain is 5/10 generalized to her entire left side. Patient denies chest pain, shortness of breath, headache, changes in vision, numbness or tingling, denies acute onset of weakness causing fall, denies fever body aches or chills. Patient is alert and orientated with excellent recall. Patient's vitals upon admit temp 97.7?, BP 147/93, HR 81, RR 19, O2 saturation 99% on room air, all patient's labs are within normal limits. Pelvic CT:Bilateral total hip arthroplasties with no evidence of hardware failure or loosening. 2. Nondisp laced left greater trochanteric fracture with associated hemorrhage into the left trochanteric bursa. Head CT: Unremarkable intracranial study for age, without findings of acute intracranial hemorrhage. Patient's left elbow, knee, x-rays reviewed and were all negative for fracture. Dr. Vo orthopedics did not believe patient was a candidate for surgery, but recommended patient to be admitted to hospital. Discharge Providers Provider Date of admission: 10/06/20 16:19 Discharge Date: 10/09/20 Primary care physician: Sharri Howell MD Consults: 10/04/20 20:03 Consult to Orthopedic Surgery Routine Comment: Consulting Provider: David Vo Reason for consultation: greater troch fracture Has provider been notified: Yes 10/04/20 20:48 Consult to Occupational Therapy Evaluate & Treat Comment: fx lt femur Physician Instructions: Evaluate and treat Consult to Physical Therapy Evaluate & Treat Comment: Fx Lt femur Physician Instructions: Evaluate and Treat 10/08/20 12:18 Consult to Physical Therapy Evaluate & Treat Comment: increase weight bearing to 75 to 100 lbs. on left Physician Instructions: Evaluate and Treat Discharge provider: Yony Trejo DO Summary Hospital Course Hospital Course: This is an 85-year-old female with a past medical history of Parkinson's disease, paroxysmal atrial fibrillation, unknown cardiovascular disease and history of seizure who presented after mechanical ground level fall resulting in a pathologic left nondisplaced greater trochanteric fracture. Continues to be much diminished from her baseline due to difficult to control pain with movement, possibly worsened in the setting of associated hemorrhage from her fracture. Discharging to SNF for continued PT. 1. Nondisplaced left greater trochanteric fracture with associated hemorrhage into the left trochanteric bursa secondary to ground level fall, with left knee laceration acute, present on admission -fall was mechanical in nature. Pathologic secondary to likely osteoporosis given nature of her fall. -ortho was consulted in ED-Dr. Vo. Appreciate his time and recommendations. Currently partial weight bearing with precautions. outpatient follow up in 2 weeks recommended. - Pelvis CT:Nondisplaced left greater trochanteric fracture with associated hemorrhage into the left trochanteric bursa. safe to continue apixaban at this time. - continue PT/OT. work on pain control with continued oxycodone prior to therapies, consider additional agents if no improvement. - XR of her knee, ankle and foot are without acute fracture. There is chronic appearing changes of her great toe, no concern for osteomyelitis clinically at this time. 2. Paroxysmal atrial fibrillation, chronic, not present on admission, rate controlled -continue patient's Eliquis 2.5 mg p.o. b.i.d. and metoprolol. Patient is okay for 5 mg apixaban daily, however given associated hemorrhage will leave at 2.5 mg dosing and defer discussion of increasing to PCP. 3. Parkinson's, acute on chronic, present on admission -continue patient's carbidopa/levodopa and Ropinirole 4. 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 5. Cardiovascular disease, chronic, not present on admission, stability unknown -continue patient's spirolactone 6. Acute blood loss anemia - patient with acute blood loss anemia secondary to associated hemorrhage from her L hip fracture as noted above. She was on home apixaban, Hg was 12 previously, 10.2 on admission which downtrended to 9.7 but has been stable and at 9.9. Okay to continue eliquis for afib given stability. This hemorrhage may be contributing to difficulty controlling pain. Exam Vital Signs (past 8 hours): - 10/09/20 01:00 10/09/20 02:00 10/09/20 04:27 Temperature 98.5 F 97.6 F Pulse Rate 83 90 Respiratory Rate 16 18 Blood Pressure 106/72 132/59 L Pulse Oximetry 95 95 95 10/09/20 06:00 Temperature Pulse Rate Respiratory Rate Blood Pressure Pulse Oximetry 95 Oxygen Delivery Method Room Air Oxygen Flow Rate 0 Narrative Exam Narrative: General: Patient is a well-developed, well-nourished in no distress at this time. HEENT: Normocephalic, bruising present to bilateral eyelids extraocular muscles intact, oral pharynx is clear and mucous membranes are moist. Neck is supple and symmetric, trachea is midline, no adenopathy, no thyroid enlargement, nontender, no masses palpated. Negative for JVD Chest: Normal AP diameter and contour without kyphoscoliosis, no nasal flaring, retractions, or tachypneic labored Lungs: Auscultation of all lung moody are clear without adventitious sounds, wheezes, rhonchi, or rales. Cardio: S1 & S2 with regular rate and rhythm without murmur, rubs, or gallops, no carotid bruit, no cardiac pulsations present. Abdomen: Soft nontender, negative for organomegaly, or masses. Bowel sounds are present in all 4 quadrants without guarding or rebound, no CVA tenderness. Musculoskeletal: L hip tenderness, also mild swelling of L knee and foot. Ecchymosis near her L hip which appears stable today. Skin: Patient has road rash type abrasions to left shoulder stretching around to her back which is improving, left elbow has a large abrasion dressing is intact, patient has a 9 cm laceration to the left knee, with 8 sutures placed in the ED bandage present, her skin shows no signs of erythema inflammation or warmth suggestive of infection. Neuro: Alert and orientated x3, strength is +5/5 in all extremities on the right, sensation to touch intact, no gross deficits noted of cranial nerves. Psych: Patient has a well-kept appearance, appropriate affect, mental status attitude thought context and judgment are appropriate for age. Objective Labs Result Diagrams: 10/08/20 05:22 10/08/20 05:22 [facility] Medical History Ascending aortic aneurysm B12 deficiency Breast implant status Cerebrovascular disease Hepatic steatosis Hyperlipidemia Hypertension Osteoarthritis Paralysis of left vocal fold Parkinson disease Paroxysmal atrial fibrillation 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) Transient ischemic attack Tremor Surgical History H/O hysterectomy with oophorectomy History of total left hip arthroplasty History of total right hip arthroplasty History of total right knee replacement S/P ascending aortic aneurysm repair S/P closed reduction of dislocated total hip prosthesis S/P Mohs surgery for basal cell carcinoma Family History Mother Dementia Coronary artery disease Father Diabetes mellitus Social History number of children: 2 household members: none occupational status: previously employed 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 Continues to be much diminished from her baseline due to difficult to control pain with movement, possibly worsened in the setting of associated hemorrhage from her fracture. Discharging to SNF for continued PT. 1. Nondisplaced left greater trochanteric fracture with associated hemorrhage into the left trochanteric bursa secondary to ground level fall, with left knee laceration acute, present on admission -fall was mechanical in nature. Pathologic secondary to likely osteoporosis given nature of her fall. -ortho was consulted in ED-Dr. Vo. Appreciate his time and recommendations. Currently partial weight bearing with precautions. outpatient follow up in 2 weeks recommended. - Pelvis CT:Nondisplaced left greater trochanteric fracture with associated hemorrhage into the left trochanteric bursa. safe to continue apixaban at this time. - continue PT/OT. work on pain control with continued oxycodone prior to therapies, consider additional agents if no improvement. - XR of her knee, ankle and foot are without acute fracture. There is chronic appearing changes of her great toe, no concern for osteomyelitis clinically at this time. 2. Paroxysmal atrial fibrillation, chronic, not present on admission, rate controlled -continue patient's Eliquis 2.5 mg p.o. b.i.d. and metoprolol. Patient is okay for 5 mg apixaban daily, however given associated hemorrhage will leave at 2.5 mg dosing and defer discussion of increasing to PCP. 3. Parkinson's, acute on chronic, present on admission -continue patient's carbidopa/levodopa and Ropinirole 4. 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 5. Cardiovascular disease, chronic, not present on admission, stability unknown -continue patient's spirolactone 6. Acute blood loss anemia - patient with acute blood loss anemia secondary to associated hemorrhage from her L hip fracture as noted above. She was on home apixaban, Hg was 12 previously, 10.2 on admission which downtrended to 9.7 but has been stable and at 9.9. Okay to continue eliquis for afib given stability. This hemorrhage may be contributing to difficulty controlling pain. Discharge orders & Medications Prescriptions: New acetaminophen 325 mg Tablet 650 mg PO Q6HR PRN (Reason: Fever/Mild Pain (1-3)) 30 Days Qty: 60 RF: 0 docusate sodium [DOK] 100 mg Capsule 100 mg PO BID 14 Days Qty: 28 RF: 0 hydrocodone-acetaminophen 5-325 mg Tablet 1 tab PO Q4HR PRN (Reason: Pain, Moderate (4-6)) 7 Days Qty: 30 RF: 0 alum-mag hydroxide-simeth [Mag-Al Plus] 200-200-20 mg/5 mL Suspension 30 ml PO Q6HR PRN (Reason: Dyspepsia) 14 Days RF: 0 polyethylene glycol 3350 17 gram Powder In Packet 17 g PO DAILY 14 Days Qty: 14 RF: 0 sennosides [senna] 8.6 mg Tablet 17.2 mg PO BEDTIME 14 Days Qty: 28 RF: 0 Continued carbidopa-levodopa 50-200 mg tablet extended release 1 tab PO TID Qty: 275 RF: 1 Eliquis 2.5 mg tablet 2.5 mg PO BID RF: 0 gabapentin 100 mg capsule 100 mg PO BID RF: 0 ropinirole 0.25 mg tablet 0.5 mg PO BEDTIME RF: 0 primidone [Mysoline] 50 MG tablet 75 mg PO BEDTIME RF: 0 metoprolol tartrate 50 mg tablet 50 mg PO BID RF: 0 spironolactone 25 mg tablet 25 mg PO QDAY RF: 0 Discontinued hydrocodone-acetaminophen [Pimento] 5-325 mg tablet 1 tab PO Q6H PRN (Reason: pain) Qty: 10 RF: 0 oxycodone 5 mg Tablet 5 mg PO Q4H PRN (Reason: Pain, Severe) Qty: 60 RF: 0 Follow up/Referrals: Sharri Howell MD [Primary Care Provider] - Discharge Health Status Multidrug resistant organism: No MDRO Precautions: [place] Diet/Activity/Treatments Diet: Diet as Tolerated Liquid consistency: Normal/Thin Food texture: Regular Activity: Partial weight bearing LLE. Special Rehabilitation Services Reason for rehabilitation: Other Rehab type: Physical therapy and Occupational therapy Visit Report/Discharge Packet Instructions: DI for Laceration Repair -- Simple, DI for Contusion, DI for Prescription Opioid Use Discharge Data Primary Care Provider: Sharri Howell
[2020-10-09] MEDS: APIXABAN 5 MG TABLET 2.5 MG PO (08:06)
[2020-10-09] MEDS: SPIRONOLACTONE 25 MG TABLET PO (08:07)
[2020-10-09] MEDS: DOCUSATE 100 MG CAPSULE PO (08:07)
[2020-10-09] MEDS: polyethylene glycoL 3350 17 GM POWD.PACK PO (08:08)
[2020-10-09] MEDS: CARBIDOPA-LEVODOPA ER 50/200 TABLET 1 EACH PO (08:09)
[2020-10-09] MEDS: METOPROLOL IR 50 MG TABLET PO (08:09)
[2020-10-09] MEDS: GABAPENTIN 100 MG CAPSULE PO (08:09)
--- NOTE | 2020-10-09 08:28 | CM.DPC ---
DCP Cont: Received discharge orders for patient. Daughter, Calista, called and voiced concerns. Stated, Dr. Ambriz had mentioned patient going home instead of rehab, but my other sister won't be here until , and I can't manage on my own. Let her know that P.t. notes indicate two person transfer, and [facility] may be best short term option. Daughter agrees. Dr. Trejo provided signed med sheets, and DC Summary. Faxed this with [facility], COVID is pending. Have a message out to Destiney at [facility] as well. Daughter indicated that they are looking at an assisted living in [facility] as group home planning, and patient selling her condo. P: Patient has discharge orders today. Plan is [facility], pending time of orange picker and COVID. Will update patient and daughter on time of orange picker. Lorenza Bravo RN/Computer Bookkeeper
--- NOTE | 2020-10-09 11:07 | CM.DPNOTE ---
Faxed recent RN & PN notes per Casandra to [facility]- Attn: Destiney on 10/09/20. Received fax confirmation. Renae Baumann CM Asst.
[2020-10-09] MEDS: HYDROCODONE/ACET 5/325 TABLET 1 TAB PO (11:26)
--- NOTE | 2020-10-09 11:59 | PT.IPTN ---
Current Diagnoses Displaced fracture of greater trochanter of left femur, initial encounter for closed fracture (10/06/20) Physical Therapy Treatment Note M2 PT-IP Current Condition Start: 10/05/20 08:29 Freq: NEEDED Status: Active Protocol: Document 10/05/20 11:13 AW (Rec: 10/05/20 11:51 AW [id number]) Physical Therapy Current Condition Current Condition Evaluation Date 10/05/20 Treatment Diagnosis minimally displaced greater troch fracture; difficulty in walking Onset Date 10/04/20 Precautions Other Precautions -nonweightbearing left lower extremity -trochanteric precautions left hip - no abduction Weight Bearing Status Weight Bearing Status Non-Weight Bearing Allowed Weight Bearing Amount (enter % NWB LLE - may be upgraded or #) (%) depending on x-rays of foot, ankle, and knee M3 PT-IP Subjective Start: 10/05/20 08:29 Freq: NEEDED Status: Active Protocol: Document 10/09/20 09:36 LJ (Rec: 10/09/20 11:59 LJ [id number]) Subjective Physical Therapy Visit Type Type Treatment Note Visit Start Time 09:36 Visit Stop Time 09:49 Total Visit Minutes [address] 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 Dtr present Therapy Pain Assessment Pain When Pain Assessed During Mobility Pain Present Pain Present Pain Reported M4 PT-IP Mobility and Gait Start: 10/05/20 08:29 Freq: NEEDED Status: Active Protocol: Document 10/09/20 09:36 LJ (Rec: 10/09/20 11:59 LJ [id number]) PT-Bed Mobility Assessment Supine to Sit Supine to Sit Moderate Assistance,1 Person Assistance,Head of Bed Elevated Scooting Scooting to Edge of Bed Moderate Assistance PT-Transfer Assessment Sit to and From Stand Sit to and from Stand Minimal Assistance,1 Person Assistance,Use of Upper Extremities Equipment Transfer Assistive Device Gait Belt,Front Wheeled Walker Orthotic/Prosthetic Devices or Brace: No Transfers Transfer Destination Chair Transfer Technique Stand Pivot Transfer Ability Level of Assist Minimal Assistance,1 Person Assistance,Use of Upper Extremities Comments Mobility Comments Pt in bed upon arrival. Daughter in room. Supine>sit Gi with assist for moving LEs to side of bed and scooting forward to move legs off side of bed. Pt able to stand using FWW with Gi. Pt took small step advancing LLE while pivoting on her RLs. She took 2 steps where she had some weightbearing on LLE for a short amount of time. She was able to control descent into chair. She was given all needs within reach and daughter was present. Gait Assessment Comments Gait Comments unable M5 PT-IP Objective Assessments Start: 10/05/20 08:29 Freq: NEEDED Status: Active Protocol: Document 10/05/20 11:13 AW (Rec: 10/05/20 12:09 AW [id number]) Orientation Orientation/Cognition Level of Alertness Alert Orientation Name,Day of Week,Place, Situation Language Function Ability No Deficits Noted Safety Awareness Understands Safety Issues Memory Description No Deficits Noted Gross Range of Motion Upper Extremity ROM Assessment Within Functional Limits Lower Extremity ROM Assessment Left Impaired Strength Upper Extremity Strength Assessment Within Functional Limits Lower Extremity Strength Assessment Right Impaired Hip 3-/5 Knee 3/5 Comments Strength Comments RLE grossly 4/5 Sensation Assessment Sensation Gross Sensation WNL Muscle Tone Muscle Tone WNL Yes M6 PT-IP Treatment Start: 10/05/20 08:29 Freq: NEEDED Status: Active Protocol: Document 10/09/20 09:36 LJ (Rec: 10/09/20 11:59 LJ [id number]) Physical Therapy Treatment Exercises Exercises Ankle Pumps,Gluteal Sets,Quad Sets Education Education Provided Precautions,Weight Bearing Status,Safety M7 PT-IP Assessment and Plan Start: 10/05/20 08:29 Freq: NEEDED Status: Active Protocol: Document 10/09/20 09:36 LJ (Rec: 10/09/20 11:59 LJ [id number]) PT Summary Assessment and Plan Potential Rehabilitation Potential Good Summary Impairments Pain,ROM,Strength,Balance, Coordination,Sensation,Tone, Cognition,Bed Mobility, Transfers,Gait,Activity Tolerance Progress Towards Goals Slow Progress due to Medical Issues,Slow Progress due to Activity Tolerance Assessment Summary Pt required Gi for bed mobility and transfer. She was able to put some weight on her LLE but for very short amount of time and limited weight bearing performing almost a hopping motion. Pt states she cannot put much weight on the leg due to pain. Pt will require SNF to improve strength and mobility. Goals Bed Mobility Goal Minimal Assistance Transfer Goal Minimal Assistance,Front Wheeled Walker,Slide Board Gait Goal Minimal Assistance,Front Wheel Walker Gait Distance 25 Days to Meet Goals 10 Frequency of Treatment Frequency Of Treatment Twice a Day Treatment Plan Physical Therapy Treatment Plan Bed Mobility Training,Transfer Training,Gait Training, Therapeutic Exercise,Balance Retraining,Post Op Education, Discharge Planning,Hot or Cold Pack,Neuromuscular Re-ed, Coordination Retraining,Manual Therapy Other Recommendations and Next Treatment transfers, standing with scale Focus for WB feedback Precautions Other Precautions L trochanteric precaution: no abduction LLE PWB updated per Dr. Ambriz today to 75#-100# LLE Recommendations To Nursing Amount of Assist Needed 2 Person Assist Discharge Recommendations PT Discharge Recommendations SNF Rehab Transportation Needs at Discharge Wheelchair/Cabulance
[2020-10-09 12:29] LABS: COVID19 -Nasal RAPID Negative (Negative)
--- NOTE | 2020-10-09 15:35 | PC.NURSE ---
Patient A&O x3 . Mobility improved, with PWB of 75 % to LLE. Daughter and patient reviewed discharge intructions. Transporter arrived at 1520, transporting patient to [facility] in [facility]. Report called to S[facility] and left voicemail. Will reattempt to call report.
== END 2020-10-09 15:34 | DRG 543 ==
LOC: ED 16:24 → AC 18:46
PROVIDERS: Internal Medicine; Nurse Practitioner Family; Admitting Provider Internal Medicine; Emergency Provider Emergency Medicine; Family Provider Internal Medicine; PCP Internal Medicine; Referring Provider Emergency Medicine; Visit Provider Internal Medicine
DX: M80.052A Age-related osteoporosis with current pathological fracture, left femur, initial encounter for fracture (principal); D62 Acute posthemorrhagic anemia; S81.012A Laceration without foreign body, left knee, initial encounter; W01.0XXA Fall on same level from slipping, tripping and stumbling without subsequent striking against object, initial encounter; M25.572 Pain in left ankle and joints of left foot; S41.112A Laceration without foreign body of left upper arm, initial encounter; I48.0 Paroxysmal atrial fibrillation; Z79.01 Long term (current) use of anticoagulants; E78.5 Hyperlipidemia, unspecified; I10 Essential (primary) hypertension; I69.398 Other sequelae of cerebral infarction; R56.9 Unspecified convulsions; I67.9 Cerebrovascular disease, unspecified; G20 Parkinson's disease; Z20.822 Contact with and (suspected) exposure to COVID-19; Z96.643 Presence of artificial hip joint, bilateral; Z96.651 Presence of right artificial knee joint; S50.312A Abrasion of left elbow, initial encounter; Y92.018 Other place in single-family (private) house as the place of occurrence of the external cause
CPT/HCPCS: 12001; 36415; 70450; 72192; 73080; 73502; 73562; 73610; 73620; 80048; 83735; 85025; 85610; 87635; 97110; 97116; 97162; 97165; 97530; 97535; 99284; 99285; C9803; G0378